=== PATIENT | female | born 1990 | race Caucasian/White ===

== ENCOUNTER 2022-11-16 08:36 | Outpatient (OUT) | payer BC, SELFPAY ==
--- NOTE | 2022-11-16 08:34 | US_ITS ---
[address] [address] Patient Name: MARY BONE MRN: [id number] date: 1990 Sex: F Assigned Patient Location: US Current Patient Location: US Accession/Order Number: [id number] Exam Date: 11/16/2022 08:35 Report Date: 11/17/2022 08:06 At the request of: DEMOND ARANDA Procedure: US OB transvaginal EXAMINATION: US OB anatomy, US OB transvaginal HISTORY: Anatomy COMPARISON: No relevant comparison available. TECHNIQUE: Transabdominal sonographic examination was performed for obstetrical and evaluation. FINDINGS: Number: One Heart Rate: 153 H.B. /min Amniotic Fluid Volume: Subjectively normal Placental Location: Anterior with lower margin 3.2 cm from os. Hypoechoic area within inferior placenta favoring a venous valle. Cervix Length: 5.2 cm, closed. ANATOMY: Normal Structures -cerebellum, choroid plexus, cisterna magna, lateral cerebral ventricles, orbits, midline falx, hard palate, four-chamber heart, RVOT, LVOT, stomach, kidneys, bladder, umbilical cord insertion into abdomen, three-vessel cord, cervical spine, thoracic spine, lumbar spine, sacral spine, right upper extremity, left upper extremity, right lower extremity, left lower extremity. SUBOPTIMALLY SEEN: None ABNORMALITIES: None BIOMETRY: BPD: 4.7 cm , 20 weeks 1 day HC: 18.2 cm, 20 weeks 4 days AC: 15.0 cm, 20 weeks 2 days FL: 3.5 cm, 20 weeks 6 days EFW:360 g; 35% FL/AC: 23.0 FL/BPD: 73.9 HC/AC: 1.2 GESTATIONAL AGE: Age by EDC: 20 weeks 5 days SON by EDC: 03/31/2023 Age by current US: 20 weeks 3 days SON by current US: 04/02/2023 IMPRESSION: 1. Single live intrauterine with growth detailed above. Electronically authenticated by: LAVINIA WEST Date: 11/17/2022 08:06
--- NOTE | 2022-11-16 08:34 | US_ITS ---
[address] [address] Patient Name: MARY BONE MRN: [id number] date: 1990 Sex: F Assigned Patient Location: US Current Patient Location: US Accession/Order Number: [id number] Exam Date: 11/16/2022 08:35 Report Date: 11/17/2022 08:06 At the request of: DEMOND ARANDA Procedure: US OB anatomy EXAMINATION: US OB anatomy, US OB transvaginal HISTORY: Anatomy COMPARISON: No relevant comparison available. TECHNIQUE: Transabdominal sonographic examination was performed for obstetrical and evaluation. FINDINGS: Number: One Heart Rate: 153 H.B. /min Amniotic Fluid Volume: Subjectively normal Placental Location: Anterior with lower margin 3.2 cm from os. Hypoechoic area within inferior placenta favoring a venous valle. Cervix Length: 5.2 cm, closed. ANATOMY: Normal Structures -cerebellum, choroid plexus, cisterna magna, lateral cerebral ventricles, orbits, midline falx, hard palate, four-chamber heart, RVOT, LVOT, stomach, kidneys, bladder, umbilical cord insertion into abdomen, three-vessel cord, cervical spine, thoracic spine, lumbar spine, sacral spine, right upper extremity, left upper extremity, right lower extremity, left lower extremity. SUBOPTIMALLY SEEN: None ABNORMALITIES: None BIOMETRY: BPD: 4.7 cm , 20 weeks 1 day HC: 18.2 cm, 20 weeks 4 days AC: 15.0 cm, 20 weeks 2 days FL: 3.5 cm, 20 weeks 6 days EFW:360 g; 35% FL/AC: 23.0 FL/BPD: 73.9 HC/AC: 1.2 GESTATIONAL AGE: Age by EDC: 20 weeks 5 days SON by EDC: 03/31/2023 Age by current US: 20 weeks 3 days SON by current US: 04/02/2023 IMPRESSION: 1. Single live intrauterine with growth detailed above. Electronically authenticated by: LAVINIA WEST Date: 11/17/2022 08:06
== END 2022-11-16 08:37 ==
PROVIDERS: PCP Obstetrics & Gynecology; Visit Provider Obstetrics & Gynecology
DX: Z34.92 Encounter for supervision of normal pregnancy, unspecified, second trimester (principal); Z3A.20 20 weeks gestation of pregnancy
CPT/HCPCS: 76805; 76817

== ENCOUNTER 2023-01-08 09:22 | Outpatient (OUT) | payer BC, SELFPAY ==
--- NOTE | 2023-01-08 09:28 | US_ITS ---
[address] [address] Patient Name: MARY BONE MRN: [id number] date: 1990 Sex: F Assigned Patient Location: Current Patient Location: Accession/Order Number: [id number] Exam Date: 01/08/2023 09:30 Report Date: 01/08/2023 15:57 At the request of: DEMOND ARANDA Procedure: US OB growth EXAMINATION: US OB growth HISTORY: GDM COMPARISON: Ultrasound OB anatomy 11/16/2022 FINDINGS: Heart Rate: 143.0 bpm Number: 1.0 Position: TRANSVERSE Amniotic Fluid Volume: 16.0 cm Maximum Vertical Pocket: 4.7 cm BIOMETRY: BPD: 6.9 cm cm; 27 weeks 5 days HC: 26.0 cmcm; 28 weeks 2 days AC: 23.4 cm cm; 27 weeks 5 days FL: 5.3 cm cm; 28 weeks 0 days EFW: 1139.7 grams; 23% FL/AC: 22.5 FL/BPD: 76.3 HC/AC: 1.1 GESTATIONAL AGE: Age by EDC: 28 weeks 2 days SON by EDC: 03/31/2023 Age by US: 20 weeks 0 days SNO by US: 04/02/2023 US/US OB growth IMPRESSION: 1. Single live intrauterine with growth detailed above. Electronically authenticated by: LAVINIA WEST Date: 01/08/2023 15:57
== END 2023-01-08 09:23 | disposition home or self-care (01) ==
LOC: US 09:22
PROVIDERS: PCP Family Medicine; Visit Provider Obstetrics & Gynecology
DX: Z86.32 Personal history of gestational diabetes (principal)
CPT/HCPCS: 76816

== ENCOUNTER 2023-01-20 11:40 | Outpatient (OUT) | payer BC, SELFPAY ==
[2023-01-20 11:58] VITALS: BP 122/68; PULSE 91; TEMP 35.4
[2023-01-20 12:06] LABS: Glucometer 121 mg/dL (74-106)
[2023-01-20 12:26] LABS: Bilirubin Urine NEGATIVE (NEGATIVE); Blood Urine NEGATIVE (NEGATIVE); Clarity Urine SL CLOUDY (CLEAR); Color Urine YELLOW (YELLOW); Glucose Urine UA NEGATIVE (NEGATIVE); Ketones Urine 15 mg/dL (NEGATIVE); Leukocyte Esterase Urine SMALL (NEGATIVE); Nitrite Urine NEGATIVE (NEGATIVE); Protein Urine 100 mg/dL (NEG/TRACE); Specific Gravity Urine 1.025 (1.005-1.025); pH Urine 6.5 (5.0-9.0)
[2023-01-20 12:30] LABS: Urine Microscopic Indicated YES
[2023-01-20 12:38] LABS: Bacteria Urine MODERATE #/HPF (NONE SEEN); Cast Seen? NONE SEEN #/LPF (NONE SEEN); Crystals Seen? None Seen #/HPF (None Seen); Mucus Urine TRACE (NONE SEEN); RBC Urine 0-2 #/HPF (0-2); Squamous Epithelial Cell Urine MODERATE #/LPF (NONE/RARE); Urine Culture Indicated YES
[2023-01-20] MEDS: 0.9 % SODIUM CHLORIDE 1,000 ML 1000 ML IV (12:51)
== END 2023-01-20 13:55 | disposition home or self-care (01) ==
LOC: FBCO 11:45 → FBC 11:45
PROVIDERS: PCP Family Medicine; Visit Provider Obstetrics & Gynecology
DX: O26.893 Other specified pregnancy related conditions, third trimester (principal); Z3A.30 30 weeks gestation of pregnancy; R42 Dizziness and giddiness; R53.1 Weakness
CPT/HCPCS: 36415; 59025; 81001; 81003; 87086

== ENCOUNTER 2023-02-14 12:55 | Outpatient (OUT) | payer BC, SELFPAY ==
--- NOTE | 2023-02-14 12:57 | US_ITS ---
[address] [address] Patient Name: MARY BONE MRN: [id number] date: 1990 Sex: F Assigned Patient Location: US Current Patient Location: US Accession/Order Number: [id number] Exam Date: 02/14/2023 13:05 Report Date: 02/14/2023 13:54 At the request of: DEMOND ARANDA Procedure: US OB growth EXAMINATION: US OB growth HISTORY: HISTORY GESTATIONAL DIABETES Z86.32 COMPARISON: No relevant comparison available. FINDINGS: Heart Rate: 115.0 bpm Amniotic Fluid Volume: 13.2 cm Number: 1.0 Position: Cephalic presentation, longitudinal lie Maximum Vertical Pocket: 3.0 cm cm 2.8 cm cm 2.6 cm cm 4.9 cm cm BIOMETRY: BPD: 7.9 cm cm; 31 weeks 5 days; 6% HC: 30.4 cmcm; 33 weeks 6 days, 20% AC: 28.8 cm cm; 32 weeks 6 days, 30% FL: 6.3 cm cm; 32 weeks 4 days; 14.9 % % EFW: 2034.9 grams, 4 lbs. 8 oz., 20% FL/AC: 21.8 FL/BPD: 79.4 HC/AC: 1.1 GESTATIONAL AGE: Age by EDC: 33 weeks 4 days SON by EDC: 03/31/2023 Age by US: 32 weeks 5 days SON by US: 04/06/2023 US/US OB growth IMPRESSION: Normal interval growth Electronically authenticated by: JUAN ANTONIO BLACKMAN Date: 02/14/2023 13:54
== END 2023-02-14 12:56 | disposition home or self-care (01) ==
LOC: US 12:55
PROVIDERS: PCP Family Medicine; Visit Provider Obstetrics & Gynecology
DX: Z34.93 Encounter for supervision of normal pregnancy, unspecified, third trimester (principal); Z86.32 Personal history of gestational diabetes
CPT/HCPCS: 76816

== ENCOUNTER 2023-02-21 06:55 | Outpatient (OUT) | payer BC, SELFPAY ==
--- NOTE | 2023-02-21 | ECG_ITS ---
[facility] Test Date: 2023-02-21 Pat Name: MARY BONE Department: Room: - Gender: Female [employer]: : 1990 Requested By: DEMOND ARANDA Order Number: [id number] Reading MD: MAURICE DIEZ Measurements Intervals [place] Rate: 81 P: 52 WY: 128 QRS: 67 QRSD: 89 T: 19 QT: 336 QTc: 391 Interpretive Statements SINUS RHYTHM No previous ECG available for comparison Electronically Signed On 02-22-2023 7:01:26 EDT by MAURICE DIEZ
--- NOTE | 2023-02-21 07:57 | CA_ITS ---
Patient: MARY BONE Exam Date: 02/21/2023 : 1990 Gender:F Ordering : DR Jae Tim . Admission #: [id number] Family : Order #: [id number] CLICK HERE TO VIEW EXAM ECHOCARDIOGRAM REPORT PROCEDURE: CA ECHO DOPPLER COMPLETE INDICATIONS: Syncope COMPARISON: None. DESCRIPTION: COMPLETE ECHOCARDIOGRAM Real-time transthoracic echocardiography with 2D, M-mode, spectral and color flow Doppler performed. QUALITY: Technical quality was good. LEFT VENTRICLE: Normal chamber size. Moderate concentric left ventricular hypertrophy. Global left ventricular systolic function is normal. LV EF: Estimated left ventricular ejection fraction is 65-70%. DIASTOLIC: Normal diastolic function. ATRIAL SEPTUM: LEFT ATRIUM: Normal chamber size. RIGHT ATRIUM: Mild dilatation. RIGHT VENTRICLE: Mild dilatation. Normal right ventricular systolic function. TRICUSPID VALVE: Normal mobility and thickness. No stenosis with mild regurgitation. No evidence of pulmonary hypertension. RVSP 26 mmHg MITRAL VALVE: Normal mobility and thickness. No evidence of mitral valve stenosis. There is no mitral annular calcification. No mitral regurgitation. AORTIC VALVE: Normal trileaflet appearance. No visible sclerosis. Normal leaflet mobility. No evidence of aortic valve stenosis. No aortic regurgitation. AORTIC ROOT: Normal diameter and appearance. PULMONIC VALVE: Normal thickness and mobility. No stenosis. Trivial regurgitation. PERICARDIUM: No evidence of pericardial effusion. IVC: Collapses with inspirations. Normal size. PLEURA: CONCLUSION: 1. Moderate concentric left ventricular hypertrophy with normal systolic function. Estimated LV ejection fraction is 65-70%. 2. Mildly dilated right ventricle with normal systolic function. 3. Mild right atrial dilatation. 4. No significant valvular dysfunction. 5. Normal right sided pressures. Adult Echocardiography Procedure Report Left Ventricle LVEDD (3.7 - 5.6 cm): 3.80 cm LVESD (2.2 - 4.0 cm): 2.17 cm LVIVS thickness (0.6 - 1.2 cm): 1.57 cm LVPW thickness (0.5 - 1.0 cm): 1.48 cm e': 0.11 m/s E - e': 5.73 LVOT Max Gradient: 3.62 mm[Hg], 4.03 mm[Hg] LVOT Area (cm2): 0.98 m/s Peak Velocity (LVOT): 0.95 m/s, 1.00 m/s Mean Velocity (LVOT): 0.64 m/s LVOT Diameter 2.10 cm Left Ventricular Ejection Fraction: 65-70 % Left Atrium LA Volume Index (2D A2C): 32.60 ml/m2 Left Atrium Systolic Dimension: 4.02 cm Mitral Valve MV E to A Ratio: 0.81, 0.95 Mitral Valve A-Wave Peak Velocity: 0.71 m/s Mitral Valve E-Wave Peak Velocity: 0.62 m/s Right Ventricle RV Internal Diastolic Dimension: 3.63 cm Aorta AO Root Diam: 2.91 cm Ascending Ao Diam: 2.73 cm Aortic Valve AoV Area (Peak Jeff): 2.09 cm2, 2.03 cm2 AoV Area (VTI): 2.60 cm2, 2.73 cm2 Peak Velocity(Antegrade Flow): 1.62 m/s Peak Gradient(Antegrade Flow): 10.44 mm[Hg] Mean Velocity(Antegrade Flow): 1.08 m/s Mean Gradient(Antegrade Flow): 5.37 mm[Hg] Velocity Time Integral: 28.92 cm Tricuspid Valve Peak Velocity (Regurgitant Flow): 2.37 m/s, 2.20 m/s, 2.16 m/s, 2.38 m/s Pulmonic Valve Mean Gradient: 2.65 mm[Hg], 2.46 mm[Hg], 2.43 mm[Hg], 2.46 mm[Hg] Mean Velocity: 0.76 m/s, 0.73 m/s, 0.72 m/s, 0.74 m/s Peak Velocity: 1.08 m/s Peak Gradient: 5.31 mm[Hg], 4.61 mm[Hg], 4.61 mm[Hg], 4.20 mm[Hg] Right Atrium Right Atrium Systolic Pressure: 49.53 ml, 49.53 ml Dictated by: Matt Lau M.D. on 02/22/2023 at 08:55 Approved by: Matt Lau M.D. on 02/22/2023 at 09:08
== END 2023-02-21 06:56 | disposition home or self-care (01) ==
LOC: CARD 06:56
PROVIDERS: PCP Family Medicine; Visit Provider Obstetrics & Gynecology
DX: O24.415 Gestational diabetes mellitus in pregnancy, controlled by oral hypoglycemic drugs (principal); O26.893 Other specified pregnancy related conditions, third trimester; R55 Syncope and collapse; Z3A.34 34 weeks gestation of pregnancy
CPT/HCPCS: 76818; 93005; 93306

== ENCOUNTER 2023-02-21 16:10 | Outpatient (OUT) | payer BC, SELFPAY ==
--- NOTE | 2023-02-21 | US_ITS ---
[address] [address] Patient Name: MARY BONE MRN: [id number] date: 1990 Sex: F Assigned Patient Location: US Current Patient Location: CARD Accession/Order Number: [id number] Exam Date: 02/21/2023 16:00 Report Date: 02/21/2023 16:38 At the request of: DEMOND ARANDA Procedure: US OB BPP w non-stress EXAMINATION: US OB BPP w non-stress HISTORY: GESTATIONAL DIABETES MELLITUS COMPARISON: No relevant comparison available. TECHNIQUE: Ultrasound biophysical profile was performed in the radiology department. FINDINGS: BREATHING MOVEMENTS: 2.0 GROSS BODY MOVEMENTS: 2.0 TONE: 2.0 QUALITATIVE AMNIOTIC FLUID VOLUME: 2.0 PRESENTATION: CEPHALIC HEART RATE: 132.4 bpm H.B./min AMNIOTIC FLUID VOLUME: 15.6 cm cm GESTATIONAL AGE: 34 weeks 4 days CONCLUSION: Total biophysical profile score: 8.0 Electronically authenticated by: JUAN ANTONIO BLACKMAN Date: 02/21/2023 16:38
[2023-02-21 16:26] VITALS: RESP 18
[2023-02-21 16:27] VITALS: BP 133/62; PULSE 85; TEMP 35.8; TEMP 36.1
[2023-02-21 16:28] VITALS: TEMP 35.9
[2023-02-21 16:29] VITALS: RESP 18
[2023-02-21 17:09] VITALS: BP 121/74; PULSE 87
== END 2023-02-21 17:12 | disposition home or self-care (01) ==
LOC: US 16:10 → FBC 16:10
PROVIDERS: PCP Family Medicine; Visit Provider Obstetrics & Gynecology
DX: O24.415 Gestational diabetes mellitus in pregnancy, controlled by oral hypoglycemic drugs (principal); Z3A.34 34 weeks gestation of pregnancy
CPT/HCPCS: 76818

== ENCOUNTER 2023-02-24 14:49 | Outpatient (OUT) | payer BC, SELFPAY ==
[2023-02-24 15:04] VITALS: BP 111/75; PULSE 106
== END 2023-02-24 16:00 | disposition home or self-care (01) ==
LOC: FBCO 14:50 → FBC 14:51
PROVIDERS: PCP Family Medicine; Visit Provider Obstetrics & Gynecology
DX: O24.415 Gestational diabetes mellitus in pregnancy, controlled by oral hypoglycemic drugs (principal); Z3A.00 Weeks of gestation of pregnancy not specified
CPT/HCPCS: 59025

== ENCOUNTER 2023-02-28 08:51 | Outpatient (OUT) | payer BC, SELFPAY ==
--- NOTE | 2023-02-28 08:53 | US_ITS ---
[address] [address] Patient Name: MARY BONE MRN: [id number] date: 1990 Sex: F Assigned Patient Location: US Current Patient Location: Accession/Order Number: [id number] Exam Date: 02/28/2023 09:00 Report Date: 02/28/2023 16:39 At the request of: DEMOND ARANDA Procedure: US OB BPP w non-stress EXAMINATION: US OB BPP w non-stress HISTORY: GESTATIONAL DIABETES MELLITUS 024.415 COMPARISON: No relevant comparison available. TECHNIQUE: Ultrasound biophysical profile was performed in the radiology department. non-reactive stress testing was performed by nursing staff in the birthing center. FINDINGS: BREATHING MOVEMENTS: 2 GROSS BODY MOVEMENTS: 2 TONE: 2 QUALITATIVE AMNIOTIC FLUID VOLUME: 2 PRESENTATION: CEPHALIC HEART RATE: 185.5 bpm H.B./min AMNIOTIC FLUID VOLUME: 14.0 cm cm GESTATIONAL AGE: 35 weeks 4 days CONCLUSION: Total biophysical profile score: 8 Electronically authenticated by: JUAN ANTONIO BLACKMAN Date: 02/28/2023 16:39
[2023-02-28 09:25] VITALS: BP 126/58; PULSE 122
[2023-02-28 09:46] VITALS: BP 101/63; PULSE 106
== END 2023-02-28 10:15 | disposition home or self-care (01) ==
LOC: US 08:51 → FBC 09:05
PROVIDERS: PCP Family Medicine; Visit Provider Obstetrics & Gynecology
DX: O24.415 Gestational diabetes mellitus in pregnancy, controlled by oral hypoglycemic drugs (principal); Z3A.35 35 weeks gestation of pregnancy
CPT/HCPCS: 76818

== ENCOUNTER 2023-03-03 10:10 | Outpatient (OUT) | payer BC, SELFPAY | END 2023-03-03 11:40 | disposition home or self-care (01) | LOC: FBCO 10:11 → FBC 10:50 | PROVIDERS: PCP Family Medicine; Visit Provider Obstetrics & Gynecology | DX: O24.415 Gestational diabetes mellitus in pregnancy, controlled by oral hypoglycemic drugs (principal); Z3A.00 Weeks of gestation of pregnancy not specified | CPT/HCPCS: 59025 ==

== ENCOUNTER 2023-03-07 14:01 | Outpatient (OUT) | payer BC, SELFPAY ==
--- NOTE | 2023-03-07 14:02 | US_ITS ---
[address] [address] Patient Name: MARY BONE MRN: [id number] date: 1990 Sex: F Assigned Patient Location: [facility] Current Patient Location: LAB Accession/Order Number: [id number] Exam Date: 03/07/2023 14:05 Report Date: 03/07/2023 15:31 At the request of: DEMOND ARANDA Procedure: US OB BPP w non-stress EXAMINATION: US OB BPP w non-stress HISTORY: GESTATIONAL DIABETES O24.415 COMPARISON: Ultrasound OB biophysical 02/28/2023 TECHNIQUE: Ultrasound biophysical profile was performed in the radiology department. BREATHING MOVEMENTS: 2.0 GROSS BODY MOVEMENTS: 2.0 TONE: 2.0 QUALITATIVE AMNIOTIC FLUID VOLUME: 2.0 PRESENTATION: CEPHALIC HEART RATE: 136.4 bpm bpm. AMNIOTIC FLUID VOLUME: 15.3 cm GESTATIONAL AGE: 36 weeks 4 days CONCLUSION: Total biophysical profile score 8.0. Electronically authenticated by: LAVINIA WEST Date: 03/07/2023 15:31
[2023-03-07 14:33] VITALS: BP 126/76; PULSE 95
== END 2023-03-07 14:55 | disposition home or self-care (01) ==
LOC: US 14:01 → FBC 14:02
PROVIDERS: PCP Family Medicine; Visit Provider Obstetrics & Gynecology
DX: O24.415 Gestational diabetes mellitus in pregnancy, controlled by oral hypoglycemic drugs (principal); Z3A.36 36 weeks gestation of pregnancy; O99.891 Other specified diseases and conditions complicating pregnancy; I47.1 Supraventricular tachycardia; R00.2 Palpitations
CPT/HCPCS: 36415; 76818; 80053; 83735; 84439; 84443; 85025; 87081

== ENCOUNTER 2023-03-07 15:05 | Outpatient (OUT) | payer BC, SELFPAY ==
[2023-03-07 15:54] LABS: Basophils Percent Auto 0.2 % (0.2-2.0); Eosinophils Absolute Auto 0.1 10^3/uL (0.0-0.7); Hematocrit 29.7 % (36.0-48.0); Hemoglobin 9.6 g/dL (12.0-16.0); Immature Granulocytes Abs Auto 0.11 10^3/uL (0.00-0.03); Immature Granulocytes Pct Auto 1.1 % (0.0-0.5); Lymphocytes Percent Auto 20.8 % (20.5-60.0); Mean Corpuscular HGB Conc 32.3 g/dL (29.9-35.2); Mean Corpuscular Hemoglobin 26.4 pg (26.7-34.0); Mean Corpuscular Volume 81.6 fL (81.0-99.0); Mean Platelet Volume 10.4 fL (9.5-13.5); Monocytes Absolute Auto 0.5 10^3/uL (0.3-0.8); Neutrophils Percent Auto 71.9 % (43.0-75.0); Platelet Count 235 10^3/uL (150-450); Red Blood Count 3.64 10^6/uL (4.20-5.40); Red Cell Distribution Width 13.1 % (11.0-15.0); White Blood Count 9.7 10^3/uL (4.0-11.0)
[2023-03-07 16:26] LABS: Free T4 0.84 ng/dL (0.76-1.46)
[2023-03-07 16:34] LABS: Alanine Aminotransferase 24 U/L (14-59); Albumin Globulin Ratio 0.6; Albumin Level 2.4 g/dL (3.4-5.0); Alkaline Phosphatase 127 U/L (46-116); Anion Gap 13.5; Aspartate Amino Transferase 20 U/L (15-37); BUN Creatinine Ratio 10.4; Bilirubin Total 0.3 mg/dL (0.2-1.0); Calcium 9.1 mg/dL (8.5-10.1); Carbon Dioxide 22.4 mmol/L (21.0-32.0); Chloride 104 mmol/L (98-107); Estimated GFR (African America >60 (>=60); Estimated GFR (Non-African Ame >60 (>=60); Globulin 4.1 g/dL; Glucose 130 mg/dL (74-106); Magnesium 1.6 mg/dL (1.8-2.4); Potassium 3.9 mmol/L (3.5-5.1); Sodium 136 mmol/L (136-145); Thyroid Stimulating Hormone 2.122 uIU/mL (0.358-3.740); Total Protein 6.5 g/dL (6.4-8.2)
== END 2023-03-07 15:06 | disposition home or self-care (01) ==
LOC: LAB 15:06
PROVIDERS: PCP Family Medicine; Visit Provider Nurse Practitioner
DX: I47.1 Supraventricular tachycardia (principal)
CPT/HCPCS: 36415; 80053; 83735; 84439; 84443; 85025

== ENCOUNTER 2023-03-07 19:50 | Outpatient (REF) | payer BC, SELFPAY | END 2023-03-07 19:51 | disposition home or self-care (01) | LOC: LAB 19:50 | PROVIDERS: PCP Family Medicine; Visit Provider Obstetrics & Gynecology | DX: Z34.93 Encounter for supervision of normal pregnancy, unspecified, third trimester (principal) | CPT/HCPCS: 36415; 80053; 83735; 84439; 84443; 85025; 87081 ==

== ENCOUNTER 2023-03-10 10:15 | Outpatient (OUT) | payer BC, SELFPAY ==
[2023-03-10 10:28] VITALS: BP 122/70; PULSE 83
== END 2023-03-10 10:50 | disposition home or self-care (01) ==
LOC: FBCO 10:21 → FBC 10:21
PROVIDERS: PCP Family Medicine; Visit Provider Obstetrics & Gynecology
DX: O24.415 Gestational diabetes mellitus in pregnancy, controlled by oral hypoglycemic drugs (principal); Z3A.00 Weeks of gestation of pregnancy not specified
CPT/HCPCS: 59025

== ENCOUNTER 2023-03-14 10:00 | Inpatient (IN) | payer BC, SELFPAY ==
[2023-03-14] VITALS (35 sets, daily range): BP systolic 91–235; BP diastolic 59–157; PULSE 60–95; RESP 16–18; TEMP 30.2–36.2
--- NOTE | 2023-03-14 | US_ITS ---
[address] [address] Patient Name: MARY BONE MRN: [id number] date: 1990 Sex: F Assigned Patient Location: [facility] Current Patient Location: [facility] Accession/Order Number: [id number] Exam Date: 03/14/2023 09:00 Report Date: 03/14/2023 18:25 At the request of: DEMOND ARANDA Procedure: US OB BPP w non-stress EXAMINATION: US OB BPP w non-stress HISTORY: GESTATIONL DIABETES MELLITUS O24.415 COMPARISON: No relevant comparison available. TECHNIQUE: Ultrasound biophysical profile was performed in the radiology department. FINDINGS: BREATHING MOVEMENTS: 2.0 GROSS BODY MOVEMENTS: 2.0 TONE: 2.0 QUALITATIVE AMNIOTIC FLUID VOLUME: 2.0 PRESENTATION: CEPHALIC HEART RATE: 136.4 bpm H.B./min AMNIOTIC FLUID VOLUME: 7.6 cm cm GESTATIONAL AGE: 37 weeks 4 days CONCLUSION: Total biophysical profile score: 8.0 Electronically authenticated by: JUAN ANTONIO BLACKMAN Date: 03/14/2023 18:25
--- NOTE | 2023-03-14 | US_ITS ---
[address] [address] Patient Name: MARY BONE MRN: [id number] date: 1990 Sex: F Assigned Patient Location: Current Patient Location: [facility] Accession/Order Number: [id number] Exam Date: 03/14/2023 09:00 Report Date: 03/14/2023 18:29 At the request of: DEMOND ARANDA Procedure: US OB growth EXAMINATION: US OB growth HISTORY: GESTATIONAL DIABETES MELLITUS O24.415 COMPARISON: No relevant comparison available. FINDINGS: Heart Rate: 136.4 bpm Amniotic Fluid Volume: 7.6 cm , 5th percentile 7.5 cm Number: 1.0 Position: Cephalic presentation, longitudinal lie Maximum Vertical Pocket: 1.4 cm cm 3.5 cm cm 1.4 cm cm 1.3 cm cm BIOMETRY: BPD: 8.5 cm cm; 34 weeks 1 days; <3% HC: 31.6 cmcm; 35 weeks 3 days <3% AC: 29.1 cm cm; 33 weeks 1 days<3% FL: 6.4 cm cm; 33 weeks 1 days; <3 % EFW: 2197.4 grams, 4 lbs. 13 oz., less than 3% FL/AC: 22.0 FL/BPD: 75.6 HC/AC: 1.1 GESTATIONAL AGE: Age by EDC: 37 weeks 4 days SON by EDC: 03/31/2023 Age by US: 34 weeks 0 days SON by US: 04/25/2023 US/US OB growth IMPRESSION: Intrauterine growth retardation Borderline oligohydramnios Electronically authenticated by: JUAN ANTONIO BLACKMAN Date: 03/14/2023 18:29
[2023-03-14] MEDS: 0.9 % SODIUM CHLORIDE 1,000 ML 125 ML IV ×2 (11:26→17:56)
[2023-03-14] MEDS: OXYTOCIN/0.9 % SODIUM CHLORIDE 10 UNITS/500 ML PLAST..BAG 6 UNIT IV (11:27)
[2023-03-14 11:39] LABS: Hematocrit 29.7 % (36.0-48.0); Hemoglobin 9.6 g/dL (12.0-16.0); Mean Corpuscular HGB Conc 32.3 g/dL (29.9-35.2); Mean Corpuscular Hemoglobin 26.2 pg (26.7-34.0); Mean Corpuscular Volume 81.1 fL (81.0-99.0); Mean Platelet Volume 10.2 fL (9.5-13.5); Platelet Count 207 10^3/uL (150-450); Red Blood Count 3.66 10^6/uL (4.20-5.40); Red Cell Distribution Width 13.5 % (11.0-15.0); White Blood Count 9.6 10^3/uL (4.0-11.0)
[2023-03-14 12:01] LABS: Amphetamine Screen Urine NEGATIVE (NEGATIVE); Barbiturates Screen Urine NEGATIVE (NEGATIVE); Benzodiazepines Screen Urine NEGATIVE (NEGATIVE); Buprenorphine Screen Urine NEGATIVE (NEGATIVE); Cannabinoid Screen Urine NEGATIVE (NEGATIVE); Cocaine Screen Urine NEGATIVE (NEGATIVE); Methadone Screen Urine NEGATIVE (NEGATIVE); Methamphetamines Screen Urine NEGATIVE (NEGATIVE); Opiate Screen Urine NEGATIVE (NEGATIVE); Oxycodone Screen Urine NEGATIVE (NEGATIVE); Phencyclidine Screen Urine NEGATIVE (NEGATIVE); Tricyclic Antidepressant Urine NEGATIVE (NEGATIVE)
[2023-03-14 16:43] LABS: Glucometer 76 mg/dL (74-106)
[2023-03-14] MEDS: OXYTOCIN/0.9 % SODIUM CHLORIDE 20 UNITS/1,000 ML PLAST..BAG 125 UNIT IV (17:56)
--- NOTE | 2023-03-14 18:03 | PM.OBPRCVD ---
Procedure Intrapartal events: None Induction method: per pitocin protocol Delivery augmentation: rupture of membranes and pitocin Delivery monitor: external FHT and external uterine Route of delivery: Laceration description: perineal - 1st degree Delivery repair: Vicryl Estimated blood loss (mL): 400 Anesthesia type: None Disposition: floor Delivery date: 03/14/23 Gender: female presentation: vertex Placental delivery description: Spontaneous cord description: 3 Vessels and True Knot Labor State Duration Total Length of Latency: 4 hours and 47 minutes
[2023-03-14] MEDS: LABETALOL HCL 200 MG TABLET PO (22:33)
[2023-03-14] MEDS: IBUPROFEN 600 MG TABLET PO (23:45)
--- NOTE | 2023-03-14 23:46 | PM.EN ---
Event Note Event Note: this provider called to room for delivery as Dr Tim was Enroute and patient was complete with urge to push. RN in attendance as well, patient breathing and panting with contractions. Patient unable to pant after 3 sets of contractions and involuntarily begins to push. Baby is , RN supports head, and I then delivered the baby and placed baby onto patients abdomen for skin to skin. Dr Tim to room and he does 3rd stage management and 1st degree repair.
[2023-03-15] VITALS (8 sets, daily range): BP systolic 109–129; BP diastolic 61–72; PULSE 65–75; RESP 14–20; TEMP 36.2–36.5
[2023-03-15 06:15] LABS: Basophils Percent Auto 0.3 % (0.2-2.0); Eosinophils Absolute Auto 0.2 10^3/uL (0.0-0.7); Eosinophils Percent Auto 1.3 % (0.9-7.0); Hematocrit 26.4 % (36.0-48.0); Hemoglobin 8.3 g/dL (12.0-16.0); Immature Granulocytes Abs Auto 0.09 10^3/uL (0.00-0.03); Immature Granulocytes Pct Auto 0.8 % (0.0-0.5); Lymphocytes Absolute Auto 2.9 10^3/uL (1.2-3.8); Lymphocytes Percent Auto 25.5 % (20.5-60.0); Mean Corpuscular HGB Conc 31.4 g/dL (29.9-35.2); Mean Corpuscular Volume 82.8 fL (81.0-99.0); Mean Platelet Volume 9.4 fL (9.5-13.5); Monocytes Absolute Auto 0.7 10^3/uL (0.3-0.8); Monocytes Percent Auto 6.4 % (1.7-12.0); Neutrophils Absolute Auto 7.5 10^3/uL (1.4-6.5); Neutrophils Percent Auto 65.7 % (43.0-75.0); Platelet Count 183 10^3/uL (150-450); Red Blood Count 3.19 10^6/uL (4.20-5.40); Red Cell Distribution Width 13.5 % (11.0-15.0); White Blood Count 11.5 10^3/uL (4.0-11.0)
--- NOTE | 2023-03-15 07:14 | W.PC.ACHO ---
Registration Status: ADM IN Primary Language: Guatemalan Preferred Language: Guatemalan report given to Andriy Pagan RN. Active Medications Generic Name Dose Route Start Last Admin Trade Name Freq PRN Reason Stop Dose Admin Acetaminophen 650 mg 03/14/23 18:09 Acetaminophen 325 Mg Tablet PO Q6H PRN Mild Pain Al Hydroxide/Mg Hydroxide 2,400 mg 03/14/23 18:09 Magnesium Hydroxide 2,400 Mg/10 Ml Oral.Susp PO Q6H PRN Dyspepsia Benzocaine/Menthol 1 applic 03/14/23 18:09 Benzocaine/Menthol 85 Gram [place] Bottle TOPICAL Q2H PRN Pain Carboprost Tromethamine 250 mcg 03/14/23 10:17 Carboprost Tromethamine 250 Mcg/Ml 1 Ml Vial IM 03/15/23 19:00 Q15M PRN Bleeding Diphtheria/Pertussis/Tetanus Vacc 0.5 ml 03/16/23 09:00 Adacel Diph,Pertuss(Acell),Tet Vac/Pf 0.5 Ml Adult Syringe IM 03/16/23 09:01 .ONCE ONE Sodium Chloride 1,000 mls @ 125 mls/hr 03/14/23 10:30 03/14/23 17:56 Sodium Chloride 0.9% 1,000 Ml IV 125 mls/hr .Q8H MARCELA Administration Ibuprofen 600 mg 03/14/23 18:09 03/14/23 23:45 Ibuprofen 600 Mg Tablet PO 600 mg Q6H PRN Administration Moderate Pain Labetalol HCl 200 mg 03/14/23 22:00 03/14/23 22:33 Labetalol Hcl 200 Mg Tablet PO 200 mg BID MARCELA Administration Measles/Mumps/Rubella Vaccine Live 0.5 ml 03/16/23 09:00 Measles,Mumps,Rubella Vacc/Pf 0.5 Ml Vial SQ 03/16/23 09:01 .ONCE ONE Methylergonovine Maleate 0.2 mg 03/14/23 10:17 Methylergonovine Maleate 0.2 Mg/Ml Ampule IM 03/15/23 19:00 ONCE PRN Uterine Contractility/Contract Methylergonovine Maleate 0.2 mg 03/14/23 10:17 Methylergonovine Maleate 0.2 Mg Tablet PO 03/15/23 19:00 Q4H PRN Uterine Contractility/Contract Misoprostol 600 mcg 03/14/23 10:17 Misoprostol 100 Mcg Tablet PO 03/15/23 19:00 ONCE PRN Uterine Bleeding Misoprostol 800 mcg 03/14/23 10:17 Misoprostol 100 Mcg Tablet SL 03/15/23 19:00 ONCE PRN Uterine Bleeding Misoprostol 1,000 mcg 03/14/23 10:17 Misoprostol 100 Mcg Tablet MS 03/15/23 19:00 ONCE PRN Uterine Bleeding Ondansetron HCl 4 mg 03/14/23 10:22 Ondansetron Pf 4 Mg/2 Ml Vial IV Q6H PRN Nausea And Vomiting Simethicone 80 mg 03/14/23 18:09 Simethicone 80 Mg Tab.Chew PO QID PRN Abdominal Distention Temazepam 15 mg 03/14/23 18:09 Temazepam 15 Mg Capsule PO QHS PRN Sleep Witch Lizzette/Glycerin 1 pad 03/14/23 18:09 Glycerin/Witch Lizzette Pads TOPICAL Q2H PRN Pain Diet Category Date Time Status Regular Consistency Diet Diet 03/14/23 Dinner Active IV Insertion/Site Date of IV Line Insertion [20g 03/14/23 left Forearm] Date of IV Line Insertion [20g 03/14/23 left Forearm] IV Insertion Time [20g left 16:20 Forearm] IV Insertion Time [20g left 11:10 Forearm] Neurology Patient orientation (short person,place,time,situation list) Respiratory Oxygen Delivery Method Room Air Oxygen Delivery Method Room Air Renal Bladder Pattern Continent Bladder Pattern Continent
[2023-03-15] MEDS: IBUPROFEN 600 MG TABLET PO ×3 (08:04→21:06)
--- NOTE | 2023-03-15 08:10 | PM.OBPN ---
OB - PN: Subj Subjective Patient comments: no complaints and pain well controlled [place] status: doing well Exam Constitutional Vital Signs, click to edit/add: Last Vital Signs Temp 97.2 F L 03/15/23 04:32 Pulse 69 03/15/23 07:53 Resp 14 03/15/23 04:23 BP 109/61 03/15/23 07:53 O2 Del Method Room Air 03/15/23 04:23 Documenting provider has reviewed patient's vital signs: yes Common normals: no apparent distress Respiratory Common normals: normal respiratory effort and clear to auscultation bilaterally Cardio Common normals: regular rate and regular rhythm GI Common normals: Normal to inspection, nondistended, normoactive bowel sounds present Extremity Common normals: no clubbing, cyanosis or edema Results Labs Labs: Short CBC 03/14/23 03/15/23 Range/Units 11:10 06:05 WBC 9.6 11.5 H (4.0-11.0) 10^3/uL Hgb 9.6 L 8.3 L (12.0-16.0) g/dL Hct 29.7 L 26.4 L (36.0-48.0) % Plt Count 207 183 (150-450) 10^3/uL OB - PN: A/P Plan - Vaginal Delivery day: 1 Plan: routine care Time Spent with Patient Time: Total time spent is greater than 50% in coordination of care (as documented) at patient's floor/unit and/or counseling patient: Total time spent with greater than 50% in coordination of care (as documented) at patient's floor/unit and/or counseling patient: less than 15 minutes
[2023-03-15] MEDS: LABETALOL HCL 200 MG TABLET PO ×2 (09:08→21:06)
--- NOTE | 2023-03-15 13:01 | PC.NURSE ---
LC into room to discuss LPI behaviors with Debyb. history of 3 previous full term deliveries. Has successfully breastfed X2 up to 15 months. Debby states big difference in feeding her vs the boys Given handouts for LPI and . Reviewed infant maturity and feeding at 37 weeks. Aware of great pretender traits for LPI. Encouraged to start pumping after feeds to complete emptying of breasts and to offer any milk obtained to baby as easy milk Infant also IUGR at , feeding and easy milk discussed at length. Debby verbalized understanding. States at home now and is bringing pump when he returns. No further questions at this time. Encouraged to call LC for latch when wakes for next feed.
--- NOTE | 2023-03-16 00:35 | W.PC.ACHO ---
Registration Status: ADM IN Primary Language: Malaysian Preferred Language: Malaysian Report hand off given to Peter Guevara at 0000. remains in nursery at this time. ThaiElva Ismael assumes care. Active Medications Generic Name Dose Route Start Last Admin Trade Name Freq PRN Reason Stop Dose Admin Acetaminophen 650 mg 03/14/23 18:09 Acetaminophen 325 Mg Tablet PO Q6H PRN Mild Pain Al Hydroxide/Mg Hydroxide 2,400 mg 03/14/23 18:09 Magnesium Hydroxide 2,400 Mg/10 Ml Oral.Susp PO Q6H PRN Dyspepsia Benzocaine/Menthol 1 applic 03/14/23 18:09 Benzocaine/Menthol 85 Gram [place] Bottle TOPICAL Q2H PRN Pain Diphtheria/Pertussis/Tetanus Vacc 0.5 ml 03/16/23 09:00 Adacel Diph,Pertuss(Acell),Tet Vac/Pf 0.5 Ml Adult Syringe IM 03/16/23 09:01 .ONCE ONE Sodium Chloride 1,000 mls @ 125 mls/hr 03/14/23 10:30 03/14/23 17:56 Sodium Chloride 0.9% 1,000 Ml IV 125 mls/hr .Q8H MARCELA Administration Ibuprofen 600 mg 03/14/23 18:09 03/15/23 21:06 Ibuprofen 600 Mg Tablet PO 600 mg Q6H PRN Administration Moderate Pain Labetalol HCl 200 mg 03/14/23 22:00 03/15/23 21:06 Labetalol Hcl 200 Mg Tablet PO 200 mg BID MARCELA Administration Measles/Mumps/Rubella Vaccine Live 0.5 ml 03/16/23 09:00 Measles,Mumps,Rubella Vacc/Pf 0.5 Ml Vial SQ 03/16/23 09:01 .ONCE ONE Ondansetron HCl 4 mg 03/14/23 10:22 Ondansetron Pf 4 Mg/2 Ml Vial IV Q6H PRN Nausea And Vomiting Simethicone 80 mg 03/14/23 18:09 Simethicone 80 Mg Tab.Chew PO QID PRN Abdominal Distention Temazepam 15 mg 03/14/23 18:09 Temazepam 15 Mg Capsule PO QHS PRN Sleep Witch Lizzette/Glycerin 1 pad 03/14/23 18:09 Glycerin/Witch Lizzette Pads TOPICAL Q2H PRN Pain Respiratory Oxygen Delivery Method Room Air Renal Bladder Pattern Continent Bladder Pattern Continent Bladder Pattern Continent
[2023-03-16 00:45] VITALS: BP 120/67; PULSE 85; RESP 16
[2023-03-16] MEDS: IBUPROFEN 600 MG TABLET PO (05:22)
--- NOTE | 2023-03-16 07:13 | W.PC.ACHO ---
Registration Status: ADM IN Primary Language: Iranian Preferred Language: Iranian Active Medications Generic Name Dose Route Start Last Admin Trade Name Freq PRN Reason Stop Dose Admin Acetaminophen 650 mg 03/14/23 18:09 Acetaminophen 325 Mg Tablet PO Q6H PRN Mild Pain Al Hydroxide/Mg Hydroxide 2,400 mg 03/14/23 18:09 Magnesium Hydroxide 2,400 Mg/10 Ml Oral.Susp PO Q6H PRN Dyspepsia Benzocaine/Menthol 1 applic 03/14/23 18:09 Benzocaine/Menthol 85 Gram [place] Bottle TOPICAL Q2H PRN Pain Diphtheria/Pertussis/Tetanus Vacc 0.5 ml 03/16/23 09:00 Adacel Diph,Pertuss(Acell),Tet Vac/Pf 0.5 Ml Adult Syringe IM 03/16/23 09:01 .ONCE ONE Sodium Chloride 1,000 mls @ 125 mls/hr 03/14/23 10:30 03/14/23 17:56 Sodium Chloride 0.9% 1,000 Ml IV 125 mls/hr .Q8H MARCELA Administration Ibuprofen 600 mg 03/14/23 18:09 03/16/23 05:22 Ibuprofen 600 Mg Tablet PO 600 mg Q6H PRN Administration Moderate Pain Labetalol HCl 200 mg 03/14/23 22:00 03/15/23 21:06 Labetalol Hcl 200 Mg Tablet PO 200 mg BID MARCELA Administration Measles/Mumps/Rubella Vaccine Live 0.5 ml 03/16/23 09:00 Measles,Mumps,Rubella Vacc/Pf 0.5 Ml Vial SQ 03/16/23 09:01 .ONCE ONE Ondansetron HCl 4 mg 03/14/23 10:22 Ondansetron Pf 4 Mg/2 Ml Vial IV Q6H PRN Nausea And Vomiting Simethicone 80 mg 03/14/23 18:09 Simethicone 80 Mg Tab.Chew PO QID PRN Abdominal Distention Temazepam 15 mg 03/14/23 18:09 Temazepam 15 Mg Capsule PO QHS PRN Sleep Witch Lizzette/Glycerin 1 pad 03/14/23 18:09 Glycerin/Witch Lizzette Pads TOPICAL Q2H PRN Pain Respiratory Oxygen Delivery Method Room Air Cardiology Heart Sounds Strong Renal Bladder Pattern Continent Bladder Pattern Continent Bladder Pattern Continent
--- NOTE | 2023-03-16 07:43 | P.OBPN_ITS ---
OB - PN: Subj Subjective Patient comments: no complaints and pain well controlled [place] status: doing well Exam Constitutional Vital Signs, click to edit/add: Last Vital Signs Temp 97.7 F 03/15/23 15:09 Pulse 85 03/16/23 00:45 Resp 16 03/16/23 00:45 BP 120/67 03/16/23 00:45 O2 Del Method Room Air 03/16/23 00:45 Documenting provider has reviewed patient's vital signs: yes Common normals: no apparent distress Respiratory Common normals: clear to auscultation bilaterally Cardio Common normals: regular rate and regular rhythm Extremity Common normals: no calf tenderness OB - PN: A/P Plan - Vaginal Delivery day: 2 Plan: routine care, discharge home and follow up 6 weeks Time Spent with Patient Time: Total time spent is greater than 50% in coordination of care (as documented) at patient's floor/unit and/or counseling patient: Total time spent with greater than 50% in coordination of care (as documented) at patient's floor/unit and/or counseling patient: less than 15 minutes
[2023-03-16] MEDS: LABETALOL HCL 200 MG TABLET PO (08:27)
[2023-03-16 08:29] VITALS: BP 109/65; PULSE 74; TEMP 36.4
[2023-03-16 08:44] VITALS: RESP 15; TEMP 36.7
== END 2023-03-16 10:15 | disposition home or self-care (01) | DRG 807 ==
LOC: US 10:10 → FBC 10:10
PROVIDERS: Admitting Provider Obstetrics & Gynecology; PCP Family Medicine; Visit Provider Obstetrics & Gynecology
DX: O24.425 Gestational diabetes mellitus in childbirth, controlled by oral hypoglycemic drugs (principal); Z37.0 Single live birth; O99.214 Obesity complicating childbirth; E66.01 Morbid (severe) obesity due to excess calories; O70.0 First degree perineal laceration during delivery; O69.2XX0 Labor and delivery complicated by other cord entanglement, with compression, not applicable or unspecified; Z3A.37 37 weeks gestation of pregnancy; Z83.49 Family history of other endocrine, nutritional and metabolic diseases
CPT/HCPCS: 36415; 59050; 59410; 76816; 76818; 80307; 85025; 85027; 86850; 86900; 86901; 96374; 96376

== ENCOUNTER 2023-03-21 08:05 | Outpatient (OUT) | payer BC, SELFPAY ==
[2023-03-21 11:29] VITALS: BP 109/76; PULSE 76; RESP 18; TEMP 37; O2SAT 96
--- NOTE | 2023-03-21 11:55 | PC.NURSE ---
Couplet doing well. Mom states nipples became very red and excoriated during engorgement and baby had latch difficulties. States are healing at this time. Evidence of nipple damage noted appears to be in healing stages. Mom using lanolin and soothies for breast care as well as deep latching. Will return 03/26/2023 for weight check with . Will try to feed infant closer together than 3-4 hours as weight did not increase since 03/19/2023.
== END 2023-03-21 11:45 | disposition home or self-care (01) ==
LOC: FBCO 08:05
PROVIDERS: PCP Family Medicine; Visit Provider Obstetrics & Gynecology
DX: Z39.2 Encounter for routine postpartum follow-up (principal)

== ENCOUNTER 2023-03-26 08:45 | Outpatient (RCR) | payer BC, SELFPAY ==
--- NOTE | 2023-03-26 11:27 | PC.NURSE ---
Debby and bring 12 day old Paula in for weight check. Infant pink, awake, alert and rooting vigorously. Wet diaper changed. To scales naked, and weight unchanged from last week at peds office and at visit. 7-8 wet diapers and 5 yellow seedy stools daily as reported by parents. Mom states baby latch is improving, is waking herself more at the 2-3 hour adamaris. Nipples remain damaged by shallow latch,but are healing. Discussed feeding plan and will follow : Feed at each breast 10 minutes only. Will then offer 2 oz pumped milk at every feeding. Will increase skin to skin time. Will pump 1-2 times daily with electric pump and use haakaa for passive collection with each feed. Pt states have 50+ oz of stored milk already so supply is not a problem. Will return 04/02/2023 for follow up visit.
== END 2023-03-26 11:15 | disposition home or self-care (01) ==
LOC: FBCO 08:45
PROVIDERS: PCP Family Medicine; Visit Provider Obstetrics & Gynecology
DX: Z39.1 Encounter for care and examination of lactating mother (principal)
CPT/HCPCS: G0463

== ENCOUNTER 2023-03-29 08:35 | Outpatient (RCR) | payer BC, SELFPAY | END 2023-04-17 | disposition home or self-care (01) | LOC: FBCO 08:35 | PROVIDERS: PCP Family Medicine; Visit Provider Obstetrics & Gynecology | DX: Z39.1 Encounter for care and examination of lactating mother (principal) ==

== ENCOUNTER 2023-04-02 08:35 | Outpatient (RCR) | payer BC, SELFPAY ==
--- NOTE | 2023-04-02 11:33 | PC.NURSE ---
Debby and Paula arrive for follow up support. Infant weight is up 1 oz in 4 days, discussed expected weight gain for and not meeting the 0.5 oz to 1.25 oz range. Mom had stopped supplementing with pumped milk after each feed as baby didn't want to latch at the breast after having bottles . Started nipple shield to bridge baby to breast and states feels she does really great with shield , but I don't really like using it so have been latching most of the time without No shield used for left breast and used 75% of the time with right breast. Baby to L side, latch and feeds with slow intermittent sucks and swallows. To right side with shield and has deep suck with audible swallow noted. Mom states I really feel her moving milk , milk in shield, on baby's face and in mouth after feed. Mom states I don't like her to use the shield all the time . Reviewed need for adequate feeding and assisting infant to be able to feed well. States will go back to supplementing after each feed until weight gain begins. 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 Mom reports boys had them also and we worked through it . States will continue to work through with Paula. Requests to return 04/09/2023 for weight check.
== END 2023-04-02 11:15 | disposition home or self-care (01) ==
LOC: FBCO 08:35
PROVIDERS: PCP Family Medicine; Visit Provider Obstetrics & Gynecology
DX: Z39.1 Encounter for care and examination of lactating mother (principal)

== ENCOUNTER 2023-05-01 09:11 | Outpatient (OUT) | payer BC, SELFPAY ==
--- NOTE | 2023-05-01 13:42 | PC.NURSE ---
Debby and Paula arrive for support. Debby states she won't latch without the shield I have tried everything Mom runs through list of efforts made to stop using the nipple shield. States she is very smart and very stubborn . Lc notes baby is pink and warm, good tone, alert and interested in surroundings. LC weighs , heavy wet diaper removed with small bright green stool noted. Discussed over supply and bright green stool. States she has them every once in a while, usually when I have been trying to nurse without the shield. Discussed longer feed so is able to obtain the hind milk. States will make sure baby stays at one breast longer and top off with second breast. to breast in cross cradle hold, mom does well with positioning and latch but only has baby take tip of nipple into mouth . Denies pain, points out that she is pulling back LC guides re latch and encourages Debby to keep infant close to breast for deeper latch, when infant moves to pull off to only nipple, Debby encouraged to apply gentle pressure between shoulder blades to keep baby snug to mom. This keeps baby on breast and suckling. Mom states now you are going to show off for LC Support and encouragement offered that mom is working well with for deeper latch and feed. Debby states I feel confident that I will keep trying this at home. Goal of 50% of feeds completed without the shield and to increase the goal every 2 days. States I can do that Leaves ambulatory with questions answered and confident in own abilities.
== END 2023-05-01 13:35 | disposition home or self-care (01) ==
LOC: FBCO 09:12
PROVIDERS: PCP Family Medicine; Visit Provider Obstetrics & Gynecology
DX: Z39.1 Encounter for care and examination of lactating mother (principal)

== ENCOUNTER 2023-05-23 12:22 | Outpatient (OUT) | payer BC, SELFPAY | END 2023-05-23 12:23 | disposition home or self-care (01) | LOC: PST 12:22 | PROVIDERS: PCP Family Medicine; Visit Provider Obstetrics & Gynecology | DX: Z01.818 Encounter for other preprocedural examination (principal); Z30.2 Encounter for sterilization ==

== ENCOUNTER 2023-06-01 07:51 | Day surgery (SDC) | payer BC, SELFPAY ==
[2023-05-23 13:05] VITALS: BP 116/74; PULSE 77; RESP 20; TEMP 36.2; O2SAT 97; BMI 44.8
[2023-06-01] VITALS (13 sets, daily range): BP systolic 119–138; BP diastolic 84–95; PULSE 57–91; RESP 3–21; TEMP 35.9–36.2; O2SAT 88–98; BMI 44.8
[2023-06-01 07:59] LABS: Basophils Percent Auto 0.4 % (0.2-2.0); Eosinophils Absolute Auto 0.2 10^3/uL (0.0-0.7); Eosinophils Percent Auto 2.8 % (0.9-7.0); Hematocrit 34.6 % (36.0-48.0); Hemoglobin 10.5 g/dL (12.0-16.0); Immature Granulocytes Abs Auto 0.04 10^3/uL (0.00-0.03); Immature Granulocytes Pct Auto 0.5 % (0.0-0.5); Lymphocytes Percent Auto 38.6 % (20.5-60.0); Mean Corpuscular HGB Conc 30.3 g/dL (29.9-35.2); Mean Corpuscular Hemoglobin 24.1 pg (26.7-34.0); Mean Corpuscular Volume 79.5 fL (81.0-99.0); Mean Platelet Volume 8.4 fL (9.5-13.5); Monocytes Absolute Auto 0.4 10^3/uL (0.3-0.8); Monocytes Percent Auto 5.2 % (1.7-12.0); Neutrophils Absolute Auto 4.1 10^3/uL (1.4-6.5); Neutrophils Percent Auto 52.5 % (43.0-75.0); Platelet Count 226 10^3/uL (150-450); Red Blood Count 4.35 10^6/uL (4.20-5.40); White Blood Count 7.7 10^3/uL (4.0-11.0)
[2023-06-01 08:27] LABS: HCG Quantitative <1 mIU/mL
[2023-06-01] MEDS: LACTATED RINGER'S SOLUTION 1,000 ML 50 ML IV ×2 (08:27→10:37)
--- NOTE | 2023-06-01 10:25 | P.ON_ITS ---
Brief Operative Note Date of procedure: 06/01/23 Pre-op diagnosis: multiparity, desires permanent sterilization Post-op diagnosis: same as pre-op Procedure: Brief Operative Note Date of procedure: Pre-op diagnosis: Post-op diagnosis: Procedure: NAME OF PROCEDURE: robotic assisted bilateral laparoscopic salpingectomy PROCEDURE: The patient was taken back to the Operating Room where she was given general anesthesia without difficulty. She was then prepped and draped in the normal sterile fashion after being placed in a dorsal lithotomy position. A wet sponge stick was placed into the patient's vagina. Attention was then turned to the patient's abdomen, where a scalpel was used to make a small infraumbilical incision. The S retractors were then used to dissect the underlying layers until the fascia could be seen. The fascia was then grasped with Junior clamps and tented up. A knife was then used to make a small incision to the fascia. The muscle was identified, at that time two sutures of #0 Vicryl on a GI needle was then used and placed through the fascia. the peritoneum was then identified and entered bluntly. The 10-4 Kimberly was then placed into the patient's abdomen. This was confirmed with direct visualization of the bowel, using the laparoscope. The patient's abdomen was then insufflated using approximately 4 liters of CO2 gas. Survey of the patient's abdomen demonstrated ovaries were normal in appearance as well as both tubes and uterus. A second and third rt and lt lateral robotic ports which were 8 mm in size, was then placed after the skin incision was made under direct visualization . the robotic arms were engaged. The patient's tube on the patient's right side was identified and tented up using a grasper, the ligasure apparatus was then used to come across the mesosalpingx from the fimbriated end to the insertion site at the uterus, the tube was then amputated and removed in its entirety. This was done on the contralateral side. The tubes were the removed from the patients abdomen. Excellent hemostasis was noted. The lateral ports were then moved under direct visualization with excellent hemostasis. All instruments were removed from the patient's abdomen. The fascia was closed using the #0 Vicryl on GI needle. The skin was closed using 4-0 Vicryl subcuticularly. All instruments were removed from the patient's vagina as well. The patient was taken out of the dorsal lithotomy position and placed in the supine position and taken to recovery in stable condition. Sponge, lap and needle counts were correct x2. Anesthesia: KARLOS Surgeon: Jae Tim Cutter Grind Tool Technician: Tamiko Silva Estimated blood loss (mL): 5 Pathology: other (tubes) Condition: stable Disposition: PACU
--- NOTE | 2023-06-01 11:01 | PC.NURSE ---
removed oxygen at this time
== END 2023-06-01 12:15 | disposition home or self-care (01) ==
PROVIDERS: PCP Family Medicine; Visit Provider Obstetrics & Gynecology
PROC: (CPT 840; principal; 2023-06-01 09:15)
DX: Z30.2 Encounter for sterilization (principal); F41.9 Anxiety disorder, unspecified; F32.A Depression, unspecified; Z86.32 Personal history of gestational diabetes; E66.01 Morbid (severe) obesity due to excess calories; Z68.41 Body mass index [BMI] 40.0-44.9, adult; K21.9 Gastro-esophageal reflux disease without esophagitis; Z86.16 Personal history of COVID-19
CPT/HCPCS: 58661; 36415; 84702; 85025; 88302; J1170; J2704

== ENCOUNTER 2024-06-21 18:05 | Emergency (ER) | payer BC, SELFPAY ==
[2024-06-21 18:15] VITALS: BP 132/88; PULSE 73; TEMP 36.8; O2SAT 99; BMI 496.0
--- NOTE | 2024-06-21 20:12 | ED_ITS ---
HPI HPI - General Adult General Chief complaint: Nausea/Vomiting/Diarrhea Stated complaint: ABDOMINAL PAIN, VOMITING BLOOD Time Seen by Provider: 06/21/24 20:08 Source: patient Mode of arrival: walk-in History of Present Illness HPI narrative: 33-year-old female presents for hematemesis. She states she was vomiting earlier today because she was coughing so hard and she vomited and there was no blood. Subsequently she vomited again from coughing and there was some blood in it. She does not have abdominal pain or dizziness. No blood in her stool or dark tarry color. Related Data Home Medications ?Medication ?Instructions ?Recorded ?Confirmed blood sugar diagnostic (True 02/21/23 02/21/23 Metrix Glucose Test Strip) blood-glucose meter (True Metrix 02/21/23 02/21/23 Air Glucose Meter) metoprolol succinate 25 mg 25 mg PO DAILY 06/21/24 06/21/24 tablet,extended release 24 hr Allergies Allergy/AdvReac Type Severity Reaction Status Date / Time naproxen AdvReac Nausea Verified 06/21/24 18:14 Opioid HPI Opioid Management Most Recent Opioid Data: Last Pain Scale 4 03/16/23 05:22 03/16/23 Ur Phencyclidine Scrn Negative (NEGATIVE) 03/14/23 11:10 02/17 01/07 Review of Systems ROS Narrative A ten point review of systems is negative except as noted above. [facility] Medical History (Updated 06/21/24 @ 21:30 by Storm Lange MD) Anemia ?D64.9 - Anemia, unspecified (ICD-10) Depression ?F32.A - Depression, unspecified (ICD-10) Anxiety ?F41.9 - Anxiety disorder, unspecified (ICD-10) COVID-19 ?U07.1 - COVID-19 (ICD-10) Migraine ?G43.909 - Migraine, unspecified, not intractable, without status migrainosus (ICD-10) GERD (gastroesophageal reflux disease) ?K21.9 - Gastro-esophageal reflux disease without esophagitis (ICD-10) Palpitations ?R00.2 - Palpitations (ICD-10) SVT (supraventricular tachycardia) ?I47.10 - Supraventricular tachycardia, unspecified (ICD-10) Pre-eclampsia, ?O14.95 - Unspecified pre-eclampsia, complicating the puerperium (ICD-10) Prediabetes ?R73.03 - Prediabetes (ICD-10) induced hypertension ?O13.9 - Gestational [-induced] hypertension without significant proteinuria, unspecified trimester (ICD-10) Gestational diabetes ?O24.419 - Gestational diabetes mellitus in , unspecified control (ICD-10) Surgical History (Updated 05/23/23 @ 12:51 by Sabina Boston NP) History of breast biopsy ?Z98.890 - Other specified postprocedural states (ICD-10) History of dilation and curettage ?Z98.890 - Other specified postprocedural states (ICD-10) History of dilation and curettage ?Z98.890 - Other specified postprocedural states (ICD-10) Family History (Updated 06/01/23 @ 08:09 by Shanna Hennessy) Mother No problems noted. 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 General: The patient appears well and in no apparent distress. Patient is resting comfortably on cart. Skin: Warm, dry, no pallor noted. There is no rash noted. Head: Normocephalic, atraumatic Eye: Normal conjunctiva, no drainage Ears, Nose, Mouth, and Throat: oral mucosa is moist. Nares patent. Cardiovascular: Regular Rate and Rhythm Respiratory: Patient is in no distress, no accessory muscle use, lungs are clear with good air movement GI: Soft and nontender Musculoskeletal: The patient has no evidence of calf tenderness, no pitting edema, symmetrical pulses noted bilaterally Neurological: A&O, normal speech Psychiatric: Cooperative Constitutional Vital Signs, click to edit/add: Last Vital Signs Temp 98.3 F 06/21/24 18:15 Pulse 73 06/21/24 18:15 Resp 20 06/21/24 18:15 BP 132/88 06/21/24 18:15 Pulse Ox 99 06/21/24 18:15 O2 Del Method Room Air 06/21/24 18:15 Course Vital Signs Vital signs: Vital Signs Temperature 98.3 F 06/21/24 18:15 Pulse Rate 73 06/21/24 18:15 Respiratory Rate 20 06/21/24 18:15 Blood Pressure 132/88 06/21/24 18:15 Pulse Oximetry 99 06/21/24 18:15 Oxygen Delivery Method Room Air 06/21/24 18:15 Temperature 98.3 F 06/21/24 18:15 Pulse Rate 73 06/21/24 18:15 Respiratory Rate 20 06/21/24 18:15 Blood Pressure 132/88 06/21/24 18:15 Pulse Oximetry 99 06/21/24 18:15 Oxygen Delivery Method Room Air 06/21/24 18:15 Medical Decision Making MDM Narrative Medical decision making narrative: Blood work including hemoglobin is negative. She was reassured and encouraged to follow-up with her PCP if symptoms recur. Treatment diagnosis and follow-up were discussed with the patient. Differential Diagnosis Differential Diagnosis: Hematemesis, upper GI bleed, vomiting swallowed blood Lab Data Lab results reviewed: Yes I reviewed the patient's lab results Labs: Lab Results 06/21/24 Range/Units 20:44 WBC 9.6 (4.0-11.0) 10^3/uL RBC 4.80 (4.20-5.40) 10^6/uL Hgb 12.6 (12.0-16.0) g/dL Hct 40.0 (36.0-48.0) % MCV 83.3 (81.0-99.0) fL MCH 26.3 L (26.7-34.0) pg MCHC 31.5 (29.9-35.2) g/dL RDW 13.5 (11.0-15.0) % Plt Count 266 (150-450) 10^3/uL MPV 8.2 L (9.5-13.5) fL Neut % (Auto) 66.9 (43.0-75.0) % Lymph % (Auto) 25.9 (20.5-60.0) % Smith % (Auto) 4.4 (1.7-12.0) % Eos % (Auto) 1.9 (0.9-7.0) % Baso % (Auto) 0.5 (0.2-2.0) % Neut # (Auto) 6.4 (1.4-6.5) 10^3/uL Lymph # (Auto) 2.5 (1.2-3.8) 10^3/uL Smith # (Auto) 0.4 (0.3-0.8) 10^3/uL Eos # (Auto) 0.2 (0.0-0.7) 10^3/uL Baso # (Auto) 0.1 (0.0-0.1) 10^3/uL Abs Immat Gran (auto) 0.04 H (0.00-0.03) 10^3/uL Imm/Tot Granulo (auto) 0.4 (0.0-0.5) % Sodium 141 (136-145) mmol/L Potassium 3.9 (3.5-5.1) mmol/L Chloride 103 (98-107) mmol/L Carbon Dioxide 28.8 (21.0-32.0) mmol/L Anion Gap 13.1 BUN 13.0 (7.0-18.0) mg/dL Creatinine 0.78 (0.55-1.02) mg/dL Est GFR ( Amer) >60 (>=60 mL/min/1.73m^2) Est GFR (Non-Af Amer) >60 (>=60 mL/min/1.73m^2) BUN/Creatinine Ratio 16.7 Glucose 95 (74-106) mg/dL Calcium 9.4 (8.5-10.1) mg/dL Urine Color Lt. yellow (YELLOW) Urine Clarity Clear (CLEAR) Urine pH 6.0 (5.0-9.0) Ur Specific [place] 1.020 (1.005-1.025) Urine Protein Negative (NEG/TRACE) mg/dL Urine Glucose (UA) Negative (NEGATIVE) mg/dL Urine Ketones Negative (NEGATIVE) mg/dL Urine Occult Blood Negative (NEGATIVE) Urine Nitrite Negative (NEGATIVE) Urine Bilirubin Negative (NEGATIVE) Urine Urobilinogen 0.2 (0.2-1.0) EU/dL Ur Leukocyte Esterase Small A (NEGATIVE) Urine RBC 0-2 (0-2) #/HPF Urine WBC 10-20 A (NONE SEEN) #/HPF Ur Squamous Epith Cells Many A (NONE/RARE) #/LPF Urine Crystals None seen (None Seen) #/HPF Urine Bacteria Large A (NONE SEEN) #/HPF Urine Casts None seen (NONE SEEN) #/LPF Urine Mucus None seen (NONE SEEN) Ur Culture Indicated? Yes Urine HCG, Qual Negative (NEGATIVE) Ref Lab Order Date 06/21/24 Ref Lab Test Name Urine culture Ref Test Addition Info [facility] Discharge Plan Discharge Chief Complaint: Nausea/Vomiting/Diarrhea Clinical Impression: Hematemesis Patient Disposition: Home, Self-Care Time of Disposition Decision: 21:29 Prescriptions / Home Meds: No Action metoprolol succinate 25 mg tablet extended release 24 hr 25 mg PO DAILY (DME) blood-glucose meter [True Metrix Air Glucose Meter] Misc MISCELLANEOUS (DME) True Metrix Glucose Test Strip Strip MISCELLANEOUS Print Language: [place] Citizen Instructions: Hematemesis (ED) Referrals: LYNDSEY SIMMS [Primary Care Provider] - 1 week
[2024-06-21 20:57] LABS: Basophils Absolute Auto 0.1 10^3/uL (0.0-0.1); Basophils Percent Auto 0.5 % (0.2-2.0); Eosinophils Absolute Auto 0.2 10^3/uL (0.0-0.7); Eosinophils Percent Auto 1.9 % (0.9-7.0); Hemoglobin 12.6 g/dL (12.0-16.0); Immature Granulocytes Abs Auto 0.04 10^3/uL (0.00-0.03); Immature Granulocytes Pct Auto 0.4 % (0.0-0.5); Lymphocytes Absolute Auto 2.5 10^3/uL (1.2-3.8); Lymphocytes Percent Auto 25.9 % (20.5-60.0); Mean Corpuscular HGB Conc 31.5 g/dL (29.9-35.2); Mean Corpuscular Hemoglobin 26.3 pg (26.7-34.0); Mean Corpuscular Volume 83.3 fL (81.0-99.0); Mean Platelet Volume 8.2 fL (9.5-13.5); Monocytes Absolute Auto 0.4 10^3/uL (0.3-0.8); Monocytes Percent Auto 4.4 % (1.7-12.0); Neutrophils Absolute Auto 6.4 10^3/uL (1.4-6.5); Neutrophils Percent Auto 66.9 % (43.0-75.0); Platelet Count 266 10^3/uL (150-450); Red Cell Distribution Width 13.5 % (11.0-15.0); White Blood Count 9.6 10^3/uL (4.0-11.0)
[2024-06-21 21:02] LABS: Bilirubin Urine NEGATIVE (NEGATIVE); Blood Urine NEGATIVE (NEGATIVE); Clarity Urine CLEAR (CLEAR); Color Urine LT. YELLOW (YELLOW); Glucose Urine UA NEGATIVE (NEGATIVE); Ketones Urine NEGATIVE (NEGATIVE); Leukocyte Esterase Urine SMALL (NEGATIVE); Nitrite Urine NEGATIVE (NEGATIVE); Protein Urine NEGATIVE (NEG/TRACE); Urobilinogen Urine 0.2 EU/dL (0.2-1.0)
[2024-06-21 21:06] LABS: HCG Qualitative Urine* NEGATIVE (NEGATIVE); Internal Control Within Normal Limits
[2024-06-21 21:15] LABS: Bacteria Urine LARGE #/HPF (NONE SEEN); Cast Seen? NONE SEEN #/LPF (NONE SEEN); Crystals Seen? None Seen #/HPF (None Seen); Mucus Urine NONE SEEN (NONE SEEN); RBC Urine 0-2 #/HPF (0-2); Squamous Epithelial Cell Urine MANY #/LPF (NONE/RARE); Urine Culture Indicated YES
[2024-06-21 21:17] LABS: BOX Test Reference Lab Firelands
[2024-06-21 21:25] LABS: Anion Gap 13.1; BUN Creatinine Ratio 16.7; Calcium 9.4 mg/dL (8.5-10.1); Carbon Dioxide 28.8 mmol/L (21.0-32.0); Chloride 103 mmol/L (98-107); Estimated GFR (African America >60 (>=60 mL/min/1.73m^2); Estimated GFR (Non-African Ame >60 (>=60 mL/min/1.73m^2); Glucose 95 mg/dL (74-106); Potassium 3.9 mmol/L (3.5-5.1); Sodium 141 mmol/L (136-145)
== END 2024-06-21 21:44 | disposition home or self-care (01) ==
PROVIDERS: Emergency Provider Emergency Medicine; PCP Family Medicine
DX: K92.0 Hematemesis (principal); R82.998 Other abnormal findings in urine
CPT/HCPCS: 36415; 80048; 81001; 84703; 85025; 87086; 99283

== ENCOUNTER 2025-01-08 15:27 | Outpatient (REF) | payer BC, SELFPAY ==
--- OUTSIDE RECORDS SUMMARY | 2024-11-17 09:11 | XMS_ITS | Continuity of Care Document ---
Author Organization [facility] Address [address] [place] [address] Phone Care Team Providers Care Gallery Intern Name Role Phone Eldon HOLLIEBelen Unavailable Unavailable Allergies, Adverse Reactions, Alerts Substance Reaction Status Criticality No Known Allergies Active No Inform ation Medications Medication Instructions Dosage Effective Dates (start - stop) Status Comments amoxicillin 875 mg-potassium clavulanate 125 mg tablet take 1 tablet by oral route every 12 hours 1.00 tablet - Active Medrol (Aguilar) 4 mg tablets in a dose pack take by oral route as directed per package instructions 0.00 - Active chlorhexidine gluconate 0.12 % mouthwash Rinse with 15 milliliter 2 times every day in the mouth (after meals), gently swish for one minute then spit out. No food or drinks, no rinsing for 30 minutes after. - Active metoprolol succinate ER 25 mg tablet,extended release 24 hr take 1 tablet by oral route every day 25 MG - Active Procedures Procedure Date Resin Composite 1s; Posterior Oral Hygiene Instruction Oral Hygiene Instruction Treatment Not Completed TB Read TB INTRADERMAL TEST Resin Composite 2s; Posterior Resin Composite 2s; Posterior Oral Hygiene Instruction Oral Hygiene Instruction Post Op Visit Dental Post Op Visit Dental Oral Hygiene Instruction Extract; Erupted Th/exposted Rt 025 Oral Hygiene Instruction Bitewings Four Films Intraoral-periapical 1st Film Oral Hygiene Instruction Limited Oral Eval Covid-19 Vaccine Administration Covid-19 Vaccine, 50 Mcg Moderna 12y Plu s IMMUNIZATION ADMIN FLU VACCINE NO PRESERV 3 & > Covid-19 Vaccine Administration TDAP VACCINE >7 IM IMMUNIZATION ADMIN Covid-19 Vaccine, 50 Mcg Moderna 12y Plu s ROUTINE VENIPUNCTURE TB INTRADERMAL TEST OFFICE/OUTPATIENT VISIT, EST CHICKEN POX VACCINE, [place] OFFICE/OUTPATIENT VISIT, EST MMR VACCINE, [place] CHICKEN POX VACCINE, [place] Advance Directives Directive Yes / No Effective Date File Name No Information Encounters Encounter Description Practice Location Reason(s) For Visit Diagnoses Date Provider Providers Copied on Encounter [facility], [address] [place] [address], [id number] , tel: [phone] Dental Clinic fill (chief complaint) No Information 5 Eldon Glovre. . tel: [phone] [facility], [address] [place] [address], [id number] , [place] tel: [phone] [facility] Dental Clinic Encounter for screening for dental disorders 5 Anoop Greenwood. [address] [place] [address], [address], [place]. tel: [phone] [facility], [address] [place] [address], [id number] , tel: [phone] [facility] Dental Clinic fill (chief complaint) Encounter for screening for dental disorders 5 Davalos DDS Yixue. [address] [place], [address], [place]. tel:+ [phone] [facility], [address], [place], [id number] , [place] tel:+ [phone] OVE No Information 5 [facility] DO Machado. [address], [place], [id number] , [place]. tel: [phone] [facility], [address], [place], [id number] , [place] tel: [phone] OVE Encounter for screening for respiratory tuberculosis 5 [facility] DO Machado. [address], [place], [id number] , [place]. tel: [phone] [facility], [address] [place] [address], [id number] , [place] tel: [phone] [facility] Dental Clinic Filling (chief complaint) Encounter for screening for dental disorders 5 [facility] DDS Yixue. [address] [place] [address], [address], [place]. tel: [phone] [facility], [address] [place] [address], [id number] , [place] tel: [phone] [facility] Dental Clinic POV (chief complaint) Encounter for screening for dental disorders 5 Davalos DDS Yixue. [address] [place], [address], [place]. tel: [phone] [facility], [address], [place], [id number] , [place] tel: [phone] [facility] Dental Clinic pov (chief complaint) Encounter for screening for dental disorders 5 Davalos DDS Yixue. [address] [place] [address], [address], [place]. tel:+ [phone] [facility], [address] [place] [address], [id number] , [place] tel:+ [phone] [facility] Dental Clinic ext (chief complaint) Encounter for screening for dental disorders 5 [facility] DDS Yixue. [address] [place], [address], [place]. tel: [phone] [facility], [address], [place], [id number] , [place] tel: [phone] [facility] Dental Clinic ER (chief complaint) Body mass index [BMI] 45.0-49.9, adultEncounter for screening for dental disorders 5 [facility] DDS Yixue. [address] [place], [address], [place]. tel: [phone] [facility], [address] [place] [address], [id number] , [place] tel: [phone] [facility] No Information 4 Bolivar Mora. [address], [place], [id number] , [place]. tel: [phone] [facility], [address] [place] [address], [id number] , [place] tel: [phone] [facility] Pre-employ ment Labs (chief complaint) Encounter for antibody response examinationEncounter for screening for respiratory TB 4 Bolivar Mora. [address], [place], [id number] , [place]. tel: [phone] OFFICE/OUTPA TIENT VISIT, [facility], [address], [place], [id number] , [place] tel: [phone] [facility] No Information 1 Visci DO Machado. [address], [place], [id number] , [place]. tel: [phone] OFFICE/OUTPA TIENT VISIT, [facility], [address], [place], [id number] , [place] tel: [phone] [facility] No Information 1 Visczhang Mora. [address], [place], [id number] , [place]. tel: [phone] Family History Family Member Type Diagnosis Age At Onset No Information Immunizations Vaccine Date Status Comments Spikevax 12y+ administered Source: New Im munization Record Fluarix/Flulaval administered Source: New Immunization Record Tdap (Boostrix) administered Source: New Immunization Record Spikevax 12y+ administered Source: New Im munization Record Influenza, split virus, quadrivalent, PF administered Source: Other Regist ry Influenza, split virus, quadrivalent, PF administered Source: Other Regist ry COVID-19, mRNA, LNP-S, PF, 3 0 mcg/0.3 mL dose administered Source: Other Regist ry COVID-19, mRNA, LNP-S, PF, 3 0 mcg/0.3 mL dose administered Source: Other Regist ry Varicella administered Source: New Imm unization Record Varicella administered Source: New Imm unization Record MMR administered Source: New Imm unization Record Hep B, adult administered Source: Other R egistry Hep B, adolescent or pediatric administer ed Source: Other Registry meningococcal MCV4P administered Source: Other Registry Hep B, adolescent or pediatric administer ed Source: Other Registry MMR administered Source: Other R egistry polio, unspecified formulation administer ed Source: Other Registry DTaP, unspecified formulation administere d Source: Other Registry MMR administered Source: Other R egistry Hib, unspecified formulation administered Source: Other Registry DTaP, unspecified formulation administere d Source: Other Registry polio, unspecified formulation administer ed Source: Other Registry DTaP, unspecified formulation administere d Source: Other Registry polio, unspecified formulation administer ed Source: Other Registry DTaP, unspecified formulation administere d Source: Other Registry Payers Payer name Insurance type Covered constitution party ID Authoraugustinea petty(s) D [facility] CI [id number] Social History Type Description Quantity Date Captured Comments Alcohol Use Details Unknown Caffeine Use Details Unknown Tobacco Use Status Current non-smoker Smoking Status Never smoker Sex Female Sexual Orientation Don't Know Gender Identity Female Chief Complaint And Reason For Visit From encounter dated 11/17/2024 13:11'. fill (chief complaint) Reason For Referral Reason For Referral No Information Plan Of Treatment Date Type Action Status Goal Unhealthy drug use screening . Due on due Goal RLP. Due on due Goal Tdap Vaccine. Due on 2033 due Goal HPV. Due on due Goal PRAPARE ASSESSMENT. Due on J due Goal Hepatitis C screening. Due o n due Goal Tdap due Goal Influenza vaccine. Due on Oc due Goal Depression screening. Due on due Goal Tdap due Goal PRAPARE ASSESSMENT. Due on M due Goal Hep A. Due on du e Goal Depression screening. Due on due Goal RLP. Due on due Goal Tdap Vaccine. Due on 2033 due Goal Unhealthy drug use screening . Due on due Goal HPV. Due on due Goal Influenza vaccine. Due on Oc due Goal Hepatitis C screening. Due o n due Goal Unhealthy drug use screening . Due on due Goal Tdap Vaccine. Due on 2033 due Goal Hep A. Due on du e Goal Hepatitis C screening. Due o n due Goal Influenza vaccine. Due on Oc due Goal Depression screening. Due on due Goal RLP. Due on due Goal Tdap due Goal PRAPARE ASSESSMENT. Due on due Goal HPV. Due on due Goal RLP. Due on due Goal Hep A. Due on du e Goal Tdap Vaccine. Due on 2033 due Goal Hepatitis C screening. Due o n due Goal Unhealthy drug use screening . Due on due Goal PRAPARE ASSESSMENT. Due on due Goal Influenza vaccine. Due on Oc due Goal HPV. Due on due Goal Depression screening. Due on due Goal Tdap due Goal Hep A. Due on du e Goal Influenza vaccine. Due on Oc due Goal Depression screening. Due on due Goal PRAPARE ASSESSMENT. Due on F due Goal Unhealthy drug use screening . Due on due Goal Tdap due Goal RLP. Due on due Goal Hepatitis C screening. Due o n due Goal Tdap Vaccine. Due on 2033 due Goal HPV. Due on due Goal Influenza vaccine. Due on Oc due Goal HPV. Due on due Goal PRAPARE ASSESSMENT. Due on due Goal Depression screening. Due on due Goal RLP. Due on due Goal Tdap Vaccine. Due on 2033 due Goal Tdap due Goal Unhealthy drug use screening . Due on due Goal Hepatitis C screening. Due o n due Goal RLP. Due on due Goal PRAPARE ASSESSMENT. Due on due Goal Hepatitis C screening. Due o n due Goal Influenza vaccine. Due on due Goal Unhealthy drug use screening . Due on due Goal Tdap due Goal HPV. Due on due Goal Tdap Vaccine. Due on 2033 due Goal Depression screening. Due on due Goal Tdap Vaccine. Due on 2033 due Goal Depression screening. Due on due Goal HPV. Due on due Goal PRAPARE ASSESSMENT. Due on due Goal Tdap due Goal Hepatitis C screening. Due o n due Goal Unhealthy drug use screening . Due on due Goal RLP. Due on due Goal Influenza vaccine. Due on Oc due Goal HPV. Due on due Goal Depression screening. Due on due Goal PRAPARE ASSESSMENT. Due on J due Goal Influenza vaccine. Due on Oc due Goal RLP. Due on due Goal Tdap due Goal Unhealthy drug use screening . Due on due Goal Tdap Vaccine. Due on 2033 due Goal Hepatitis C screening. Due o n due Goal Dietary management education , guidance, and counseling completed Goal PRAPARE ASSESSMENT. Due on O due Goal Tdap due Goal Hepatitis C screening. Due o n due Goal Depression screening. Due on due Goal Tdap Vaccine. Due on 2033 due Goal HPV. Due on due Goal RLP. Due on due Goal Unhealthy drug use screening . Due on due Goal Influenza vaccine. Due on Oc due Goal HPV. Due on due Goal Influenza vaccine. Due on Au due Goal RLP. Due on due Goal Tdap Vaccine. Due on 2033 due Goal Unhealthy drug use screening . Due on due Goal PRAPARE ASSESSMENT. Due on A due Goal Hepatitis C screening. Due o n due Goal Depression screening. Due on due Goal Tdap due History Of Present Illness Encounter Date Complaint History Of Prese nt Illness fill fill fill Filling Continue with tr eatment POV POV pov post op visit ext extract ER ER Pre-employment Labs Labs obtaine d x 1 attempt from right anticubital. Patient tolerated without complaint. --Clement Ruiz RN Functional Status Date Functional Assessmen t No Information Instructions Date Instruction Additional Infor mation Giving encouragement to exercise Related to Body mass index [BMI] 45.0-49.9, adult Dietary management e ducation, guidance, and counseling Related to Body mass index [BMI] 45.0-49.9, adult Assessments Type Assessment Date No Information Patient Care Teams Name Effective Dates (start - stop) Status Members No Information
--- OUTSIDE RECORDS SUMMARY | 2025-01-08 11:00 | XMS_ITS | Encounter Summary ---
Author Organization [facility] Address [address] [place] [address] Care Team Providers Care Airfield Services Officer Name Role Phone Sal Sauer MD Primary Care Provider [phone] Reason for Visit * Reason Comments Well Women Visit Encounter Details Date Type Department Care Team (Late Contact Info) Description 01/08/2025 11:00 AM EDT Office Visit [facility] [address] [place] [address] Jae Tim, [address] [place] [address] Well woman exam with routine gynecological exam; Borderline diabetes mellitus Social History Tobacco Use Types Packs/Day Years Used Date Smoking Tobacco: Never Alcohol Use Standard Drinks/Week Comments Never 0 (1 standard drink = 0.6 oz pur e alcohol) Caffeine: 1-2 cups/day Comments Unknown Sex and Gender Information Value Date Recorded Sex Assigned at Not on file Legal Sex Female 7:26 PM EDT Gender Identity Not on file Sexual Orientation Not on file documented as of this encounter Last Filed Vital Signs Vital Sign Reading Time Taken Comments Blood Pressure 110/68 01/08/2025 11:05 AM EDT Pulse - - Temperature - - Respiratory Rate - - Oxygen Saturation - - Inhaled Oxygen Concentration - - Weight 134 kg (295 lb 12.8 oz) 01/08/2025 11:05 AM EDT Height - - Body Mass Index 54.1 10/25/2022 12:00 PM EDT documented in this encounter Plan of Treatment Upcoming Encounters Date Type Department Care Team (Late Contact Info) Description 01/14/2026 9:00 AM EDT Procedure Visit [facility] OB [address] [place] [phone] Jae Tim, DO [address] [place] [address] Scheduled Orders Name Type Priority Associated Diagnoses Orde r Schedule Pap Smear Pathology and Cytology Routine Well woman exam with routine gynecological exam Ordered: 01/08/2025 HPV DNA probe, amplified Microbiology Routine Well woman exam with routine gynecological exam Ordered: 01/08/2025 Hemoglobin A1c Lab Routine Well woman exam with routine gynecological exam Borderline diabetes mellitus Ordered: 01/08/2025 CBC auto differential Lab Routine Well woman exam with routine gynecological exam Borderline diabetes mellitus Ordered: 01/08/2025 TSH Lab Routine Well woman exam with routine gynecological exam Borderline diabetes mellitus Ordered: 01/08/2025 Cholesterol, total Lab Routine Well woman exam with routine gynecological exam Borderline diabetes mellitus Ordered: 01/08/2025 Comprehensive metabolic panel Lab Routine Well woman exam with routine gynecological exam Borderline diabetes mellitus Ordered: 01/08/2025 documented as of this encounter Visit Diagnoses Diagnosis Well woman exam with routine gynecological exam Routine gynecological examination Borderline diabetes mellitus Other abnormal glucose documented in this encounter Care Teams Airfield Services Officer Relationship Specialty Start Date End Date Sal Sauer MD PCP - General Family Medicine 11/16/22 documented as of this encounter
--- OUTSIDE RECORDS SUMMARY | 2025-01-08 15:30 | XMS_ITS | Encounter Summary ---
Author Organization [facility] Address [address] [place] [address] Care Team Providers Care Radiation Oncology Therapist Name Role Phone Sal Sauer MD Primary Care Provider [phone] Encounter Details Date Type Department Care Team (Late st Contact Info) Description 02/22/2023 Clinisync Result Encounter [facility] External Department Unsolicited Jae Tim, [facility] [place] [address] Social History Tobacco Use Types Packs/Day Years Used Date Smoking Tobacco: Never Alcohol Use Standard Drinks/Week Comments Never 0 (1 standard drink = 0.6 oz pur e alcohol) Caffeine: 1-2 cups/day Comments Yes Sex and Gender Information Value Date Recorded Sex Assigned at Not on file Legal Sex Female 7:26 PM EDT Gender Identity Not on file Sexual Orientation Not on file documented as of this encounter Plan of Treatment Upcoming Encounters Date Type Department Care Team (Late st Contact Info) Description 01/14/2026 9:00 AM EDT Procedure Visit [facility] OB [address] [place] [phone] Jae Tim DO [address] [place] [address] documented as of this encounter Procedures Procedure Name Priority Date/Time Associated Diagnosis Comments ECHDOP 02/22/2023 9:08 AM EDT documented in this encounter Results * ECHDOP (02/22/2023 9:08 AM EDT) Anatomical Region Laterality Modality Other 02/22/2023 9:08 AM EDT Narrative 02/22/2023 9:08 AM EDT [address] [address] Cardiology Report Signed Patient: MARY RUIZ MR#: [id number] : 1990 Acct:[id number] Age/Sex: 32 / F ADM Date: 02/21/23 Loc: CARD Attending Dr: Jae Tim D.O. Ordering Physician: Jae Tim D.O. Date of Service: 02/21/23 Procedure(s): CA echo doppler complete Accession Number(s): [id number] cc: Patient: MARY RUIZ. Exam Date: 02/21/2023 : 1990 Gender:F Ordering : DR Jae Tim . Admission #: [id number] Family : Order #: [id number] CLICK HERE TO VIEW EXAM ECHOCARDIOGRAM REPORT PROCEDURE: CA ECHO DOPPLER COMPLETE INDICATIONS: Syncope COMPARISON: None. DESCRIPTION: COMPLETE ECHOCARDIOGRAM Real-time transthoracic echocardiography with 2D, M-mode, spectral and color flow Doppler performed. QUALITY: Technical quality was good. LEFT VENTRICLE: Normal chamber size. Moderate concentric left ventricular hypertrophy. Global left ventricular systolic function is normal. LV EF: Estimated left ventricular ejection fraction is 65-70%. DIASTOLIC: Normal diastolic function. ATRIAL SEPTUM: LEFT ATRIUM: Normal chamber size. RIGHT ATRIUM: Mild dilatation. RIGHT VENTRICLE: Mild dilatation. Normal right ventricular systolic function. TRICUSPID VALVE: Normal mobility and thickness. No stenosis with mild regurgitation. No evidence of pulmonary hypertension. RVSP 26 mmHg MITRAL VALVE: Normal mobility and thickness. No evidence of mitral valve stenosis. There is no mitral annular calcification. No mitral regurgitation. AORTIC VALVE: Normal trileaflet appearance. No visible sclerosis. Normal leaflet mobility. No evidence of aortic valve stenosis. No aortic regurgitation. AORTIC ROOT: Normal diameter and appearance. PULMONIC VALVE: Normal thickness and mobility. No stenosis. Trivial regurgitation. PERICARDIUM: No evidence of pericardial effusion. IVC: Collapses with inspirations. Normal size. PLEURA: CONCLUSION: 1. Moderate concentric left ventricular hypertrophy with normal systolic function. Estimated LV ejection fraction is 65-70%. 2. Mildly dilated right ventricle with normal systolic function. 3. Mild right atrial dilatation. 4. No significant valvular dysfunction. 5. Normal right sided pressures. Adult Echocardiography Procedure Report Left Ventricle LVEDD (3.7 - 5.6 cm): 3.80 cm LVESD (2.2 - 4.0 cm): 2.17 cm LVIVS thickness (0.6 - 1.2 cm): 1.57 cm LVPW thickness (0.5 - 1.0 cm): 1.48 cm e': 0.11 m/s E - e': 5.73 LVOT Max Gradient: 3.62 mm[Hg], 4.03 mm[Hg] LVOT Area (cm2): 0.98 m/s Peak Velocity (LVOT): 0.95 m/s, 1.00 m/s Mean Velocity (LVOT): 0.64 m/s LVOT Diameter 2.10 cm Left Ventricular Ejection Fraction: 65-70 % Left Atrium LA Volume Index (2D A2C): 32.60 ml/m2 Left Atrium Systolic Dimension: 4.02 cm Mitral Valve MV E to A Ratio: 0.81, 0.95 Mitral Valve A-Wave Peak Velocity: 0.71 m/s Mitral Valve E-Wave Peak Velocity: 0.62 m/s Right Ventricle RV Internal Diastolic Dimension: 3.63 cm Aorta AO Root Diam: 2.91 cm Ascending Ao Diam: 2.73 cm Aortic Valve AoV Area (Peak Jeff): 2.09 cm2, 2.03 cm2 AoV Area (VTI): 2.60 cm2, 2.73 cm2 Peak Velocity(Antegrade Flow): 1.62 m/s Peak Gradient(Antegrade Flow): 10.44 mm[Hg] Mean Velocity(Antegrade Flow): 1.08 m/s Mean Gradient(Antegrade Flow): 5.37 mm[Hg] Velocity Time Integral: 28.92 cm Tricuspid Valve Peak Velocity (Regurgitant Flow): 2.37 m/s, 2.20 m/s, 2.16 m/s, 2.38 m/s Pulmonic Valve Mean Gradient: 2.65 mm[Hg], 2.46 mm[Hg], 2.43 mm[Hg], 2.46 mm[Hg] Mean Velocity: 0.76 m/s, 0.73 m/s, 0.72 m/s, 0.74 m/s Peak Velocity: 1.08 m/s Peak Gradient: 5.31 mm[Hg], 4.61 mm[Hg], 4.61 mm[Hg], 4.20 mm[Hg] Right Atrium Right Atrium Systolic Pressure: 49.53 ml, 49.53 ml Dictated by: Matt Lau M.D. on 02/22/2023 at 08:55 Approved by: Matt Lau M.D. on 02/22/2023 at 09:08 Dictated By: MATT LAU Signed By: 02/22/23908 DD/ 7 TD/TT: Abrasive Grader: Procedure Note Radiology, Radiologist, MD - 03/08/2023 [place] [address] Cardiology Report Signed Patient: MARY RUIZ LMR#: [id number] : 1990Acct:[id number] Age/Sex: 32 / FADM Date: 02/21/23 Loc: CARD Attending Dr: Jae Tim D.O. Ordering Physician: Jae Tim D.O. Date of Service: 02/21/23 Procedure(s): CA echo doppler complete Accession Number(s): [id number] cc: Patient: MARY RUIZ Exam Date: 02/21/2023 : 1990 Gender:F Ordering : DR Jae Tim . Admission #: [id number] Family : Order #: [id number] CLICK HERE TO VIEW EXAM ECHOCARDIOGRAM REPORT PROCEDURE: CA ECHO DOPPLER COMPLETE INDICATIONS: Syncope COMPARISON: None. DESCRIPTION: COMPLETE ECHOCARDIOGRAM Real-time transthoracic echocardiography with 2D, M-mode, spectral and color flow Dopplerperformed. QUALITY: Technical quality was good. LEFT VENTRICLE: Normal chamber size. Moderate concentric leftventricular hypertrophy. Global left ventricular systolic function is normal. LV EF: Estimated left ventricular ejection fraction is 65-70%. DIASTOLIC: Normal diastolic function. ATRIAL SEPTUM: LEFT ATRIUM: Normal chamber size. RIGHT ATRIUM: Mild dilatation. RIGHT VENTRICLE: Mild dilatation. Normal right ventricular systolic function. TRICUSPID VALVE: Normal mobility and thickness. No stenosis with mild regurgitation. No evidence of pulmonary hypertension. RVSP 26 mmHg MITRAL VALVE: Normal mobility and thickness. No evidence of mitralvalve stenosis. There is no mitral annular calcification. No mitralregurgitation. AORTIC VALVE: Normal trileaflet appearance. No visible sclerosis.Normal leaflet mobility. No evidence of aortic valve stenosis. No aortic regurgitation. AORTIC ROOT: Normal diameter and appearance. PULMONIC VALVE: Normal thickness and mobility. No stenosis. Trivial regurgitation. PERICARDIUM: No evidence of pericardial effusion. IVC: Collapses with inspirations. Normal size. PLEURA: CONCLUSION: 1. Moderate concentric left ventricular hypertrophy with normal systolic function. Estimated LV ejection fraction is 65-70%. 2. Mildly dilated right ventricle with normal systolic function. 3. Mild right atrial dilatation. 4. No significant valvular dysfunction. 5. Normal right sided pressures. Adult Echocardiography Procedure Report Left Ventricle LVEDD (3.7 - 5.6 cm): 3.80 cm LVESD (2.2 - 4.0 cm): 2.17 cm LVIVS thickness (0.6 - 1.2 cm): 1.57 cm LVPW thickness (0.5 - 1.0 cm): 1.48 cm e': 0.11 m/s E - e': 5.73 LVOT Max Gradient: 3.62 mm[Hg], 4.03 mm[Hg] LVOT Area (cm2): 0.98 m/s Peak Velocity (LVOT): 0.95 m/s, 1.00 m/s Mean Velocity (LVOT): 0.64 m/s LVOT Diameter 2.10 cm Left Ventricular Ejection Fraction: 65-70 % Left Atrium LA Volume Index (2D A2C): 32.60 ml/m2 Left Atrium Systolic Dimension: 4.02 cm Mitral Valve MV E to A Ratio: 0.81, 0.95 Mitral Valve A-Wave Peak Velocity: 0.71 m/s Mitral Valve E-Wave Peak Velocity: 0.62 m/s Right Ventricle RV Internal Diastolic Dimension: 3.63 cm Aorta AO Root Diam: 2.91 cm Ascending Ao Diam: 2.73 cm Aortic Valve AoV Area (Peak Jeff): 2.09 cm2, 2.03 cm2 AoV Area (VTI): 2.60 cm2, 2.73 cm2 Peak Velocity(Antegrade Flow): 1.62 m/s Peak Gradient(Antegrade Flow): 10.44 mm[Hg] Mean Velocity(Antegrade Flow): 1.08 m/s Mean Gradient(Antegrade Flow): 5.37 mm[Hg] Velocity Time Integral: 28.92 cm Tricuspid Valve Peak Velocity (Regurgitant Flow): 2.37 m/s, 2.20 m/s, 2.16 m/s, 2.38m/s Pulmonic Valve Mean Gradient: 2.65 mm[Hg], 2.46 mm[Hg], 2.43 mm[Hg], 2.46 mm[Hg] Mean Velocity: 0.76 m/s, 0.73 m/s, 0.72 m/s, 0.74 m/s Peak Velocity: 1.08 m/s Peak Gradient: 5.31 mm[Hg], 4.61 mm[Hg], 4.61 mm[Hg], 4.20 mm[Hg] Right Atrium Right Atrium Systolic Pressure: 49.53 ml, 49.53 ml Dictated by: Matt Lau M.D. on 02/22/2023 at 08:55 Approved by: Matt Lau M.D. on 02/22/2023 at 09:08 Dictated By: MATT LAU Signed By:02/22/23908 DD/ 7 TD/TT: Abrasive Grader: us Jae Glenroy DO [facility] Final Result documented in this encounter Visit Diagnoses Not on filedocumented in this encounter Care Teams Radiation Oncology Therapist Relationship Specialty Start Date End Date Sal Sauer MD PCP - General Family Medicine 11/16/22 documented as of this encounter
--- OUTSIDE RECORDS SUMMARY | 2025-01-08 15:30 | XMS_ITS | Encounter Summary ---
Author Organization [facility] Address [address] [place] [address] Care Team Providers Care Senior Web Services Developer Name Role Phone Sal Sauer MD Primary Care Provider [phone] Encounter Details Date Type Department Care Team (Late st Contact Info) Description 02/21/2023 Clinisync Result Encounter [facility] External Department Unsolicited Demond Tim, [place] [address] Social History Tobacco Use Types Packs/Day Years [...] EDT Procedure Visit [facility] [address] [facility] [place] [address] Demond Tim [place] [address] documented as of this encounter Procedures Procedure Name Priority Date/Time Associated Diagnosis Comments OBBPPWNST 02/21/2023 4:38 PM EDT documented in this encounter Results * OBBPPWNST (02/21/2023 4:38 PM EDT) Anatomical Region Laterality Modality Other 02/21/2023 4:38 PM EDT Narrative 02/21/2023 4:38 [place] [address] Ultrasound Report Signed Patient: MARY RUIZ MR#: [id number] : 1990 Acct:[id number] Age/Sex: 32 / F ADM Date: 02/21/23 Loc: [facility] 250-[address]: Demond Tim D.O. Ordering Physician: Demond Tim D.O. Date of Service: 02/21/23 Procedure(s): US OB BPP w non-stress Accession Number(s): [id number] cc: Demond Tim D.O.; SAL SAUER [place] [id number] Patient Name: MARY RUIZ MRN: [facility]:[id number] date: 1990 Sex: F Assigned Patient Location: US Current Patient Location: CARD Accession/Order Number: [id number] Exam Date: 02/21/2023 16:00 Report Date: 02/21/2023 16:38 At the request of: DEMOND TIM Procedure: US OB BPP w non-stress EXAMINATION: US OB BPP w non-stress HISTORY: GESTATIONAL DIABETES MELLITUS COMPARISON: No relevant comparison available. TECHNIQUE: Ultrasound biophysical profile was performed in the radiology department. FINDINGS: BREATHING MOVEMENTS: 2.0 GROSS BODY MOVEMENTS: 2.0 TONE: 2.0 QUALITATIVE AMNIOTIC FLUID VOLUME: 2.0 PRESENTATION: CEPHALIC HEART RATE: 132.4 bpm H.B./min AMNIOTIC FLUID VOLUME: 15.6 cm cm GESTATIONAL AGE: 34 weeks 4 days CONCLUSION: Total biophysical profile score: 8.0 Electronically authenticated by: JUAN ANTONIO BLACKMAN Date: 02/21/2023 16:38 Dictated By: Juan Antonio Blackman M.D. Signed By: 02/21/23 1646 DD/ 1638 TD/TT: Ensemble Member: Procedure Note Radiology, Radiologist, MD - 03/09/2023 [place] [id number] Ultrasound Report Signed Patient: MARY RUIZ LMR#: [id number] : 1990Acct:[id number] Age/Sex: 32 / FADM Date: 02/21/23 Loc: [facility] 250-[address]: Demond Tim D.O. Ordering Physician: Demond Tim D.O. Date of Service: 02/21/23 Procedure(s): US OB BPP w non-stress Accession Number(s): [id number] cc: Demond Tim D.O.; SAL SAUER [place] [id number] Patient Name: MARY RUIZ MRN: [id number] date: 1990 Sex: F Assigned Patient Location: US Current Patient Location: CARD Accession/Order Number: [id number] Exam Date: 02/21/2023 16:00 Report Date: 02/21/2023 16:38 At the request of: DEMOND TIM Procedure: US OB BPP w non-stress EXAMINATION: US OB BPP w non-stress HISTORY: GESTATIONAL DIABETES MELLITUS COMPARISON: No relevant comparison available. TECHNIQUE: Ultrasound biophysical profile was performed in the radiology department. FINDINGS: BREATHING MOVEMENTS: 2.0 GROSS BODY MOVEMENTS: 2.0 TONE: 2.0 QUALITATIVE AMNIOTIC FLUID VOLUME: 2.0 PRESENTATION: CEPHALIC HEART RATE: 132.4 bpm H.B./min AMNIOTIC FLUID VOLUME: 15.6 cm cm GESTATIONAL AGE: 34 weeks 4 days CONCLUSION: Total biophysical profile score: 8.0 Electronically authenticated by: JUAN ANTONIO BLACKMAN Date: 02/21/2023 16:38 Dictated By: Juan Antonio Blackman M.D. Signed By:02/21/23 1649 DD/ 1638 TD/TT: Ensemble Member: us Demond Tim DO [facility] Final Result documented in this encounter Visit Diagnoses Not on filedocumented in this encounter Care Teams Senior Web Services Developer Relationship Specialty Start Date End Date Oberer, Sal L, MD PCP - General Family Medicine 11/16/22 documented as of this encounter
--- OUTSIDE RECORDS SUMMARY | 2025-01-08 15:30 | XMS_ITS | Clinical Summary ---
Author Organization [facility] Address [address] [place] [address] Care Team Providers Care Mental Health Social Worker Name Role Phone Sal Sauer MD Primary Care Provider [phone] Allergies Active Allergy Reactions Criticality Noted Date Comments Naproxen Rash Low 03/26/2017 Patient states more of a sensitivity Patient states more of a sensitivity Patient states more of a sensitivity Other 01/08/2023 Other Reaction(s): Unknown Medications citalopram (CeleXA) 20 MG tabletIndication s:Second trimester ([facility]) Take 0.5 tablets (10 mg) by mouth in the morning. 15 tablet 6 3 Active Additional Information Patient not taking.Reported on 01/08/2025 metFORMIN XR (Glucophage-XR) 500 MG 24 hr tabletIndication s:Gestational diabetes mellitus (GDM) in third trimester controlled on oral hypoglycemic drug ([facility]) Take one tablet by mouth two times daily. Do not crush, chew, or split. 60 tablet 11 3 Active Additional Information Patient not taking.Reported on 01/08/2025 labetalol (Normodyne) 100 MG tablet Take 100 mg by mouth in the morning and 100 mg in the evening. 3 Active metoprolol succinate XL (Toprol-XL) 25 MG 24 hr tablet Take 25 mg by mouth 3 Active citalopram (CeleXA) 20 MG tabletIndication s: anxiety ([facility]) TAKE 1 TABLET BY MOUTH EVERY DAY IN THE MORNING 90 tablet 3 5 Active Additional Information Patient not taking.Reported on 01/08/2025 Encounters Date Type Department Care Team Description 01/08/2025 11:00 AM EDT Office Visit [facility] [address] [facility] [place] [phone] Jae Tim DO Well woman exam with routine gynecological exam; Borderline diabetes mellitus 01/08/2025 Bamboo flowsheet [facility] OB [address] [place] [phone] Jae Tim DO from Last 3 Months Family History Medical History Relation Name Comments CHELSEA disease Mother Mental illness Mother Thyroid disease Mother Relation Name Status Comments Brother Alive Father Mother Alive Son 1 Alive Son 2 Alive Social History Tobacco Use Types Packs/Day Years Used Date Smoking Tobacco: Never Tobacco Cessation:Counseling Given: Not Answered Alcohol Use Standard Drinks/Week Comments Never 0 (1 standard drink = 0.6 oz pur e alcohol) Caffeine: 1-2 cups/day Comments Unknown Sex and Gender Information Value Date Recorded Sex Assigned at Not on file Legal Sex Female 7:26 PM EDT Gender Identity Not on file Sexual Orientation Not on file Last Filed Vital Signs Vital Sign Reading Time Taken Comments Blood Pressure 110/68 01/08/2025 11:05 AM EDT Pulse - - Temperature - - Respiratory Rate - - Oxygen Saturation - - Inhaled Oxygen Concentration - - Weight 134 kg (295 lb 12.8 oz) 01/08/2025 11:05 AM EDT Height 157.5 cm (5' 2 ) 10/25/2022 12:00 PM EDT Body Mass Index 54.1 10/25/2022 12:00 PM EDT Plan of Treatment Upcoming Encounters Date Type Department Care Team (Late st Contact Info) Description 01/14/2026 9:00 AM EDT Procedure Visit [facility] [address] [facility] [place] [phone] Jae Tim DO [facility] [place], [place] [phone] Health Maintenance Due Date Last Done Comments Influenza Vaccine (#1) 2025 , 04/12/2023, 03/27/2022, Additional history exists Cervical Cancer Screening 10/26/2027 HPV/Cotest 10/26/2027 Pap Smear 10/26/2027 10/25/2022 Procedures Procedure Name Priority Date/Time Associated Diagnosis Comments PAP SMEAR Routine 10/25/2022 12:00 AM EDT from Last 3 Months or Most Recently Relevant to Health Maintenance Results * Pap Smear (10/25/2022 12:00 AM EDT) Swab Cervical swab / Unknown us Historical Provider LAB CYTOLOGY ORDERABLES F inal Result [facility] from Last 3 Months or Most Recently Relevant to Health Maintenance Insurance [employer] Care Teams Mental Health Social Worker Relationship Specialty Start Date End Date Sal Sauer MD PCP - General Family Medicine 11/16/22
--- OUTSIDE RECORDS SUMMARY | 2025-01-08 15:30 | XMS_ITS | Clinical Summary ---
Author Organization [facility] Address [address] [place] [address] Care Team Providers Care Contestant Coordinator Name Role Phone Sal Sauer MD Primary Care Provider [phone] Allergies Active Allergy Reactions Criticality Noted Date Comments Naproxen Rash Low 03/26/2017 Patient states more of a sensitivity Patient states more of a sensitivity Other 01/08/2023 Other Reaction(s): Unknown Medications metoprolol succinate XL (Toprol-XL) 25 mg 24 hr tabletIndication s:SVT (supraventricula r tachycardia) Take 1 tablet (25 mg) by mouth once daily as directed. Do not crush or chew. 90 tablet 3 04/21/2024 5 Active citalopram (CeleXA) 20 mg tablet Take 20 mg by mouth in the morning. Active Active Problems Problem Noted Date Diagnosed Date Concentric left ventricular hypertrophy 06/30/19 25 Essential hypertension 06/30/2024 Class 3 severe obesity due t o excess calories without serious comorbidity with body mass index (BMI) of 50.0 to 59.9 in adult 06/30/2024 Tachycardia 03/07/2023 Assessment & Plan (03/07/2023 9:36 AM EDT): As per SVT 36 weeks gestation of 03/07/2023 Assessment & Plan (03/07/2023 9:37 AM EDT): F/U with SENIOR TREASURY ANALYST Intermittent palpitations 03/07/2023 Assessment & Plan (03/07/2023 9:37 AM EDT): Will start labetolol for heart rate, and hopefully symptoms will improve after of her daughter SVT (supraventricular tachycardia) 03/07/2023 Assessment & Plan (03/07/2023 9:38 AM EDT): Intermittent SVT noted per pt with heart rates up to 160 bpm, will start labetolol 200 mg po bid in light that she is 36 weeks . Holter monitor for 48 hours to assess for any concerning arrhythmias Will send pt for labs to be drawn- CBC, CMP, TSH and MAG Comments Yes Encounters Date Type Department Care Team Description 12/01/2024 9:00 AM EDT Office Visit [facility] [place] [address] [place] [address] Matt Lau MD Primary hypertension (Primary Dx); LVH (left ventricular hypertrophy); Class 3 severe obesity due to excess calories without serious comorbidity with body mass index (BMI) of 50.0 to 59.9 in adult from Last 3 Months Family History Medical History Relation Name Comments No Known Problems Father No Known Problems Mother Relation Name Status Comments Father Mother Social History Tobacco Use Types Packs/Day Years Used Date Smoking Tobacco: Never Smokeless Tobacco: Never Tobacco Cessation:Counseling Given: Not Answered Alcohol Use Standard Drinks/Week Comments Not Currently 0 (1 standard drink = 0.6 oz pur e alcohol) [place] Safety & Environment Answer Date Rec orded Fear of Current or Ex-Partner Not on file Emotionally Abused Not on file 08/10/2023 Physically Abused Not on file 08/10/2023 Sexually Abused Not on file 08/10/2023 Physically or Sexually Abused Not on file Comments Yes Sex and Gender Information Value Date Recorded Sex Assigned at Not on file Legal Sex Female 2:05 PM EDT Gender Identity Not on file Sexual Orientation Not on file Last Filed Vital Signs Vital Sign Reading Time Taken Comments Blood Pressure 126/86 12/01/2024 8:49 AM EDT Pulse 71 12/01/2024 8:49 AM EDT Temperature - - Respiratory Rate - - Oxygen Saturation 98% 12/01/2024 8:49 AM EDT Inhaled Oxygen Concentration - - Weight 134 kg (295 lb) 12/01/2024 8:49 AM EDT Height 160 cm (5' 3 ) 12/01/2024 8:49 AM EDT Body Mass Index 52.26 12/01/2024 8:49 AM EDT Plan of Treatment Health Maintenance Due Date Last Done Comments IPV Vaccines (4 of 4 - 4-dose series) 07/27/1993 01/24/1993, 1989, 1989 Depression Screening 2001 HPV/Cotest 2019 COVID-19 Vaccine ( season) 2024 04/14/2024, 01/24/2024, 03/08/2021, Additional history exists Influenza Vaccine (#1) 2025 , 04/12/2023, 03/27/2022, Additional history exists Cervical Cancer Screening 10/25/2025 Pap Smear 10/25/2025 10/25/2022 Adult Tetanus 01/23/2034 01/24/2024 Zoster Vaccines (1 of 2) 2039 12/15/2010, 06/2010 HIB Vaccines Completed 03/03/1991 Meningococcal Vaccine Completed 08/12/2007 Hepatitis B Vaccines Completed 09/26/2010, 09/11/2007, 08/12/2007 Varicella Vaccines Completed 12/15/2010, 11/16/2010 HPV Vaccines Aged Out No longer eligi ble based on patient's age to complete this topic Meningococcal B Vaccine Aged Out No l onger eligible based on patient's age to complete this topic Pneumococcal Vaccine: Pediatrics (0 to 5 Years) and At-Risk Patients (6 to 64 Years) Aged Out No longer eligible based on patient's age to complete this topic Rotavirus Vaccines Aged Out No longer eligible based on patient's age to complete this topic [facility] Care Teams Contestant Coordinator Relationship Specialty Start Date End Date Sal Sauer MD PCP - General 03/16/23
--- OUTSIDE RECORDS SUMMARY | 2025-01-08 15:30 | XMS_ITS | Encounter Summary ---
Author Organization [facility] Address [address] [place] [address] Care Team Providers Care Auto Locator Name Role Phone Sal Sauer MD Primary Care Provider [phone] Encounter Details Date Type Department Care Team (Late Contact Info) Description 02/28/2023 Clinisync Result Encounter [facility] External Department Unsolicited Demond Tim, [facility] [place] [address] Social History Tobacco Use Types Packs/Day Years [...] EDT Procedure Visit [facility] [address] [facility] [place] [address] Demond Tim [facility] [place] [address] documented as of this encounter Procedures Procedure Name Priority Date/Time Associated Diagnosis Comments US OB BPP W NON-STRESS 02/28/2023 4:39 PM EDT documented in this encounter Results * US OB BPP W NON-STRESS (02/28/2023 4:39 PM EDT) Anatomical Region Laterality Modality Other 02/28/2023 4:39 PM EDT Narrative 02/28/2023 4:39 [place] [address] Ultrasound Report Signed Patient: MARY RUIZ MR#: [id number] : 1990 Acct:[id number] Age/Sex: 32 / F ADM Date: 02/28/23 Loc: US Attending Dr: Demond Tim D.O. Ordering Physician: Demond Tim D.O. Date of Service: 02/28/23 Procedure(s): US OB BPP w non-stress Accession Number(s): [id number] cc: Demond Tim D.O.; SAL SA[address] [address] Patient Name: MARY RUIZ MRN: [id number] date: 1990 Sex: F Assigned Patient Location: US Current Patient Location: Accession/Order Number: [id number] Exam Date: 02/28/2023 09:00 Report Date: 02/28/2023 16:39 At the request of: DEMOND TIM Procedure: US OB BPP w non-stress EXAMINATION: US OB BPP w non-stress HISTORY: GESTATIONAL DIABETES MELLITUS 024.415 COMPARISON: No relevant comparison available. TECHNIQUE: Ultrasound biophysical profile was performed in the radiology department. non-reactive stress testing was performed by nursing staff in the birthing center. FINDINGS: BREATHING MOVEMENTS: 2 GROSS BODY MOVEMENTS: 2 TONE: 2 QUALITATIVE AMNIOTIC FLUID VOLUME: 2 PRESENTATION: CEPHALIC HEART RATE: 185.5 bpm H.B./min AMNIOTIC FLUID VOLUME: 14.0 cm cm GESTATIONAL AGE: 35 weeks 4 days CONCLUSION: Total biophysical profile score: 8 Electronically authenticated by: JUAN ANTONIO BLACKMAN Date: 02/28/2023 16:39 Dictated By: Juan Antonio Blackman M.D. Signed By: 02/28/23 1641 DD/ 38 TD/TT: Fundraiser: Procedure Note Radiology, Radiologist, - 03/09/2023 [place] [id number] Ultrasound Report Signed Patient: MARY RUIZ LMR#: [id number] : 1990Acct:[id number] Age/Sex: 32 / FADM Date: 02/28/23 Loc: US Attending Dr: Demond Tim D.O. Ordering Physician: Demond Tim D.O. Date of Service: 02/28/23 Procedure(s): US OB BPP w non-stress Accession Number(s): [id number] cc: Demond Tim D.O.; SAL SAUER [place] [id number] Patient Name: MARY RUIZ MRN: [facility]:[id number] date: 1990 Sex: F Assigned Patient Location: US Current Patient Location: Accession/Order Number: [id number] Exam Date: 02/28/2023 09:00 Report Date: 02/28/2023 16:39 At the request of: DEMOND TIM Procedure: US OB BPP w non-stress EXAMINATION: US OB BPP w non-stress HISTORY: GESTATIONAL DIABETES MELLITUS 024.415 COMPARISON: No relevant comparison available. TECHNIQUE: Ultrasound biophysical profile was performed in the radiology department. non-reactive stress testing was performed by nursingstaff in the birthing center. FINDINGS: BREATHING MOVEMENTS: 2 GROSS BODY MOVEMENTS: 2 TONE: 2 QUALITATIVE AMNIOTIC FLUID VOLUME: 2 PRESENTATION: CEPHALIC HEART RATE: 185.5 bpm H.B./min AMNIOTIC FLUID VOLUME: 14.0 cm cm GESTATIONAL AGE: 35 weeks 4 days CONCLUSION: Total biophysical profile score: 8 Electronically authenticated by: JUAN ANTONIO BLACKMAN Date: 02/28/2023 16:39 Dictated By: Juan Antonio Blackman M.D. Signed By:02/28/231640 DD/ 38 TD/TT: Fundraiser: us Demond Tim DO [facility] Final Result documented in this encounter Visit Diagnoses Not on filedocumented in this encounter Care Teams Auto Locator Relationship Specialty Start Date End Date Sal Sauer MD PCP - General Family Medicine 11/16/22 documented as of this encounter
--- OUTSIDE RECORDS SUMMARY | 2025-01-08 15:30 | XMS_ITS | Encounter Summary ---
Author Organization [facility] Address [address] [place] [address] Care Team Providers Care Solutions Developer Name Role Phone Sal Sauer MD Primary Care Provider [phone] Encounter Details Date Type Department Care Team (Late st Contact Info) Description 03/14/2023 Clinisync Result Encounter [facility] External Department Unsolicited Demond Tim, [place] [address] Social History Tobacco Use Types Packs/Day Years [...] 01/14/2026 9:00 AM EDT Procedure Visit [facility] [address] [facility] [place] [address] Demond Tim DO [address] [place] [address] documented as of this encounter Procedures Procedure Name Priority Date/Time Associated Diagnosis Comments OB GROWTH 03/14/2023 6:29 PM EDT documented in this encounter Results * OB GROWTH (03/14/2023 6:29 PM EDT) Anatomical Region Laterality Modality Other 03/14/2023 6:29 PM EDT Narrative 03/14/2023 6:29 [place] [address] Ultrasound Report Signed Patient: MARY RUIZ MR#: [id number] : 1990 Acct:[id number] Age/Sex: 32 / F ADM Date: 03/14/23 Loc: [facility] 255-[address]: Demond Tim D.O. Ordering Physician: Demond Tim D.O. Date of Service: 03/14/23 Procedure(s): US OB growth Accession Number(s): [id number] cc: Demond Tim D.O.; SAL SAUER [place] [address] Patient Name: MARY RUIZ MRN: [id number] date: 1990 Sex: F Assigned Patient Location: Current Patient Location: [facility] Accession/Order Number: [id number] Exam Date: 03/14/2023 09:00 Report Date: 03/14/2023 18:29 At the request of: DEMOND TIM Procedure: US OB growth EXAMINATION: US OB growth HISTORY: GESTATIONAL DIABETES MELLITUS O24.415 COMPARISON: No relevant comparison available. FINDINGS: Heart Rate: 136.4 bpm Amniotic Fluid Volume: 7.6 cm , 5th percentile 7.5 cm Number: 1.0 Position: Cephalic presentation, longitudinal lie Maximum Vertical Pocket: 1.4 cm cm 3.5 cm cm 1.4 cm cm 1.3 cm cm BIOMETRY: BPD: 8.5 cm cm; 34 weeks 1 days; <3% HC: 31.6 cmcm; 35 weeks 3 days <3% AC: 29.1 cm cm; 33 weeks 1 days<3% FL: 6.4 cm cm; 33 weeks 1 days; <3 % EFW: 2197.4 grams, 4 lbs. 13 oz., less than 3% FL/AC: 22.0 FL/BPD: 75.6 HC/AC: 1.1 GESTATIONAL AGE: Age by EDC: 37 weeks 4 days SON by EDC: 03/31/2023 Age by US: 34 weeks 0 days SON by US: 04/25/2023 US/US OB growth IMPRESSION: Intrauterine growth retardation Borderline oligohydramnios Electronically authenticated by: JUAN ANTONIO BLACKMAN Date: 03/14/2023 18:29 Dictated By: Juan Antonio Blackman M.D. Signed By: 03/14/231831 DD/ 28 TD/TT: Stucco Plasterer: Procedure Note Radiology, Radiologist, MD - 03/14/2023 [place] [address] Ultrasound Report Signed Patient: MARY RUIZ LMR#: [id number] : 1990Acct:[id number] Age/Sex: 32 / FADM Date: 03/14/23 Loc: [facility] 255-[address]: Demond Tim D.O. Ordering Physician: Demond Tim D.O. Date of Service: 03/14/23 Procedure(s): US OB growth Accession Number(s): [id number] cc: Demond Tim D.O.; SAL SAUER [place] [address] Patient Name: MARY RUIZ MRN: [facility]:[id number] date: 1990 Sex: F Assigned Patient Location: Current Patient Location: [facility] Accession/Order Number: [id number] Exam Date: 03/14/2023 09:00 Report Date: 03/14/2023 18:29 At the request of: DEMOND TIM Procedure: US OB growth EXAMINATION: US OB growth HISTORY: GESTATIONAL DIABETES MELLITUS O24.415 COMPARISON: No relevant comparison available. FINDINGS: Heart Rate: 136.4 bpm Amniotic Fluid Volume: 7.6 cm , 5th percentile 7.5 cm Number: 1.0 Position: Cephalic presentation, longitudinal lie Maximum Vertical Pocket: 1.4 cm cm 3.5 cm cm 1.4 cm cm 1.3 cm cm BIOMETRY: BPD: 8.5 cm cm; 34 weeks 1 days; <3% HC: 31.6 cmcm; 35 weeks 3 days <3% AC: 29.1 cm cm; 33 weeks 1 days<3% FL: 6.4 cm cm; 33 weeks 1 days; <3 % EFW: 2197.4 grams, 4 lbs. 13 oz., less than 3% FL/AC: 22.0 FL/BPD: 75.6 HC/AC: 1.1 GESTATIONAL AGE: Age by EDC: 37 weeks 4 days SON by EDC: 03/31/2023 Age by US: 34 weeks 0 days SON by US: 04/25/2023 US/US OB growth IMPRESSION: Intrauterine growth retardation Borderline oligohydramnios Electronically authenticated by: JUAN ANTONIO BLACKMAN Date: 03/14/2023 18:29 Dictated By: Juan Antonio Blackman M.D. Signed By:03/14/231831 DD/ 28 TD/TT: Stucco Plasterer: us Demond [place] DO [facility] Final Result documented in this encounter Visit Diagnoses Not on filedocumented in this encounter Care Teams Solutions Developer Relationship Specialty Start Date End Date Sal Sauer MD PCP - General Family Medicine 11/16/22 documented as of this encounter
--- OUTSIDE RECORDS SUMMARY | 2025-01-08 15:30 | XMS_ITS | Clinical Summary ---
Author Organization [employer] [facility] Address [facility] [place] [id number] [address] [place] [address] Care Team Providers Care Paver Layer Name Role Phone Unavailable Primary Care Provider Unavailabl e Allergies Active Allergy Reactions Criticality Noted Date Comments Naproxen Rash Low 03/26/2017 Patient states more of a sensitivity Medications metFORMIN (GLUCOPHAGE) 500 mg tablet Take 1 tablet by mouth 2 (two) times a day with meals. Active Active Problems No known active problems Family History Medical History Relation Name Comments Asthma Mother COPD Mother Depression Mother Hypertension Mother pulmonary Mental illness Mother Thyroid disease Mother Relation Name Status Comments Mother Alive Social History Tobacco Use Types Packs/Day Years Used Date Smoking Tobacco: Never Smokeless Tobacco: Never Alcohol Use Standard Drinks/Week Comments Yes 0 (1 standard drink = 0.6 oz pur e alcohol) PHQ-2 Answer Date Recorded PHQ-2 Score 0 06/28/2018 Childcare Answer Date Recorded Childcare Unknown 11/27/2018 Employment Answer Date Recorded Employment Unknown 11/27/2018 Purpose - Life Answer Date Recorded Purpose and direction in life Unknown Comments No Sex and Gender Information Value Date Recorded Sex Assigned at Not on file Legal Sex Female 11:43 AM EDT Gender Identity Not on file Sexual Orientation Not on file Last Filed Vital Signs Vital Sign Reading Time Taken Comments Blood Pressure 116/70 10/11/2017 9:09 AM EDT Pulse 72 10/11/2017 9:09 AM EDT Temperature - - Respiratory Rate 16 10/11/2017 9:09 AM EDT Oxygen Saturation 98% 10/11/2017 9:09 AM EDT Inhaled Oxygen Concentration - - Weight 126.1 kg (278 lb) 10/11/2017 9:09 AM EDT Height 161.3 cm (5' 3.5 ) 10/11/2017 9:09 AM EDT Body Mass Index 48.47 10/11/2017 9:09 AM EDT Plan of Treatment Health Maintenance Due Date Last Done Comments Depression Screening 2001 Tobacco Screening 2001 Adult BMI Screening 2007 DTaP,Tdap and Td Vaccines (1 - Tdap) 2008 Pap Smear 2010 Influenza Vaccine 02/16/2025 Medical Devices Not on file Insurance [employer] Member Subscriber Plan / Payer (Ef fective 2016-Present) Name:Debby Ruiz Relation to Subscriber:Self Name:Debby Ruiz Payer ID:Not on file Type:Not on file Address: [facility] [address] [place] [id number]
--- OUTSIDE RECORDS SUMMARY | 2025-01-08 15:30 | XMS_ITS | Encounter Summary ---
Author Organization [facility] Address [address] [facility] [place] [address] Care Team Providers Care Outcomes Specialist Name Role Phone Sal Sauer MD Primary Care Provider [phone] Encounter Details Date Type Department Care Team ([facility] Contact Info) Description 02/09/2023 Abstract [facility] [place] [address] [place] [address] Jae Tim [facility] [place] [address] Social History Tobacco Use Types Packs/Day Years [...] Upcoming Encounters Date Type Department Care Team ([facility] Contact Info) Description 01/14/2026 9:00 AM EDT Procedure Visit [facility] [address] [facility] [place] [phone] Jae Tim [facility] [place], [place] [id number] documented as of this encounter Visit Diagnoses Not on filedocumented in this encounter Care Teams Outcomes Specialist Relationship Specialty Start Date End Date Sal Sauer MD PCP - General Family Medicine 11/16/22 documented as of this encounter
--- OUTSIDE RECORDS SUMMARY | 2025-01-08 15:30 | XMS_ITS | Encounter Summary ---
Author Organization [facility] Address [address] [facility] [place] [address] Care Team Providers Care Glassine Machine Tender Name Role Phone Sal Sauer MD Primary Care Provider [phone] Encounter Details Date Type Department Care Team ([facility] Contact Info) Description 02/15/2023 Abstract [facility] [address] [facility] [place] [phone] Anne Marie Flores LPN [address] [facility] [place] RAMOS [facility] Social History Tobacco Use Types Packs/Day Years [...] 01/14/2026 9:00 AM EDT Procedure Visit [facility] [address] [facility] [place] [address] Jae Tim DO [address] [place] [address] Dr Cinthia [place]LAKE [place], [place] [phone] documented as of this encounter Visit Diagnoses Not on filedocumented in this encounter Care Teams Glassine Machine Tender Relationship Specialty Start Date End Date Sal Sauer MD PCP - General Family Medicine 11/16/22 documented as of this encounter
--- OUTSIDE RECORDS SUMMARY | 2025-01-08 15:30 | XMS_ITS | Encounter Summary ---
Author Organization [facility] Address [address] [facility] [place] [address] Care Team Providers Care National Coverage Specialist Name Role Phone Sal Sauer MD Primary Care Provider [phone] Encounter Details Date Type Department Care Team ([facility] Contact Info) Description 12/21/2022 Abstract [facility] [place] [address] [place] [phone] Jae Tim DO [facility] [place], [place] [address] Social History Tobacco Use Types Packs/Day Years [...] 01/14/2026 9:00 AM EDT Procedure Visit [facility] [address] [place] [address] Jae Tim DO [facility] [place], [place] [phone] documented as of this encounter Visit Diagnoses Not on filedocumented in this encounter Care Teams National Coverage Specialist Relationship Specialty Start Date End Date Sal Sauer MD PCP - General Family Medicine 11/16/22 documented as of this encounter
--- OUTSIDE RECORDS SUMMARY | 2025-01-08 15:30 | XMS_ITS | Encounter Summary ---
Author Organization [facility] Address [address] [place] [address] Care Team Providers Care Records Management Specialist Name Role Phone Sal Sauer MD Primary Care Provider [phone] Encounter Details Date Type Department Care Team ([facility] Contact Info) Description 06/08/2023 Abstract [facility] [address] [facility] [place] [phone] Anne Marie Flores LPN [address] [facility] [place] RAMOS [facility] Social History Tobacco Use Types Packs/Day Years Used Date Smoking Tobacco: Never Alcohol Use Standard Drinks/Week Comments Never 0 (1 standard drink = 0.6 oz pur e alcohol) Caffeine: 1-2 cups/day Comments No Sex and Gender Information Value Date Recorded Sex Assigned at Not on file Legal Sex Female 7:26 PM EDT Gender Identity Not on file Sexual Orientation Not on file documented as of this encounter Plan of Treatment Upcoming Encounters Date Type Department Care Team (Late Contact Info) Description 01/14/2026 9:00 AM EDT Procedure Visit [facility] [address] [facility] [place] [address] Jae Tim DO [address] [place] [address] Dr [place]inthia Ramos[place], [place] [phone] documented as of this encounter Visit Diagnoses Not on filedocumented in this encounter Care Teams Records Management Specialist Relationship Specialty Start Date End Date Sal Sauer MD PCP - General Family Medicine 11/16/22 documented as of this encounter
--- OUTSIDE RECORDS SUMMARY | 2025-01-08 15:30 | XMS_ITS | Encounter Summary ---
Author Organization [facility] Address [address] [place] [address] Care Team Providers Care Ballast Inspector Name Role Phone Sal Sauer MD Primary Care Provider [phone] Encounter Details Date Type Department Care Team (Late st Contact Info) Description 02/21/2023 Clinisync Result Encounter [facility] External Department Unsolicited Demond Tim, [facility] [place] [address] Social History Tobacco Use Types Packs/Day Years [...] 01/14/2026 9:00 AM EDT Procedure Visit [facility] [address] [place] [id number] Demond iTm DO [address] [place] [address] documented as of this encounter Procedures Procedure Name Priority Date/Time Associated Diagnosis Comments EKG 02/21/2023 7:19 AM EDT documented in this encounter Results * EKG (02/21/2023 7:19 AM EDT) Anatomical Region Laterality Modality Other 02/21/2023 7:19 AM EDT Narrative 02/21/2023 7:19 AM EDT [place] [id number] Electrocardiograph Report Signed Patient: MARY RUIZ MR#: [id number] : 1990 Acct:[id number] Age/Sex: 32 / F ADM Date: 02/21/23 Loc: CARD Attending Dr: Demond Tim D.O. Ordering Physician: Demond Tim D.O. Date of Service: 02/21/23 Procedure(s): ECG 12 lead Accession Number(s): [id number] cc: [facility] Test Date: 2023-02-21 Pat Name: MARY RUIZ Department: Room: - Gender: Female Glove Brusher: : 1990 Requested By: DEMOND TIM Order Number: [id number] Reading MD: DARIN DIEZ Measurements Intervals [place] Rate: 81 P: 52 WI: 128 QRS: 67 QRSD: 89 T: 19 QT: 336 QTc: 391 Interpretive Statements SINUS RHYTHM No previous ECG available for comparison Electronically Signed On 02-22-2023 7:01:26 EDT by DARIN DIEZ Dictated By: Darin Dize D.O. Signed By: 02/22/23 0702/22/23 07 DD/ 8 TD/TT: Automotive Glass Mechanic: Procedure Note Radiology, Radiologist, MD - 03/08/[address] [address] Electrocardiograph Report Signed Patient: MARY RUIZ LMR#: [id number] : 1990Acct:[id number] Age/Sex: 32 / FADM Date: 02/21/23 Loc: CARD Attending Dr: Demond Tim D.O. Ordering Physician: Demond Tim D.O. Date of Service: 02/21/23 Procedure(s): ECG 12 lead Accession Number(s): [id number] cc: [facility] Test Date: 2023-02-21 Pat Name: MARY RUIZ Department: Room: - Gender: Female Glove Brusher: : 1990 Requested By: DEMOND TIM Order Number: [id number] Reading MD: DARIN DIEZ Measurements Intervals [place] Rate: 81 P: 52 WI: 128 QRS: 67 QRSD: 89 T: 19 QT: 336 QTc: 391 Interpretive Statements SINUS RHYTHM No previous ECG available for comparison Electronically Signed On 02-22-2023 7:01:26 EDT by DARIN DIEZ Dictated By: Darin Diez D.O. Signed By:02/22/2370002/22/23700 DD/ 8 TD/TT: Automotive Glass Mechanic: us Demond Tim DO [facility] Final Result documented in this encounter Visit Diagnoses Not on filedocumented in this encounter Care Teams Ballast Inspector Relationship Specialty Start Date End Date Sal Sauer MD PCP - General Family Medicine 11/16/22 documented as of this encounter
--- OUTSIDE RECORDS SUMMARY | 2025-01-08 15:30 | XMS_ITS | Encounter Summary ---
Author Organization [facility] Address [address] [place] [address] Care Team Providers Care Regional Controller Name Role Phone Sal Sauer MD Primary Care Provider [phone] Encounter Details Date Type Department Care Team (Late Contact Info) Description 01/08/2025 Bamboo flowsheet [facility] [address] [place] [phone] Jae Tim DO [address] [place], [place] [address] Social History Tobacco Use Types Packs/Day Years [...] 01/14/2026 9:00 AM EDT Procedure Visit [facility] [address] [phone] Jae Tim DO [address] [place], [place] [id number] documented as of this encounter Visit Diagnoses Not on filedocumented in this encounter Care Teams Regional Controller Relationship Specialty Start Date End Date Sal Sauer MD PCP - General Family Medicine 11/16/22 documented as of this encounter
[2025-01-12 12:11] LABS: Age Gdln ACOG Testing Note (.); IGP, Aptima HPV, rfx 16/18,45 Note (.)
== END 2025-01-08 15:28 | disposition home or self-care (01) ==
LOC: LAB 15:27
PROVIDERS: PCP Family Medicine; Visit Provider Obstetrics & Gynecology
DX: Z01.419 Encounter for gynecological examination (general) (routine) without abnormal findings (principal)
CPT/HCPCS: 87624; 88175

== ENCOUNTER 2025-01-10 07:31 | Outpatient (OUT) | payer BC, SELFPAY ==
--- OUTSIDE RECORDS SUMMARY | 2025-01-10 07:36 | XMS_ITS | CCD ---
Author Organization [facility] CliniSynh Care Team Providers Care Hood Fitter Name Role Phone Chiara Alexander Unavailable Sal Simms Unavailable REQUEST, DR NONE LISTED Primary Care Unavaila ble GLENROY ., DR LAGOS Admitting Unavailable GLENROY ., DR LAGOS Attending Unavailable GLENROY ., DR LAGOS Consulting Unavailable GLENROY ., DR LAGOS Admitting Unavailable GLENROY ., DR LAGOS Attending Unavailable GLENROY ., DR LAGOS Consulting Unavailable OBERER, DR SOLORIO Primary Care Unavailable OBERER, DR SOLORIO Primary Care Unavailable GLENROY ., DR LAGOS Consulting Unavailable GLENROY ., DR LAGOS Admitting Unavailable GLENROY ., DR LAGOS Attending Unavailable GLENROY ., DR LAGOS Admitting Unavailable GLENROY ., DR LAGOS Attending Unavailable GLENROY ., DR LAGOS Consulting Unavailable OBERER, DR SOLORIO Primary Care Unavailable ZIEBER, DR LAVINIA Rehman Consulting Unavailable GLENROY ., DR LAGOS Admitting Unavailable GLENROY ., DR LAGOS Attending Unavailable GLENROY ., DR LAGOS Consulting Unavailable REQUEST, NONE LISTED Primary Care Unavaila ble GLENROY ., DR LAGOS Admitting Unavailable REQUEST, DR MONTERO LISTED Primary Care Unavaila ble GLENROY ., DR LAGOS Attending Unavailable GLENROY ., DR LAGOS Consulting Unavailable ZIEBER, DR LAVINIA Rehman Consulting Unavailable SAL SIMMS Primary Care Physician Rigo Lange Admitting Unavailable Rigo Lange Attending Unavailable Sal Simms Primary Care Unavailable Dana REYES Attending Unavailable Dana REYES Attending Unavailable EDITH DAVIS Attending Unavailable RICARDO GOODSON Attending Unavailable Sebastiánerer Sal ALFORD Primary Care Provider [phone] DEMOND TIM Attending Unavailable Allergies Allergy Classification Reported Allergen(s) Allergy Type Date of Onset Reaction(s) Facility (3 sources) Azithromycin Drug Allergy rash [facility] Other (1 source) Azithromycin Drug Allergy 4 [facility] Repository (2 sources) Unable to obtain; Translations: [Unable to obtain] Propensity to adverse reactions (disorder) [facility] Repository (2 sources) No Known Medication Allergies; Translations: [No Known Medication Allergies] Propensity to adverse reactions (disorder) [facility] Repository (2 sources) Naproxen; Translations: [NAPROXEN] Drug Allergy 7 Rash [facility] Repository (2 sources) OTHER; Translations: [OTHER] Propensity to adverse reactions (disorder) 3 [facility] Repository Medications Current Medications Medication Drug Class(es) Dates Sig (Normalized) Sig (Original) amoxicillin 500 mg oral capsule (1 source) Penicillin-class Antibacterial Start: 11-24-2024 take 1 capsule by mouth every twelve hours Amoxicillin 500 mg capsule Active 500 MG PO Every 12 hours 06 04November 24, 2024 12:00am citalopram 20 mg oral tablet (5 sources) Serotonin Reuptake Inhibitor Start: 10-26-2023 take 1 tablet by mouth once daily in the morning citalopram (CeleXA) 20 MG tablet Indications: anxiety (HHS-HCC) TAKE 1 TABLET BY MOUTH EVERY DAY IN THE MORNING 90 tablet 3 07/02/2024 Active Start: 11-16-2022 take 0.5 tablet by m outh once in the morning citalopram (CeleXA) 20 MG tablet Indications: Second trimester (HHS-HCC) Take 0.5 tablets (10 mg) by mouth in the morning. 15 tablet 6 11/16/2022 Active labetalol hydrochloride 100 mg oral tablet (1 source) beta-Adrenergic Mari Start: 04-03-2023 take 1 tablet by mouth in the morning labetalol (Normodyne) 100 MG tablet Take 100 mg by mouth in the morning and 100 mg in the evening. 04/03/2023 Active 24 hr metFORMIN hydrochloride 500 mg extended release oral tablet (1 source) Biguanide Start: 02-14-2023 take 1 tablet by mouth twice daily metFORMIN XR (Glucophage-XR) 500 MG 24 hr tablet Indications: Gestational diabetes mellitus (GDM) in third trimester controlled on oral hypoglycemic drug (HHS-HCC) Take one tablet by mouth two times daily. Do not crush, chew, or split. 60 tablet 11 02/14/2023 Active 24 hr metoprolol succinate 25 mg extended release oral tablet (4 sources) beta-Adrenergic Mari Start: 10-26-2023 Metoprolol Succinate Active MG PO October 26, 2023 12:00am Start: 06-15-2023 take 1 tablet by allison th every twenty-four hours Metoprolol Succinate 25 mg tablet extended release 24 hr Active MG PO October 26, 2023 12:00am Completed/Discontinued Medications Medication Drug Class(es) Dates Sig (Normalized) Sig (Original) [id number] 200 actuat albuterol 0.09 mg/actuat metered dose inhaler (3 sources) beta2-Adrenergic Agonist Start: 06-08-2020 Start: 06-08-2020 take 2 puff(s) by in halation every four hours as needed for cough Albuterol Sulfate HFA 108 (90 Base) MCG/ACT 2 puffs as needed Inhalation every 4 hrs p.r.n. wheeze or cough for 30 days May, Not-Taking Problems Active Problems Problem Classification Problem Date Documented Date Episodic/Chronic Anxiety disorders (3 sources) Anxiety; Translations: [Other specified anxiety disorders] Chronic Coagulation and hemorrhagic disorders (3 sources) Blood coagulation disorder; Translations: [Coagulation defect, unspecified] Chronic Diabetes mellitus without complication (4 sources) Other abnormal glucose; Translations: [OTHER ABNORMAL GLUCOSE] Onset: 10-23-2022 Episodic Disorders of lipid metabolism (3 sources) Mixed hyperlipidemia; Translations: [Mixed hyperlipidemia] Chronic Essential hypertension (5 sources) Essential hypertension; Translations: [Essential (primary) hypertension] Onset: 06-30-2024 Chronic Immunizations and screening for infectious disease (1 source) Encounter for screening for human papillomavirus (HPV); Translations: [ENC SCREENING HUMAN PAPILLOMAVIRUS] Onset: 10-28-2022 Episodic Menstrual disorders (4 sources) Irregular menstruation, unspecified; Translations: [IRREGULAR MENSTRUATION UNSPECIFIED] Onset: 08-25-2022 Chronic Mood disorders (3 sources) Endogenous depression; 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 EHR Cmte Other and ill-defined heart disease (2 sources) Cardiomegaly; Translations: [Cardiomegaly] Onset: 06-30-2024 Chronic Other nutritional; endocrine; and metabolic disorders (3 sources) Morbid obesity; Translations: [Morbid (severe) obesity due to excess calories] Chronic Other nutritional; endocrine; and metabolic disorders (2 sources) Body mass index (BMI) 50.0-59.9, adult; Translations: [Body mass index (BMI) 50.0-59.9, adult] Onset: 06-30-2024 Chronic Other nutritional; endocrine; and metabolic disorders (2 sources) Morbid (severe) obesity due to excess calories; Translations: [Morbid (severe) obesity due to excess calories] Onset: 06-30-2024 Chronic Other and delivery including normal (5 sources) Encounter for supervision of other normal , first trimester; Translations: [Encounter for supervision of normal , unspecified, first trimester] Onset: 08-29-2022 Episodic Other screening for suspected conditions (not mental disorders or infectious disease) (13 sources) Encounter for screening for malignant neoplasm of cervix; Translations: [Encounter for screening for diabetes mellitus] Onset: 09-08-2022 Episodic Other upper respiratory infections (3 sources) Viral upper respiratory tract infection; Translations: [Acute upper respiratory infection, unspecified] 10-26-2023 Episodic Residual codes; unclassified (1 source) 9 weeks gestation of ; Translations: [9 WEEKS GESTATION OF ] Onset: 08-29-2022 Episodic Unclassified (4 sources) Onset: 04-22-2012 Resolved: 12-18-2018 01-08-2023 Unclassified (1 source) Obesity, class 3; Translations: [Obesity, class 3] Onset: 06-30-2024 Past or Other Problems Problem Classification Problem Date Documented Da te Episodic/Chronic Cardiac dysrhythmias (4 sources) Palpitations; Translations: [Tachycardia, unspecified] Onset: 03-07-2023 Episodic Diabetes or abnormal glucose tolerance complicating ; childbirth; or the puerperium (3 sources) History of gestational diabetes mellitus; Translations: [Personal history of gestational diabetes] Episodic Unclassified (1 source) Obesity, class 3; Translations: [Obesity, class 3] Onset: 06-30-2024 Results Test Name Value Interpretation Reference Range Facility Office Visiton 12-01-2024 Follow-up visit [id number] Debby Bone 1990 F Date Provider Department Center 12/01/2024 RICARDO ZAMORA [facility] Family History Problem Relation Age of Onset No Known Problems Mother No Known Problems Father Family Status - Relation Status Age at Mother Father Level of Service:56881 [place] OFFICE/OUTPATIENT ESTABLISHED MOD MDM 30 MIN Normal [facility] No Panel InformationOrdered By: Pauly Rivera on 11-24-2024 Quick Strep (POC) [facility] Quantiferon-TB Plus (Client Incubated)on 11-01-2024 Gamma interferon background IA Qn (Bld) 0.07 International_Unit/mL Invalid Interpretation Code [facility] Comment on above: Performed By: #### 1 [id number] #### [facility] [address] [place] [address] M. tuberculosis stim IFN-g by CD4+ CD8+ T-cells corrected for background Qn (Bld) 0.06 International_Unit/mL Invalid Interpretation Code [facility] Comment on above: Performed By: #### 1 [id number] #### [facility] [address] [place] [address] M. tuberculosis stim IFN-g by CD4+ T-cells corrected for background Qn (Bld) 0.04 International_Unit/mL Invalid Interpretation Code [facility] Comment on above: Performed By: #### 1 [id number] #### [facility] [address] [place] [address] M. tuberculosis stim IFN-g Ql (Bld) [Interp] Negative Invalid Interpretation Code Negative [facility] Comment on above: Result Comment: No r esponse to M tuberculosis antigens detected. Infection with M tuberculosis is unlikely, but high risk individuals should be considered for additional testing (ATS/IDSA/CDC Clinical Practice Guidelines, 2017). The reference range is an Antigen minus Nil result of <0.35 IU/mL. The specimen received for QuantiFERON testing was incubated by the ordering institution. Specific procedures outlined in our Directory of Services and in the package insert for the QuantiFERON Gold (In Tube) test must be followed to enable for proper stimulation of cells for the production of interferon gamma. Chemiluminescence immunoassay methodology Performed at: [address] [id number] PhD Barrie Vazquez Performed By: #### 1 [id number] #### [facility] [address] [place] [address] Mitogen stimulated gamma interferon corrected for background Qn (Bld) >10.00 Invalid Interpretation Code [facility] Comment on above: Performed By: #### 1 [id number] #### [facility] [address] [place] [address] Service comment (Unsp spec) [Interp] Comment Invalid Interpretation Code [facility] Comment on above: Result Comment: Vincent tiFERON-TB Gold Plus is a qualitative indirect test for M tuberculosis infection (including disease) and is intended for use in conjunction with risk assessment, radiography, and other medical and diagnostic evaluations. The QuantiFERON-TB Gold Plus result is determined by subtracting the Nil value from either TB antigen (Ag) value. The Mitogen tube serves as a control for the test. Performed By: #### 1 [id number] #### [facility] [address] [place] [address] Hep Bs Abon 10-31-2024 HBV surface Ab Ql (S) Reactive Invalid Interpretation Code [facility] Comment on above: Result Comment: Non Reactive: Not immune to HBV infection. Equivocal: Unable to determine if anti-HBs is present at levels consistent with immunity. Reactive: Anti-HBs concentration detected at greater than 10 mIU/mL. Individual is considered to be immune to infection with HBV. Performed at: [address] [id number] PhD Barrie Vazquez Performed By: #### 2 [id number] #### [facility] [address] [place] [address] Measles/Mumps/Rubella Immuni tyon 10-31-2024 MeV IgG IA Qn (S) {index_val} Low Immune >16.4 [facility] Comment on above: Result Comment: Nega tive <13.5 Equivocal 13.5 - 16.4 Positive >16.4 Presence of antibodies to Rubeola is presumptive evidence of immunity except when acute infection is suspected. Performed By: #### 3 [id number] #### [facility] [address] [place] [address] MuV IgG IA Qn (S) 67.1 A unit/mL Invalid Interpretation Code Immune >10.9 [facility] Comment on above: Result Comment: Nega tive <9.0 Equivocal 9.0 - 10.9 Positive >10.9 A positive result generally indicates past exposure to Mumps virus or previous vaccination. Performed at: [facility] [employer] [id number] PhD Barrie Vazquez Performed By: #### 3 [id number] #### [facility] [address] [place] [address] Rubella virus IgG Qn (S) 1.41 [IU]/mL Invalid Interpretation Code Immune >0.99 [facility] Comment on above: Result Comment: Non- immune <0.90 Equivocal 0.90 - 0.99 Immune >0.99 Performed By: #### 3 [id number] #### [facility] [address] [place] [address] Varic IgGon 10-31-2024 VZV IgG IA Ql (S) Non-Reactive Invalid Interpretation Code Non Reactive [facility] Comment on above: Result Comment: Pl ease note reference interval change A Reactive result is considered evidence of immunity to VZV. Reactive indicates that VZV IgG was detected consistent with previous infection and/or vaccination. A Non Reactive result indicates that VZV IgG was not detected suggesting that immunity has not been acquired. Performed at: [facility] [address] [id number] PhD Barrie Vazquez Performed By: #### 1 [id number] #### [facility] [address] [place] [address] Office Visiton 06-30-2024 Follow-up visit [id number] Debby Bone Devora 1990 F Date Provider Department Center 06/30/2024 [id number] DAVIS CARD [facility] Family History Problem Relation Age of Onset No Known Problems Mother No Known Problems Father Family Status - Relation Status Age at Mother Father Level of Service:17477 NC OFFICE/OUTPATIENT ESTABLISHED MOD MDM 30 MIN Reason for Visit and Comments: Palpitations [268304] - She was on labetalol while , and then was switched to Toprol post . Feels palpitations when she skips a dose by mistake. Says her BP at home is usually around 110 systolic. She questions if she really needs beta mari or not. SVT [Other] - Had labs last week. Denies chest pain, SOB, and lightheadedness. Normal [facility] Basophils Auto (Bld) [#/Vol] on 06-21-2024 Basophils (Bld) [#/Vol] Automated basophil count 0.0-0.1 [facility] Basophils/100 WBC Auto (Bld) on 06-21-2024 Basophils/100 WBC (Bld) Automated basophil % 0.2-2.0 [facility] Eosinophils/100 WBC Auto (Bl d)on 06-21-2024 Eosinophils/100 WBC (Bld) Automated eosinophil % 0.9-7.0 [facility] Erythrocyte distribution wid th Auto (RBC) [Ratio]on 06-21-2024 Erythrocyte distribution width (RBC) [Ratio] Erythrocyte distribution width [Ratio] by Automated count 11.0-15.0 [facility] Estimated glomerular filtrat ion rate (GFR) non- Americanon 06-21-2024 GFR/1.73 sq M.predicted among non-blacks MDRD (S/P/Bld) [Vol rate/Area] Estimated glomerular filtration rate (GFR) non- >=60 mL/min/1.73m 2 [facility] HCG ( test) Brisa d Ql (U)on 06-21-2024 HCG ( test) Ql (U) Urine human chorionic gonadotropin (hCG) detection by immunoassay NEGATIVE [facility] Hematocrit Auto (Bld) [Volum e fraction]on 06-21-2024 Hematocrit (Bld) [Volume fraction] Hematocrit [Volume Fraction] of Blood by Automated count 36.0-48.0 [facility] Hemoglobin [Mass/volume] in Bloodon 06-21-2024 Hemoglobin (Bld) [Mass/Vol] Hemoglobin [Mass/volume] in Blood 12.0-16.0 [facility] - Chemistry and C hemistry - challengeon 06-21-2024 Bilirubin Ql (U) Negative NEGATIVE [facility] Calcium [Mass/Vol] 9.4 mg/dL 8.5-10.1 [facility] Chloride [Moles/Vol] 103 mmol/L 98-107 [facility] CO2 [Moles/Vol] 28.8 mmol/L 21.0-32.0 [facility] Creatinine [Mass/Vol] 0.78 mg/dL 0.55-1.02 [facility] GFR/1.73 sq M.predicted MDRD (S/P/Bld) [Vol rate/Area] mL/min/{1.73_m2} >=60 mL/min/1.73m 2 [facility] Glucose (U) [Mass/Vol] Negative NEGATIVE [facility] Glucose [Mass/Vol] 95 mg/dL 74-106 [facility] Ketones Ql (U) Negative NEGATIVE [facility] pH (U) 6.0 [pH] 5.0-9.0 [facility] Potassium [Moles/Vol] 3.9 mmol/L 3.5-5.1 [facility] Sodium [Moles/Vol] 141 mmol/L 136-145 [facility] Specific gravity (U) [Rel density] 1.020 1.005-1.025 [facility] Urea nitrogen [Mass/Vol] 13.0 mg/dL 7.0-18.0 [facility] Urea nitrogen/Creatinine [Mass ratio] 16.7 mg/mg [facility] Urobilinogen Qn (U) 0.2 {Jerzy'U}/dL 0.2-1.0 [facility] - Hematology and Cell countson 06-21-2024 Immature granulocytes/100 WBC (Bld) 0.4 % 0.0-0.5 [facility] - Specimen inform ationon 06-21-2024 Appearance (U) CLEAR CLEAR [facility] Color (U) LT. YELLOW YELLOW [facility] - Urinalysison Leukocyte esterase Test strip Ql (U) SMALL Abnormal NEGATIVE [facility] Nitrite Ql (U) Negative NEGATIVE [facility] Protein Ql (U) Negative NEG/TRACE [facility] Leukocytes [#/volume] correc ester for nucleated erythrocytes in Blood by Automated counon 06-21-2024 WBC corrected for nucl RBC Auto (Bld) [#/Vol] Leukocytes [#/volume] corrected for nucleated erythrocytes in Blood by Automated coun 4.0-11.0 [facility] Lymphocytes Auto (Bld) [#/Vo l]on 06-21-2024 Lymphocytes (Bld) [#/Vol] Lymphocytes [#/volume] in Blood by Automated count 1.2-3.8 [facility] Lymphocytes/100 WBC Auto (Bl d)on 06-21-2024 Lymphocytes/100 WBC (Bld) Lymphocytes/100 leukocytes in Blood by Automated count 20.5-60.0 [facility] MCH Auto (RBC) [Entitic mass ]on 06-21-2024 MCH (RBC) [Entitic mass] MCH [Entitic mass] by Automated count Low 26.7-34.0 [facility] MCHC Auto (RBC) [Mass/Vol]on 06-21-2024 MCHC (RBC) [Mass/Vol] MCHC [Mass/volume] by Automated count 29.9-35.2 [facility] MCV Auto (RBC) [Entitic vol] on 06-21-2024 MCV (RBC) [Entitic vol] MCV [Entitic volume] by Automated count 81.0-99.0 [facility] Monocytes Auto (Bld) [#/Vol] on 06-21-2024 Monocytes (Bld) [#/Vol] Automated blood monocyte count 0.3-0.8 [facility] Monocytes/100 WBC Auto (Bld) on 06-21-2024 Monocytes/100 WBC (Bld) Automated monocyte % 1.7-12.0 [facility] Neutrophils Auto (Bld) [#/Vo l]on 06-21-2024 Neutrophils (Bld) [#/Vol] Neutrophils [#/volume] in Blood by Automated count 1.4-6.5 [facility] Neutrophils/100 WBC Auto (Bl d)on 06-21-2024 Neutrophils/100 WBC (Bld) Automated neutrophil % 43.0-75.0 [facility] No Panel Informationon 06-21 Eosinophils # (Auto) 0.2 10 3/uL 0.0-0.7 [facility] Immature Granulocyte # (Auto) 0.04 10 3/uL High 0.00-0.03 [facility] Urine Occult Blood Negative NEGATIVE [facility] Platelet mean volume Auto (B ld) [Entitic vol]on 06-21-2024 Platelet mean volume (Bld) [Entitic vol] Platelet mean volume [Entitic volume] in Blood by Automated count Low 9.5-13.5 [facility] Platelets Auto (Bld) [#/Vol] on 06-21-2024 Platelets (Bld) [#/Vol] Platelets [#/volume] in Blood by Automated count 150-450 [facility] RBC Auto (Bld) [#/Vol]on RBC (Bld) [#/Vol] Erythrocytes [#/volume] in Blood by Automated count 4.20-5.40 [facility] Serum or plasma anion gap de terminationon 06-21-2024 Anion gap [Moles/Vol] Serum or plasma an ion gap determination [facility] Urine Cultureon 06-21-2024 Bacteria identified Cx Nom (U) 75,000 colonies/ml mixed bacterial skin contaminants 2 Days PERFORMED BY: [facility] [address] [place] [address] PATHOLOGIST BUTADIENE CONVERTER UTILITY OPERATOR ANGELES ROONEY M.D. Normal [facility] Comment on above: Performed By: #### C UU #### [facility] [address] 36on 04-11-2024 36 Patient must have an appointment for ANY refills - thanks Normal [facility] No Panel InformationOrdered By: Pauly Rivera on 10-26-2023 Quick Strep (POC) [facility] GTT 3 HR PREGon 10-23-2022 Glucose [Mass/Vol] 97 mg/dL Normal 74-106 [facility] Comment on above: Performed By: #### G TT3P #### [facility] [address] [address] [address] Oralia Ordonez Glucose [Mass/Vol] 182 mg/dL Normal [facility] Comment on above: Performed By: #### G TT3P #### [facility] [address] [place] [address] Dr. Oralia Ordonez Glucose [Mass/Vol] 142 mg/dL Normal [facility] Comment on above: Performed By: #### G TT3P #### [facility] [address] [address] [address] Oralia Ordonez Glucose [Mass/Vol] 126 mg/dL Normal [facility] Comment on above: Performed By: #### G TT3P #### [facility] [address] [address] [address] Oralia Ordonez GLUCOSE - 1HRon 10-16-2022 Glucose [Mass/Vol] 154 mg/dL Critically high 74-106 [facility] Comment on above: Performed By: #### G LU1HR #### [facility] [address] [place] [address] Dr. Oralia Ordonez US PREG CERVICAL LENGTHon US PREG CERVICAL LENGTH EXAMINATION: US PREG CERVICAL LENGTH HISTORY: screening COMPARISON: Ultrasound transvaginal 08/25/2022 TECHNIQUE: Transabdominal and transvaginal sonographic examination for cervical length. FINDINGS: CERVIX LENGTH: 3.7 cm, closed. HEART RATE: 171 bpm Age by EDC: 10 weeks 6 days SON by EDC: 03/31/2023 IMPRESSION: 1. Single live intrauterine . 2. Cervix is better seen on today's study and is closed, 3.7 cm in length. Electronically authenticated by: LAVINIA WEST Date: 2022-09-08 09:07 Normal [facility] HEP B SURFACE ANTIGEN SCREEN on 09-05-2022 HBsAg Screen Negative Normal Negative [facility] Comment on above: Performed By: #### H BSANS #### [facility] [address] [place] [address] Dr. Oralia Ordonez HEPATITIS C VIRUS AB W/ REFL EX QUANTon 09-05-2022 HCV AB Non-Reactive Normal Non Reactive [facility] Comment on above: Performed By: #### H CVPCRR #### [facility] [address] [place] [address] Dr. Oralia Ordonez Interpretation: Comment Normal [facility] Comment on above: Result Comment: Not infected with HCV unless early or acute infection is suspected (which may be delayed in an immunocompromised individual), or other evidence exists to indicate HCV infection. Performed By: #### H CVPCRR #### [facility] [address] [place] [address] Dr. Oralia Ordonez HIV 1 AND 2 WITH REFLEXon HIV Screen 4th Generation wRfx Non-Reactive Normal Non Reactive [facility] Comment on above: Result Comment: HIV Negative HIV-1/HIV-2 antibodies and HIV-1 p24 antigen were NOT detected. There is no laboratory evidence of HIV infection. Performed By: #### H IV12 #### [facility] [address] [place] [address] Dr. Oralia Ordonez RPR QUANTon 09-05-2022 Rapid Plasma Reagin, Quant Non-Reactive Normal NonRea<1:1 [facility] Comment on above: Result Comment: Plea se Note: This test does not meet current guidelines for screening and diagnosis of syphilis. This test is intended for following treatment response in patients being treated for syphilis infection. To screen for syphilis infection, a reflex cascade that includes both RPR and a treponema-specific assay should be utilized, such as Treponema pallidum (Syphilis) Screening [place] (144709) or Rapid Plasma Reagin (RPR) Test With Reflex to Quantitative RPR and Confirmatory Treponema pallidum Antibodies (366545). Performed By: #### R PRQ #### [facility] [address] [place] [address] Dr. Oralia Ordonez RUBELLA AB IGGon 09-05-2022 Rubella Antibodies, IgG 1.33 index Normal Immune >0.99 [facility] Comment on above: Result Comment: Non- immune <0.90 Equivocal 0.90 - 0.99 Immune >0.99 Performed By: #### R UBIGG #### [facility] [address] [place] [address] Dr. Oralia Ordonez BOX TEST SENT OUTon 09-05-19 23 SENT TO REF LAB 09/04/2022 Normal [facility] Comment on above: Performed By: #### B OX #### [facility] [address] [place] [address] Dr. Oralia Ordonez CBC AUTO DIFFon 09-04-2022 BASO # 0.0 103/ul Normal 0.0-0.1 [facility] Comment on above: Performed By: #### T SH #### [facility] [address] [place] [address] Dr. Oralia Ordonez Basophils/100 WBC (Bld) 0.3 % Normal 0.2-2.0 [facility] Comment on above: Performed By: #### T SH #### [facility] [address] [place] [address] Dr. Oralia Ordonez EO # 0.1 103/ul Normal 0.0-0.7 [facility] Comment on above: Performed By: #### T SH #### [facility] [address] [place] [address] Dr. Oralia Ordonez Eosinophils/100 WBC (Bld) 1.1 % Normal 0.9-7.0 [facility] Comment on above: Performed By: #### T SH #### [facility] [address] [place] [address] Dr. Oralia Ordonez Erythrocyte distribution width (RBC) [Ratio] 13.6 % Normal 11.0-15.0 [facility] Comment on above: Performed By: #### T SH #### [facility] [address] [place] [address] Dr. Oralia Ordonez Hematocrit (Bld) [Volume fraction] 38.5 % Normal 36.0-48.0 [facility] Comment on above: Performed By: #### T SH #### [facility] [address] [place] [address] Dr. Oralia Ordonez Hemoglobin (Bld) [Mass/Vol] 12.7 g/dL Normal 12.0-16.0 [facility] Comment on above: Performed By: #### T SH #### [facility] [address] [place] [address] Dr. Oralia Ordonez IG # 0.03 10e3/ul Normal 0.00-0.03 [facility] Comment on above: Performed By: #### T SH #### [facility] [address] [place] [address] Dr. Oralia Ordonez IG % 0.3 % Normal 0.0-0.5 [facility] Comment on above: Performed By: #### T SH #### [facility] [address] [place] [address] Dr. Oralia Ordonez LYMPH # 2.3 103/ul Normal 1.2-3.8 [facility] Comment on above: Performed By: #### T SH #### [facility] [address] [place] [address] Dr. Oralia Ordonez Lymphocytes/100 WBC (Bld) 21.3 % Normal 20.5-60.0 [facility] Comment on above: Performed By: #### T SH #### [facility] [address] [place] [address] Dr. Oralia Ordonez MANUAL DIFF REQ NO Normal [facility] Comment on above: Performed By: #### T SH #### [facility] [address] [place] [address] Dr. Oralia Ordonez MCH (RBC) [Entitic mass] 26.6 pg Critically low 26.7-34.0 [facility] Comment on above: Performed By: #### T SH #### [facility] [address] [place] [address] Dr. Oralia Ordonez MCHC (RBC) [Mass/Vol] 33.0 g/dL Normal 29.9-35.2 [facility] Comment on above: Performed By: #### T SH #### [facility] [address] [address] [address] Oralia Ordonez MCV (RBC) [Entitic vol] 80.7 fL Critically low 81.0-99.0 [facility] Comment on above: Performed By: #### T SH #### [facility] [address] [place] [address] Dr. Oralia Ordonez MONO # 0.4 103/ul Normal 0.3-0.8 [facility] Comment on above: Performed By: #### T SH #### [facility] [address] [place] [address] Dr. Oralia Ordonez Monocytes/100 WBC (Bld) 3.7 % Normal 1.7-12.0 [facility] Comment on above: Performed By: #### T SH #### [facility] [address] [place] [address] Dr. Oralia Ordonez NEUT # 7.8 103/ul Critically high 1.4-6.5 [facility] Comment on above: Performed By: #### T SH #### [facility] [address] [place] [address] Dr. Oralia Ordonez Neutrophils/100 WBC (Bld) 73.3 % Normal 43.0-75.0 [facility] Comment on above: Performed By: #### T SH #### [facility] [address] [place] [address] Dr. Oralia Ordonez Platelet mean volume (Bld) [Entitic vol] 8.9 fL Critically low 9.5-13.5 [facility] Comment on above: Performed By: #### T SH #### [facility] [address] [place] [address] Dr. Oralia Ordonez PLT 286 103/ul Normal 150-450 [facility] Comment on above: Performed By: #### T SH #### [facility] [address] [place] [address] Dr. Oralia Ordonez RBC 4.77 106/ul Normal 4.20-5.40 [facility] Comment on above: Performed By: #### T SH #### [facility] [address] [place] [address] Dr. Oralia Ordonez WBC 10.7 103/ul Normal 4.0-11.0 [facility] Comment on above: Performed By: #### T SH #### [facility] [address] [place] [address] Dr. Oralia Ordonez CULTURE URINEon 09-04-2022 CULTURE URINE Culture Observations : LIGHT GROWTH OF MIXED GENITAL JESIKA. NO POTENTIAL PATHOGENS SEEN. Normal [facility] Comment on above: Performed By: #### T SH #### [facility] [address] [place] [address] Dr. Oralia Ordonez GLYCOHEMOGLOBIN A1Con 2022 ADA RECOMMENDATION SEE BELOW Normal [facility] Comment on above: Result Comment: ADA RECOMMENDED LIMIT 4.0 - 6.0 ADA THERAPEUTIC TARGET < 7.0 ACTION SUGGESTED > 7.0 Performed By: #### A 1C #### [facility] [address] [place] [address] Dr. Oralia Ordonez Glucose [Mass/Vol] 108 mg/dL Normal [facility] Comment on above: Performed By: #### A 1C #### [facility] [address] [place] [address] Dr. Oralia Ordonez HbA1c (Bld) [Mass fraction] 5.4 % Normal 4.5-6.2 [facility] Comment on above: Performed By: #### A 1C #### [facility] [address] [place] [address] Dr. Oralia Ordonez TSHon 09-04-2022 TSH 1.161 uIU/mL Normal 0.358-3.740 [facility] Comment on above: Performed By: #### T SH #### [facility] [address] [place] [address] Dr. Oralia Ordonez TYPE AND SCREENon 09-04-2022 TYPE AND SCREEN Negative Normal [facility] Comment on above: Performed By: #### T SH #### [facility] [address] [place] [address] Dr. Oralia Ordonez US PREG TVon 08-25-2022 US PREG TV EXAMINATION: US PREG TV HISTORY: Irregular periods COMPARISON: No relevant comparison available. FINDINGS: GESTATIONAL SAC: Present and normal appearing. YOLK SAC: Present and normal appearing. POLE: Present and normal appearing. CARDIAC: Present. UTERUS: Normal size and appearance. OVARIES: Right: Normal. Left: Normal. CERVIX: 2.8 cm in length and closed. CUL-DE-SAC: Normal. OTHER: None. AGE BY LMP: 9 weeks 6 days SON BY LMP: 03/24/2023 AGE BY US CRL: 8 weeks 6 days SON BY US CRL: 03/31/2023 IMPRESSION: 1. Single live intrauterine . 2. Closed cervix 2.8 cm in length. Electronically authenticated by: LAVINIA WEST Date: 2022-08-25 16:23 Normal [facility] Vital Signs Date Time Vital Sign Value Performing Clinician Facility 11-24-2024 11:49-0400 Body height 160.02 cm [facility] 11-24-2024 11:49-0400 Body mass index (BMI) [Ratio] 52 kg/m2 [facility] 11-24-2024 11:49-0400 Body temperature 101.4 [degF] [facility] 11-24-2024 11:49-0400 Body weight 133.35 kg [facility] 11-24-2024 11:49-0400 Diastolic blood pressure 77 mm[Hg] [facility] 11-24-2024 11:49-0400 Heart rate 103 /min [facility] 11-24-2024 11:49-0400 Respiratory rate 18 /min [facility] 11-24-2024 11:49-0400 SaO2% (BldA) [Mass fraction] 98 % [facility] 11-24-2024 11:49-0400 Systolic blood pressure 125 mm[Hg] [facility] 10-26-2023 09:34-0400 Body height 160.02 cm [facility] 10-26-2023 09:34-0400 Body mass index (BMI) [Ratio] 47.9 kg/m2 [facility] 10-26-2023 09:34-0400 Body temperature 97.1 [degF] [facility] 10-26-2023 09:34-0400 Body weight 122.92 kg [facility] 10-26-2023 09:34-0400 Diastolic blood pressure 70 mm[Hg] [facility] 10-26-2023 09:34-0400 Heart rate 63 /min [facility] 10-26-2023 09:34-0400 Respiratory rate 18 /min [facility] 10-26-2023 09:34-0400 SaO2% (BldA) [Mass fraction] 97 % [facility] 10-26-2023 09:34-0400 Systolic blood pressure 111 mm[Hg] [facility] Encounters Encounter Date Encounter Type Care Provider Facility Start: 01-08-2025 End: 01-08-2025 Bamboo flowsheet Demond Glenroy DO Work Phone: [facility] Start: 01-08-2025 End: 01-08-2025 Bamboo flowsheet Demond Glenroy DO Work Phone: [facility] Start: 01-08-2025 End: 01-08-2025 ambulatory DEMOND GLENROY Not Available Start: 12-01-2024 End: 12-01-2024 ambulatory [facility] Start: 11-24-2024 End: 11-24-2024 ambulatory [facility] Work Phone: Start: 11-24-2024 End: 11-24-2024 Patient encounter procedure [facility] Work Phone: Start: 10-30-2024 End: 10-30-2024 ambulatory Dana REYES Facility:[facility] Start: 10-30-2024 End: 10-30-2024 ambulatory Dana REYES [facility] Start: 06-30-2024 ambulatory [facility] Start: 06-21-2024 End: 06-21-2024 ambulatory Rigo Lange Facility:[facility] Start: 06-21-2024 Non-patient / Non-visit [facility] [employer] Work Phone: Start: 10-26-2023 End: 10-26-2023 ambulatory [facility] Work Phone: Start: 10-26-2023 End: 10-26-2023 Patient encounter procedure [facility] Work Phone: Start: 01-09-2023 End: 02-16-2023 Pre-admission assessment Demond TIM [facility] Start: 10-25-2022 End: 10-25-[address] SAL SIMMS Facility:[facility] Start: 10-23-2022 End: 10-24-[address] DEMOND TIM . Facility:[facility] Start: 10-16-2022 End: 10-17-2022 ambulatory NONE LISTED REQUEST Facility:[facility] Start: 09-08-2022 End: 09-09-[address] DEMOND TIM . Facility:[facility] Start: 09-04-2022 End: 09-05-[address] DEMOND TIM . Facility:[facility] Start: 08-25-2022 End: 08-26-[address] DEMOND TIM . Facility: Start: 05-05-2021 End: 05-05-2021 ambulatory Chiara Alexander Other [facility] [employer] Other Start: 05-05-2021 Telephone encounter Chiara Alexander [facility] Start: 04-07-2021 Telephone encounter Chiara Alexander [facility] Procedures Date Procedure Procedure Detail Performing Clinician Start: 11-24-2024 Quick Strep (POC) Start: 10-26-2023 Quick Strep (POC) Start: 10-25-2022 Microscopic observat ion [Identifier] in Cervix by Cyto stain Demond Tim DO Work Phone: Plan of Treatment Date Care Activity Detail Author Start: 10-26-2027 Screening for malign ant neoplasm of cervix [facility] Start: 02-16-2025 Influenza vaccination Influenz a Vaccine (#1) [facility] Start: 01-08-2025 End: 01-08-2025 Patient encounter procedure 01/08/2025 11:00 AM EDT Office Visit [facility] [address] [place] [id number] Glenroy, Demond, DO [address] [place] [address] Arrived [facility] Comment on above: Arrived Start: 06-21-2024 Urine culture [facility] Immunizations Immunization Date Immunization Notes Care Provider Fa cility 04-14-2024 influenza virus vaccine, unspecified formulation Demond Glenroy DO Work Phone: [facility] 03-27-2022 influenza virus vaccine, unspecified formulation Demond GLENROY [facility] Comment on above: Reason for Medicatio n: Prophylaxis 03-08-2021 COVID-19 Vaccine Pfi zer - Documentation Purposes Only Chiara Fitt Other [facility] 03-08-2021 influenza, injectabl e, quadrivalent, preservative free Chiara Fitt Other [facility] 02-15-2021 COVID-19 Vaccine Pfi zer - Documentation Purposes Only Chiara Fitt Other [facility] 02-17-2020 influenza, injectabl e, quadrivalent, contains preservative Chiara Fitt Other [employer] Other 02-17-2020 influenza, injectabl e, quadrivalent, preservative free [facility] 04-14-2019 influenza, seasonal, injectable Chiara Fitt Other [facility] 06-19-2018 influenza, seasonal, injectable Chiara Fitt Other [facility] Payers Date Payer Category Payer Unknown 2024 Self-pay [id number] 2021 [employer] Blue [employer] BCBS [id number] 1989 Unknown [id number] 593 1989 Unknown [id number]. 593 1989 Unknown [id number] [id number]. 593 1989 Unknown [id number]. 593 1989 Unknown [id number]. 593 1989 Unknown [id number] [id number]. 593 1989 Unknown [id number] [id number]. 727 1989 Unknown [id number] [id number]. 727 1989 Unknown [id number] [id number]. 1259 1959 Unknown [id number] Unknown [id number] Unknown [id number]. 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 Compensation [facility] Ind [id number] Social History Date Type Detail Facility Unknown if ever smoked [employer] Other Start: 04-20-2023 Sex Assigned At F [facility] Tobacco smoking status No Smokin g Status Entered [facility] Start: 12-21-2022 End: 10-26-2023 Tobacco smoking status NHIS Never smoked tobacco (finding) [facility] Start: 1990 Sex Assigned At Female F [facility] Start: 06-23-2024 End: 11-24-2024 Sex Female (finding) [facility] Start: 06-28-2023 Alcoholic beverage intake Lifetime non-drinker (finding) [facility] Start: 04-20-2023 History of Social function [facility] Start: 12-21-2022 Alcohol Comment Caffeine: 1-2 cups/day [facility] Start: 1990 Sex assigned at Not on file [facility] Progress note 12-01-2024 Note Date & Type Note Facility 12-01-2024 Note [facility] Jennifer Bone is a 34 y.o. year old female patient being seen for 3 month follow up. Patient states she is feeling good. Patient states she miss an occasional dose of her bp meds. Patient Active Problem List Diagnosis Tachycardia 36 weeks gestation of Intermittent palpitations SVT (supraventricular tachycardia) Concentric left ventricular hypertrophy Essential hypertension Class 3 severe obesity due to excess calories without serious comorbidity with body mass index (BMI) of 50.0 to 59.9 in adult Family History Problem Relation Name Age of Onset No Known Problems Mother No Known Problems Father Social History Tobacco Use Smoking status: Never Smokeless tobacco: Never Substance Use Topics Alcohol use: Not Currently Drug use: Never [place] Debby is seen in follow-up. This is the first time I am meeting her. She is to see other providers in our group. She is a 34-year-old woman who was previously evaluated during one of her pregnancies because of elevated heart rates and blood pressure as well as palpitations. She mentions that there was a suggestion of possible SVT at on point in time. On one of her pregnancies she developed preeclampsia and elevated blood pressure and heart rate and she was maintained on labetalol and Procardia which we are later weaned off and stopped. Later she was started on metoprolol succinate for 25 mg once daily which she is taking almost regularly at this time. She mentions that she does not like to take medications if she does not have to. Currently she reports that her prior symptoms of palpitations have resolved. She has no chest pain and no shortness of breath. She reports that she is not known to have obstructive sleep apnea as her does not tell her that she snores or stops breathing at night but she has never been tested for it. She reports that her weight have fluctuated over the years. Current BMI is more than 52. 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 Review of Systems Constitutional: Negative. Objective Visit Vitals BP 126/86 (BP Location: Right arm, Patient Position: Sitting) Pulse 71 Ht 1.6 m (5' 3 ) Wt 134 kg (295 lb) SpO2 98% BMI 52.26 kg/m??? OB Status Smoking Status Never BSA 2.44 m??? Physical Exam Constitutional: Appearance: She is well-developed. She is obese. She is not ill-appearing. HENT: Head: Normocephalic and atraumatic. Nose: Nose normal. Eyes: General: No scleral icterus. Pupils: Pupils are equal, round, and reactive to light. Neck: Thyroid: No thyromegaly. Vascular: No JVD. Cardiovascular: Rate and Rhythm: Normal rate and regular rhythm. Pulses: Radial pulses are 2+ on the right side and 2+ on the left side. Heart sounds: Normal heart sounds. No murmur heard. No friction rub. No gallop. Pulmonary: Effort: Pulmonary effort is normal. No respiratory distress. Breath sounds: Normal breath sounds. No wheezing or rales. Chest: Chest wall: No tenderness. Abdominal: General: Bowel sounds are normal. There is no distension. Palpations: Abdomen is soft. Tenderness: There is no abdominal tenderness. Musculoskeletal: General: No swelling. Cervical back: Neck supple. Skin: General: Skin is warm and dry. Neurological: General: No focal deficit present. Mental Status: She is alert and oriented to person, place, and time. Psychiatric: Mood and Affect: Mood normal. Behavior: Behavior is cooperative. Judgment: Judgment normal. Allergies Allergies Allergen Reactions Other Other Reaction(s): Unknown Naproxen Rash Patient states more of a sensitivity Patient states more of a sensitivity Medications Current Outpatient Medications: citalopram (CeleXA) 20 mg tablet, Take 20 mg by mouth in the morning., Disp: , Rfl: metoprolol succinate XL (Toprol-XL) 25 mg 24 hr tablet, Take 1 tablet (25 mg) by mouth once daily as directed. Do not crush or chew., Disp: 90 tablet, Rfl: 3 Recent Labs 06/21/2024 Hemoglobin 12.6, hematocrit 40, platelets 266, sodium 141, potassium 3.9, BUN 13, creatinine 0.78, eGFR >60, glucose 95, calcium 9.4 03/07/2023 TSH 2.122, free T40.84 Blood testing 06/21/2024: Hemoglobin 12.6, platelets 266, potassium 3.9, BUN 13, creatinine 0.78, EGFR more than 60. Imaging and other tests ECG 02/21/2023: Sinus rhythm, normal ECG Echocardiogram 02/22/2023: CONCLUSION: 1. Moderate concentric left ventricular hypertrophy with normal systolic function. Estimated LV ejection fraction is 65-70%. 2. Mildly dilated right ventricle with normal systolic function. 3. Mild right atrial dilatation. 4. No significant valvular dysfunction. 5. Normal right sided pressures. Event monitor 03/07/2023 - 03/10/2023: Sinus rhythm with sinus tachycardia and sinus bradycardia, no significant arrhythmias. (more content not included)... [facility] Progress note 06-30-2024 Note Date & Type Note Facility 06-30-2024 Note [facility] Subjective Debby Bone is a 33 y.o. year old female patient being seen for Palpitations Patient Active Problem List Diagnosis Tachycardia 36 weeks gestation of Intermittent palpitations SVT (supraventricular tachycardia) (CMS/HCC) HPI Patient with history of palpitations. Also she had preeclampsia during her third required blood pressure medications for 1 year after the then she had hypotension requiring stopping medications. The last which was the fourth she did not have hypertension but she had palpitations and she was on small dose of labetalol which was switched to Toprol XL after delivery. Event monitor did not show any significant arrhythmias or ectopies but it showed sinus tachycardia The patient is here today for follow-up visit. She does not think that she needs to be on Toprol-XL anymore. When I mentioned that her blood pressure is on the high side today she states that she thinks because she has been having significant tooth ache for few days and she did not take any pain medications today. I reviewed her blood pressure from previous visits and they were on the low side. 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 She is physically very active and she denies any chest pain or shortness of breath at rest or with exertion. She denies orthopnea or paroxysmal nocturnal dyspnea or dizziness or palpitations or legs edema or legs comfort on exertion. She denies being sleepy or tired during the daytime. She reports that she snores only when she is sick. She denies stopping breathing during the daytime. She never been a smoker. She denies alcohol or illicit drugs ROS All systems were reviewed and they were negative except for the positive findings noted above in the history Past Medical History: Diagnosis Date Lightheadedness Palpitations SVT (supraventricular tachycardia) Past Surgical History: Procedure Laterality Date DILATION AND CURETTAGE OF UTERUS Family History Problem Relation Name Age of Onset No Known Problems Mother No Known Problems Father Social History Tobacco Use Smoking status: Never Smokeless tobacco: Never Substance Use Topics Alcohol use: Not Currently Drug use: Never Allergies Allergies Allergen Reactions Other Other Reaction(s): Unknown Naproxen Rash Patient states more of a sensitivity Patient states more of a sensitivity Medications Current Outpatient Medications: metoprolol succinate XL (Toprol-XL) 25 mg 24 hr tablet, Take 1 tablet (25 mg) by mouth once daily as directed. Do not crush or chew., Disp: 90 tablet, Rfl: 3 Objective Visit Vitals BP (!) 146/95 (BP Location: Right wrist, Patient Position: Sitting) Pulse 75 Ht 1.6 m (5' 3 ) Wt 135 kg (298 lb) SpO2 98% BMI 52.79 kg/m??? OB Status Smoking Status Never BSA 2.45 m??? Physical exam: GENERAL: alert and oriented x3, well developed, in no acute distress. HEAD: atraumatic, normocephalic. EYES: FERNY, EOMI. NECK: trachea midline, no JVD present, no carotid bruits present. CARDIAC: S1, S2 present. RRR. No murmur, rubs, or gallops. RESPIRATORY: CTAB, no increased effort of breathing, no rales, rhonchi, or wheezing. ABDOMEN: soft, nontender, nondistended. EXTREMITIES: no lower extremity edema. No rash/skin discoloration present. NEURO: strength/sensation equal and symmetric in bilateral upper and lower extremities. PSYCH: appropriate mood, affect, and judgement. Recent Labs 06/21/2024 White blood count 9.6, hemoglobin 12.6, hematocrit 40, platelets 266 next line sodium 141, potassium 3.9, BUN 13, creatinine 0.78, GFR above 60, glucose 95, calcium 9.4 03/07/2023 TSH 2.122, free T40.84 Imaging and other tests EK02/21/2023 showed sinus rhythm, normal EKG Echo: 02/21/2023 Stress test: Cardiac cath: Event Monitor: 03/07/2023 - 03/10/2023 Cardiac MRI: CX ray: Assessment/Plan Intermittent palpitations during her last . Heart rate documented to be as high as 160 bpm however monitor did not show significant arrhythmias, only sinus tachycardia was noted, patient reports that she was already on Toprol-XL when the event monitor was applied She is on Toprol-XL but she wants to stop it Moderate left ventricle hypertrophy noted on echo probably due to hypertension Hypertension. Patient reports that she had preeclampsia in her third and at that time she had to be on blood pressure medications for about 1 year after delivery but then she had hypotension and medication was stopped. She did not have eclampsia or preeclampsia with her fourth most recent . She was on labetalol because of fast heart rate. Her blood pressure is elevated today but she thinks because she has been having tooth ache for few days and she did not receive any pain medication today Morbid obesity, BMI 52.8 (more content not included)... [facility] History general Narrative - Reported 09-05-2018 Note Date & Type Note Facility 09-05-2018 History general N arrative - Reported Type Medical History Stress fracture left foot-Dr Bain a Medical History Depression Medical History Post pre-eclampsia Medical History HTN Medical History Gestational Diabetes Surgical History Bx right breast 09/05/18 Surgical History D&C and hysteroscopy 11/23/17 Surgical History D&C, hysteroscopy-[facility]- Neg bx's -Dr Tim 08/03/20 Hospitalization History child 12/2018 [facility] Other Evaluation + Plan note Note Date & Type Note Facility Evaluation + Plan note No data available for this section [facility] Evaluation note Note Date & Type Note Facility Evaluation note No Information [employer] Other Evaluation note Note Date & Type Note Facility Evaluation note No assessment information availa ble [facility] Work Phone: Evaluation note Note Date & Type Note Facility Evaluation note Diagnosis Onset Date Resolution Sore throat noneactive November 24 11:48am [facility] Work Phone: History general Narrative - Reported Note Date & Type Note Facility History general Narrative - Reported [facility] Other Hospital Discharge instructions Note Date & Type Note Facility Hospital Discharge instructions No data available for this section [facility] Progress note Note Date & Type Note Facility Progress note No data available for this section [facility] Summary Purpose Family History No Family History Records Found Relationship Condition Age at Onset Recorded Date/T eduar father Unknown Not Specified Heart disease Unknown Family history of mental disorder Unknown Relationship Condition Age at Onset Recorded Date/T eduar father Unknown mother Heart disease Unknown Family history of mental disorder Unknown Advance Directives No Advanced Directives Records Found Advance Directive Response Recorded Date/ Time Advance Directives No March 26, 2017 6:01pm Advance Directive Response Recorded Date/ Time Advance Directives No March 26, 2017 5:01pm Chief Complaint and Reason for Visit Chief Complaint SORE THROAT//BOTH EA RS ACHE Chief Complaint Admit Date Sore throat, congestion November 24, 2024 1 1:48am Reason for Visit Admit Date Sore throat November 24, 2024 11:48 am Additional Source Comments REASON FOR VISIT (unrecogniz ed section and content) Patient to start [facility] program FCC Pt does not wish our services 05/05/21 INFORMATION SOURCE (unrecogn ized section and content) DATE CREATED AUTHOR 11/01/2022 [facility] DATE CREATED AUTHOR AUTHOR'S ORGANIZ ATION 06/29/2024 [facility] DATE CREATED AUTHOR AUTHOR'S ORGANIZ ATION 10/31/2024 [facility] DATE CREATED AUTHOR AUTHOR'S ORGANIZ ATION 11/01/[address] [facility] DATE CREATED AUTHOR AUTHOR'S ORGANIZ ATION 11/04/2024 [facility] DATE CREATED AUTHOR AUTHOR'S ORGANIZ ATION 12/02/2024 [facility] DATE CREATED AUTHOR AUTHOR'S ORGANIZ ATION 01/09/2025 [facility] EPIC Patient Care team informatio n (unrecognized section and content) Team Status: Active Member Role Status Dates Sal Simms DO Primary Care Provider Active Team Status: Inactive Member Role Status Dates Sal Simms DO Primary Care Provider Active St art: November 24, 2024 End: November 24, 2024 Pauly Rivera APRN Attending Provider Active Start: November 24, 2024 End: November 24, 2024 Team Status: Active Member Role Status Dates Sal Simms DO Primary Care Provider Active St art: June 21, 2024 Rigo Lange , Attending Provider Active S tart: June 21, 2024 Team Status: Inactive Member Role Status Dates Sal Simms DO Primary Care Provider Active St art: October 26, 2023 End: October 26, 2023 Pauly Rivera APRN Attending Provider Active Start: October 26, 2023 End: October 26, 2023 [employer] Relationship Specialty Start Date End Date Sal Simms MD PCP - General Family Medicine 11/16/22 Goals (unrecognized section and content) Goals may be documented in a n alternate section FOR RECORDS PERTAINING TO PATIENTS WHO ARE OR HAVE BEEN ENROLLED IN A CHEMICAL DEPENDENCY/SUBSTANCEABUSE PROGRAM, SOME INFORMATION MAY BE OMITTED. This clinical summary was aggregated from multiple sources. Caution should be exercised in using it in the provision of clinical care. This summary normalizes information from multiple sources, and as a consequence, information in this document may materially change the coding, format and clinical context of patient data. In addition, data may be omitted in some cases. CLINICAL DECISIONS SHOULD BE BASED ON THE PRIMARY CLINICAL RECORDS. [facility] [employer] [facility]. provides no warranty or guarantee of the accuracy or completeness of information in this document.
[2025-01-10 08:00] LABS: Hematocrit 34.4 % (36.0-48.0); Hemoglobin 10.9 g/dL (12.0-16.0); Immature Granulocytes Abs Auto 0.02 10^3/uL (0.00-0.03); Immature Granulocytes Pct Auto 0.2 % (0.0-0.5); Lymphocytes Absolute Auto 2.7 10^3/uL (1.2-3.8); Mean Corpuscular HGB Conc 31.7 g/dL (29.9-35.2); Mean Corpuscular Hemoglobin 26.0 pg (26.7-34.0); Mean Corpuscular Volume 81.9 fL (81.0-99.0); Platelet Count 237 10^3/uL (150-450); Red Blood Count 4.20 10^6/uL (4.20-5.40); White Blood Count 8.2 10^3/uL (4.0-11.0)
[2025-01-10 08:41] LABS: Alanine Aminotransferase 14 U/L (14-59); Albumin Globulin Ratio 0.9; Albumin Level 3.5 g/dL (3.4-5.0); Alkaline Phosphatase 100 U/L (46-116); Anion Gap 14.1; Aspartate Amino Transferase 13 U/L (15-37); Blood Urea Nitrogen 22.0 mg/dL (7.0-18.0); Calcium 9.1 mg/dL (8.5-10.1); Carbon Dioxide 24.0 mmol/L (21.0-32.0); Chloride 105 mmol/L (98-107); Cholesterol 157 mg/dL (<=200); Estimated GFR (African America >60 (>=60 mL/min/1.73m^2); Estimated GFR (Non-African Ame >60 (>=60 mL/min/1.73m^2); Globulin 4.0 g/dL; Glucose 92 mg/dL (74-106); Potassium 4.1 mmol/L (3.5-5.1); Sodium 139 mmol/L (136-145); Thyroid Stimulating Hormone 3.252 uIU/mL (0.358-3.740); Total Protein 7.5 g/dL (6.4-8.2)
== END 2025-01-10 07:32 | disposition home or self-care (01) ==
PROVIDERS: PCP Family Medicine; Visit Provider Obstetrics & Gynecology
DX: Z01.419 Encounter for gynecological examination (general) (routine) without abnormal findings (principal); R73.03 Prediabetes
CPT/HCPCS: 36415; 80053; 82465; 83036; 84443; 85025

== ENCOUNTER 2025-01-13 15:39 | Outpatient (OUT) | payer BC, SELFPAY ==
--- NOTE | 2025-01-13 15:59 | CA_ITS ---
Patient Name: MARY BONE MR#: [id number] : 1990 Exam Date: 01/13/2025 Ordering Doctor: DR RICARDO GOODSON M.D. ECHOCARDIOGRAM REPORT PROCEDURE: CA ECHO DOPPLER COMPLETE INDICATIONS: Primary hypertension, LVH COMPARISON: None. DESCRIPTION: COMPLETE ECHOCARDIOGRAM Real-time transthoracic echocardiography with 2D, M-mode, spectral and color flow Doppler performed. QUALITY: Technical quality was good. LEFT VENTRICLE: Normal chamber size. Borderline left ventricular hypertrophy. Global left ventricular systolic function is normal. LV EF: Estimated left ventricular ejection fraction is 60-65 %. DIASTOLIC: Normal diastolic function. ATRIAL SEPTUM: LEFT ATRIUM: Normal chamber size. RIGHT ATRIUM: Mild dilatation. RIGHT VENTRICLE: Normal chamber size. Normal right ventricular systolic function. TRICUSPID VALVE: Normal mobility and thickness. No stenosis with trivial regurgitation. No evidence of pulmonary hypertension. RVSP 32 mmHg MITRAL VALVE: Normal mobility and thickness. No evidence of mitral valve stenosis. There is no mitral annular calcification. Trivial mitral regurgitation. AORTIC VALVE: Normal trileaflet appearance. No visible sclerosis. Normal leaflet mobility. No evidence of aortic valve stenosis. No aortic regurgitation. AORTIC ROOT: Normal diameter and appearance, measuring 3.1 cm. The ascending aorta is normal in size measuring 2.9 cm. PULMONIC VALVE: Normal thickness and mobility. No stenosis. Trivial regurgitation. PERICARDIUM: No evidence of pericardial effusion. IVC: Collapses with inspiration. Normal size. PLEURA: CONCLUSION: 1. Borderline left ventricular hypertrophy with normal systolic function. Estimated LVEF is 60 to 65%. 2. Normal right ventricular size and systolic function. 3. No significant valvular dysfunction. 4. Normal diastolic function. 5. Normal right-sided pressures. Adult Echocardiography Procedure Report Left Ventricle LVEDD (3.7 - 5.6 cm): 5.18 cm LVESD (2.2 - 4.0 cm): 3.24 cm LVIVS thickness (0.6 - 1.2 cm): 1.01 cm LVPW thickness (0.5 - 1.0 cm): 0.92 cm e': 0.12 m/s E - e': 7.30 LVOT Max Gradient: 5.91 mm[Hg] LVOT Area (cm2): 1.22 m/s Peak Velocity (LVOT): 1.22 m/s Mean Velocity (LVOT): 0.83 m/s LVOT Diameter 1.96 cm Left Ventricular Ejection Fraction: 60-65 % Left Atrium LA Volume Index (2D A2C): 29.25 ml/m2 Left Atrium Systolic Dimension: 4.15 cm Mitral Valve MV E to A Ratio: 1.36, 1.38 Mitral Valve A-Wave Peak Velocity: 0.64 m/s Mitral Valve E-Wave Peak Velocity: 0.88 m/s Right Ventricle RV Internal Diastolic Dimension: 4.21 cm Aorta AO Root Diam: 3.14 cm Ascending Ao Diam: 2.87 cm Aortic Valve AoV Area (Peak Jeff): 2.25 cm2, 2.25 cm2 AoV Area (VTI): 2.22 cm2, 2.22 cm2 Peak Velocity(Antegrade Flow): 1.63 m/s Peak Gradient(Antegrade Flow): 10.59 mm[Hg] Mean Velocity(Antegrade Flow): 1.13 m/s Mean Gradient(Antegrade Flow): 5.82 mm[Hg] Velocity Time Integral: 36.60 cm Tricuspid Valve Peak Velocity (Regurgitant Flow): 2.10 m/s, 2.30 m/s, 2.70 m/s Pulmonic Valve Mean Gradient: 2.32 mm[Hg], 2.42 mm[Hg] Mean Velocity: 0.72 m/s, 0.74 m/s Peak Velocity: 0.99 m/s Peak Gradient: 3.96 mm[Hg], 3.96 mm[Hg] Right Atrium Right Atrium Systolic Pressure: 84.26 ml, 84.26 ml Dictated by: Ricardo Goodson M.D. on 01/13/2025 at 19:37 Approved by: Ricardo Goodson M.D. on 01/13/2025 at 19:41
--- OUTSIDE RECORDS SUMMARY | 2025-01-13 18:12 | XMS_ITS | CCD ---
Author Organization [facility] CliniSypr Care Team Providers Care Assembler Body Name Role Phone Chiara Alexander Unavailable Sal [...] Consulting Unavailable SAL SIMMS Primary Care Physician [phone] Rigo Lange Admitting Unavailable Rigo Lange Attending Unavailable Sal Simms Primary Care Unavailable Dana REYES Attending Unavailable Dana REYES Attending Unavailable EDITH DAVIS Attending Unavailable RICARDO GOODSON Attending Unavailable Sebastiánerer Sal ALFORD Primary Care Provider [phone] DEMOND TIM Attending Unavailable Allergies Allergy Classification Reported Allergen(s) Allergy Type Date of Onset Reaction(s) Facility (3 sources) Azithromycin Drug Allergy rash [place] Other (1 source) Azithromycin Drug Allergy 4 [facility] Repository (2 sources) Unable to obtain; Translations: [Unable to obtain] Propensity to adverse reactions (disorder) [facility] Repository (2 sources) No Known Medication Allergies; Translations: [No Known Medication Allergies] Propensity to adverse reactions (disorder) [facility] Repository (6 sources) Naproxen; Translations: [NAPROXEN] Drug Allergy 7 Rash [facility] Repository (6 sources) OTHER; Translations: [OTHER] Propensity to adverse [...] 2024 12:00am citalopram 20 mg oral tablet (12 sources) Serotonin Reuptake Inhibitor Start: 10-26-2023 take [...] Active labetalol hydrochloride 100 mg oral tablet (4 sources) beta-Adrenergic Mari Start: 04-03-2023 take 1 tablet by mouth in the morning labetalol (Normodyne) 100 MG tablet Take 100 mg by mouth in the morning and 100 mg in the evening. 04/03/2023 Active 24 hr metFORMIN hydrochloride 500 mg extended release oral tablet (5 sources) Biguanide Start: 02-14-2023 take 1 tablet by mouth twice daily metFORMIN XR (Glucophage-XR) 500 MG 24 hr tablet Indications: Gestational diabetes mellitus (GDM) in third trimester controlled on oral hypoglycemic drug (HHS-HCC) Take one tablet by mouth two times daily. Do not crush, chew, or split. 60 tablet 11 02/14/2023 Active 24 hr metoprolol succinate 25 mg extended release oral tablet (7 sources) beta-Adrenergic Mari Start: 10-26-2023 Metoprolol Succinate Active MG PO October 26, 2023 12:00am Start: 06-15-2023 take 1 tablet by allison th every twenty-four hours metoprolol succinate XL (Toprol-XL) 25 MG 24 hr tablet Take 25 mg by mouth 06/15/2023 Active Completed/Discontinued Medications Medication Drug Class(es) Dates Sig (Normalized) Sig (Original) [id number] 200 actuat albuterol 0.09 mg/actuat metered dose [...] defect, unspecified] Chronic Diabetes mellitus without complication (6 sources) Other abnormal glucose; Translations: [Prediabetes] Onset: 10-23-2022 Episodic Disorders of lipid metabolism [...] Test Name Value Interpretation Reference Range Facility IGP,APTIMA HPV,AGE GDLNon AGE GDLN ACOG TESTING Note . [facility] Comment on above: TESTS RESULT FLAG UN ITS REF RANGE LAB Clinician Provided Cytology Information Source.............Cervix;Endocervix No. of containers..01 ThinPrep Vial Age Algo ACOG Eloina... 30-65 FLAG LEGEND: L-Low Normal,H-High Normal,LL-Alert Low,HH-Alert High <-Panic Low,>-Panic High,A-Abnormal,AA-Critical Abnormal Performed at: 01 =G [facility] [address] Kecia Riojas MD, HPV APTIMA Negative Negative [facility] Comment on above: This nucleic acid am plification test detects fourteen high- risk HPV types (16,18,31,33,35,39,45,51,52,56,58,59,66,68) without differentiation. Performed at: =G - [facility] [id number] Accreditation Specialist: Kecia Riojas MD, Phone: [phone] Performed at: - [facility] [address] [place], [place] [id number] Accreditation Specialist: Kecia Riojas MD, Phone: [phone] IGP, APTIMA HPV, RFX 16/18,45 Note . [facility] Comment on above: TESTS RESULT FLAG UN ITS REF RANGE LAB DIAGNOSIS: 02 NEGATIVE FOR INTRAEPITHELIAL LESION OR MALIGNANCY. 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 Specimen adequacy: 02 Satisfactory for evaluation. Endocervical and/or squamous metaplastic cells (endocervical component) are present. Performed by: Abi Pena, Floor Mechanic QC reviewed by: Abi Álvarez, Floor Mechanic . 02 Note: Note 02 The Pap smear is a screening test designed to aid in the detection of premalignant and malignant conditions of the uterine cervix. It is not a diagnostic procedure and should not be used as the sole means of detecting cervical cancer. Both false-positive and false-negative reports do occur. Test Methodology: Note 02 This liquid based ThinPrep(R) pap test was screened with the use of an image guided system. HPV Genotype Reflex Note 02 Criteria not met, HPV Genotype not performed. FLAG LEGEND: L-Low Normal,H-High Normal,LL-Alert Low,HH-Alert High <-Panic Low,>-Panic High,A-Abnormal,AA-Critical Abnormal Performed at: 02 WB [facility] [address] [address] Kecia Riojas MD, BRUSH-SPATULA CERVIX ENDOCERVIX [facility] CBC WITH AUTO DIFFon BASOPHILS ABSOLUTE AUTO 0 [facility] Basophils/100 WBC (Bld) 0.5 % 0.2 - 2.0 % [facility] Eosinophils/100 WBC (Bld) 2.6 % 0.9 - 7.0 % [facility] Erythrocyte distribution width (RBC) [Ratio] 14.1 % 11.0 - 15.0 % [facility] Hematocrit (Bld) [Volume fraction] 34.4 % Low 36.0 - 48.0 % [facility] Hemoglobin (Bld) [Mass/Vol] 10.9 g/dL Low 12.0 - 16.0 g/dL [facility] IMMATURE GRANULOCYTES ABS AUTO 0.02 [facility] Immature granulocytes/100 WBC (Bld) 0.2 % 0.0 - 0.5 % [facility] Interpretation and review of laboratory results Abnormal [facility] LYMPHOCYTES ABSOLUTE AUTO 2.7 [facility] Lymphocytes/100 WBC (Bld) 32.9 % 20.5 - 60.0 % [facility] MCH (RBC) [Entitic mass] 26 pg Low 26.7 - 34.0 pg [facility] MCHC (RBC) [Mass/Vol] 31.7 g/dL 29.9 - 35.2 g/dL [facility] MCV (RBC) [Entitic vol] 81.9 fL 81.0 - 99.0 fL [facility] MONOCYTES ABSOLUTE AUTO 0.4 [facility] Monocytes/100 WBC (Bld) 5.3 % 1.7 - 12.0 % [facility] NEUTROPHILS ABSOLUTE AUTO 4.8 [facility] Neutrophils/100 WBC (Bld) 58.5 % 43.0 - 75.0 % [facility] Platelet mean volume (Bld) [Entitic vol] 9 fL Low 9.5 - 13.5 fL [facility] TBH EO # 0.2 [facility] TBH PLT 237 [facility] TB RBC 4.2 [facility] WBC 8.[address] [facility] Healthcare Office Visiton 12-01-2024 Follow-up visit [id number] Debby Bone 1990 F Date Provider Department Center 12/01/2024 SERA RICARDO CARD [facility] Family History Problem Relation Age of Onset No Known Problems Mother No Known Problems Father Family Status - Relation Status Age at Mother Father Level of Service:770[address] [place] OFFICE/OUTPATIENT ESTABLISHED MOD MDM 30 MIN Normal [facility] No Panel InformationOrdered By: Pauly Rivera on 11-24-2024 Quick Strep (POC) [facility] Quantiferon-TB Plus (Client Incubated)on 11-01-2024 Gamma interferon background IA Qn (Bld) 0.07 International_Unit/mL Invalid Interpretation Code [facility] Comment on above: Performed By: #### 1 [id number] #### [facility] [address] [place] [address] M. tuberculosis stim IFN-g by CD4+ CD8+ T-cells corrected for background Qn (Bld) 0.06 International_Unit/mL Invalid Interpretation Code [facility] Comment on above: Performed By: #### 1 [id number] #### [facility] [address] [place] [address] M. tuberculosis stim IFN-g by CD4+ T-cells corrected for background Qn (Bld) 0.04 International_Unit/mL Invalid Interpretation Code [facility] Comment on above: Performed By: #### 1 [id number] #### [facility] [address] [place] [address] M. tuberculosis stim IFN-g Ql (Bld) [Interp] Negative Invalid Interpretation Code Negative [facility] Comment on above: Result Comment: No [...] interferon gamma. Chemiluminescence immunoassay methodology Performed at: [address] [id number] PhD Barrie Vazquez Performed By: #### 1 [id number] #### [facility] [address] [place] [address] Mitogen stimulated gamma interferon corrected for background Qn (Bld) >10.00 Invalid Interpretation Code [facility] Comment on above: Performed By: #### 1 [id number] #### [facility] [address] [place] [address] Service comment (Unsp spec) [Interp] Comment Invalid Interpretation Code [facility] Comment on above: Result Comment: Vincent [...] for the test. Performed By: #### 1 [id number] #### [facility] [address] [place] [address] Hep Bs Abon 10-31-2024 HBV surface Ab Ql (S) Reactive Invalid Interpretation Code [facility] Comment on above: Result Comment: Non Reactive: Not immune to HBV infection. Equivocal: Unable to determine if anti-HBs is present at levels consistent with immunity. Reactive: Anti-HBs concentration detected at greater than 10 mIU/mL. Individual is considered to be immune to infection with HBV. Performed at: [facility] [address] [place], [place] [id number] PhD Barrie Vazquez Performed By: #### 2 [id number] #### [facility] [address] [place] [address] Measles/Mumps/Rubella Immuni tyon 10-31-2024 MeV IgG IA Qn (S) {index_val} Low Immune >16.4 [facility] Comment on above: Result Comment: Nega tive <13.5 Equivocal 13.5 - 16.4 Positive >16.4 Presence of antibodies to Rubeola is presumptive evidence of immunity except when acute infection is suspected. Performed By: #### 3 [id number] #### [facility] [address] [place] [address] MuV IgG IA Qn (S) 67.1 A unit/mL Invalid Interpretation Code Immune >10.9 [facility] Comment on above: Result Comment: Nega tive <9.0 Equivocal 9.0 - 10.9 Positive >10.9 A positive result generally indicates past exposure to Mumps virus or previous vaccination. Performed at: [facility] [address] [place], [place] [id number] PhD Barrie Vazquez Performed By: #### 3 [id number] #### [facility] [address] [place] [address] Rubella virus IgG Qn (S) 1.41 [IU]/mL Invalid Interpretation Code Immune >0.99 [facility] Comment on above: Result Comment: Non- immune <0.90 Equivocal 0.90 - 0.99 Immune >0.99 Performed By: #### 3 [id number] #### [facility] [address] [place] [address] Varic IgGon 10-31-2024 VZV IgG IA Ql (S) Non-Reactive Invalid Interpretation Code Non Reactive [facility] Comment on above: Result Comment: Pl ease note reference interval change A Reactive result is considered evidence of immunity to VZV. Reactive indicates that VZV IgG was detected consistent with previous infection and/or vaccination. A Non Reactive result indicates that VZV IgG was not detected suggesting that immunity has not been acquired. Performed at: [facility] [address] [place], [place] [id number] PhD Barrie Vazquez Performed By: #### 1 [id number] #### [facility] [address] [place] [address] Office Visiton 06-30-2024 Follow-up visit [id number] Debby Bone 1990 F Date Provider Department Center 06/30/2024 EDITH CARNEY CARD [facility] Family History Problem Relation Age of Onset No Known Problems Mother No Known Problems Father Family Status - Relation Status Age at Mother Father Level of Service:16601 [place] OFFICE/OUTPATIENT ESTABLISHED MOD MDM 30 MIN Reason for Visit and Comments: Palpitations [551312] - She was on labetalol while , [...] Basophils (Bld) [#/Vol] Automated basophil count 0.0-0.1 [facility] Basophils/100 WBC Auto (Bld) on 06-21-2024 Basophils/100 WBC (Bld) Automated basophil % 0.2-2.0 [facility] Eosinophils/100 WBC Auto (Bl d)on 06-21-2024 Eosinophils/100 WBC (Bld) Automated eosinophil % 0.9-7.0 [facility] Erythrocyte distribution wid th Auto (RBC) [Ratio]on 06-21-2024 Erythrocyte distribution width (RBC) [Ratio] Erythrocyte distribution width [Ratio] by Automated count 11.0-15.0 [facility] Estimated glomerular filtrat ion rate (GFR) non- Americanon 06-21-2024 GFR/1.73 sq M.predicted among non-blacks MDRD (S/P/Bld) [Vol rate/Area] Estimated glomerular filtration rate (GFR) non- >=60 mL/min/1.73m 2 [facility] HCG ( test) IA.rapi d Ql (U)on 06-21-2024 HCG ( test) Ql (U) Urine human chorionic gonadotropin (hCG) detection by immunoassay NEGATIVE [facility] Hematocrit Auto (Bld) [Volum e fraction]on 06-21-2024 Hematocrit (Bld) [Volume fraction] Hematocrit [Volume Fraction] of Blood by Automated count 36.0-48.0 [facility] Hemoglobin [Mass/volume] in Bloodon 06-21-2024 Hemoglobin (Bld) [Mass/Vol] Hemoglobin [Mass/volume] in Blood 12.0-16.0 [facility] Laboratory - Chemistry and C hemistry - challengeon 06-21-2024 Bilirubin Ql (U) Negative NEGATIVE [facility] Calcium [Mass/Vol] 9.4 mg/dL 8.5-10.1 [facility] Chloride [Moles/Vol] 103 mmol/L 98-107 [facility] CO2 [Moles/Vol] 28.8 mmol/L 21.0-32.0 [facility] Creatinine [Mass/Vol] 0.78 mg/dL 0.55-1.02 [facility] GFR/1.73 sq M.predicted MDRD (S/P/Bld) [Vol rate/Area] mL/min/{1.73_m2} >=60 mL/min/1.73m 2 [facility] Glucose (U) [Mass/Vol] Negative NEGATIVE [facility] Glucose [Mass/Vol] 95 mg/dL 74-106 [facility] Ketones Ql (U) Negative NEGATIVE [facility] pH (U) 6.0 [pH] 5.0-9.0 [facility] Potassium [Moles/Vol] 3.9 mmol/L 3.5-5.1 [facility] Sodium [Moles/Vol] 141 mmol/L 136-145 [facility] Specific gravity (U) [Rel density] 1.020 1.005-1.025 [facility] Urea nitrogen [Mass/Vol] 13.0 mg/dL 7.0-18.0 [facility] Urea nitrogen/Creatinine [Mass ratio] 16.7 mg/mg [facility] Urobilinogen Qn (U) 0.2 {Jerzy'U}/dL 0.2-1.0 [facility] Laboratory - Hematology and Cell countson 06-21-2024 Immature granulocytes/100 WBC (Bld) 0.4 % 0.0-0.5 [facility] Laboratory - Specimen inform ationon 06-21-2024 Appearance (U) CLEAR CLEAR [facility] Color (U) LT. YELLOW YELLOW [facility] Laboratory - Urinalysison Leukocyte esterase Test strip Ql (U) SMALL Abnormal NEGATIVE [facility] Nitrite Ql (U) Negative NEGATIVE [facility] Protein Ql (U) Negative NEG/TRACE [facility] Leukocytes [#/volume] correc ester for nucleated erythrocytes in Blood by Automated counon 06-21-2024 WBC corrected for nucl RBC Auto (Bld) [#/Vol] Leukocytes [#/volume] corrected for nucleated erythrocytes in Blood by Automated coun 4.0-11.0 [facility] Lymphocytes Auto (Bld) [#/Vo l]on 06-21-2024 Lymphocytes (Bld) [#/Vol] Lymphocytes [#/volume] in Blood by Automated count 1.2-3.8 [facility] Lymphocytes/100 WBC Auto (Bl d)on 06-21-2024 Lymphocytes/100 WBC (Bld) Lymphocytes/100 leukocytes in Blood by Automated count 20.5-60.0 [facility] MCH Auto (RBC) [Entitic mass ]on 06-21-2024 MCH (RBC) [Entitic mass] MCH [Entitic mass] by Automated count Low 26.7-34.0 [facility] MCHC Auto (RBC) [Mass/Vol]on 06-21-2024 MCHC (RBC) [Mass/Vol] MCHC [Mass/volume] by Automated count 29.9-35.2 [facility] MCV Auto (RBC) [Entitic vol] on 06-21-2024 MCV (RBC) [Entitic vol] MCV [Entitic volume] by Automated count 81.0-99.0 [facility] Monocytes Auto (Bld) [#/Vol] on 06-21-2024 Monocytes (Bld) [#/Vol] Automated blood monocyte count 0.3-0.8 [facility] Monocytes/100 WBC Auto (Bld) on 06-21-2024 Monocytes/100 WBC (Bld) Automated monocyte % 1.7-12.0 [facility] Neutrophils Auto (Bld) [#/Vo l]on 06-21-2024 Neutrophils (Bld) [#/Vol] Neutrophils [#/volume] in Blood by Automated count 1.4-6.5 [facility] Neutrophils/100 WBC Auto (Bl d)on 06-21-2024 Neutrophils/100 WBC (Bld) Automated neutrophil % 43.0-75.0 [facility] No Panel Informationon 06-21 Eosinophils # (Auto) 0.2 10 3/uL 0.0-0.7 [facility] Immature Granulocyte # (Auto) 0.04 10 3/uL High 0.00-0.03 [facility] Urine Occult Blood Negative NEGATIVE [facility] Platelet mean volume Auto (B ld) [Entitic vol]on 06-21-2024 Platelet mean volume (Bld) [Entitic vol] Platelet mean volume [Entitic volume] in Blood by Automated count Low 9.5-13.5 [facility] Platelets Auto (Bld) [#/Vol] on 06-21-2024 Platelets (Bld) [#/Vol] Platelets [#/volume] in Blood by Automated count 150-450 [facility] RBC Auto (Bld) [#/Vol]on RBC (Bld) [#/Vol] Erythrocytes [#/volume] in Blood by Automated count 4.20-5.40 [facility] Serum or plasma anion gap de terminationon 06-21-2024 Anion gap [Moles/Vol] Serum or plasma an ion gap determination [facility] Urine Cultureon 06-21-2024 Bacteria identified Cx Nom (U) 75,000 colonies/ml mixed bacterial skin contaminants 2 Days PERFORMED BY: [facility] [address] [place] [address] PATHOLOGIST PRINCIPAL HARDWARE ARCHITECT ANGELES ROONEY M.D. Normal [facility] Comment on above: Performed By: #### C UU #### [facility] [address] 36on 04-11-2024 36 Patient must have an appointment for ANY refills - thanks Normal [facility] No Panel InformationOrdered By: Pauly Rivera on 10-26-2023 Quick Strep (POC) [facility] GTT 3 HR PREGon 10-23-2022 Glucose [Mass/Vol] 97 mg/dL Normal 74-106 [facility] Comment on above: Performed By: #### G TT3P #### [facility] [address] [address] [address] Oralia Ordonez Glucose [Mass/Vol] 182 mg/dL Normal [facility] Comment on above: Performed By: #### G TT3P #### [facility] [address] [address] [address] Oralia Ordonez Glucose [Mass/Vol] 142 mg/dL Normal [facility] Comment on above: Performed By: #### G TT3P #### [facility] [address] [address] [address] Oralia Ordonez Glucose [Mass/Vol] 126 mg/dL Normal [facility] Comment on above: Performed By: #### G TT3P #### [facility] [address] [address] [address] Oralia Ordonez GLUCOSE - 1HRon 10-16-2022 Glucose [Mass/Vol] 154 mg/dL Critically high 74-106 [facility] Comment on above: Performed By: #### G LU1HR #### [facility] [address] [address] [address] Oralia Ordonez US PREG CERVICAL LENGTHon [...] LAVINIA WEST Date: 2022-09-08 09:07 Normal [facility] HEP B SURFACE ANTIGEN SCREEN on 09-05-2022 HBsAg Screen Negative Normal Negative [facility] Comment on above: Performed By: #### H BSANS #### [facility] [address] [place] [address] Dr. Oralia Ordonez HEPATITIS C VIRUS AB W/ REFL EX QUANTon 09-05-2022 HCV AB Non-Reactive Normal Non Reactive [facility] Comment on above: Performed By: #### H CVPCRR #### [facility] [address] [place] [address] Dr. Oralia Ordonez Interpretation: Comment Normal [facility] Comment on above: Result Comment: Not infected with HCV unless early or acute infection is suspected (which may be delayed in an immunocompromised individual), or other evidence exists to indicate HCV infection. Performed By: #### H CVPCRR #### [facility] [address] [place] [address] Dr. Oralia Ordonez HIV 1 AND 2 WITH REFLEXon HIV Screen 4th Generation wRfx Non-Reactive Normal Non Reactive [facility] Comment on above: Result Comment: HIV Negative HIV-1/HIV-2 antibodies and HIV-1 p24 antigen were NOT detected. There is no laboratory evidence of HIV infection. Performed By: #### H IV12 #### [facility] [address] [place] [address] Dr. Oralia Ordonez RPR QUANTon 09-05-2022 Rapid Plasma Reagin, Quant Non-Reactive Normal NonRea<1:1 [facility] Comment on above: Result Comment: Rose delgado Note: This test does not meet current guidelines for screening and diagnosis of syphilis. This test is intended for following treatment response in patients being treated for syphilis infection. To screen for syphilis infection, a reflex cascade that includes both RPR and a treponema-specific assay should be utilized, such as Treponema pallidum (Syphilis) Screening [place] (043782) or Rapid Plasma Reagin (RPR) Test With Reflex to Quantitative RPR and Confirmatory Treponema pallidum Antibodies (672652). Performed By: #### R PRQ #### [facility] [address] [place] [address] Dr. Oralia Ordonez RUBELLA AB IGGon 09-05-2022 Rubella Antibodies, IgG 1.33 index Normal Immune >0.99 [facility] Comment on above: Result Comment: Non- immune <0.90 Equivocal 0.90 - 0.99 Immune >0.99 Performed By: #### R UBIGG #### [facility] [address] [place] [address] Dr. Oralia Ordonez BOX TEST SENT OUTon 09-05-19 SENT TO REF LAB 09/04/2022 Normal [facility] Comment on above: Performed By: #### B OX #### [facility] [address] [place] [address] Dr. Oralia Ordonez CBC AUTO DIFFon 09-04-2022 BASO # 0.0 103/ul Normal 0.0-0.1 [facility] Comment on above: Performed By: #### T SH #### [facility] [address] [place] [address] Dr. Oralia Ordonez Basophils/100 WBC (Bld) 0.3 % Normal 0.2-2.0 [facility] Comment on above: Performed By: #### T SH #### [facility] [address] [place] [address] Dr. Oralia Ordonez EO # 0.1 103/ul Normal 0.0-0.7 [facility] Comment on above: Performed By: #### T SH #### [facility] [address] [place] [address] Dr. Oralia Ordonez Eosinophils/100 WBC (Bld) 1.1 % Normal 0.9-7.0 [facility] Comment on above: Performed By: #### T SH #### [facility] [address] [place] [address] Dr. Oralia Ordonez Erythrocyte distribution width (RBC) [Ratio] 13.6 % Normal 11.0-15.0 [facility] Comment on above: Performed By: #### T SH #### [facility] [address] [place] [address] Dr. Oralia Ordonez Hematocrit (Bld) [Volume fraction] 38.5 % Normal 36.0-48.0 [facility] Comment on above: Performed By: #### T SH #### [facility] [address] [place] [address] Dr. Oralia Ordonez Hemoglobin (Bld) [Mass/Vol] 12.7 g/dL Normal 12.0-16.0 [facility] Comment on above: Performed By: #### T SH #### [facility] [address] [place] [address] Dr. Oralia Ordonez IG # 0.03 10e3/ul Normal 0.00-0.03 [facility] Comment on above: Performed By: #### T SH #### [facility] [facility] [address] [place] [address] Dr. Oralia Ordonez IG % 0.3 % Normal 0.0-0.5 [facility] Comment on above: Performed By: #### T SH #### [facility] [address] [place] [address] Dr. Oralia Ordonez LYMPH # 2.3 103/ul Normal 1.2-3.8 [facility] Comment on above: Performed By: #### T SH #### [facility] [address] [place] [address] Dr. Oralia Ordonez Lymphocytes/100 WBC (Bld) 21.3 % Normal 20.5-60.0 [facility] Comment on above: Performed By: #### T SH #### [facility] [address] [place] [address] Dr. Oralia Ordonez MANUAL DIFF REQ NO Normal [facility] Comment on above: Performed By: #### T SH #### [facility] [address] [place] [address] Dr. Oralia Ordonez MCH (RBC) [Entitic mass] 26.6 pg Critically low 26.7-34.0 [facility] Comment on above: Performed By: #### T SH #### [facility] [address] [place] [address] Dr. Oralia Ordonez MCHC (RBC) [Mass/Vol] 33.0 g/dL Normal 29.9-35.2 [facility] Comment on above: Performed By: #### T SH #### [facility] [address] [place] [address] Dr. Oralia Ordonez MCV (RBC) [Entitic vol] 80.7 fL Critically low 81.0-99.0 [facility] Comment on above: Performed By: #### T SH #### [facility] [address] [place] [address] Dr. Oralia Ordonez MONO # 0.4 103/ul Normal 0.3-0.8 [facility] Comment on above: Performed By: #### T SH #### [facility] [address] [place] [address] Dr. Oralia Ordonez Monocytes/100 WBC (Bld) 3.7 % Normal 1.7-12.0 [facility] Comment on above: Performed By: #### T SH #### [facility] [address] [place] [address] Dr. Oralia Ordonez NEUT # 7.8 103/ul Critically high 1.4-6.5 [facility] Comment on above: Performed By: #### T SH #### [facility] [address] [place] [address] Dr. Oralia Ordonez Neutrophils/100 WBC (Bld) 73.3 % Normal 43.0-75.0 [facility] Comment on above: Performed By: #### T SH #### [facility] [address] [place] [address] Dr. Oralia Ordonez Platelet mean volume (Bld) [Entitic vol] 8.9 fL Critically low 9.5-13.5 [facility] Comment on above: Performed By: #### T SH #### [facility] [address] [place] [address] Dr. Oralia Ordonez PLT 286 103/ul Normal 150-450 [facility] Comment on above: Performed By: #### T SH #### [facility] [address] [place] [address] Dr. Oralia Ordonez RBC 4.77 106/ul Normal 4.20-5.40 [facility] Comment on above: Performed By: #### T SH #### [facility] [address] [place] [address] Dr. Oralia Ordonez WBC 10.7 103/ul Normal 4.0-11.0 [facility] Comment on above: Performed By: #### T SH #### [facility] [address] [place] [address] Dr. Oralia Ordonez CULTURE URINEon 09-04-2022 CULTURE URINE Culture Observations : LIGHT GROWTH OF MIXED GENITAL JESIKA. NO POTENTIAL PATHOGENS SEEN. Normal [facility] Comment on above: Performed By: #### T SH #### [facility] [address] [address] [address] Oralia Ordonez GLYCOHEMOGLOBIN A1Con 2022 ADA RECOMMENDATION SEE BELOW Normal [facility] Comment on above: Result Comment: ADA RECOMMENDED LIMIT 4.0 - 6.0 ADA THERAPEUTIC TARGET < 7.0 ACTION SUGGESTED > 7.0 Performed By: #### A 1C #### [facility] [address] [place] [address] Dr. Oralia Ordonez Glucose [Mass/Vol] 108 mg/dL Normal [facility] Comment on above: Performed By: #### A 1C #### [facility] [address] [place] [address] Dr. Oralia Ordonez HbA1c (Bld) [Mass fraction] 5.4 % Normal 4.5-6.2 [facility] Comment on above: Performed By: #### A 1C #### [facility] [address] [place] [address] Dr. Oralia Ordonez TSHon 09-04-2022 TSH 1.161 uIU/mL Normal 0.358-3.740 [facility] Comment on above: Performed By: #### T SH #### [facility] [address] [place] [address] Dr. Oralia Ordonez TYPE AND SCREENon 09-04-2022 TYPE AND SCREEN Negative Normal [facility] Comment on above: Performed By: #### T SH #### [facility] [address] [place] [address] Dr. Oralia Ordonez US PREG TVon 08-25-2022 [...] by: LAVINIA WEST Date: 2022-08-25 16:23 Normal [facility] Vital Signs Date Time Vital Sign Value Performing Clinician Facility 01-08-2025 11:05-0400 Body mass index (BMI) [Ratio] 54.1 kg/m2 [employer] Work Phone: [facility] 01-08-2025 11:05-0400 Body weight 134.17 kg [employer] Work Phone: [facility] 01-08-2025 11:05-0400 Diastolic blood pressure 68 mm[Hg] [employer] Work Phone: [facility] 01-08-2025 11:05-0400 Systolic blood pressure 110 mm[Hg] [employer] Work Phone: [facility] 11-24-2024 11:49-0400 Body height 160.02 cm [facility] 11-24-2024 11:49-0400 Body mass index (BMI) [Ratio] 52 kg/m2 [facility] 11-24-2024 11:49-0400 Body temperature 101.4 [degF] [facility] 11-24-2024 11:49-0400 Body weight 133.35 kg [facility] 11-24-2024 11:49-0400 Diastolic blood pressure 77 mm[Hg] [facility] 11-24-2024 11:49-0400 Heart rate 103 /min [facility] 11-24-2024 11:49-0400 Respiratory rate 18 /min [facility] 11-24-2024 11:49-0400 SaO2% (BldA) [Mass fraction] 98 % [facility] 11-24-2024 11:49-0400 Systolic blood pressure 125 mm[Hg] [facility] 10-26-2023 09:34-0400 Body height 160.02 cm [facility] 10-26-2023 09:34-0400 Body mass index (BMI) [Ratio] 47.9 kg/m2 [facility] 10-26-2023 09:34-0400 Body temperature 97.1 [degF] [facility] 10-26-2023 09:34-0400 Body weight 122.92 kg [facility] 10-26-2023 09:34-0400 Diastolic blood pressure 70 mm[Hg] [facility] 10-26-2023 09:34-0400 Heart rate 63 /min [facility] 10-26-2023 09:34-0400 Respiratory rate 18 /min [facility] 10-26-2023 09:34-0400 SaO2% (BldA) [Mass fraction] 97 % [facility] 10-26-2023 09:34-0400 Systolic blood pressure 111 mm[Hg] [facility] Encounters Encounter Date Encounter Type Care Provider Facility Start: 01-10-2025 End: 01-10-2025 Clinisync Result Encounter Demond Glenroy DO Work Phone: [facility] Unsolicited Start: 01-10-2025 End: 01-10-2025 Clinisync Result Encounter Demond Glenroy DO Work Phone: [facility] Unsolicited Start: 01-08-2025 End: 01-08-2025 Bamboo flowsheet Demond Glenroy DO Work Phone: [facility] Start: 01-08-2025 End: 01-12-2025 Bamboo flowsheet Demond Glenroy DO Work Phone: [facility] Start: 01-08-2025 End: 01-12-2025 Clinisync Result Encounter Demond Glenroy DO Work Phone: [facility] Unsolicited Start: 01-08-2025 End: 01-08-2025 Patient encounter procedure Demond Glenroy DO Work Phone: [facility] Work Phone: Start: 01-08-2025 End: 01-08-2025 Periodic preventive med est patient 18-39 yrs Demond Tim DO Work Phone: [facility] Comment on above: Well woman exam with routine gynecological exam; Borderline diabetes mellitus Start: 01-08-2025 End: 01-08-2025 ambulatory DEMOND TIM Not Available Start: 12-01-2024 End: 12-01-2024 ambulatory [facility] Start: 11-24-2024 End: 11-24-2024 ambulatory [facility] Work Phone: Start: 11-24-2024 End: 11-24-2024 Patient encounter procedure Pending Sale To [facility] Work Phone: Start: 10-30-2024 End: 10-30-2024 ambulatory Dana REYES Facility:[facility] Start: 10-30-2024 End: 10-30-2024 ambulatory Dana Anoop AMY Facility[facility] Start: 06-30-2024 ambulatory [facility] Start: 06-21-2024 End: 06-21-2024 ambulatory Rigo Lange Facility:[facility] Start: 06-21-2024 Non-patient / Non-visit Pending [facility] To [facility] Work Phone: Start: 10-26-2023 End: 10-26-2023 ambulatory [facility] Work Phone: Start: 10-26-2023 End: 10-26-2023 Patient encounter procedure Pending Sale To [facility] Work Phone: Start: 01-09-2023 End: 02-16-2023 Pre-admission assessment Demond Ori TRISTANO [facility] Start: 10-25-2022 End: 10-25-[address] SAL [...] 05-05-2021 End: 05-05-2021 ambulatory Chiara Alexander Other [facility] Other Start: 05-05-2021 Telephone encounter Chiara Alexander [facility] Start: 04-07-2021 Telephone encounter Chiara Alexander [facility] Procedures Date Procedure Procedure Detail Performing Clinician Start: 01-10-2025 ALL CBC WITH AUTO DIFF Demond Tim DO Work Phone: Start: 01-08-2025 IGP,APTIMA HPV,AGE GDLN Demond Tim DO Work Phone: Start: 11-24-2024 Quick Strep (POC) Start: 10-26-2023 Quick Strep (POC) Start: 10-25-2022 Microscopic observat ion [Identifier] in Cervix by Cyto stain Demond Tim DO Work Phone: Plan of Treatment Date Care Activity Detail Author Start: 10-26-2027 Screening for malign ant neoplasm of cervix [facility] Start: 01-14-2026 End: 01-14-2026 Patient encounter procedure 01/14/2026 9:00 AM EDT Procedure Visit [facility] [address] [place] [address] Demond Tim DO [address] [place] [address] [facility] Start: 02-16-2025 Influenza vaccination Influenza Vacc ine (#1) [facility] Start: 01-08-2025 End: 01-08-2025 Patient encounter procedure 01/08/2025 11:00 AM EDT Office Visit [facility] [address] [place] [id number] Demond Tim, DO [address] [place] [address] Arrived [facility] Comment on above: Arrived Start: 06-21-2024 Urine culture [facility] CBC W Auto Different ial panel - Blood CBC auto differential Lab Routine Well woman exam with routine gynecological exam Borderline diabetes mellitus Ordered: 01/08/2025 [facility] Comment on above: Ordered: 01/08/2025 Cholesterol [Mass/volume] in Serum or Plasma Cholesterol, total Lab Routine Well woman exam with routine gynecological exam Borderline diabetes mellitus Ordered: 01/08/2025 [facility] Comment on above: Ordered: 01/08/2025 Comprehensive metabo lic 2000 panel - Serum or Plasma Comprehensive metabolic panel Lab Routine Well woman exam with routine gynecological exam Borderline diabetes mellitus Ordered: 01/08/2025 [facility] Comment on above: Ordered: 01/08/2025 Cytology Cervical or vaginal smear or scraping study Pap Smear Pathology and Cytology Routine Well woman exam with routine gynecological exam Ordered: 01/08/2025 [facility] Work Phone: Comment on above: Ordered: 01/08/2025 Hemoglobin A1c/Hemoglobin.total in Blood Hemoglobin A1c Lab Routine Well woman exam with routine gynecological exam Borderline diabetes mellitus Ordered: 01/08/2025 [facility] Comment on above: Ordered: 01/08/2025 Human papilloma viru s DNA [Presence] in Unspecified specimen by Probe with amplification HPV DNA probe, amplified Microbiology Routine Well woman exam with routine gynecological exam Ordered: 01/08/2025 [facility] Comment on above: Ordered: 01/08/2025 Thyrotropin [Units/volume] in Serum or Plasma TSH Lab Routine Well woman exam with routine gynecological exam Borderline diabetes mellitus Ordered: 01/08/2025 [facility] Comment on above: Ordered: 01/08/2025 Immunizations Immunization Date Immunization Notes Care Provider Fa cility 04-14-2024 influenza virus vaccine, unspecified formulation Demond Tim DO Work Phone: [facility] 03-27-2022 influenza virus vaccine, unspecified formulation Demond TIM [facility] Comment on above: Reason for Medicatio n: Prophylaxis 03-08-2021 COVID-19 Vaccine Pfi zer - Documentation Purposes Only Chiara Fitt Other [facility] 03-08-2021 influenza, injectabl e, quadrivalent, preservative free Chiara Fitt Other [facility] 02-15-2021 COVID-19 Vaccine Pfi zer - Documentation Purposes Only Chiara Fitt Other [facility] 02-17-2020 influenza, injectabl e, quadrivalent, contains preservative Chiara Fitt Other [facility] 02-17-2020 influenza, injectabl e, quadrivalent, preservative free [facility] 04-14-2019 influenza, seasonal, injectable Chiara Fitt Other [facility] 06-19-2018 influenza, seasonal, injectable Hciara Fitt Other [facility] Payers Date Payer Category Payer Unknown 2024 Self-pay [id number] 2021 [facility] er [id number] 1989 Unknown [id number]. 593 1989 Unknown [id number] [id number]. 593 1989 Unknown [id number] [id number]. 593 1989 Unknown [id number]. 593 1989 Unknown [id number] [id number]. 593 1989 Unknown [id number] [id number]. 593 1989 Unknown [id number] [id number]. 727 1989 Unknown [id number] [id number]. 727 1989 Unknown [id number] [id number]. 1259 1959 Unknown [id number] Unknown [id number] Unknown [id number]. 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 Compensation [facility] Med C t Ind [id number] Social History Date Type Detail Facility Unknown if ever smoked [facility] Other Start: 04-20-2023 End: 01-08-2025 Sex Assigned At [employer] [facility] Tobacco smoking status No Smokin g Status Entered [facility] Start: 12-21-2022 End: 10-26-2023 Tobacco smoking status NHIS Never smoked tobacco (finding) [facility] Start: 1990 Sex Assigned At Female [facility] Start: 06-23-2024 End: 11-24-2024 Sex Female (finding) [facility] Start: 06-28-2023 End: 01-08-2025 Alcoholic beverage intake Lifetime non-drinker (finding) [facility] Start: 04-20-2023 End: 01-08-2025 History of [address] function [facility] Start: 12-21-2022 Alcohol Comment Caffeine: 1-2 cups/day [facility] Start: 1990 Sex assigned at Not on file N [facility] Clinical Notes 09-05-2018 to 01-08-2025 Kathy Banda LPN - 01/08/2025 11:00 AM EDT Note Date & Type Note Facility 01-08-2025 History of Present illness Narrative Reason for Appointment: Patient ID: Debby Bone is a 34 y.o. female who presents for Well Women Visit Patient presents today for Annual Exam. and Consult appointment. MEDICATIONS Current Outpatient Medications Medication Instructions citalopram (CELEXA) 10 mg, Oral, Daily citalopram (CELEXA) 20 mg, Oral, Every morning labetalol (NORMODYNE) 100 mg, 2 times daily metFORMIN XR (Glucophage-XR) 500 MG 24 hr tablet Take one tablet by mouth two times daily. Do not crush, chew, or split. metoprolol succinate XL (TOPROL-XL) 25 mg, Oral ALLERGIES Allergies Allergen Reactions Other Other Reaction(s): Unknown Naproxen Rash Patient states more of a sensitivity Patient states more of a sensitivity Patient states more of a sensitivity PROBLEMS Active Ambulatory Problems Diagnosis Date Noted No Active Ambulatory Problems Resolved Ambulatory Problems Diagnosis Date Noted No Resolved Ambulatory Problems Past Medical History: Diagnosis Date Abnormal uterine bleeding (AUB) Anxiety Breast cancer screening by mammogram Breast lump on right side at 1 o'clock position Breast lump on right side at 8 o'clock position Depression Depression screening Gestational diabetes, diet controlled ([facility]) H/O dilation and curettage Headache Morbid obesity with BMI of 50.0-59.9, adult ([facility]) Post depression Postop check Pre-eclampsia in period ([facility]) Pre-op exam Well woman exam HISTORY PAST MEDICAL HISTORY SOCIAL HISTORY Past Medical History: Diagnosis Date Abnormal uterine bleeding (AUB) Anxiety Breast cancer screening by mammogram Breast lump on right side at 1 o'clock position Breast lump on right side at 8 o'clock position Depression Depression screening Gestational diabetes, diet controlled ([facility]) H/O dilation and curettage Headache Morbid obesity with BMI of 50.0-59.9, adult ([facility]) Post depression Postop check Pre-eclampsia in period ([facility]) Pre-op exam Well woman exam Social History Tobacco Use Smoking status: Never Smokeless tobacco: Not on file Substance Use Topics Alcohol use: Never Comment: Caffeine: 1-2 cups/day Drug use: Not on file FAMILY HISTORY Family History Problem Relation Name Age of Onset Thyroid disease Mother CHELSEA disease Mother Mental illness Mother SURGICAL HISTORY Past Surgical History: Procedure Laterality Date DILATION AND CURETTAGE multiple SALPINGECTOMY Bilateral 06/01/2023 robotic assisted lap REVIEW OF SYSTEMS Review of Systems: Review of Systems Constitutional: Negative. HENT: Negative. Eyes: Negative. Respiratory: Negative. Cardiovascular: Negative. Gastrointestinal: Negative. Genitourinary: Negative. Musculoskeletal: Negative. Skin: Negative. Neurological: Negative. All other systems reviewed and are negative. Hematological: Negative. Endocrine: Negative. Allergic/Immunologic: Negative. OBJECTIVE Objective: Physical Exam Constitutional: Appearance: Normal appearance. She is well-developed. Genitourinary: Vulva normal. Breasts: Breasts are soft. Right: Normal. Left: Normal. Cardiovascular: Rate and Rhythm: Normal rate and regular rhythm. Pulmonary: Effort: Pulmonary effort is normal. Breath sounds: Normal breath sounds. Abdominal: General: Bowel sounds are normal. There is no distension. Palpations: Abdomen is soft. Tenderness: There is no abdominal tenderness. There is no guarding or rebound. Musculoskeletal: General: No swelling. Normal range of motion. Right lower leg: No edema. Left lower leg: No edema. Neurological: Mental Status: She is alert and oriented to person, place, and time. Skin: General: Skin is warm and dry. Psychiatric: Mood and Affect: Mood normal. Behavior: Behavior normal. Vitals and nursing note reviewed. Exam conducted with a horticulturalist present. Vitals: Estimated body mass index is 54.1 kg/m as calculated from the following: Height as of 10/25/22: 5' 2 . Weight as of this encounter: 295 lb 12.8 oz. BP: 110/68 No LMP recorded (within months). ASSESSMENT & PLAN ICD-10-CM 1. Well woman exam with routine gynecological exam Z01.419 Pap Smear HPV DNA probe, amplified Hemoglobin A1c CBC auto differential TSH Cholesterol, total Comprehensive metabolic panel 2. Borderline diabetes mellitus R73.03 Hemoglobin A1c CBC auto differential TSH Cholesterol, total Comprehensive metabolic panel Annual Exam: Patient presents today for an annual exam. Patient states she is doing well and has no complaints. Pap was obtained without difficulty. Patient desires to have wellness labs order and discussed borderline DM. Orders Placed This Encounter Procedures HPV DNA probe, amplified Hemoglobin A1c CBC auto differential TSH Cholesterol, total Comprehensive metabolic panel Follow Up: Patient is to return in one year for annual unless needed otherwise. Documented by Kathy Banda LPN on behalf of: Demond Tim DO documented in this encounter [facility] 12-01-2024 Note [place] [facility] Subjective Debby Bone is a 34 y.o. year old [...] use: Not Currently Drug use: Never [place] KelleyDebby is seen in follow-up. This is the [...] not included)... [facility] 06-30-2024 Note [place] [facility] Subjective Debby Bone is a [...] not included)... [facility] 09-05-2018 History general N arrative - Reported Type Medical History Stress fracture left foot-Dr Taya hess Medical History Depression Medical History Post pre-eclampsia Medical History HTN Medical History Gestational Diabetes Surgical History Bx right breast 09/05/18 Surgical History D&C and hysteroscopy 11/23/17 Surgical History D&C, hysteroscopy-[facility] [place]- Neg bx's -Dr Tim 08/03/20 Hospitalization History child 12/2018 [facility] Other Evaluation + Plan note No data available for this section [facility] Evaluation noteNo assessment information available [facility] Work Phone: Evaluation note* Diagnosis Onset Date Resolution Status Admit Date Sore throat noneactive November 24 11:48am [facility] Work Phone: Evaluation note* Diagnosis Well woman exam with routine gynecological exam Routine gynecological examination Borderline diabetes mellitus Other abnormal glucose documented in this [facility] - [facility] Discharge instructions No data available for this section [facility] No data available for this section [facility] Summary Purpose Family History Relationship Condition Age at Onset Recorded Date/T eduar father Unknown Not Specified Heart disease Unknown Family history of mental disorder Unknown Relationship Condition Age at Onset Recorded Date/T eduar father Unknown mother Heart disease Unknown Family history of mental disorder Unknown Advance Directives Advance Directive Response Recorded Date/ Time Advance [...] FOR VISIT (unrecogniz ed section and content) Reason Comments Well Women Visit INFORMATION SOURCE (unrecogn ized section and content) DATE CREATED AUTHOR 11/01/2022 [facility] DATE CREATED AUTHOR AUTHOR'S ORGANIZ ATION 06/29/2024 [facility] DATE CREATED AUTHOR AUTHOR'S ORGANIZ ATION 10/31/2024 [facility] [employer] DATE CREATED AUTHOR AUTHOR'S ORGANIZ ATION 11/01/2024 [facility] DATE CREATED AUTHOR AUTHOR'S ORGANIZ ATION 11/04/2024 [facility] DATE CREATED AUTHOR AUTHOR'S ORGANIZ ATION 12/02/2024 [facility] DATE CREATED AUTHOR AUTHOR'S ORGANIZ ATION 01/09/2025 [facility] EPIC Patient Care team informatio [...] Team Status: Active Member Role Status Dates aSl Simms DO Primary Care Provider Active St art: June 21, 2024 Rigo Lange DO Attending Provider Active S tart: June 21, 2024 Team Status: Inactive Member Role Status Dates Sal Simms DO Primary Care Provider Active St art: October 26, 2023 End: October 26, 2023 Pauly Rivera APRN Attending Provider Active Start: October 26, 2023 End: October 26, 2023 Assembler Body Relationship Specialty Start Date End Date Sal Simms MD PCP - General Family Medicine 11/16/22 Assembler Body Relationship Specialty Start Date End Date Sal Simms MD PCP - General Family Medicine 11/16/22 Assembler Body Relationship Specialty Start Date End Date Sal [...] BE BASED ON THE PRIMARY CLINICAL RECORDS. [facility]. provides no warranty or guarantee of the accuracy or completeness of information in this document.
== END 2025-01-13 15:40 | disposition home or self-care (01) ==
LOC: CARD 15:39
PROVIDERS: PCP Family Medicine; Visit Provider Internal Medicine Interventional Cardiology
DX: I11.0 Hypertensive heart disease with heart failure (principal)
CPT/HCPCS: 93306; 93356

== ENCOUNTER 2025-03-20 16:06 | Outpatient (OUT) | payer BC, SELFPAY ==
--- OUTSIDE RECORDS SUMMARY | 2024-11-17 09:11 | XMS_ITS | Continuity of Care Document ---
Author Organization [facility] Address [address] [place] [address] Phone Care Team Providers Care Sliver Machine Operator Name Role Phone Eldon HOLLIEBelen Unavailable Unavailable [...] TEST OFFICE/OUTPATIENT VISIT, EST CHICKEN POX VACCINE, [place] OFFICE/OUTPATIENT VISIT, EST MMR VACCINE, [place] CHICKEN POX VACCINE, [place] Advance Directives Directive Yes / No Effective Date File Name No Information Encounters Encounter Description Practice Location Reason(s) For Visit Diagnoses Date Provider Providers Copied on Encounter [facility], [address] [place] [address], [id number] , tel: [phone] Dental Clinic fill (chief complaint) No Information 5 Eldon Glover. . tel: [phone] [facility], [address] [place] [address], [id number] , [place] tel: [phone] [facility] Dental Clinic Encounter for screening for dental disorders 5 Anoop Greenwood. [address] [place] [address], [address], [place]. tel: [phone] [facility], [address] [place] [address], [id number] , tel: [phone] [facility] Dental Clinic fill (chief complaint) Encounter for screening for dental disorders 5 Davalos DDS Yixue. [address] [place], [address], [place]. tel:+ [phone] [facility], [address] [place], [place], [id number] , [place] tel:+ [phone] OVE No Information 5 [facility] DO Machado. [address] [place], [place], [id number] , [place]. tel: [phone] [facility], [address] [place], [place], [id number] , [place] tel: [phone] OVE Encounter for screening for respiratory tuberculosis 5 [facility] DO Machado. [address] [place], [place], [id number] , [place]. tel: [phone] [facility], [address] [place] [address], [id number] , [place] tel: [phone] [facility] Dental Clinic Filling (chief complaint) Encounter for screening for dental disorders 5 [facility] DDS Yixue. [address] [place] [address], [address], [place]. tel: [phone] [facility], [address] [place] [address], [id number] , [place] tel: [phone] [facility] Dental Clinic POV (chief complaint) Encounter for screening for dental disorders 5 Davalos DDS Yixue. [address] [place], [address], [place]. tel: [phone] [facility], [address] [place], [place], [id number] , [place] tel: [phone] [facility] Dental Clinic pov (chief complaint) Encounter for screening for dental disorders 5 Davalos DDS Yixue. [address] [place] [address], [address], [place]. tel:+ [phone] [facility], [address] [place] [address], [id number] , [place] tel:+ [phone] [facility] Dental Clinic ext (chief complaint) Encounter for screening for dental disorders 5 [facility] DDS Yixue. [address] [place], [address], [place]. tel: [phone] [facility], [address] [place], [place], [id number] , [place] tel: [phone] [facility] Dental Clinic ER (chief complaint) Body mass index [BMI] 45.0-49.9, adultEncounter for screening for dental disorders 5 [facility] DDS Yixue. [address] [place], [address], [place]. tel: [phone] [facility], [address] [place] [address], [id number] , [place] tel: [phone] [facility] No Information 4 Bolivar Mora. [address] [place], [place], [id number] , [place]. tel: [phone] [facility], [address] [place] [address], [id number] , [place] tel: [phone] [facility] Pre-employ ment Labs (chief complaint) Encounter for antibody response examinationEncounter for screening for respiratory TB 4 Bolivar Mora. [address] [place], [place], [id number] , [place]. tel: [phone] OFFICE/OUTPA TIENT VISIT, [facility], [address] [place], [place], [id number] , [place] tel: [phone] [facility] No Information 1 Visci DO Machado. [address] [place], [place], [id number] , [place]. tel: [phone] OFFICE/OUTPA TIENT VISIT, [facility], [address] [place], [place], [id number] , [place] tel: [phone] [facility] No Information 1 Visczhang Mora. [address] [place], [place], [id number] , [place]. tel: [phone] Family History Family Member Type Diagnosis Age At Onset No Information Immunizations Vaccine Date Status Comments Spikevax 12y+ administered Source: New Im munization Record Fluarix/Flulaval administered Source: New Immunization Record Spikevax 12y+ administered Source: New Im munization Record Tdap (Boostrix) administered Source: New Immunization Record Influenza, split virus, quadrivalent, PF administered [...] Registry Payers Payer name Insurance type Covered green party ID Authoraugustinea petty(s) D [facility] CI [id number] Social History Type Description Quantity Date Captured [...] C screening. Due o n due Goal PRAPARE ASSESSMENT. Due on M due Goal HPV. Due on due Goal Unhealthy drug use screening . Due on due Goal Tdap Vaccine. Due on 2033 due Goal Hep A. Due on du e Goal Hepatitis C screening. Due o n due Goal Tdap due Goal Influenza vaccine. Due on Oc due Goal Depression screening. Due on due Goal RLP. Due on due Goal RLP. Due on due Goal Hep A. Due on du e Goal Tdap Vaccine. Due on 2033 due Goal Hepatitis C screening. Due o n due Goal Unhealthy drug use screening . Due on due Goal PRAPARE ASSESSMENT. Due on M due Goal Influenza vaccine. Due on Oc due Goal HPV. Due on due Goal Depression screening. Due on due Goal Tdap due Goal Hep A. Due on du e Goal PRAPARE ASSESSMENT. Due on F due Goal Influenza vaccine. Due on Oc due Goal Depression screening. Due on due Goal Unhealthy drug use screening . Due on due Goal Tdap due Goal RLP. Due on due Goal Hepatitis C screening. Due o n due Goal Tdap Vaccine. Due on 2033 due Goal HPV. Due on due Goal Hepatitis C screening. Due o n due Goal Unhealthy drug use screening . Due on due Goal Tdap due Goal Tdap Vaccine. Due on 2033 due Goal RLP. Due on due Goal Depression screening. Due on due Goal PRAPARE ASSESSMENT. Due on due Goal HPV. Due on due Goal Influenza vaccine. Due on due Goal PRAPARE ASSESSMENT. Due [...] due Goal RLP. Due on due Goal HPV. Due on due Goal Depression screening. Due on due Goal Tdap Vaccine. Due on 2033 due Goal Influenza vaccine. Due on Oc due Goal RLP. Due on due Goal Tdap due Goal Unhealthy drug use screening . Due on due Goal Depression screening. Due on due Goal PRAPARE ASSESSMENT. Due on J due Goal Influenza vaccine. Due on Oc due Goal HPV. Due on due Goal Tdap Vaccine. Due on 2033 due Goal Hepatitis C screening. Due o n due Goal Dietary management education , guidance, and counseling completed Goal Influenza vaccine. Due on Oc due Goal Unhealthy drug use screening . Due on due Goal RLP. Due on due Goal HPV. Due on due Goal Tdap Vaccine. Due on 2033 due Goal Depression screening. Due on due Goal Hepatitis C screening. Due o n due Goal Tdap due Goal PRAPARE ASSESSMENT. Due on O due Goal HPV. Due on due Goal [...] Information Instructions Date Instruction Additional Infor mation Dietary management e ducation, guidance, and counseling Related to Body mass index [BMI] 45.0-49.9, adult Giving encouragement to exercise Related to Body mass index [BMI] 45.0-49.9, adult Assessments Type Assessment Date No Information Patient Care Teams Name Effective Dates (start - stop) Status Members No Information
--- OUTSIDE RECORDS SUMMARY | 2024-11-17 09:11 | XMS_ITS | Continuity of Care Document ---
Author Organization [facility] Address [address] [place] [address] Phone Care Team Providers Care Security Control Assessor Name Role Phone Eldon HOLLIEBelen Unavailable Unavailable [...] TEST OFFICE/OUTPATIENT VISIT, EST CHICKEN POX VACCINE, [place] OFFICE/OUTPATIENT VISIT, EST MMR VACCINE, [place] CHICKEN POX VACCINE, [place] Advance Directives Directive Yes / No Effective Date File Name No Information Encounters Encounter Description Practice Location Reason(s) For Visit Diagnoses Date Provider Providers Copied on Encounter [facility], [address] [place] [address], [id number] , tel: [phone] Dental Clinic fill (chief complaint) No Information 5 Eldon Glover. . tel: [phone] [facility], [address] [place] [address], [id number] , [place] tel: [phone] [facility] Dental Clinic Encounter for screening for dental disorders 5 Anoop Greenwood. [address] [place] [address], [address], [place]. tel: [phone] [facility], [address] [place] [address], [id number] , tel: [phone] [facility] Dental Clinic fill (chief complaint) Encounter for screening for dental disorders 5 Davalos DDS Yixue. [address] [place], [address], [place]. tel:+ [phone] [facility], [address], [place], [id number] , [place] tel:+ [phone] OVE No Information 5 [facility] DO Machado. [address], [place], [id number] , [place]. tel: [phone] [facility], [address], [place], [id number] , [place] tel: [phone] OVE Encounter for screening for respiratory tuberculosis 5 [facility] DO Machado. [address], [place], [id number] , [place]. tel: [phone] [facility], [address] [place] [address], [id number] , [place] tel: [phone] [facility] Dental Clinic Filling (chief complaint) Encounter for screening for dental disorders 5 [facility] DDS Yixue. [address] [place] [address], [address], [place]. tel: [phone] [facility], [address] [place] [address], [id number] , [place] tel: [phone] [facility] Dental Clinic POV (chief complaint) Encounter for screening for dental disorders 5 Davalos DDS Yixue. [address] [place], [address], [place]. tel: [phone] [facility], [address], [place], [id number] , [place] tel: [phone] [facility] Dental Clinic pov (chief complaint) Encounter for screening for dental disorders 5 Davalos DDS Yixue. [address] [place] [address], [address], [place]. tel:+ [phone] [facility], [address] [place] [address], [id number] , [place] tel:+ [phone] [facility] Dental Clinic ext (chief complaint) Encounter for screening for dental disorders 5 [facility] DDS Yixue. [address] [place], [address], [place]. tel: [phone] [facility], [address], [place], [id number] , [place] tel: [phone] [facility] Dental Clinic ER (chief complaint) Body mass index [BMI] 45.0-49.9, adultEncounter for screening for dental disorders 5 [facility] DDS Yixue. [address] [place], [address], [place]. tel: [phone] [facility], [address] [place] [address], [id number] , [place] tel: [phone] [facility] No Information 4 Bolivar Mora. [address], [place], [id number] , [place]. tel: [phone] [facility], [address] [place] [address], [id number] , [place] tel: [phone] [facility] Pre-employ ment Labs (chief complaint) Encounter for antibody response examinationEncounter for screening for respiratory TB 4 Bolivar Mora. [address], [place], [id number] , [place]. tel: [phone] OFFICE/OUTPA TIENT VISIT, [facility], [address], [place], [id number] , [place] tel: [phone] [facility] No Information 1 Visci DO Machado. [address], [place], [id number] , [place]. tel: [phone] OFFICE/OUTPA TIENT VISIT, [facility], [address], [place], [id number] , [place] tel: [phone] [facility] No Information 1 Visczhang Mora. [address], [place], [id number] , [place]. tel: [phone] Family History Family Member Type Diagnosis Age [...] Registry Payers Payer name Insurance type Covered democrat ID Authoraugustinea petty(s) D [facility] CI [id number] Social History Type Description Quantity Date Captured [...]
--- OUTSIDE RECORDS SUMMARY | 2025-03-20 08:02 | XMS_ITS | Encounter Summary ---
Author Organization [facility] Address [address] [place] [address] Care Team Providers Care Assistant Center Director Name Role Phone Sal Sauer MD Primary Care Provider [phone] Encounter Details Date Type Department Care Team (Late st Contact Info) Description 02/21/2023 Clinisync Result Encounter NOMS External Department Unsolicited Demond Tim, DO [address] [place] [address] Social History Tobacco Use Types Packs/Day Years [...] 01/14/2026 9:00 AM EDT Procedure Visit [facility] [address] [place] [address] Demond Tim DO [address] [place] [address] documented as of this encounter Procedures Procedure Name Priority Date/Time Associated Diagnosis Comments OBBPPWNST 02/21/2023 4:38 PM EDT documented in this encounter Results * OBBPPWNST (02/21/2023 4:38 PM EDT) Anatomical Region Laterality Modality Other 02/21/2023 4:38 PM EDT Narrative 02/21/2023 4:38 PM EDT [place] [id number] Ultrasound Report Signed Patient: MARY RUIZ MR#: [id number] : 1990 Acct:[id number] Age/Sex: 32 / F ADM Date: 02/21/23 Loc: [facility] 250-[address]: Demond Tim D.O. Ordering Physician: Demond Tim D.O. Date of Service: 02/21/23 Procedure(s): US OB BPP w non-stress Accession Number(s): [id number] cc: Demond Tim D.O.; SAL SAUER [place] [id number] Patient Name: MARY RUIZ MRN: [id number] date: 1990 Sex: F Assigned Patient Location: US Current Patient Location: CARD Accession/Order Number: [id number] Exam Date: 02/21/2023 16:00 Report Date: 02/21/2023 [...] Juan Antonio Blackman M.D. Signed By: 02/21/23 1641 DD/ 1638 TD/TT: Mysql Database Administrator: Procedure Note Radiology, Radiologist, MD Davis 03/09/2023 [place] [address] Ultrasound Report Signed Patient: MARY RUIZ LMR#: [id number] : 1990Acct:[id number] Age/Sex: 32 / FADM Date: 02/21/23 Loc: [facility] 250-[address]: Demond Tim D.O. Ordering Physician: Demond Tim D.O. Date of Service: 02/21/23 Procedure(s): US OB BPP w non-stress Accession Number(s): [id number] cc: Demond Tim D.O.; SAL SAUER [place] [address] Patient Name: MARY RUIZ MRN: [id number] date: 1990 Sex: F Assigned Patient Location: US Current Patient Location: CARD Accession/Order Number: [id number] Exam Date: 02/21/2023 16:00 Report Date: 02/21/2023 [...] By: Juan Antonio Blackman M.D. Signed By:02/21/23 164 DD/ 1638 TD/TT: Mysql Database Administrator: us Demond Tim DO [facility] Final Result documented in this encounter Visit Diagnoses Not on filedocumented in this encounter Care Teams Assistant Center Director Relationship Specialty Start Date End Date Sal Sauer MD PCP - General Family Medicine 11/16/22 documented as of this encounter
--- OUTSIDE RECORDS SUMMARY | 2025-03-20 08:02 | XMS_ITS | Clinical Summary ---
Author Organization [facility] Healthcare Address [address] [place] [place] [address] Care Team Providers Care Event Coordinator Name Role Phone Sal Sauer MD Primary Care Provider [phone] Allergies Active Allergy Reactions Criticality Noted Date Comments Naproxen Rash Low 03/26/2017 Patient states more of a sensitivity Patient states more of a sensitivity Patient states more of a sensitivity Other 01/08/2023 Other Reaction(s): Unknown Medications citalopram (CeleXA) 20 MG tabletIndication s:Second trimester ([facility]) Take 0.5 tablets (10 mg) by mouth in the morning. 15 tablet 6 3 Active Additional Information Patient not taking.Reported on 01/08/2025 metFORMIN XR (Glucophage-XR) 500 MG 24 hr tabletIndication s:Gestational diabetes mellitus (GDM) in third trimester controlled on oral hypoglycemic drug ([facility]) Take one tablet by mouth two times [...] citalopram (CeleXA) 20 MG tabletIndication s: anxiety ([facility]) TAKE 1 TABLET BY MOUTH EVERY DAY IN THE MORNING 90 tablet 3 5 Active Additional Information Patient not taking.Reported on 01/08/2025 Encounters Date Type Department Care Team Description 01/14/2025 [place] [address] Brandy Hannah MA 01/10/2025 Clinisync Result Encounter NOMS External Department Unsolicited Jae Tim DO 01/08/2025 11:00 AM EDT [place] [address] Jae Tim DO Well woman exam with routine gynecological exam; Borderline diabetes mellitus 01/08/2025 Clinisync Result Encounter [facility]OMS External Department Unsolicited Jae Tim, 01/08/2025 [place]amboo [place] [address] Jae Tim DO from Last 3 Months [...] 9:00 AM EDT Procedure Visit [facility] [place] [address] [place] [phone] Jae Tim, DO [address] [place] [address] Health Maintenance Due Date Last Done Comments Influenza Vaccine (#1) 2025 , 04/12/2023, 03/27/2022, Additional history exists Cervical Cancer Screening 10/26/2027 HPV/Cotest 10/26/2027 Pap Smear 01/09/2028 01/08/2025, 10/25/2022 Procedures Procedure Name Priority Date/Time Associated Diagnosis Comments ALL THYROID STIM HORMONE Routine 01/10/2025 7:51 AM EDT ALL CHOLESTEROL Routine 01/10/2025 7:51 AM EDT [facility] CMP (CMP) (FOR REMOTE [facility] USE) Routine 01/10/2025 7:51 AM EDT MLR HEMOGLOBIN A1C Routine 01/10/2025 7: 51 AM EDT ALL CBC WITH AUTO DIFF Routine 01/10/2025 7:51 AM EDT IGP,APTIMA HPV,AGE GDLN Routine 01/08/2025 11:00 AM EDT PAP SMEAR Routine 01/08/2025 12:00 AM EDT from Last 3 Months Results * MLR HEMOGLOBIN A1C (01/10/2025 7:51 AM EDT) GLYCOHEMOGLOBIN A1C 5.4 4.5 - 6.2 % [facility] Comment: ADA RECOMMENDED LIMIT 4.0 - 6.0 ADA THERAPEUTIC TARGET < 7.0 ACTION SUGGESTED > 7.0 ESTIMATED AVERAGE GLUCOSE 108 mg/dL [facility] 01/10/2025 7:51 AM EDT 01/10/2025 7:54 AM EDT Narrative [facility] - 01/10/2025 8:17 AM EDT us Jae Glenroy DO [facility] Final Result [facility] * (ABNORMAL) [facility] CMP (CMP) (FOR [facility]OTE [facility] USE) (01/10/2025 7:51 AM EDT) SODIUM 139 136 - 145 mmol/L [facility] POTASSIUM 4.1 3.5 - 5.1 mmol/L [facility] CHLORIDE 105 98 - 107 mmol/L [facility] CARBON DIOXIDE 24.0 21.0 - 32.0 mmol/L [facility] ANION GAP 14.1 [facility] GLUCOSE 92 74 - 106 mg/dL [facility] BLOOD UREA NITROGEN 22.0(H) 7.0 - 18.0 mg/dL [facility] CREATININE 0.67 0.55 - 1.02 mg/dL [facility] TBH EGFR-AF LIBERIAN >60 >=60 mL/min/1. 73m 2 TBH TBH EGFR-NON AF LIBERIAN >60 >=60 mL/min/1. 73m 2 [facility] BUN CREATININE RATIO 32.8 [facility] CALCIUM 9.1 8.5 - 10.1 mg/dL [facility] BILIRUBIN TOTAL 0.2 0.2 - 1.0 mg/dL [facility] ASPARTATE AMINO TRANSFERASE 13(L) 15 - 37 U/L [facility] ALANINE AMINOTRANSFERASE 14 14 - 59 U/L [facility] ALKALINE PHOSPHATASE 100 46 - 116 U/L [facility] TOTAL PROTEIN 7.5 6.4 - 8.2 g/dL [facility] ALBUMIN LEVEL 3.5 3.4 - 5.0 g/dL [facility] GLOBULIN 4.0 g/dL [facility] ALBUMIN GLOBULIN RATIO 0.9 [facility] 01/10/2025 7:51 AM EDT 01/10/2025 7:54 AM EDT Narrative CLINISYNC - 01/10/2025 8:42 AM EDT Jae Glenroy DO CLINISYNC Final Result [facility] TB * ALL THYROID STIM HORMONE (01/10/2025 7:51 AM EDT) THYROID STIMULATING HORMONE 3.252 0.358 - 3.740 uIU/mL [facility] 01/10/2025 7:51 AM EDT 01/10/2025 7:54 AM EDT Narrative CLINISYNC - 01/10/2025 8:42 AM EDT us Jae Glenroy DO [facility] Final Result [facility] * ALL CHOLESTEROL (01/10/2025 7:51 AM EDT) CHOLESTEROL 157 <=200 mg/dL [facility] 01/10/2025 7:51 AM EDT 01/10/2025 7:54 AM EDT Narrative CLINISYNC - 01/10/2025 8:42 AM EDT us Jae Glenroy DO CLINIS[facility]NC Final Result Performing Organization Address City/[facility]/ZIP Co de Phone Number [facility] * (ABNORMAL) ALL CBC WITH AUTO DIFF (01/10/2025 7:51 AM EDT) Pathologist [facility] TB WBC 8.2 4.0 - 11.0 10 3/uL [facility] TB RBC 4.20 4.20 - 5.40 10 6/uL TBH TBH HGB 10.9(L) 12.0 - 16.0 g/dL TB TB HCT 34.4(L) 36.0 - 48.0 % [facility] TB MCV 81.9 81.0 - 99.0 fL TBH TBH MCH 26.0(L) 26.7 - 34.0 pg TBH TBH MCHC 31.7 29.9 - 35.2 g/dL TB TBH RDW 14.1 11.0 - 15.0 % TBH TBH PLT 237 150 - 450 10 3/uL TBH TBH MPV 9.0(L) 9.5 - 13.5 fL [facility]H NEUTROPHILS PERCENT AUTO 58.5 43.0 - 75.0 % [facility] LYMPHOCYTES PERCENT AUTO 32.9 20.5 - 60.0 % [facility] MONOCYTES PERCENT AUTO 5.3 1.7 - 12.0 % TBH TBH EO % 2.6 0.9 - 7.0 % [facility] BASOPHILS PERCENT AUTO 0.5 0.2 - 2.0 % [facility] IMMATURE GRANULOCYTES PCT AUTO 0.2 0.0 - 0.5 % [facility] NEUTROPHILS ABSOLUTE AUTO 4.8 1.4 - 6.5 10 3/uL TB[facility] LYMPHOCYTES ABSOLUTE AUTO 2.7 1.2 - 3.8 10 3/uL TB[facility] MONOCYTES ABSOLUTE AUTO 0.4 0.3 - 0.8 10 3/uL TBH TBH EO # 0.2 0.0 - 0.7 10 3/uL TBH BASOPHILS ABSOLUTE AUTO 0.0 0.0 - 0.1 10 3/uL [facility] IMMATURE GRANULOCYTES ABS AUTO 0.02 0.00 - 0.03 10 3/uL [facility] 01/10/2025 7:51 AM EDT 01/10/2025 7:54 AM EDT Narrative CLINISYNC - 01/10/2025 8:02 AM EDT Jae Tim DO CLINISYNC Final Result [facility]NC [facility] * IGP,APTIMA HPV,AGE GDLN (01/08/2025 11:00 AM EDT) Pathologist [facility] AGE GDLN ACOG TESTING Note . [facility] Comment: TESTS RESULT FLAG UNITS REF RANGE LAB Clinician Provided Cytology Information Source.............Cervix;Endocervix No. of containers..01 ThinPrep Vial Age Marlin WOMACK Eloina... 30-65 FLAG LEGEND: L-Low Normal,H-High Normal,LL-Alert Low,HH-Alert High <-Panic Low,>-Panic High,A-Abnormal,AA-Critical Abnormal Performed at: 01 =[facility] [place] [address] Kecia Riojas MD, IGP, APTIMA HPV, RFX 16/18,45 Note . [facility] Comment: TESTS RESULT FLAG UNITS REF RANGE LAB DIAGNOSIS: 02 NEGATIVE FOR INTRAEPITHELIAL LESION OR MALIGNANCY. THIS SPECIMEN WAS RESCREENED PART OF OUR BLADDER TIER PROGRAM. Specimen adequacy: 02 Satisfactory for evaluation. Endocervical and/or squamous metaplastic cells (endocervical component) are present. Performed by: 02 Bella Pena, Attractions Associate QC reviewed by: 02 Johanny Álvarez, Attractions Associate . 02 Note: Note 02 The Pap [...] <-Panic Low,>-Panic High,A-Abnormal,AA-Critical Abnormal Performed at: [address] [address] Kecia Riojas MD, HPV APTIMA Negative Negative [facility] Comment: This nucleic acid amplification test detects fourteen high- risk HPV types (16,18,31,33,35,39,45,51,52,56,58,59,66,68) without differentiation. Performed at: =[address] [id number] Clinical Recruiter: Kecia Riojas MD, Phone: [phone] Performed at: [address] [id number] Clinical Recruiter: Kecia Riojas MD, Phone: [phone] 01/08/2025 11:0 0 AM EDT 01/08/2025 3:56 PM EDT Narrative CLINISYNC - 01/12/2025 12:11 PM EDT BRUSH-SPATULA CERVIX ENDOCERVIX Jae Glenroy DO LAB BLOOD ORDERABLES Final Resul t [facility] * Pap Smear (01/08/2025 12:00 AM EDT) Swab Cervical swab / Unknown Jae Glenroy DO LAB CYTOLOGY ORDERABLES Final Re sult EXTERNAL LAB from Last 3 Months Insurance [facility] Care Teams Event Coordinator Relationship Specialty Start Date End Date Sal Sauer MD PCP - General Family Medicine 11/16/22
--- OUTSIDE RECORDS SUMMARY | 2025-03-20 08:02 | XMS_ITS | Encounter Summary ---
Author Organization [facility] Address [address] [place] [address] Care Team Providers Care Pharmaceutical Development Technician Name Role Phone Sal Sauer MD Primary Care Provider [phone] Encounter Details Date Type Department Care Team (Late Contact Info) Description 02/15/2023 [facility] [place] [facility] [address] [place] [phone] Anne Marie Flores LPN [address] [place] [address] Social History Tobacco Use Types Packs/Day Years [...] Description 01/14/2026 9:00 AM EDT Procedure Visit [facility] [address] [place] [address] Jae Tim DO [address] [place] [id number] documented as of this encounter Visit Diagnoses Not on filedocumented in this encounter Care Teams Pharmaceutical Development Technician Relationship Specialty Start Date End Date Sal Sauer MD PCP - General Family Medicine 11/16/22 documented as of this encounter
--- OUTSIDE RECORDS SUMMARY | 2025-03-20 08:02 | XMS_ITS | Encounter Summary ---
Author Organization [facility] Address [address] [facility] [place] [address] Care Team Providers Care Wire Spring Relay Adjuster Name Role Phone Sal Sauer MD Primary Care Provider [phone] Encounter Details Date Type Department Care Team (Late Contact Info) Description 12/21/2022 Abstract [place] [facility] [address] [place] [phone] Jae Tim DO [facility] [place], [place] [address] Social History Tobacco Use Types Packs/Day Years [...] Description 01/14/2026 9:00 AM EDT Procedure Visit [facility] [place] [phone] Jae Tim DO [facility] [place], [place] [phone] documented as of this encounter Visit Diagnoses Not on filedocumented in this encounter Care Teams Wire Spring Relay Adjuster Relationship Specialty Start Date End Date Sal Sauer MD PCP - General Family Medicine 11/16/22 documented as of this encounter
--- OUTSIDE RECORDS SUMMARY | 2025-03-20 08:02 | XMS_ITS | Encounter Summary ---
Author Organization [facility] Address [address] [place] [address] Care Team Providers Care Canvas Products Sales Representative Name Role Phone Sal Sauer MD Primary Care Provider Encounter Details Date Type Department Care Team (Late st Contact Info) Description 02/21/2023 Clinisync Result Encounter NOMS External Department Unsolicited Demond Tim, DO [address] [place] [address] Social History Tobacco Use Types Packs/Day Years [...] 01/14/2026 9:00 AM EDT Procedure Visit [facility] [address] [place] [address] Demond Tim DO [address] [place] [address] documented as of this encounter Procedures Procedure Name Priority Date/Time Associated Diagnosis Comments EKG 02/21/2023 7:19 AM EDT documented in this encounter Results * EKG (02/21/2023 7:19 AM EDT) Anatomical Region Laterality Modality Other 02/21/2023 7:19 AM EDT Narrative 02/21/2023 7:19 AM EDT [place] [id number] Electrocardiograph Report Signed Patient: MARY RUIZ MR#: [id number] : 1990 Acct:[id number] Age/Sex: 32 / F ADM Date: 02/21/23 Loc: CARD Attending Dr: Demond Tim D.O. Ordering Physician: Demond Tim D.O. 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 Signed By: 02/22/23 0702/22/23700 DD/ 8 TD/TT: Plisse Machine Operator: Procedure Note Radiology, Radiologist, MD - 03/08/[address] [address] Electrocardiograph Report Signed Patient: MARY RUIZ LMR#: [id number] : 1990Acct:[id number] Age/Sex: 32 / FADM Date: 02/21/23 Loc: CARD Attending Dr: Demond Tim D.O. Ordering Physician: Demond Tim D.O. 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 Signed By:02/22/2370002/22/23700 DD/ 8 TD/TT: Plisse Machine Operator: us Demond Tim DO [facility] Final Result documented in this encounter Visit Diagnoses Not on filedocumented in this encounter Care Teams Canvas Products Sales Representative Relationship Specialty Start Date End Date Sal Sauer MD PCP - General Family Medicine 11/16/22 documented as of this encounter
--- OUTSIDE RECORDS SUMMARY | 2025-03-20 08:02 | XMS_ITS | Encounter Summary ---
Author Organization [facility] Address [address] [place] [address] Care Team Providers Care Photostatic Copy Maker Name Role Phone Sal Sauer MD Primary Care Provider [phone] Encounter Details Date Type Department Care Team (Late st Contact Info) Description 03/14/2023 Clinisync Result Encounter NOMS External Department Unsolicited Demond Tim, DO [address] [place] [address] Social History Tobacco Use Types Packs/Day Years [...] EDT Procedure Visit [facility] OBG[facility] [address] [place] [phone] Demond Tim DO [address] [place] [address] documented as of this encounter Procedures Procedure Name Priority Date/Time Associated Diagnosis Comments US OB GROWTH 03/14/2023 6:29 PM EDT documented in this encounter Results * US OB GROWTH (03/14/2023 6:29 PM EDT) Anatomical Region Laterality Modality Other 03/14/2023 6:29 PM EDT Narrative 03/14/2023 6:29 [place] [address] Ultrasound Report Signed Patient: MARY RUIZ MR#: [id number] : 1990 Acct:[id number] Age/Sex: 32 / F ADM Date: 03/14/23 Loc: [facility] 255-[address]: Demond Tim D.O. Ordering Physician: Demond Tim D.O. Date of Service: 03/14/23 Procedure(s): US OB growth Accession Number(s): [id number] cc: Demond Tim D.O.; SAL SAUER [place] [address] Patient Name: MARY RUIZ MRN: [id number]:[id number] date: 1990 Sex: F Assigned Patient Location: Current Patient Location: [facility] Accession/Order Number: [id number] Exam Date: 03/14/2023 09:00 Report Date: 03/14/2023 [...] M.D. Signed By: 03/14/231831 DD/ 28 TD/TT: Flight Attendant Ramp: Procedure Note Radiology, Radiologist, MD - 03/14/2023 [place] [address] Ultrasound Report Signed Patient: MARY RUIZ LMR#: [id number] : 1990Acct:[id number] Age/Sex: 32 / FADM Date: 03/14/23 Loc: [facility] 255-[address]: Demond Tim D.O. Ordering Physician: Demond Tim D.O. Date of Service: 03/14/23 Procedure(s): US OB growth Accession Number(s): [id number] cc: Demond Tim D.O.; SAL SAUER [place] [address] Patient Name: MARY RUIZ MRN: [facility]:[id number] date: 1990 Sex: F Assigned Patient Location: Current Patient Location: [facility] Accession/Order Number: [id number] Exam Date: 03/14/2023 09:00 Report Date: 03/14/2023 [...] Blackman M.D. Signed By:03/14/231831 DD/ 28 TD/TT: Flight Attendant Ramp: us Demond Glenroy DO [facility] Final Result documented in this encounter Visit Diagnoses Not on filedocumented in this encounter Care Teams Photostatic Copy Maker Relationship Specialty Start Date End Date Sal Sauer MD PCP - General Family Medicine 11/16/22 documented as of this encounter
--- OUTSIDE RECORDS SUMMARY | 2025-03-20 08:02 | XMS_ITS | Clinical Summary ---
Author Organization [facility] Address [address] [place] [address] Care Team Providers Care Fine Unhairer Name Role Phone Sal Sauer MD Primary Care Provider [phone] Allergies Active Allergy Reactions Criticality Noted Date [...] Plan (03/07/2023 9:37 AM EDT): F/U with STRINGING MACHINE OPERATOR Intermittent palpitations 03/07/2023 Assessment & Plan (03/07/2023 [...] Encounters Date Type Department Care Team Description 01/20/2025 Telephone [facility] [address] [place] [address] Skylar Ramsey MA from Last 3 Months Family History Medical [...] 2001 HPV/Cotest 2019 COVID-19 Vaccine ( season) 2025 04/14/2024, 01/24/2024, 03/08/2021, Additional history exists Influenza Vaccine (#1) 2025 , 04/12/2023, 03/27/2022, Additional history exists Cervical Cancer Screening 01/09/2028 Pap Smear 01/09/2028 01/08/2025, 10/25/2022 Adult Tetanus 01/23/2034 01/24/2024 Zoster Vaccines (1 of 2) 2039 12/15/2010, 06/06/2010 HIB Vaccines Completed 03/03/1991 Meningococcal Vaccine Completed [...] patient's age to complete this topic Insurance [facility] Member Subscriber Plan / Payer (Ef fective 2021-Present) Name:Debby Ruiz Relation to Subscriber:Spouse Name:PATRICK RUIZ Date of :1989 (Home) Address: [address] [place] [address] [address] [place] [address] Payer ID:[id number] (NAIC) Type:Not on file Address: [address] [place] [id number] Care Teams Fine Unhairer Relationship Specialty Start Date End Date Sal Sauer MD PCP - General 03/16/23
--- OUTSIDE RECORDS SUMMARY | 2025-03-20 08:02 | XMS_ITS | Encounter Summary ---
Author Organization [facility] Address [address] [place] [place] [address] Care Team Providers Care Coater Operator Insulation Board Name Role Phone Sal Sauer MD Primary Care Provider [phone] Encounter Details Date Type Department Care Team (Late Contact Info) Description 02/28/2023 Clinisync Result Encounter NOMS External Department Unsolicited Demond Tim, DO [address] [place] [address] Social History Tobacco Use Types Packs/Day Years [...] Visit [facility] OBGYN [address] [place] [phone] Demond Tim, [address] [place] [address] documented as of this encounter Procedures Procedure Name Priority Date/Time Associated Diagnosis Comments US OB BPP W NON-STRESS 02/28/2023 4:39 PM EDT documented in this encounter Results * US OB BPP W NON-STRESS (02/28/2023 4:39 PM EDT) Anatomical Region Laterality Modality Other 02/28/2023 4:39 PM EDT Narrative 02/28/2023 4:39 [place] [address] Ultrasound Report Signed Patient: MARY RUIZ MR#: [id number] : 1990 Acct:[id number] Age/Sex: 32 / F ADM Date: 02/28/23 Loc: US Attending Dr: Demond Tim D.O. Ordering Physician: Demond Tim D.O. Date of Service: 02/28/23 Procedure(s): US OB BPP w non-stress Accession Number(s): [id number] cc: Demond Tim D.O.; SAL SAUER [place] [address] Patient Name: MARY RUIZ MRN: [id number]:[id number] date: 1990 Sex: F Assigned Patient Location: US Current Patient Location: Accession/Order Number: [id number] Exam Date: 02/28/2023 09:00 Report Date: 02/28/2023 [...] By: Juan Antonio Blackman M.D. Signed By: 02/28/231640 DD/ 38 TD/TT: Family Manager: Procedure Note Radiology, Radiologist, - 03/09/2023 [place] [address] Ultrasound Report Signed Patient: MARY RUIZ LMR#: [id number] : 1990Acct:[id number] Age/Sex: 32 / FADM Date: 02/28/23 Loc: US Attending Dr: Demond Tim D.O. Ordering Physician: Demond Tim D.O. Date of Service: 02/28/23 Procedure(s): US OB BPP w non-stress Accession Number(s): [id number] cc: Demond Tim D.O.; SAL SAUER [place] [address] Patient Name: MARY RUIZ MRN: [facility]:[id number] date: 1990 Sex: F Assigned Patient Location: US Current Patient Location: Accession/Order Number: [id number] Exam Date: 02/28/2023 09:00 Report Date: 02/28/2023 [...] Blackman M.D. Signed By:02/28/231640 DD/ 38 TD/TT: Family Manager: us Demond Tim DO [facility] Final Result documented in this encounter Visit Diagnoses Not on filedocumented in this encounter Care Teams Coater Operator Insulation Board Relationship Specialty Start Date End Date Sal Sauer MD PCP - General Family Medicine 11/16/22 documented as of this encounter
--- OUTSIDE RECORDS SUMMARY | 2025-03-20 08:02 | XMS_ITS | Clinical Summary ---
Author Organization [employer] Address [id number] [address] [place] [address] Care Team Providers Care Quality Manager Name Role Phone Unavailable Primary Care Provider [...] ID:Not on file Type:Not on file Address: [facility] [address] [place] [id number]
--- OUTSIDE RECORDS SUMMARY | 2025-03-20 08:02 | XMS_ITS | Encounter Summary ---
Author Organization [facility] Address [address] [place] [address] Care Team Providers Care Rx Specialist Name Role Phone Sal Sauer MD Primary Care Provider [phone] Encounter Details Date Type Department Care Team (Late st Contact Info) Description 02/22/2023 Clinisync Result Encounter [facility] External Department Unsolicited Jae Tim, DO [address] [place] [address] Social History Tobacco Use Types Packs/Day Years [...] EDT Procedure Visit [facility] [address] [facility] [place] [id number] Jae Tim DO [address] [place] [address] documented as of this encounter Procedures Procedure Name Priority Date/Time Associated Diagnosis Comments ECHDOTico 02/22/2023 9:08 AM EDT documented in this encounter Results * ECHDOP (02/22/2023 9:08 AM EDT) Anatomical Region Laterality Modality Other 02/22/2023 9:08 AM EDT Narrative 02/22/2023 9:08 AM EDT [address] [address] Cardiology Report Signed Patient: MARY RUIZ MR#: [id number] : 1990 Acct:[id number] Age/Sex: 32 / F ADM Date: 02/21/23 Loc: CARD Attending Dr: Jae Tim D.O. Ordering Physician: Jae Tim D.O. Date of Service: 02/21/23 Procedure(s): CA echo doppler complete Accession Number(s): [id number] cc: Patient: MARY RUIZ. Exam Date: 02/21/2023 : 1990 Gender:F Ordering : DR Jae Tim . Admission #: [id number] Family : Order #: [id number] CLICK HERE TO VIEW EXAM ECHOCARDIOGRAM REPORT [...] LAU Signed By: 02/22/23908 DD/ 7 TD/TT: Rn X Ray: Procedure Note Radiology, Radiologist, MD - 03/08/2023 [place] [address] Cardiology Report Signed Patient: MARY RUIZ LMR#: [id number] : 1990Acct:[id number] Age/Sex: 32 / FADM Date: 02/21/23 Loc: CARD Attending Dr: Jae Tim D.O. Ordering Physician: Jae Tim D.O. Date of Service: 02/21/23 Procedure(s): CA echo doppler complete Accession Number(s): [id number] cc: Patient: MRAY RUIZ Exam Date: 02/21/2023 : 1990 Gender:F Ordering : DR Jae Tim . Admission #: [id number] Family : Order #: [id number] CLICK HERE TO VIEW EXAM ECHOCARDIOGRAM REPORT [...] MATT LAU Signed By:02/22/23908 DD/ 7 TD/TT: Rn X Ray: [facility] Campuso DO [facility] Final Result documented in this encounter Visit Diagnoses Not on filedocumented in this encounter Care Teams Rx Specialist Relationship Specialty Start Date End Date Sal Sauer MD PCP - General Family Medicine 11/16/22 documented as of this encounter
--- OUTSIDE RECORDS SUMMARY | 2025-03-20 08:02 | XMS_ITS | Encounter Summary ---
Author Organization [facility] Address [address] [facility] [place] [address] Care Team Providers Care Ditch Tender Name Role Phone Sal Sauer MD Primary Care Provider [phone] Encounter Details Date Type Department Care Team (Late Contact Info) Description 02/09/2023 [facility] [address] [place] [phone] Jae Tim DO [address] [place], [place] [address] Social History Tobacco Use Types Packs/Day Years [...] AM EDT Procedure Visit [facility] [address] [place] [address] Jae Tim DO [address] [place], [place] [id number] documented as of this encounter Visit Diagnoses Not on filedocumented in this encounter Care Teams Ditch Tender Relationship Specialty Start Date End Date Sal Sauer MD PCP - General Family Medicine 11/16/22 documented as of this encounter
--- OUTSIDE RECORDS SUMMARY | 2025-03-20 08:02 | XMS_ITS | Encounter Summary ---
Author Organization [facility] Address [address] [facility] [place] [address] Care Team Providers Care Forging Engineer Name Role Phone Sal Sauer MD Primary Care Provider [phone] Encounter Details Date Type Department Care Team (Late Contact Info) Description 06/08/2023 [facility] [address] [place] [phone] Anne Marie Flores LPN [address] [place] [address] Social History Tobacco Use Types Packs/Day Years [...] AM EDT Procedure Visit [facility] [address] [place] [address] Jae Tim DO [address] [facility] [address] [place] [place] [id number] documented as of this encounter Visit Diagnoses Not on filedocumented in this encounter Care Teams Forging Engineer Relationship Specialty Start Date End Date Sal Sauer MD PCP - General Family Medicine 11/16/22 documented as of this encounter
--- OUTSIDE RECORDS SUMMARY | 2025-03-20 08:04 | XMS_ITS | CCD ---
Author Organization [facility] Providers Care Oil Filters Inspector Name Role Phone Chiara Alexander Unavailable Sal [...] GLENROY ., DR LAGOS Consulting Unavailable REQUEST, DR MONTERO LISTED Primary Care Unavaila ble GLENROY ., DR LAGOS Admitting Unavailable REQUEST, DR MONTERO LISTED Primary Care Unavaila ble GLENROY ., DR LAGOS Attending Unavailable GLENROY ., DR LAGOS Consulting Unavailable ZIEBER, DR LAVINIA Rehman Consulting Unavailable SAL SIMMS Primary Care Physician [phone] Rigo Lange Admitting Unavailable Rigo Lange Attending Unavailable ObSal aquino Primary Care Unavailable Dana REYES Attending Unavailable Dana REYES Attending Unavailable Oberer Sal ALFORD Primary Care Provider [phone] DEMOND TIM Attending Unavailable EDITH DAVIS Attending Unavailable RICARDO GOODSON Attending Unavailable Sal Simms DO Primary Care Provider Pauly Rivera APRN Attending Provider Demond Tim DO Attending Provider Sal Simms DO Attending Provider [phone] Allergies Allergy Classification Reported Allergen(s) Allergy Type Date of Onset Reaction(s) Facility (4 sources) Azithromycin Drug Allergy 5 [facility] (1 source) Azithromycin Drug Allergy [address] [place] [address] Repository (2 sources) Unable to obtain; Translations: [Unable to obtain] Propensity to adverse reactions (disorder) [facility] Repository (2 sources) No Known Medication Allergies; Translations: [No Known Medication Allergies] Propensity to adverse reactions (disorder) [facility] Repository (6 sources) Naproxen; Translations: [NAPROXEN] Drug Allergy 7 [facility] Work Phone: (6 sources) Other; Translations: [OTHER] Propensity to adverse reactions 3 [facility] (1 source) Citalopram Analogues Propensity to adverse reactions 5 [facility] Medications Current Medications Medication Drug Class(es) Dates Sig (Normalized) Sig (Original) labetalol hydrochloride 100 mg oral tablet (4 [...] third trimester controlled on oral hypoglycemic drug ([facility]) Take one tablet by mouth two times daily. Do not crush, chew, or split. 60 tablet 11 02/14/2023 Active 24 hr metoprolol succinate 25 mg extended release oral tablet (8 sources) beta-Adrenergic Mari Start: 10-26-2023 Metoprolol Succinate Active MG PO October 26, 2023 12:00am Start: 06-15-2023 take 1 tablet by allison th every twenty-four hours Metoprolol Succinate 25 mg tablet extended release 24 hr Active MG PO October 26, 2023 12:00am Complies with drug therapy Completed/Discontinued Medications Medication Drug Class(es) Dates Sig (Normalized) Sig (Original) [id number] 200 actuat albuterol 0.09 mg/actuat metered dose inhaler (3 sources) beta2-Adrenergic Agonist Start: 06-08-2020 Start: 06-08-2020 take 2 puff(s) by in halation every four hours as needed for cough Albuterol Sulfate HFA 108 (90 Base) MCG/ACT 2 puffs as needed Inhalation every 4 hrs p.r.n. wheeze or cough for 30 days May, Not-Taking amoxicillin 500 mg oral capsule (2 sources) Penicillin-class Antibacterial Start: 11-24-2024 End: 02-20-2025 take 1 capsule by mouth every twelve hours Amoxicillin 500 mg capsule Discontinued 500 MG PO Every 12 hours 06 04November 24, 2024 12:00am February 20, 2025 10:32am citalopram 20 mg oral tablet (13 sources) Serotonin Reuptake Inhibitor Start: 10-26-2023 End: 02-20-2025 take 1 tablet by mouth once daily Citalopram 20 mg tablet Discontinued 20 MG PO Daily October 26, 2023 12:00am February 20, 2025 10:32am Start: 11-16-2022 take 0.5 tablet by m outh once in the morning citalopram (CeleXA) 20 MG tablet Indications: Second trimester ([facility]) Take 0.5 tablets (10 mg) by mouth in the morning. 15 tablet 6 11/16/2022 Active Problems Active Problems Problem Classification Problem Date [...] without psychotic features] Chronic Nonmalignant breast conditions (4 sources) Breast lump; Translations: [Unspecified lump in [...] Onset: 09-08-2022 Episodic Other upper respiratory infections (6 sources) Viral upper respiratory tract infection; Translations: [...] Test Name Value Interpretation Reference Range Facility 36on 01-20-2025 36 MD Skylar Tovar MA Please tell her the echo was ok, follow up in 1 year LV for patient to advise her of Dr. Goodson's findings. Normal [facility] IGP,APTIMA HPV,AGE GDLNon AGE GDLN ACOG TESTING Note . [facility] Comment on above: TESTS RESULT FLAG UN ITS REF RANGE LAB Clinician Provided Cytology Information Source.............Cervix;Endocervix No. of containers..01 ThinPrep Vial Age Algo ACOG Eloina... 30- 01 FLAG LEGEND: L-Low Normal,H-High Normal,LL-Alert Low,HH-Alert High <-Panic Low,>-Panic High,A-Abnormal,AA-Critical Abnormal Performed at: 01 =[address] [address] Kecia Riojas MD, HPV APTIMA Negative Negative [facility] Comment on above: This nucleic acid am plification test detects fourteen high- risk HPV types (16,18,31,33,35,39,45,51,52,56,58,59,66,68) without differentiation. Performed at: =[address] [id number] Feed Grinder: Kecia Riojas MD, Phone: [phone] Performed at: [address] [id number] Feed Grinder: Kecia Riojas MD, Phone: [phone] IGP, APTIMA HPV, RFX 16/18,45 Note . [facility] Comment on above: TESTS RESULT FLAG UN ITS REF RANGE LAB DIAGNOSIS: 02 NEGATIVE FOR INTRAEPITHELIAL LESION OR MALIGNANCY. THIS SPECIMEN WAS RESCREENED PART OF OUR UNDERWEAR FINISHER PROGRAM. Specimen adequacy: 02 Satisfactory for evaluation. Endocervical and/or squamous metaplastic cells (endocervical component) are present. Performed by: 02 Bella Pena Supervisor Communications And Signals QC reviewed by: 02 Johanny Álvarez, Supervisor Communications And Signals . 02 Note: Note 02 The Pap [...] Low,>-Panic High,A-Abnormal,AA-Critical Abnormal Performed at: [address] [address] Kecia Riojas MD, BRUSH-SPATULA CERVIX ENDOCERVIX [facility] ALL CBC WITH AUTO DIFFon BASOPHILS ABSOLUTE AUTO 0 [facility] Basophils/100 WBC (Bld) 0.5 % 0.2 - 2.0 % [facility] Eosinophils/100 WBC (Bld) 2.6 % 0.9 - 7.0 % [facility] Erythrocyte distribution width (RBC) [Ratio] 14.1 % 11.0 - 15.0 % [facility] Hematocrit (Bld) [Volume fraction] 34.4 % Low 36.0 - 48.0 % [facility] Hemoglobin (Bld) [Mass/Vol] 10.9 g/dL Low 12.0 - 16.0 g/dL [facility] IMMATURE GRANULOCYTES ABS AUTO 0.02 [facility] Immature granulocytes/100 WBC (Bld) 0.2 % 0.0 - 0.5 % [facility] Interpretation and review of laboratory results Abnormal [facility] LYMPHOCYTES ABSOLUTE AUTO 2.7 [facility] Lymphocytes/100 WBC (Bld) 32.9 % 20.5 - 60.0 % [facility] MCH (RBC) [Entitic mass] 26 pg Low 26.7 - 34.0 pg [facility] MCHC (RBC) [Mass/Vol] 31.7 g/dL 29.9 - 35.2 g/dL [facility] MCV (RBC) [Entitic vol] 81.9 fL 81.0 - 99.0 fL [facility] MONOCYTES ABSOLUTE AUTO 0.4 N [facility] Monocytes/100 WBC (Bld) 5.3 % 1.7 - 12.0 % [facility] NEUTROPHILS ABSOLUTE AUTO 4.8 [facility] Neutrophils/100 WBC (Bld) 58.5 % 43.0 - 75.0 % [facility] Platelet mean volume (Bld) [Entitic vol] 9 fL Low 9.5 - 13.5 fL [facility] TBH EO # 0.2 [facility] PLT 237 [facility] RBC 4.2 [facility] WBC 8.2 [facility] Basophils Auto (Bld) [#/Vol] Ordered By: Demond Tim on 01-10-2025 Basophils (Bld) [#/Vol] 0.0 10 3/uL 0.0-0.1 [facility] Basophils/100 WBC Auto (Bld) Ordered By: Demond Tim on 01-10-2025 Basophils/100 WBC (Bld) 0.5 % 0.2-2.0 [facility] Eosinophils/100 WBC Auto (Bl d)Ordered By: Demond Tim on 01-10-2025 Eosinophils/100 WBC (Bld) 2.6 % 0.9-7.0 [facility] Erythrocyte distribution wid th Auto (RBC) [Ratio]Ordered By: Demond Tim on 01-10-2025 Erythrocyte distribution width (RBC) [Ratio] 14.1 % 11.0-15.0 [facility] Globulin Calc (S) [Mass/Vol] Ordered By: Demond Tim on 01-10-2025 Globulin (S) [Mass/Vol] 4.0 g/dL [facility] Glomerular filtration rate ( GFR) estimation in non- AmericanOrdered By: Demond Tim on 01-10-2025 GFR/1.73 sq M.predicted among non-blacks MDRD (S/P/Bld) [Vol rate/Area] mL/min/{1.73_m2} >=60 mL/min/1.73m 2 [facility] Glucose mean value [Mass/vol ume] in Blood Estimated from glycated hemoglobinOrdered By: Demond Tim on 01-10-2025 Average glucose Estimated from glycated hemoglobin (Bld) [Mass/Vol] 108 mg/dL [facility] Hematocrit Auto (Bld) [Volum e fraction]Ordered By: Demond Tim on 01-10-2025 Hematocrit (Bld) [Volume fraction] 34.4 % Low 36.0-48.0 [facility] Hemoglobin A1c percentageOrd ered By: Demond Tim on 01-10-2025 HbA1c (Bld) [Mass fraction] 5.4 % 4.5-6.2 [facility] Comment on above: ADA RECOMMENDED LIMI T 4.0 - 6.0ADA THERAPEUTIC TARGET < 7.0ACTION SUGGESTED> 7.0 Hemoglobin [Mass/volume] in BloodOrdered By: Demond Tim on 01-10-2025 Hemoglobin (Bld) [Mass/Vol] 10.9 g/dL Low 12.0-16.0 [facility] - Chemistry and C hemistry - challengeOrdered By: Demond Tim on 01-10-2025 Albumin [Mass/Vol] 3.5 g/dL 3.4-5.0 [facility] ALP [Catalytic activity/Vol] 100 U/L 46-116 [facility] ALT [Catalytic activity/Vol] 14 U/L 14-59 [facility] AST [Catalytic activity/Vol] 13 U/L Low 15-37 [facility] Bilirubin [Mass/Vol] 0.2 mg/dL 0.2-1.0 [facility] Calcium [Mass/Vol] 9.1 mg/dL 8.5-10.1 [facility] Chloride [Moles/Vol] 105 mmol/L 98-107 [facility] Cholesterol [Mass/Vol] 157 mg/dL <=200 [facility] CO2 [Moles/Vol] 24.0 mmol/L 21.0-32.0 [facility] Creatinine [Mass/Vol] 0.67 mg/dL 0.55-1.02 [facility] GFR/1.73 sq M.predicted MDRD (S/P/Bld) [Vol rate/Area] mL/min/{1.73_m2} >=60 mL/min/1.73m 2 [facility] Glucose [Mass/Vol] 92 mg/dL 74-106 [facility] Potassium [Moles/Vol] 4.1 mmol/L 3.5-5.1 [facility] Protein [Mass/Vol] 7.5 g/dL 6.4-8.2 [facility] Sodium [Moles/Vol] 139 mmol/L 136-145 [facility] TSH Qn 3.252 m[IU]/L 0.358-3.740 [facility] Urea nitrogen [Mass/Vol] 22.0 mg/dL High 7.0-18.0 [facility] Urea nitrogen/Creatinine [Mass ratio] 32.8 mg/mg [facility] Laboratory - Hematology and Cell countsOrdered By: Demond Tim on 01-10-2025 Immature granulocytes/100 WBC (Bld) 0.2 % 0.0-0.5 [facility] Leukocytes [#/volume] correc ester for nucleated erythrocytes in Blood by Automated counOrdered By: Demond Tim on 01-10-2025 WBC corrected for nucl RBC Auto (Bld) [#/Vol] 8.2 10 3/uL 4.0-11.0 [facility] Lymphocytes Auto (Bld) [#/Vo l]Ordered By: Demond Tim on 01-10-2025 Lymphocytes (Bld) [#/Vol] 2.7 10 3/uL 1.2-3.8 [facility] Lymphocytes/100 WBC Auto (Bl d)Ordered By: Demond Tim on 01-10-2025 Lymphocytes/100 WBC (Bld) 32.9 % 20.5-60.0 [facility] MCH Auto (RBC) [Entitic mass ]Ordered By: Demond Tim on 01-10-2025 MCH (RBC) [Entitic mass] 26.0 pg Low 26.7-34.0 [facility] MCHC Auto (RBC) [Mass/Vol]Or dered By: Demond Tim on 01-10-2025 MCHC (RBC) [Mass/Vol] 31.7 g/dL 29.9-35.2 [facility] MCV Auto (RBC) [Entitic vol] Ordered By: Demond Tim on 01-10-2025 MCV (RBC) [Entitic vol] 81.9 fL 81.0-99.0 [facility] Monocytes Auto (Bld) [#/Vol] Ordered By: Demond Tim on 01-10-2025 Monocytes (Bld) [#/Vol] 0.4 10 3/uL 0.3-0.8 [facility] Monocytes/100 WBC Auto (Bld) Ordered By: Demond Tim on 01-10-2025 Monocytes/100 WBC (Bld) 5.3 % 1.7-12.0 [facility] Neutrophils Auto (Bld) [#/Vo l]Ordered By: Demond Tim on 01-10-2025 Neutrophils (Bld) [#/Vol] 4.8 10 3/uL 1.4-6.5 [facility] Neutrophils/100 WBC Auto (Bl d)Ordered By: Demond Tim on 01-10-2025 Neutrophils/100 WBC (Bld) 58.5 % 43.0-75.0 [facility] No Panel InformationOrdered By: Demond Tim on 01-10-2025 Eosinophils # (Auto) 0.2 10 3/uL 0.0-0.7 [facility] Immature Granulocyte # (Auto) 0.02 10 3/uL 0.00-0.03 [facility] Platelet mean volume Auto (B ld) [Entitic vol]Ordered By: Demond Tim on 01-10-2025 Platelet mean volume (Bld) [Entitic vol] 9.0 fL Low 9.5-13.5 [facility] Platelets Auto (Bld) [#/Vol] Ordered By: Demond Tim on 01-10-2025 Platelets (Bld) [#/Vol] 237 10 3/uL 150-450 [facility] RBC Auto (Bld) [#/Vol]Ordere d By: Demond Tim on 01-10-2025 RBC (Bld) [#/Vol] 4.20 10 6/uL 4.20-5.[address] [facility] Serum or plasma albumin/glob ulin mass ratioOrdered By: Demond Tim on 01-10-2025 Albumin/Globulin [Mass ratio] 0.9 {ratio} [facility] Serum or plasma anion gap de terminationOrdered By: Demond Tim on 01-10-2025 Anion gap [Moles/Vol] 14.1 mmol/L [facility] Human papilloma virus 16+18+ 31+33+35+39+45+51+52+56+58+59+66+68 DNA [Presence] in CerOrdered By: Demond Tim on 01-08-2025 HPV 16+18+31+33+35+39+45+51 +52+56+58+59+66+68 DNA Probe+sig amp Ql (Cvx) Negative Negative [facility] Comment on above: This nucleic acid am plification test detects fourteen high-risk HPV types (16,18,31,33,35,39,45,51,52,56,58,59,66,68)without differentiation.Performed at: = - [facility] [address] [id number] Director: Kecia Riojas MD, Phone: [phone] at: - [facility] [id number] Director: Kecia Riojas MD, Phone: [phone] No Panel InformationOrdered By: Demond Tim on 01-08-2025 HPV High Risk Other Comment Note . [facility] Comment on above: TESTS RESULT FLAG UN ITS REF RANGE LAB -DIAGNOSIS: 02 NEGATIVE FOR INTRAEPITHELIAL LESION OR MALIGNANCY. THIS SPECIMEN WAS RESCREENED PART OF OUR UNDERWEAR FINISHER PROGRAM.Specimen adequacy: 02 Satisfactory for evaluation. Endocervical and/or squamous metaplastic cells (endocervical component) are present.Performed by: 02 Bella Pena CytologistQC reviewed by: 02 Johanny Álvarez, Supervisor Communications And Signals. 02Note: Note 02 The Pap smear is a screening test designed to aid in the detection of premalignant and malignant conditions of the uterine cervix. It is not a diagnostic procedure and should not be used as the sole means of detecting cervical cancer. Both false-positive and false-negative reports do occur.Test Methodology: Note 02 This liquid based ThinPrep(R) pap test was screened with the use of an image guided system.HPV Genotype Reflex Note 02 Criteria not met, HPV Genotype not performed. -------- FLAG LEGEND: L-Low Normal,H-High Normal,LL-Alert Low,HH-Alert High <-Panic Low,>-Panic High,A-Abnormal,AA-Critical Abnormal ------Performed at:02 [facility] [address] [place] [address] Kecia Riojas MD, Reference Lab Test Patient Age Note . [facility] Comment on above: TESTS RESULT FLAG UN ITS REF RANGE LAB - Clinician Provided Cytology Information Source.............Cervix;Endocervix No. of containers..01 ThinPrep FedeAge Marlin WOMACK Eloina... FLAG LEGEND: L-Low Normal,H-High Normal,LL-Alert Low,HH-Alert High <-Panic Low,>-Panic High,A-Abnormal,AA-Critical Abnormal ------Performed at:01 =[facility] [address] [place] [address] Kecia Riojas MD, Office Visiton 12-01-2024 Follow-up visit [id number] Warren Bonesswayne Lozoya 1990 F Date Provider Department Center 12/01/2024 RICARDO ZAMORA Family History Problem Relation Age of Onset No Known Problems Mother No Known Problems Father Family Status - Relation Status Age at Mother Father Level of Service:12411 NC OFFICE/OUTPATIENT ESTABLISHED MOD MDM 30 MIN Normal [facility] No Panel InformationOrdered By: Pauly Rivera on 11-24-2024 Quick Strep (POC) [facility] Quantiferon-TB Plus (Client Incubated)on 11-01-2024 Gamma interferon background IA Qn (Bld) 0.07 International_Unit/m L Invalid Interpretation Code [facility] Comment on above: Performed By: #### 1 [id number] #### [facility] [address] [place] [address] M. tuberculosis stim IFN-g by CD4+ CD8+ T-cells corrected for background Qn (Bld) 0.06 International_Unit/m L Invalid Interpretation Code [facility] Comment on above: Performed By: #### 1 [id number] #### [facility] [address] [place] [address] M. tuberculosis stim IFN-g by CD4+ T-cells corrected for background Qn (Bld) 0.04 International_Unit/m L Invalid Interpretation Code [facility] Comment on above: Performed By: #### 1 [id number] #### [facility] [address] [place] [address] M. tuberculosis stim IFN-g Ql (Bld) [Interp] Negative Invalid Interpretation Code Negative [facility] Comment on above: Result Comment: No r [...] interferon gamma. Chemiluminescence immunoassay methodology Performed at: [facility] [address] [id number] PhD Barrie Vazquez Performed By: #### 1 [id number] #### [facility] [address] [place] [address] Mitogen stimulated gamma interferon corrected for background Qn (Bld) >10.00 Invalid Interpretation Code [facility] Comment on above: Performed By: #### 1 [id number] #### [facility] [address] [place] [address] Service comment (Unsp spec) [Interp] Comment Invalid Interpretation Code [facility] Comment on above: Result Comment: Vincent tiFERON-TB [...] for the test. Performed By: #### 1 [id number] #### [facility] [address] [place] [address] Hep Bs Abon 10-31-2024 HBV surface Ab Ql (S) Reactive Invalid Interpretation Code [facility] Comment on above: Result Comment: Non Reactive: Not immune to HBV infection. Equivocal: Unable to determine if anti-HBs is present at levels consistent with immunity. Reactive: Anti-HBs concentration detected at greater than 10 mIU/mL. Individual is considered to be immune to infection with HBV. Performed at: [facility] [address] [place], [place] [id number] PhD Barrie Vazquez Performed By: #### 2 [id number] #### [facility] [address] [place] [address] Measles/Mumps/Rubella Immuni tyon 10-31-2024 MeV IgG IA Qn (S) {index_val} Low Immune >16.4 [facility] Comment on above: Result Comment: Nega tive <13.5 Equivocal 13.5 - 16.4 Positive >16.4 Presence of antibodies to Rubeola is presumptive evidence of immunity except when acute infection is suspected. Performed By: #### 3 [id number] #### [facility] [address] [place] [address] MuV IgG IA Qn (S) 67.1 A unit/mL Invalid Interpretation Code Immune >10.9 [facility] Comment on above: Result Comment: Nega tive <9.0 Equivocal 9.0 - 10.9 Positive >10.9 A positive result generally indicates past exposure to Mumps virus or previous vaccination. Performed at: [facility] [address] [place], [place] [id number] PhD Barrie Vazquez Performed By: #### 3 [id number] #### [facility] [address] [place] [address] Rubella virus IgG Qn (S) 1.41 [IU]/mL Invalid Interpretation Code Immune >0.99 [facility] Comment on above: Result Comment: Non- immune <0.90 Equivocal 0.90 - 0.99 Immune >0.99 Performed By: #### 3 [id number] #### [facility] [address] [place] [address] Varic IgGon 10-31-2024 VZV IgG IA Ql (S) Non-Reactive Invalid Interpretation Code Non Reactive [facility] Comment on above: Result Comment: Pl ease note reference interval change A Reactive result is considered evidence of immunity to VZV. Reactive indicates that VZV IgG was detected consistent with previous infection and/or vaccination. A Non Reactive result indicates that VZV IgG was not detected suggesting that immunity has not been acquired. Performed at: [facility] [address] [id number] PhD Barrie Vazquez Performed By: #### 1 [id number] #### [facility] [address] [place] [address] Office Visiton 06-30-2024 Follow-up visit [id number] SaraDebby L 1990 F Date Provider Department Center 06/30/2024 [id number] DAVIS CARD [facility] Family History Problem Relation Age of Onset No Known Problems Mother No Known Problems Father Family Status - Relation Status Age at Mother Father Level of Service:97173 NC OFFICE/OUTPATIENT ESTABLISHED MOD MDM 30 MIN Reason for Visit and Comments: Palpitations [326530] - She was on labetalol while , and then was switched to Toprol post . Feels palpitations when she skips a dose by mistake. Says her BP at home is usually around 110 systolic. She questions if she really needs beta mari or not. SVT [Other] - Had labs last week. Denies chest pain, SOB, and lightheadedness. Normal [facility] Basophils Auto (Bld) [#/Vol] on 06-21-2024 Basophils (Bld) [#/Vol] Automated basoph il count 0.0-0.1 [facility] Basophils/100 WBC Auto (Bld) on 06-21-2024 Basophils/100 WBC (Bld) Automated basophil % 0. 2-2.0 [facility] Eosinophils/100 WBC Auto (Bl d)on 06-21-2024 Eosinophils/100 WBC (Bld) Automated eosinophil % 0.9-7.0 [facility] Erythrocyte distribution wid th Auto (RBC) [Ratio]on 06-21-2024 Erythrocyte distribution width (RBC) [Ratio] Erythrocyte distribution width [Ratio] by Automated count 11.0-15.0 [facility] Estimated glomerular filtrat ion rate (GFR) non- Americanon 06-21-2024 GFR/1.73 sq M.predicted among non-blacks MDRD (S/P/Bld) [Vol rate/Area] Estimated glomerular filtration rate (GFR) non- >=60 mL/min/1.73m 2 [facility] HCG ( test) Brisa d Ql (U)on 06-21-2024 HCG ( test) Ql (U) Urine human chorionic gonadotropin (hCG) detection by immunoassay NEGATIVE [facility] Hematocrit Auto (Bld) [Volum e fraction]on 06-21-2024 Hematocrit (Bld) [Volume fraction] Hematocrit [Volume Fraction] of Blood by Automated count 36.0-48.0 [facility] Hemoglobin [Mass/volume] in Bloodon 06-21-2024 Hemoglobin (Bld) [Mass/Vol] Hemoglobin [Mass/volume] in Blood 12.0-16.0 [facility] - Chemistry and C hemistry - challengeon 06-21-2024 Bilirubin Ql (U) Negative NEGATIVE [facility] Calcium [Mass/Vol] 9.4 mg/dL 8.5-10.1 [facility] Chloride [Moles/Vol] 103 mmol/L 98-107 [facility] CO2 [Moles/Vol] 28.8 mmol/L 21.0-32.0 [facility] Creatinine [Mass/Vol] 0.78 mg/dL 0.55-1.02 [facility] GFR/1.73 sq M.predicted MDRD (S/P/Bld) [Vol rate/Area] mL/min/{1.73_m2} >=60 mL/min/1.73m 2 [facility] Glucose (U) [Mass/Vol] Negative NEGATIVE [facility] Glucose [Mass/Vol] 95 mg/dL 74-106 [facility] Ketones Ql (U) Negative NEGATIVE [facility] pH (U) 6.0 [pH] 5.0-9.0 [facility] Potassium [Moles/Vol] 3.9 mmol/L 3.5-5.1 [facility] Sodium [Moles/Vol] 141 mmol/L 136-145 [facility] Specific gravity (U) [Rel density] 1.020 1.005-1.025 [facility] Urea nitrogen [Mass/Vol] 13.0 mg/dL 7.0-18.0 [facility] Urea nitrogen/Creatinine [Mass ratio] 16.7 mg/mg [facility] Urobilinogen Qn (U) 0.2 {Jerzy'U}/dL 0.2-1.0 [facility] - Hematology and Cell countson 06-21-2024 Immature granulocytes/100 WBC (Bld) 0.4 % 0.0-0.5 [facility] - Specimen inform ationon 06-21-2024 Appearance (U) CLEAR CLEAR [facility] Color (U) LT. YELLOW YELLOW [facility] - Urinalysison Leukocyte esterase Test strip Ql (U) SMALL Abnormal NEGATIVE [facility] Nitrite Ql (U) Negative NEGATIVE [facility] Protein Ql (U) Negative NEG/TRACE [facility] Leukocytes [#/volume] correc ester for nucleated erythrocytes in Blood by Automated counon 06-21-2024 WBC corrected for nucl RBC Auto (Bld) [#/Vol] Leukocytes [#/volume] corrected for nucleated erythrocytes in Blood by Automated coun 4.0-11.0 [facility] Lymphocytes Auto (Bld) [#/Vo l]on 06-21-2024 Lymphocytes (Bld) [#/Vol] Lymphocytes [#/volume] in Blood by Automated count 1.2-3.8 [facility] Lymphocytes/100 WBC Auto (Bl d)on 06-21-2024 Lymphocytes/100 WBC (Bld) Lymphocytes/100 leukocytes in Blood by Automated count 20.5-60.0 [facility] MCH Auto (RBC) [Entitic mass ]on 06-21-2024 MCH (RBC) [Entitic mass] MCH [Entitic mass] by Automated count Low 26.7-34.0 [facility] MCHC Auto (RBC) [Mass/Vol]on 06-21-2024 MCHC (RBC) [Mass/Vol] MCHC [Mass/volume] by Automated count 29.9-35.2 [facility] MCV Auto (RBC) [Entitic vol] on 06-21-2024 MCV (RBC) [Entitic vol] MCV [Entitic vol ume] by Automated count 81.0-99.0 [facility] Monocytes Auto (Bld) [#/Vol] on 06-21-2024 Monocytes (Bld) [#/Vol] Automated blood monocyte count 0.3-0.8 [facility] Monocytes/100 WBC Auto (Bld) on 06-21-2024 Monocytes/100 WBC (Bld) Automated monocyte % 1. 7-12.0 [facility] Neutrophils Auto (Bld) [#/Vo l]on 06-21-2024 Neutrophils (Bld) [#/Vol] Neutrophils [#/volume] in Blood by Automated count 1.4-6.5 [facility] Neutrophils/100 WBC Auto (Bl d)on 06-21-2024 Neutrophils/100 WBC (Bld) Automated neutrophil % 43.0-75.0 [facility] No Panel Informationon 06-21 Eosinophils # (Auto) 0.2 10 3/uL 0.0-0.7 [facility] Immature Granulocyte # (Auto) 0.04 10 3/uL High 0.00-0.03 [facility] Urine Occult Blood Negative NEGATIVE [facility] Platelet mean volume Auto (B ld) [Entitic vol]on 06-21-2024 Platelet mean volume (Bld) [Entitic vol] Platelet mean volume [Entitic volume] in Blood by Automated count Low 9.5-13.5 [facility] Platelets Auto (Bld) [#/Vol] on 06-21-2024 Platelets (Bld) [#/Vol] Platelets [#/vol ume] in Blood by Automated count 150-450 [facility] RBC Auto (Bld) [#/Vol]on RBC (Bld) [#/Vol] Erythrocytes [#/volume] in Blood by Automated count 4.20-5.40 [facility] Serum or plasma anion gap de terminationon 06-21-2024 Anion gap [Moles/Vol] Serum or plasma anion gap determination [facility] Urine Cultureon 06-21-2024 Bacteria identified Cx Nom (U) 75,000 colonies/ml mixed bacterial skin contaminants 2 Days PERFORMED BY: [facility] [address] [id number] PATHOLOGIST STRAIGHT LINE EDGER ANGELES ROONEY M.D. Normal The [facility] Comment on above: Performed By: #### C UU #### [place] [id number] [facility] 36on 04-11-2024 36 Patient must have an appointment for ANY refills - thanks Normal [facility] No Panel InformationOrdered By: Pauly Rivera on 10-26-2023 Quick Strep (POC) [facility] GTT 3 HR PREGon 10-23-2022 Glucose [Mass/Vol] 97 mg/dL Normal 74-106 [facility] Comment on above: Performed By: #### G TT3P #### [facility] [address] [address] [address] Oralia Ordonez Glucose [Mass/Vol] 182 mg/dL Normal [facility] Comment on above: Performed By: #### G TT3P #### [facility] [address] [address] [address] Oralia Ordonez Glucose [Mass/Vol] 142 mg/dL Normal [facility] Comment on above: Performed By: #### G TT3P #### [facility] [address] [address] [address] Oralia Ordonez Glucose [Mass/Vol] 126 mg/dL Normal [facility] Comment on above: Performed By: #### G TT3P #### [facility] [address] [address] [address] Oralia Ordonez GLUCOSE - 1HRon 10-16-2022 Glucose [Mass/Vol] 154 mg/dL Critically high 74-106 [facility] Comment on above: Performed By: #### G LU1HR #### [facility] [address] [address] [address] Oralia Ordonez US PREG CERVICAL LENGTHon [...] LAVINIA WEST Date: 2022-09-08 09:07 Normal [facility] HEP B SURFACE ANTIGEN SCREEN on 09-05-2022 HBsAg Screen Negative Normal Negative [facility] Comment on above: Performed By: #### H BSANS #### [facility] [address] [address] [address] Oralia Ordonez HEPATITIS C VIRUS AB W/ REFL EX QUANTon 09-05-2022 HCV AB Non-Reactive Normal Non Reactive [facility] Comment on above: Performed By: #### H CVPCRR #### [facility] [address] [place] [address] Dr. Oralia Ordonez Interpretation: Comment Normal The [facility] Comment on above: Result Comment: Not infected with HCV unless early or acute infection is suspected (which may be delayed in an immunocompromised individual), or other evidence exists to indicate HCV infection. Performed By: #### H CVPCRR #### [facility] [address] [address] [address] Oralia Ordonez HIV 1 AND 2 WITH REFLEXon HIV Screen 4th Generation wRfx Non-Reactive Normal Non Reactive [facility] Comment on above: Result Comment: HIV Negative HIV-1/HIV-2 antibodies and HIV-1 p24 antigen were NOT detected. There is no laboratory evidence of HIV infection. Performed By: #### H IV12 #### [facility] [address] [place] [address] Dr. Oralia Ordonez RPR QUANTon 09-05-2022 Rapid Plasma Reagin, Quant Non-Reactive Normal NonRea<1:1 [facility] Comment on above: Result Comment: Plea se Note: This test does not meet current guidelines for screening and diagnosis of syphilis. This test is intended for following treatment response in patients being treated for syphilis infection. To screen for syphilis infection, a reflex cascade that includes both RPR and a treponema-specific assay should be utilized, such as Treponema pallidum (Syphilis) Screening [place] (907313) or Rapid Plasma Reagin (RPR) Test With Reflex to Quantitative RPR and Confirmatory Treponema pallidum Antibodies (661847). Performed By: #### R PRQ #### [facility] [address] [place] [address] Dr. Oralia Ordonez RUBELLA AB IGGon 09-05-2022 Rubella Antibodies, IgG 1.33 index Normal Immune >0.99 [facility] Comment on above: Result Comment: Non- immune <0.90 Equivocal 0.90 - 0.99 Immune >0.99 Performed By: #### R UBIGG #### [facility] [address] [place] [address] Dr. Oralia Ordonez BOX TEST SENT OUTon 09-05-19 SENT TO REF LAB 09/04/2022 Normal [facility] Comment on above: Performed By: #### B OX #### [facility] [address] [place] [address] Dr. Oralia Ordonez CBC AUTO DIFFon 09-04-2022 BASO # 0.0 103/ul Normal 0.0-0.1 [facility] Comment on above: Performed By: #### T SH #### [facility] [address] [place] [address] Dr. Oralia Ordonez Basophils/100 WBC (Bld) 0.3 % Normal 0.2-2.0 [facility] Comment on above: Performed By: #### T SH #### [facility] [address] [place] [address] Dr. Oralia Ordonez EO # 0.1 103/ul Normal 0.0-0.7 [facility] Comment on above: Performed By: #### T SH #### [facility] [address] [place] [address] Dr. Oralia Ordonez Eosinophils/100 WBC (Bld) 1.1 % Normal 0.9-7.0 [facility] Comment on above: Performed By: #### T SH #### [facility] [address] [place] [address] Dr. Oralia Ordonez Erythrocyte distribution width (RBC) [Ratio] 13.6 % Normal 11.0-15.0 [facility] Comment on above: Performed By: #### T SH #### [facility] [address] [place] [address] Dr. Oralia Ordonez Hematocrit (Bld) [Volume fraction] 38.5 % Normal 36.0-48.0 [facility] Comment on above: Performed By: #### T SH #### [facility] [address] [place] [address] Dr. Oralia Ordonez Hemoglobin (Bld) [Mass/Vol] 12.7 g/dL Normal 12.0-16.0 [facility] Comment on above: Performed By: #### T SH #### [facility] [address] [place] [address] Dr. Oralia Ordonez IG # 0.03 10e3/ul Normal 0.00-0.03 [facility] Comment on above: Performed By: #### T SH #### [facility] [address] [place] [address] Dr. Oralia Ordonez IG % 0.3 % Normal 0.0-0.5 [facility] Comment on above: Performed By: #### T SH #### [facility] [address] [place] [address] Dr. Oralia Ordonez LYMPH # 2.3 103/ul Normal 1.2-3.8 [facility] Comment on above: Performed By: #### T SH #### [facility] [address] [place] [address] Dr. Oralia Ordonez Lymphocytes/100 WBC (Bld) 21.3 % Normal 20.5-60.0 [facility] Comment on above: Performed By: #### T SH #### [facility] [address] [place] [address] Dr. Oralia Ordonez MANUAL DIFF REQ NO Normal The [facility] Comment on above: Performed By: #### T SH #### [facility] [address] [place] [address] Dr. Oralia Ordonez MCH (RBC) [Entitic mass] 26.6 pg Critically low 26.7-34.0 [facility] Comment on above: Performed By: #### T SH #### [facility] [address] [place] [address] Dr. Oralia Ordonez MCHC (RBC) [Mass/Vol] 33.0 g/dL Normal 29.9-35.2 [facility] Comment on above: Performed By: #### T SH #### [facility] [address] [place] [address] Dr. Oralia Ordonez MCV (RBC) [Entitic vol] 80.7 fL Critically low 81.0-99. 0 [facility] Comment on above: Performed By: #### T SH #### [facility] [address] [place] [address] Dr. Oralia Ordonez MONO # 0.4 103/ul Normal 0.3-0.8 [facility] Comment on above: Performed By: #### T SH #### [facility] [address] [place] [address] Dr. Oralia Ordonez Monocytes/100 WBC (Bld) 3.7 % Normal 1.7-12.0 [facility] Comment on above: Performed By: #### T SH #### [facility] [address] [place] [address] Dr. Oralia Ordonez NEUT # 7.8 103/ul Critically high 1.4-6.5 [facility] Comment on above: Performed By: #### T SH #### [facility] [address] [place] [address] Dr. Oralia Ordonez Neutrophils/100 WBC (Bld) 73.3 % Normal 43.0-75.0 [facility] Comment on above: Performed By: #### T SH #### [facility] [address] [place] [address] Dr. Oralia Ordonez Platelet mean volume (Bld) [Entitic vol] 8.9 fL Critically low 9.5-13.5 [facility] Comment on above: Performed By: #### T SH #### [facility] [address] [place] [address] Dr. Oralia Ordonez PLT 286 103/ul Normal 150-450 [facility] Comment on above: Performed By: #### T SH #### [facility] [address] [place] [address] Dr. Oralia Ordonez RBC 4.77 106/ul Normal 4.20-5.40 [facility] Comment on above: Performed By: #### T SH #### [facility] [address] [place] [address] Dr. Oralia Ordonez WBC 10.7 103/ul Normal 4.0-11.0 [facility] Comment on above: Performed By: #### T SH #### [facility] [address] [place] [address] Dr. Oralia Ordonez CULTURE URINEon 09-04-2022 CULTURE URINE Culture Observations: LIGHT GROWTH OF MIXED GENITAL JESIKA. NO POTENTIAL PATHOGENS SEEN. Normal [facility] Comment on above: Performed By: #### T SH #### [facility] [address] [place] [address] Dr. Oralia Ordonez GLYCOHEMOGLOBIN A1Con 2022 ADA RECOMMENDATION SEE BELOW Normal [facility] Comment on above: Result Comment: ADA RECOMMENDED LIMIT 4.0 - 6.0 ADA THERAPEUTIC TARGET < 7.0 ACTION SUGGESTED > 7.0 Performed By: #### A 1C #### [facility] [address] [place] [address] Dr. Oralia Ordonez Glucose [Mass/Vol] 108 mg/dL Normal [facility] Comment on above: Performed By: #### A 1C #### [facility] [address] [place] [address] Dr. Oralia Ordonez HbA1c (Bld) [Mass fraction] 5.4 % Normal 4.5-6.2 [facility] Comment on above: Performed By: #### A 1C #### [facility] [address] [place] [address] Dr. Oralia Ordonez TSHon 09-04-2022 TSH 1.161 uIU/mL Normal 0.358-3.740 [facility] Comment on above: Performed By: #### T SH #### [facility] [address] [address] [address] Oralia Ordonez TYPE AND SCREENon 09-04-2022 TYPE AND SCREEN Negative Normal [facility] Comment on above: Performed By: #### T #### [facility] [address] [address] [address] Oralia Ordonez US PREG TVon 08-25-2022 [...] by: LAVINIA WEST Date: 2022-08-25 16:23 Normal [facility] Vital Signs Date Time Vital Sign Value Performing Clinician Facility 02-20-2025 10:53-0400 Body height 160.02 cm Sal Oberer DO Work Phone: [facility] 02-20-2025 10:53-0400 Body mass index (BMI) [Ratio] 51 kg/m2 Sal Oberer DO Work Phone: [facility] 02-20-2025 10:53-0400 Body temperature 98.4 [degF] Sal Oberer DO Work Phone: [facility] 02-20-2025 10:53-0400 Body weight 130.74 kg Sal Oberer DO Work Phone: [facility] 02-20-2025 10:53-0400 Diastolic blood pressure 75 mm[Hg] Sal Oberer DO Work Phone: [facility] 02-20-2025 10:53-0400 Heart rate 78 /min Sal Oberer DO Work Phone: [facility] 02-20-2025 10:53-0400 Respiratory rate 16 /min Sal Oberer DO Work Phone: [facility] 02-20-2025 10:53-0400 SaO2% (BldA) [Mass fraction] 99 % Sal Oberer DO Work Phone: [facility] 02-20-2025 10:53-0400 Systolic blood pressure 100 mm[Hg] Sal Oberer DO Work Phone: [facility] 01-08-2025 11:05-0400 Body mass index (BMI) [Ratio] 54.1 kg/m2 Demond Glenroy DO Work Phone: [facility] 01-08-2025 11:05-0400 Body weight 134.17 kg Demond Glenroy DO Work Phone: [facility] 01-08-2025 11:05-0400 Diastolic blood pressure 68 mm[Hg] Demond Glenroy DO Work Phone: [facility] 01-08-2025 11:05-0400 Systolic blood pressure 110 mm[Hg] Demond Glenroy DO Work Phone: [facility] 11-24-2024 11:49-0400 Body height 160.02 cm [facility] 11-24-2024 11:49-0400 Body mass index (BMI) [Ratio] 52 kg/m2 [facility] 11-24-2024 11:49-0400 Body temperature 101.4 [degF] [facility] 11-24-2024 11:49-0400 Body weight 133.35 kg [facility] 11-24-2024 11:49-0400 Diastolic blood pressure 77 mm[Hg] [facility] 11-24-2024 11:49-0400 Heart rate 103 /min [facility] 11-24-2024 11:49-0400 Respiratory rate 18 /min [facility] 11-24-2024 11:49-0400 SaO2% (BldA) [Mass fraction] 98 % [facility] 11-24-2024 11:49-0400 Systolic blood pressure 125 mm[Hg] [facility] 10-26-2023 09:34-0400 Body height 160.02 cm [facility] 10-26-2023 09:34-0400 Body mass index (BMI) [Ratio] 47.9 kg/m2 [facility] 10-26-2023 09:34-0400 Body temperature 97.1 [degF] [facility] 10-26-2023 09:34-0400 Body weight 122.92 kg [facility] 10-26-2023 09:34-0400 Diastolic blood pressure 70 mm[Hg] [facility] 10-26-2023 09:34-0400 Heart rate 63 /min [facility] 10-26-2023 09:34-0400 Respiratory rate 18 /min [facility] 10-26-2023 09:34-0400 SaO2% (BldA) [Mass fraction] 97 % [facility] 10-26-2023 09:34-0400 Systolic blood pressure 111 mm[Hg] [facility] Encounters Encounter Date Encounter Type Care Provider Facility Start: 02-20-2025 End: 02-20-2025 ambulatory Sal Simms DO Work Phone: [facility] Work Phone: Start: 02-20-2025 End: 02-20-2025 Patient encounter procedure Sal Simms DO -[facility] [place] Work Phone: Start: 01-10-2025 End: 01-10-2025 Clinisync Result Encounter Demond Glenroy DO Work Phone: [facility] Unsolicited Start: 01-10-2025 End: 01-10-2025 Clinisync Result Encounter Demond Glenroy DO Work Phone: [facility] Unsolicited Start: 01-10-2025 [facility] Start: 01-08-2025 End: 01-08-2025 Bamboo flowsheet Demond Glenroy DO Work Phone: [facility] Start: 01-08-2025 End: 01-12-2025 Bamboo flowsheet Demond Glenroy DO Work Phone: [facility] Start: 01-08-2025 End: 01-12-2025 Clinisync Result Encounter Demond Glenroy DO Work Phone: [facility] Unsolicited Start: 01-08-2025 Non-patient / [facility]visit [facility] Work Phone: Start: 01-08-2025 End: 01-08-2025 Patient encounter procedure Demond Glenroy DO Work Phone: [facility] Work Phone: Start: 01-08-2025 End: 01-08-2025 Periodic preventive med est patient 18-39 yrs Demond Glenroy DO Work Phone: [facility]ORRES Comment on above: Well woman exam with routine gynecological exam; Borderline diabetes mellitus Start: 01-08-2025 End: 01-08-2025 ambulatory DEMOND TRISTANO Not Available Start: 12-01-2024 End: 12-01-2024 ambulatory [facility] Start: 11-24-2024 End: 11-24-2024 ambulatory [facility] Work Phone: Start: 11-24-2024 End: 11-24-2024 Patient encounter procedure [facility] Work Phone: Start: 10-30-2024 End: 10-30-2024 ambulatory Dana Anoop REYES Facility:[facility] Start: 10-30-2024 End: 10-30-[address] [facility] Facility:[facility] Start: 06-30-2024 ambulatory [facility] Start: 06-21-2024 End: 06-21-2024 ambulatory Rigo Clementsadelaida Facility:[facility] Start: 06-21-2024 Non-patient / Non-visit [facility] Work Phone: Start: 10-26-2023 End: 10-26-2023 ambulatory [facility] Work Phone: Start: 10-26-2023 End: 10-26-2023 Patient encounter procedure [facility] Work Phone: Start: 01-09-2023 End: 02-16-2023 Pre-admission assessment Demond TIM [facility] Start: 10-25-2022 End: 10-25-[address] SAL SIMMS Facility: Start: 10-23-2022 End: 10-24-[address] DEMOND TIM . Facility: Start: 10-16-2022 End: 10-17-2022 ambulatory NONE LISTED REQUEST Facility: Start: 09-08-2022 End: 09-09-[address] DEMOND TIM . Facility: Start: 09-04-2022 End: 09-05-[address] DEMOND TIM . Facility: Start: 08-25-2022 End: 08-26-[address] DEMOND TIM . Facility: Start: 05-05-2021 End: 05-05-2021 ambulatory Chiara Alexander Other [facility] [employer] Other Start: 05-05-2021 Telephone encounter Chiara Solano [facility] Start: 04-07-2021 Telephone encounter Chiara Solano [facility] Procedures Date Procedure Procedure Detail Performing Clinician [...] Screening for malign ant neoplasm of cervix [facility] Start: 01-14-2026 End: 01-14-2026 Patient encounter procedure 01/14/2026 9:00 AM EDT Procedure Visit [facility] [address] [place] [address] Demond Tim, DO [address] [place], [place] [address] [facility] Start: 02-16-2025 Influenza vaccination Influenza Vacc ine (#1) [facility] Start: 01-08-2025 End: 01-08-2025 Patient encounter procedure 01/08/2025 11:00 AM EDT Office Visit [facility] [address] [place] [address] Demond Tim, DO [address] [place] [address] Arrived [facility] Comment on above: Arrived Start: 06-21-2024 Urine culture [facility] CBC W Auto Different ial panel - Blood CBC auto differential Lab Routine Well woman exam with routine gynecological exam Borderline diabetes mellitus Ordered: 01/08/2025 [facility] Comment on above: Ordered: 01/08/2025 Cholesterol [Mass/volume] in Serum or Plasma Cholesterol, total Lab Routine Well woman exam with routine gynecological exam Borderline diabetes mellitus Ordered: 01/08/2025 [facility] Comment on above: Ordered: 01/08/2025 Comprehensive metabo lic 2000 panel - Serum or Plasma Comprehensive metabolic panel Lab Routine Well woman exam with routine gynecological exam Borderline diabetes mellitus Ordered: 01/08/2025 [facility] Comment on above: Ordered: 01/08/2025 Cytology Cervical or vaginal smear or scraping study Pap Smear Pathology and Cytology Routine Well woman exam with routine gynecological exam Ordered: 01/08/2025 [facility] Work Phone: Comment on above: Ordered: 01/08/2025 Hemoglobin A1c/Hemoglobin.total in Blood Hemoglobin A1c Lab Routine Well woman exam with routine gynecological exam Borderline diabetes mellitus Ordered: 01/08/2025 [facility] Comment on above: Ordered: 01/08/2025 Human papilloma viru s DNA [Presence] in Unspecified specimen by Probe with amplification HPV DNA probe, amplified Microbiology Routine Well woman exam with routine gynecological exam Ordered: 01/08/2025 [facility] Comment on above: Ordered: 01/08/2025 Thyrotropin [Units/volume] in Serum or Plasma TSH Lab Routine Well woman exam with routine gynecological exam Borderline diabetes mellitus Ordered: 01/08/2025 [facility] Comment on above: Ordered: 01/08/2025 Immunizations Immunization Date Immunization Notes Care Provider [facility] 02-20-2025 influenza, seasonal, injectable, preservative free Sal Oberer DO Work Phone: [facility] 04-14-2024 influenza virus vaccine, unspecified formulation Demond Glenroy DO Work Phone: [facility] 03-27-2022 influenza virus vaccine, unspecified formulation Demond GLENROY [facility] Comment on above: Reason for Medicatio n: Prophylaxis 03-08-2021 COVID-19 Vaccine Pfi zer - Documentation Purposes Only Chiara Fitt Other [facility] 03-08-2021 influenza, injectabl e, quadrivalent, preservative free Chiara Fitt Other [facility] 02-15-2021 COVID-19 Vaccine Pfi zer - Documentation Purposes Only Chiara Fitt Other [facility] 02-17-2020 influenza, injectabl e, quadrivalent, contains preservative Chiara Fitt Other [employer] Other 02-17-2020 influenza, injectabl e, quadrivalent, preservative free [facility] 04-14-2019 influenza, seasonal, injectable Chiara Fitt Other [facility] 06-19-2018 influenza, seasonal, injectable Chiara Fitt Other [facility] Payers Date Payer Category Payer Unknown 2024 Self-pay [id number] 2021 [facility] [id number] 1989 Unknown [id number] [id number]. 593 1989 Unknown [id number] 2.16.840.1.076563.3.579.2. 593 1989 Unknown [id number] 2.16.840.1.132260.3.579.2. 593 1989 Unknown [id number] 2.16.840.1.563713.3.579.2. 593 1989 Unknown [id number] 2.16.840.1.719012.3.579.2. 593 1989 Unknown [id number] 2.16.840.1.925610.3.579.2. 593 1989 Unknown [id number] 2.16.840.1.766204.3.579.2. 727 1989 Unknown [id number] 2.16.840.1.115159.3.579.2. 727 1989 Unknown [id number] 2.16.840.1.241453.3.579.2. 1259 1959 Unknown [id number] Unknown [id number] [id number] Unknown [id number] 2.16.840.1.243063.3.579.2. 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 [employer] [facility] [facility] Ind [id number] Social History Date Type Detail Facility Unknown if ever smoked [employer] Other Start: 04-20-2023 End: 01-08-2025 Sex Assigned At [facility] Tobacco smoking status No Smoking Status Entered [facility] Start: 12-21-2022 End: 10-26-2023 Tobacco smoking status NHIS Never smoked tobacco (finding) [facility] Start: 1990 Sex Assigned At Female [facility] Start: 06-23-2024 End: 11-24-2024 Sex Female (finding) [facility] Start: 06-28-2023 End: 01-08-2025 Alcoholic beverage intake Lifetime non-drinker (finding) [facility] Start: 04-20-2023 End: 01-08-2025 History of Social function [facility] Start: 12-21-2022 Alcohol Comment Caffeine: 1-2 cups/day [facility] Start: 1990 Sex assigned at Not on file [facility] NEGATED: Highlighted row N [facility] Clinical Notes 09-05-2018 to 01-08-2025 Kathy Banda [...] Depression Depression screening Gestational diabetes, diet controlled ([facility]) H/O dilation and curettage Headache Morbid obesity with BMI of 50.0-59.9, adult ([facility]) Post depression Postop check Pre-eclampsia in period ([facility]) Pre-op exam Well woman exam HISTORY PAST MEDICAL HISTORY SOCIAL HISTORY Past Medical History: Diagnosis Date Abnormal uterine bleeding (AUB) Anxiety Breast cancer screening by mammogram Breast lump on right side at 1 o'clock position Breast lump on right side at 8 o'clock position Depression Depression screening Gestational diabetes, diet controlled ([facility]) H/O dilation and curettage Headache Morbid obesity with BMI of 50.0-59.9, adult ([facility]) Post depression Postop check Pre-eclampsia in period ([facility]) Pre-op exam Well woman exam Social History [...] nursing note reviewed. Exam conducted with a intermediate teacher present. Vitals: Estimated body mass index is [...] Demond Tim DO documented in this encounter [facility] 12-01-2024 Note [place] Cardiology - [facility] Subjective Debby Bone is a 34 [...] no significant arrhythmias. (more content not included)... [facility] 11-24-2024 Evaluation note Diagnosis Onset Date Resolution Strep pharyngitis acute November 11:48am [facility] Work Phone: [phone]) 759-954801-13-2025 NoteUT Cardiology - [facility] Subjective Debby Bone is a 33 y.o. year old female patient being seen for Palpitations Patient Active Problem List Diagnosis Tachycardia 36 weeks gestation of Intermittent palpitations SVT (supraventricular tachycardia) ([facility]) HPI Patient with history of palpitations. Also [...] Morbid obesity, BMI 52.8 (more content not included)...[facility]03-21-2019 History general Narrative - Reported* Type Description Date Medical History Stress fracture left foot-Dr Taya hess Medical History Depression Medical History Post pre-eclampsia Medical History HTN Medical History Gestational Diabetes Surgical History Bx right breast 09/05/18 Surgical History D&C and hysteroscopy 11/23/17 Surgical History D&C, hysteroscopy-Jean- Neg bx's -Dr Tim 08/03/20 Hospitalization History child 12/2018 [facility] [employer] Other Evaluation + Plan note No data available for this section [facility] noteNo InformationNortHel[facility] [employer] Other Evaluation noteNo assessment information available [facility] Work Phone: Evaluation note* Diagnosis Onset Date Resolution Status Admit Date Sore throat noneactive November 24 11:48am [facility] Work Phone: Evaluation note* Diagnosis Well woman exam with routine gynecological exam Routine gynecological examination Borderline diabetes mellitus Other abnormal glucose documented [facility] - [facility] [employer] [facility] Discharge instructions No data available for this section [facility] No data available for this section [facility] CenterReason for referral (narrative)No reason for referral information availableSam[facility] Work Phone: Summary Purpose Family History Relationship Condition Age [...] Sore throat November 24, 2024 11:48 am Chief Complaint Admit Date Sore throat, congestion November 24, 2024 1 1:48am re establish February 20, 2025 10:19am Reason for Visit Admit Date Strep pharyngitis November 24, 2024 11:48 am Additional Source Comments REASON FOR VISIT (unrecogniz ed section and content) Reason Comments [facility] Visit INFORMATION SOURCE (unrecogn ized section and content) DATE CREATED AUTHOR [facility]/01/2022 [facility] DATE CREATED AUTHOR AUTHOR'S ORGANIZ ATION 06/29/2024 [facility] DATE CREATED AUTHOR AUTHOR'S ORGANIZ ATION 10/31/[address] [facility] DATE CREATED AUTHOR AUTHOR'S ORGANIZ ATION 11/01/[address] [facility] DATE CREATED AUTHOR AUTHOR'S ORGANIZ ATION 11/04/[address] 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 Relationship Specialty Start Date End Date Sal Simms MD PCP - [facility] 11/16/22 Team Status: Active Member Role Status Dates Sal Simms DO Primary Care Provider Active St art: January 08, 2025 Demond Tim DO Attending Provider Active Start : January 08, 2025 Team Status: Active Member Role Status Dates Sal Simms DO Primary Care Provider Active St art: January 10, 2025 Demond Tim DO Attending Provider Active Start : January 10, 2025 Team Status: Inactive Member Role Status Dates Sal Simms DO Primary Care Provider Active St art: February 20, 2025 End: February 20, 2025 Sal Simms DO Attending Provider Active Start : February 20, 2025 End: February 20, 2025 Goals (unrecognized section and content) Goals may [...] BE BASED ON THE PRIMARY CLINICAL RECORDS. [facility] provides no warranty or guarantee of the accuracy or completeness of information in this document.
--- OUTSIDE RECORDS SUMMARY | 2025-03-20 16:07 | XMS_ITS | Encounter Summary ---
Author Organization [facility] Address [address] [place] [address] Care Team Providers Care Farm Assistant Name Role Phone Sal Sauer MD Primary Care Provider Encounter Details Date Type Department Care Team (Late Contact Info) Description 12/21/2022 Abstract [facility] [address] [place] [phone] Jae Tim DO [facility] [address], [place] [address] Social History Tobacco Use Types Packs/Day Years [...] 9:00 AM EDT Procedure Visit [facility] [place] [phone] Jae Tim DO [facility] [place], [place] [id number] documented as of this encounter Visit Diagnoses Not on filedocumented in this encounter Care Teams Farm Assistant Relationship Specialty Start Date End Date Sal Sauer MD PCP - General Family Medicine 11/16/22 documented as of this encounter
--- OUTSIDE RECORDS SUMMARY | 2025-03-20 16:07 | XMS_ITS | Encounter Summary ---
Author Organization [facility] Address [address] [facility] [facility] [address] Care Team Providers Care Comb Winder Name Role Phone Sal Sauer MD Primary Care Provider [phone] Encounter Details Date Type Department Care Team (Late Contact Info) Description 01/14/2025 Orders Only [facility] [address] [phone] Brandy Hannah MA Social History Tobacco Use Types Packs/Day Years [...] AM EDT Procedure Visit [facility] [address] [place] [phone] Jae Tim DO [address] [place], [place] [phone] documented as of this encounter Procedures Procedure Name Priority Date/Time Associated Diagnosis Comments PAP SMEAR Routine 01/08/2025 12:00 AM EDT documented in this encounter Results * Pap Smear (01/08/2025 12:00 AM EDT) Swab Cervical swab / Unknown us Jae Glenroy DO LAB CYTOLOGY ORDERABLES Final Re sult EXTERNAL LAB documented in this encounter Visit Diagnoses Not on filedocumented in this encounter Care Teams Comb Winder Relationship Specialty Start Date End Date Sal Sauer MD PCP - General Family Medicine 11/16/22 documented as of this encounter
--- OUTSIDE RECORDS SUMMARY | 2025-03-20 16:08 | XMS_ITS | Encounter Summary ---
Author Organization [facility] Address [address] [facility] [address] [facility] [place] [address] Care Team Providers Care Design Engineering Intern Name Role Phone Sal Sauer MD Primary Care Provider [phone] Encounter Details Date Type Department Care Team (Late Contact Info) Description 02/09/2023 Abstract [facility] [facility] [address] [place] [phone] Jae Tim DO [address] [place], [place] [address] Social History Tobacco Use Types Packs/Day Years [...] Procedure Visit [facility] [address] [place] [address] Jae Tim DO [address] [place], [place] [phone] documented as of this encounter Visit Diagnoses Not on filedocumented in this encounter Care Teams Design Engineering Intern Relationship Specialty Start Date End Date Sal Sauer MD PCP - General Family Medicine 11/16/22 documented as of this encounter
--- OUTSIDE RECORDS SUMMARY | 2025-03-20 16:08 | XMS_ITS | Encounter Summary ---
Author Organization [facility] Address [address] [place] [address] Care Team Providers Care Chronic Condition Nurse Name Role Phone Sal Sauer MD Primary Care Provider [phone] Encounter Details Date Type Department Care Team (Late st Contact Info) Description 02/21/2023 Clinisync Result Encounter [facility] External Department Unsolicited Demond Tim, DO [address] [place] [address] Social History Tobacco Use Types Packs/Day Years [...] EDT Procedure Visit [facility] [address] [facility] [facility] [place] [place] [phone] Demond Tim DO [address] [place] [address] documented as of this encounter Procedures Procedure Name Priority Date/Time Associated Diagnosis Comments EKG 02/21/2023 7:19 AM EDT documented in this encounter Results * EKG (02/21/2023 7:19 AM EDT) Anatomical Region Laterality Modality Other 02/21/2023 7:19 AM EDT Narrative 02/21/2023 7:19 AM EDT [place] [id number] Electrocardiograph Report Signed Patient: MARY RUIZ MR#: [id number] : 1990 Acct:[id number] Age/Sex: 32 / F ADM Date: 02/21/23 Loc: CARD Attending Dr: Demond Tim D.O. Ordering Physician: Demond Tim D.O. 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 Signed By: 02/22/23 0702/22/23700 DD/ 8 TD/TT: Paving Crew Foreman: Procedure Note Radiology, Radiologist, MD - 03/08/[address] [address] Electrocardiograph Report Signed Patient: MARY RUIZ LMR#: [id number] : 1990Acct:[id number] Age/Sex: 32 / FADM Date: 02/21/23 Loc: CARD Attending Dr: Demond iTm D.O. Ordering Physician: Demond Tim D.O. 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 Signed By:02/22/2370002/22/23700 DD/ 8 TD/TT: Paving Crew Foreman: us Demond Tim DO [facility] Final Result documented in this encounter Visit Diagnoses Not on filedocumented in this encounter Care Teams Chronic Condition Nurse Relationship Specialty Start Date End Date Sal Sauer MD PCP - General Family Medicine 11/16/22 documented as of this encounter
--- OUTSIDE RECORDS SUMMARY | 2025-03-20 16:08 | XMS_ITS | Clinical Summary ---
Author Organization [facility] Address [address] [place] [address] Care Team Providers Care Hotel Front Desk Agent Name Role Phone Sal Sauer MD Primary Care Provider [phone] Allergies Active Allergy Reactions Criticality Noted Date [...] Plan (03/07/2023 9:37 AM EDT): F/U with DIE KEEPER Intermittent palpitations 03/07/2023 Assessment & Plan (03/07/2023 [...] Type Department Care Team Description 01/20/2025 Telephone [facility] [address] [place] [address] Skylar Ramsey MA from Last [...] patient's age to complete this topic Insurance [facility] Member Subscriber Plan / Payer (Ef fective 2021-Present) Name:Debby Ruiz Relation to Subscriber:Spouse Name:PATRICK RUIZ Date of :1989 (Home) Address: [address] [place] [address] [address] [place] [address] Payer ID:[id number] (NAIC) Type:Not on file Address: [address] [place] [id number] Care Teams Hotel Front Desk Agent Relationship Specialty Start Date End Date Sal Sauer MD PCP - General 03/16/23
--- OUTSIDE RECORDS SUMMARY | 2025-03-20 16:08 | XMS_ITS | Clinical Summary ---
Author Organization [employer] Address [id number] [address] [place] [address] Care Team Providers Care Asset Protection Assistant Name Role Phone Unavailable Primary Care Provider [...] ID:Not on file Type:Not on file Address: [facility] [address] [place] [id number]
--- OUTSIDE RECORDS SUMMARY | 2025-03-20 16:08 | XMS_ITS | Encounter Summary ---
Author Organization [facility] Address [address] [facility] [place] [address] Care Team Providers Care Acetone Recovery Worker Name Role Phone Sal Sauer MD Primary Care Provider [phone] Encounter Details Date Type Department Care Team (Late Contact Info) Description 06/08/2023 Abstract [facility] [address] [place] [phone] Anne Marie Flores LPN [address] [place] [address] Social History Tobacco Use Types Packs/Day Years [...] AM EDT Procedure Visit [facility] [address] [place] [address] Jae Tim DO [address] [place] [id number] documented as of this encounter Visit Diagnoses Not on filedocumented in this encounter Care Teams Acetone Recovery Worker Relationship Specialty Start Date End Date Sal Sauer MD PCP - General Family Medicine 11/16/22 documented as of this encounter
--- OUTSIDE RECORDS SUMMARY | 2025-03-20 16:08 | XMS_ITS | Clinical Summary ---
Author Organization [facility] Healthcare Address [address] [place] [address] Care Team Providers Care Oil Field Technician Name Role Phone Sal Sauer MD Primary Care Provider [phone] Allergies Active Allergy Reactions Criticality Noted Date Comments Naproxen Rash Low 03/26/2017 Patient states more of a sensitivity Patient states more of a sensitivity Patient states more of a sensitivity Other 01/08/2023 Other Reaction(s): Unknown Medications citalopram (CeleXA) 20 MG tabletIndication s:Second trimester ([facility]) Take 0.5 tablets (10 mg) by mouth in the morning. 15 tablet 6 3 Active Additional Information Patient not taking.Reported on 01/08/2025 metFORMIN XR (Glucophage-XR) 500 MG 24 hr tabletIndication s:Gestational diabetes mellitus (GDM) in third trimester controlled on oral hypoglycemic drug ([facility]) Take one tablet by mouth two times [...] citalopram (CeleXA) 20 MG tabletIndication s: anxiety ([facility]) TAKE 1 TABLET BY MOUTH EVERY DAY IN THE MORNING 90 tablet 3 5 Active Additional Information Patient not taking.Reported on 01/08/2025 Encounters Date Type Department Care Team Description 01/14/2025 [place] [address] Brandy Hannah MA 01/10/2025 Clinisync Result Encounter [facility] External Department Unsolicited Jae Tim DO 01/08/2025 11:00 AM EDT [place] [address] Jae Tim DO Well woman exam with routine gynecological exam; Borderline diabetes mellitus 01/08/2025 Clinisync Result Encounter [facility] External Department Unsolicited Jae Tim, 01/08/2025 Bamboo [place] [address] Jae Tim DO from Last 3 [...] Visit [facility] [phone] Jae Tim, DO [address] [place] [address] Health Maintenance Due Date Last Done Comments Influenza Vaccine (#1) 2025 , 04/12/2023, 03/27/2022, Additional history exists Cervical Cancer Screening 10/26/2027 HPV/Cotest 10/26/2027 Pap Smear 01/09/2028 01/08/2025, 10/25/2022 Procedures Procedure Name Priority Date/Time Associated Diagnosis Comments ALL THYROID STIM HORMONE Routine 01/10/2025 7:51 AM EDT ALL CHOLESTEROL Routine 01/10/2025 7:51 AM EDT [facility] CMP (CMP) (FOR REMOTE [facility] USE) Routine 01/10/2025 7:51 AM EDT MLR HEMOGLOBIN A1C Routine 01/10/2025 7: 51 AM EDT ALL CBC WITH AUTO DIFF Routine 01/10/2025 7:51 AM EDT IGP,APTIMA HPV,AGE GDLN Routine 01/08/2025 11:00 AM EDT PAP SMEAR Routine 01/08/2025 12:00 AM EDT from Last 3 Months Results * MLR HEMOGLOBIN A1C (01/10/2025 7:51 AM EDT) GLYCOHEMOGLOBIN A1C 5.4 4.5 - 6.2 % [facility] Comment: ADA RECOMMENDED LIMIT 4.0 - 6.0 ADA THERAPEUTIC TARGET < 7.0 ACTION SUGGESTED > 7.0 ESTIMATED AVERAGE GLUCOSE 108 mg/dL [facility] 01/10/2025 7:51 AM EDT 01/10/2025 7:54 AM EDT Narrative [facility] - 01/10/2025 8:17 AM EDT us Jae Glenroy DO [facility] Final Result [facility] * (ABNORMAL) [facility] CMP (CMP) (FOR REMOTE [facility] USE) (01/10/2025 7:51 AM EDT) SODIUM 139 136 - 145 mmol/L [facility] POTASSIUM 4.1 3.5 - 5.1 mmol/L [facility] CHLORIDE 105 98 - 107 mmol/L [facility] CARBON DIOXIDE 24.0 21.0 - 32.0 mmol/L [facility] ANION GAP 14.1 [facility] GLUCOSE 92 74 - 106 mg/dL [facility] BLOOD UREA NITROGEN 22.0(H) 7.0 - 18.0 mg/dL [facility] CREATININE 0.67 0.55 - 1.02 mg/dL [facility] EGFR-AF NAURUAN >60 >=60 mL/min/1. 73m 2 [facility]H EGFR-NON AF NAURUAN >60 >=60 mL/min/1. 73m 2 [facility] BUN [...] EDT Jae Glenroy DO [facility] Final Result [facility] * ALL THYROID STIM HORMONE (01/10/2025 7:51 AM EDT) THYROID STIMULATING HORMONE 3.252 0.358 - 3.740 uIU/mL [facility] 01/10/2025 7:51 AM EDT 01/10/2025 7:54 AM EDT Narrative [facility] - 01/10/2025 8:42 AM EDT us Jae Glenroy DO [facility] Final Result [facility] * ALL CHOLESTEROL (01/10/2025 7:51 AM EDT) CHOLESTEROL 157 <=200 mg/dL [facility] 01/10/2025 7:51 AM EDT 01/10/2025 7:54 AM EDT Narrative [facility] - 01/10/2025 8:42 AM EDT us Jae Glenroy DO [facility] Final Result Performing Organization Address City/[facility]/ZIP Co de Phone Number [facility] * (ABNORMAL) ALL CBC WITH AUTO DIFF (01/10/2025 7:51 AM EDT) Pathologist [facility] TB WBC 8.2 4.0 - 11.0 10 [...] HPV,AGE GDLN (01/08/2025 11:00 AM EDT) Pathologist [facility] AGE GDLN ACOG TESTING Note . [facility] Comment: TESTS RESULT FLAG UNITS REF RANGE LAB Clinician Provided Cytology Information Source.............Cervix;Endocervix No. of containers..01 ThinPrep Vial Age Marlin WOMACK Eloina... 30-65 FLAG LEGEND: L-Low Normal,H-High Normal,LL-Alert Low,HH-Alert High <-Panic Low,>-Panic High,A-Abnormal,AA-Critical Abnormal Performed at: 01 =[facility] [place] [address] Kecia Riojas MD, IGP, APTIMA HPV, RFX 16/18,45 Note . [facility] Comment: TESTS RESULT FLAG UNITS REF RANGE LAB DIAGNOSIS: 02 NEGATIVE FOR INTRAEPITHELIAL LESION OR MALIGNANCY. THIS SPECIMEN WAS RESCREENED PART OF OUR REGULATORY COMPLIANCE COORDINATOR PROGRAM. Specimen adequacy: 02 Satisfactory for evaluation. Endocervical and/or squamous metaplastic cells (endocervical component) are present. Performed by: 02 Bella Pena, Hand Shaper QC reviewed by: 02 Johanny Álvarez, Hand Shaper . 02 Note: Note 02 The Pap [...] <-Panic Low,>-Panic High,A-Abnormal,AA-Critical Abnormal Performed at: [address] [address] Kecia Riojas MD, HPV APTIMA Negative Negative [facility] Comment: This nucleic acid amplification test detects fourteen high- risk HPV types (16,18,31,33,35,39,45,51,52,56,58,59,66,68) without differentiation. Performed at: =[address] [id number] Lease Examiner: Kecia Riojas MD, Phone: [phone] Performed at: [address] [id number] Lease Examiner: Kecia Riojas MD, Phone: [phone] 01/08/2025 11:0 0 AM EDT 01/08/2025 3:56 PM EDT Narrative [facility] - 01/12/2025 12:11 PM EDT BRUSH-SPATULA CERVIX ENDOCERVIX Jae Glenroy DO LAB BLOOD ORDERABLES Final Resul t [facility] * Pap Smear (01/08/2025 12:00 AM EDT) Swab Cervical swab / Unknown Jae Glenroy DO LAB CYTOLOGY ORDERABLES Final Re sult EXTERNAL LAB from Last 3 Months Insurance [facility] Care Teams Oil Field Technician Relationship Specialty Start Date End Date Sal Sauer MD PCP - General Family Medicine 11/16/22
--- OUTSIDE RECORDS SUMMARY | 2025-03-20 16:08 | XMS_ITS | Encounter Summary ---
Author Organization [facility] Address [address] [place] [address] Care Team Providers Care Imaging Technologist Name Role Phone Sal Sauer MD Primary Care Provider [phone] Encounter Details Date Type Department Care Team (Late Contact Info) Description 02/28/2023 Clinisync Result Encounter [facility] External Department Unsolicited Demond Tim, DO [address] [place] [address] Social History Tobacco Use Types Packs/Day Years [...] Visit [facility] [address] [place] [phone] Demond Tim, [address] [place] [address] documented as of this encounter Procedures Procedure Name Priority Date/Time Associated Diagnosis Comments US OB BPP W NON-STRESS 02/28/2023 4:39 PM EDT documented in this encounter Results * US OB BPP W NON-STRESS (02/28/2023 4:39 PM EDT) Anatomical Region Laterality Modality Other 02/28/2023 4:39 PM EDT Narrative 02/28/2023 4:39 [place] [address] Ultrasound Report Signed Patient: MARY RUIZ MR#: [id number] : 1990 Acct:[id number] Age/Sex: 32 / F ADM Date: 02/28/23 Loc: US Attending Dr: Demond Tim D.O. Ordering Physician: Demond Tim D.O. Date of Service: 02/28/23 Procedure(s): US OB BPP w non-stress Accession Number(s): [id number] cc: Demond Tim D.O.; SAL SAUER [place] [address] Patient Name: MARY RUIZ MRN: [id number] date: 1990 Sex: F Assigned Patient Location: US Current Patient Location: Accession/Order Number: [id number] Exam Date: 02/28/2023 09:00 Report Date: 02/28/2023 [...] M.D. Signed By: 02/28/231640 DD/ 38 TD/TT: Telephone Quotation Clerk: Procedure Note Radiology, Radiologist, - 03/09/2023 [place] [address] Ultrasound Report Signed Patient: MARY RUIZ LMR#: [id number] : 1990Acct:[id number] Age/Sex: 32 / FADM Date: 02/28/23 Loc: US Attending Dr: Demond Tim D.O. Ordering Physician: Demond Tim D.O. Date of Service: 02/28/23 Procedure(s): US OB BPP w non-stress Accession Number(s): [id number] cc: Demond Tim D.O.; SAL SAUER [place] [address] Patient Name: MARY RUIZ MRN: [facility]:[id number] date: 1990 Sex: F Assigned Patient Location: US Current Patient Location: Accession/Order Number: [id number] Exam Date: 02/28/2023 09:00 Report Date: 02/28/2023 [...] Blackman M.D. Signed By:02/28/231640 DD/ 38 TD/TT: Telephone Quotation Clerk: us Demond Tim DO [facility] Final Result documented in this encounter Visit Diagnoses Not on filedocumented in this encounter Care Teams Imaging Technologist Relationship Specialty Start Date End Date Sal Sauer MD PCP - General Family Medicine 11/16/22 documented as of this encounter
--- OUTSIDE RECORDS SUMMARY | 2025-03-20 16:08 | XMS_ITS | Encounter Summary ---
Author Organization [facility] Address [address] [facility] [place] [address] Care Team Providers Care Community Development Officer Name Role Phone Sal Sauer MD Primary Care Provider [phone] Encounter Details Date Type Department Care Team (Late Contact Info) Description 02/15/2023 Abstract [facility] [address] [facility] [place] [phone] Anne Marie Flores LPN [address] [place] [address] Social History Tobacco Use Types Packs/Day Years [...] AM EDT Procedure Visit [facility] [address] [facility] [place] [address] Jae Tim DO [address] [facility] [address] [place] [phone] documented as of this encounter Visit Diagnoses Not on filedocumented in this encounter Care Teams Community Development Officer Relationship Specialty Start Date End Date Sal Sauer MD PCP - General Family Medicine 11/16/22 documented as of this encounter
--- OUTSIDE RECORDS SUMMARY | 2025-03-20 16:08 | XMS_ITS | Encounter Summary ---
Author Organization [facility] Address [address] [place] [address] Care Team Providers Care Prints And Drawings Curator Name Role Phone Sal Sauer MD Primary Care Provider Encounter Details Date Type Department Care Team (Late st Contact Info) Description 02/22/2023 Clinisync Result Encounter [facility] External Department Unsolicited Jae Tim, DO [address] [place] [address] Social History Tobacco Use Types Packs/Day Years [...] EDT Procedure Visit [facility] [address] [facility] [place] [phone] Jae Tim DO [address] [place] [address] documented as of this encounter Procedures Procedure Name Priority Date/Time Associated Diagnosis Comments ECHDOTico 02/22/2023 9:08 AM EDT documented in this encounter Results * ECHDOP (02/22/2023 9:08 AM EDT) Anatomical Region Laterality Modality Other 02/22/2023 9:08 AM EDT Narrative 02/22/2023 9:08 AM EDT [address] [address] Cardiology Report Signed Patient: MARY RUIZ MR#: [id number] : 1990 Acct:[id number] Age/Sex: 32 / F ADM Date: 02/21/23 Loc: CARD Attending Dr: Jae Tim D.O. Ordering Physician: Jae Tim D.O. Date of Service: 02/21/23 Procedure(s): CA echo doppler complete Accession Number(s): [id number] cc: Patient: MARY RUIZ. Exam Date: 02/21/2023 : 1990 Gender:F Ordering : DR Jae Tim . Admission #: [id number] Family : Order #: [id number] CLICK HERE TO VIEW EXAM ECHOCARDIOGRAM REPORT [...] LAU Signed By: 02/22/23908 DD/ 7 TD/TT: Diet Counselor: Procedure Note Radiology, Radiologist, MD - 03/08/2023 [place] [address] Cardiology Report Signed Patient: MARY RUIZ LMR#: [id number] : 1990Acct:[id number] Age/Sex: 32 / FADM Date: 02/21/23 Loc: CARD Attending Dr: Jae Tim D.O. Ordering Physician: Jae Tim D.O. Date of Service: 02/21/23 Procedure(s): CA echo doppler complete Accession Number(s): [id number] cc: Patient: MARY RUIZ Exam Date: 02/21/2023 : 1990 Gender:F Ordering : DR Jae Tim . Admission #: [id number] Family : Order #: [id number] CLICK HERE TO VIEW EXAM ECHOCARDIOGRAM REPORT [...] MATT LAU Signed By:02/22/23908 DD/ 7 TD/TT: Diet Counselor: [facility] Final Result documented in this encounter Visit Diagnoses Not on filedocumented in this encounter Care Teams Prints And Drawings Curator Relationship Specialty Start Date End Date Sal Sauer MD PCP - General Family Medicine 11/16/22 documented as of this encounter
--- OUTSIDE RECORDS SUMMARY | 2025-03-20 16:08 | XMS_ITS | Encounter Summary ---
Author Organization [facility] Address [address] [place] [address] Care Team Providers Care Unit Coordinator Name Role Phone Sal Sauer MD Primary Care Provider [phone] Encounter Details Date Type Department Care Team (Late st Contact Info) Description 02/21/2023 Clinisync Result Encounter [facility] External Department Unsolicited Demond Tim, DO [address] [place] [address] Social History Tobacco Use Types Packs/Day Years [...] EDT Procedure Visit [facility] [address] [facility] [place] [phone] Demond Tim DO [address] [place] [address] documented as of this encounter Procedures Procedure Name Priority Date/Time Associated Diagnosis Comments OBBPPWNST 02/21/2023 4:38 PM EDT documented in this encounter Results * OBBPPWNST (02/21/2023 4:38 PM EDT) Anatomical Region Laterality Modality Other 02/21/2023 4:38 PM EDT Narrative 02/21/2023 4:38 PM EDT [place] [id number] Ultrasound Report Signed Patient: MARY RUIZ MR#: [id number] : 1990 Acct:[id number] Age/Sex: 32 / F ADM Date: 02/21/23 Loc: [facility] 250-[address]: Demond Tim D.O. Ordering Physician: Demond Tim D.O. Date of Service: 02/21/23 Procedure(s): US OB BPP w non-stress Accession Number(s): [id number] cc: Demond Tim D.O.; SAL SAUER [place] [phone] Patient Name: MARY RUIZ MRN: [id number] date: 1990 Sex: F Assigned Patient Location: US Current Patient Location: CARD Accession/Order Number: [id number] Exam Date: 02/21/2023 16:00 Report Date: 02/21/2023 [...] Signed By: 02/21/23 1641 DD/ 1638 TD/TT: Boiler/Chiller Technician: Procedure Note Radiology, Radiologist, MD Davis 03/09/2023 [place] [address] Ultrasound Report Signed Patient: MARY RUIZ LMR#: [id number] : 1990Acct:[id number] Age/Sex: 32 / FADM Date: 02/21/23 Loc: [facility] 250-[address]: Demond Tim D.O. Ordering Physician: Demond Tim D.O. Date of Service: 02/21/23 Procedure(s): US OB BPP w non-stress Accession Number(s): [id number] cc: Demond Tim D.O.; SAL SAUER [place] [address] Patient Name: MARY RUIZ MRN: [id number] date: 1990 Sex: F Assigned Patient Location: US Current Patient Location: CARD Accession/Order Number: [id number] Exam Date: 02/21/2023 16:00 Report Date: 02/21/2023 [...] M.D. Signed By:02/21/23 1649 DD/ 1638 TD/TT: Boiler/Chiller Technician: us Demond Tim DO [facility] Final Result documented in this encounter Visit Diagnoses Not on filedocumented in this encounter Care Teams Unit Coordinator Relationship Specialty Start Date End Date Sal Sauer MD PCP - General Family Medicine 11/16/22 documented as of this encounter
--- OUTSIDE RECORDS SUMMARY | 2025-03-20 16:08 | XMS_ITS | Encounter Summary ---
Author Organization [facility] Address [address] [place] [address] Care Team Providers Care Cable Armorer Name Role Phone Sal Sauer MD Primary Care Provider Encounter Details Date Type Department Care Team (Late st Contact Info) Description 03/14/2023 Clinisync Result Encounter [facility] External Department Unsolicited Demond Tim, DO [address] [place] [address] Social History Tobacco Use Types Packs/Day Years [...] Visit [facility] [address] [place] [phone] Demond Tim DO [address] [place] [address] documented as of this encounter Procedures Procedure Name Priority Date/Time Associated Diagnosis Comments US OB GROWTH 03/14/2023 6:29 PM EDT documented in this encounter Results * US OB GROWTH (03/14/2023 6:29 PM EDT) Anatomical Region Laterality Modality Other 03/14/2023 6:29 PM EDT Narrative 03/14/2023 6:29 [place] [address] Ultrasound Report Signed Patient: MARY RUIZ MR#: [id number] : 1990 Acct:[id number] Age/Sex: 32 / F ADM Date: 03/14/23 Loc: [facility] 255-[address]: Demond Tim D.O. Ordering Physician: Demond Tim D.O. Date of Service: 03/14/23 Procedure(s): US OB growth Accession Number(s): [id number] cc: Demond Tim D.O.; SAL SAUER [place] [address] Patient Name: MARY RUIZ MRN: [id number] date: 1990 Sex: F Assigned Patient Location: Current Patient Location: [facility] Accession/Order Number: [id number] Exam Date: 03/14/2023 09:00 Report Date: 03/14/2023 [...] M.D. Signed By: 03/14/231831 DD/ 28 TD/TT: Ground School Instructor: Procedure Note Radiology, Radiologist, MD - 03/14/2023 [place] [address] Ultrasound Report Signed Patient: MARY RUIZ LMR#: [id number] : 1990Acct:[id number] Age/Sex: 32 / FADM Date: 03/14/23 Loc: [facility] 255-[address]: Demond Tim D.O. Ordering Physician: Demond Tim D.O. Date of Service: 03/14/23 Procedure(s): US OB growth Accession Number(s): [id number] cc: Demond Tim D.O.; SAL SAUER [place] [address] Patient Name: MARY RUIZ MRN: [facility]:[id number] date: 1990 Sex: F Assigned Patient Location: Current Patient Location: [facility] Accession/Order Number: [id number] Exam Date: 03/14/2023 09:00 Report Date: 03/14/2023 [...] Blackman M.D. Signed By:03/14/231831 DD/ 28 TD/TT: Ground School Instructor: us Demond [place] DO [facility] Final Result documented in this encounter Visit Diagnoses Not on filedocumented in this encounter Care Teams Cable Armorer Relationship Specialty Start Date End Date Sal Sauer MD PCP - General Family Medicine 11/16/22 documented as of this encounter
--- OUTSIDE RECORDS SUMMARY | 2025-03-20 16:12 | XMS_ITS | CCD ---
Author Organization [facility] Providers Care Stem Cleaning Machine Feeder Name Role Phone Chiara Alexander Unavailable Sal [...] Unavailable Oberer Sal ALFORD Primary Care Provider DEMOND TIM Attending Unavailable EDITH DAVIS Attending Unavailable RICARDO GOODSON Attending Unavailable Sal Simms DO Primary Care Provider Pauly Rivera APRN Attending Provider Demond Tim DO Attending Provider Sal Simms DO Attending Provider [phone] Allergies Allergy Classification Reported Allergen(s) Allergy Type Date of Onset Reaction(s) Facility (4 sources) Azithromycin Drug Allergy 5 [facility] (1 source) Azithromycin Drug Allergy [address] [place] [address] Repository (2 sources) Unable to obtain; Translations: [Unable to obtain] Propensity to adverse reactions (disorder) [facility] Repository (2 sources) No Known Medication Allergies; Translations: [No Known Medication Allergies] Propensity to adverse reactions (disorder) [facility] Repository (6 sources) Naproxen; Translations: [NAPROXEN] Drug Allergy 7 [facility] Work Phone: (6 sources) Other; Translations: [OTHER] Propensity to adverse reactions 3 [facility] (1 source) Citalopram Analogues Propensity to adverse reactions 5 [facility] Medications Current Medications Medication Drug Class(es) Dates [...] third trimester controlled on oral hypoglycemic drug ([facility]) Take one tablet by mouth two [...] Drug Class(es) Dates Sig (Normalized) Sig (Original) [id number] 200 actuat albuterol 0.09 mg/actuat metered dose [...] (CeleXA) 20 MG tablet Indications: Second trimester ([facility]) Take 0.5 tablets (10 mg) by mouth [...] advise her of Dr. Goodson's findings. Normal [facility] IGP,APTIMA HPV,AGE GDLNon AGE GDLN ACOG TESTING Note . [facility] Comment on above: TESTS RESULT FLAG UN ITS REF RANGE LAB Clinician Provided Cytology Information Source.............Cervix;Endocervix No. of containers..01 ThinPrep Vial Age Algo ACOG Eloina... 30- 01 FLAG LEGEND: L-Low Normal,H-High Normal,LL-Alert Low,HH-Alert High <-Panic Low,>-Panic High,A-Abnormal,AA-Critical Abnormal Performed at: 01 =[address] [address] Kecia Riojas MD, HPV APTIMA Negative Negative [facility] Comment on above: This nucleic acid am plification test detects fourteen high- risk HPV types (16,18,31,33,35,39,45,51,52,56,58,59,66,68) without differentiation. Performed at: =[address] [id number] Hand Model: Kecia Riojas MD, Phone: [phone] Performed at: [address] [id number] Hand Model: Kecia Riojas MD, Phone: [phone] IGP, APTIMA HPV, RFX 16/18,45 Note . [facility] Comment on above: TESTS RESULT FLAG UN ITS REF RANGE LAB DIAGNOSIS: 02 NEGATIVE FOR INTRAEPITHELIAL LESION OR MALIGNANCY. THIS SPECIMEN WAS RESCREENED PART OF OUR NET FINISHER PROGRAM. Specimen adequacy: 02 Satisfactory for evaluation. Endocervical and/or squamous metaplastic cells (endocervical component) are present. Performed by: 02 Bella Pena Cheerleading Coach QC reviewed by: 02 Johanny Álvarez, Cheerleading Coach . 02 Note: Note 02 The Pap [...] Low,>-Panic High,A-Abnormal,AA-Critical Abnormal Performed at: [address] [address] Kecia Riojas MD, BRUSH-SPATULA CERVIX ENDOCERVIX [facility] ALL CBC WITH AUTO DIFFon BASOPHILS ABSOLUTE AUTO [address] [facility] Basophils/100 WBC (Bld) 0.5 % 0.2 - 2.0 % [facility] Eosinophils/100 WBC (Bld) 2.6 % 0.9 - 7.0 % [facility] Erythrocyte distribution width (RBC) [Ratio] 14.1 % 11.0 - 15.0 % [facility] Hematocrit (Bld) [Volume fraction] 34.4 % Low 36.0 - 48.0 % [facility] Hemoglobin (Bld) [Mass/Vol] 10.9 g/dL Low 12.0 - 16.0 g/dL [facility] IMMATURE GRANULOCYTES ABS AUTO 0.02 [facility] Immature granulocytes/100 WBC (Bld) 0.2 % 0.0 - 0.5 % [facility] Interpretation and review of laboratory results Abnormal [facility] LYMPHOCYTES ABSOLUTE AUTO 2.7 [facility] Lymphocytes/100 WBC (Bld) 32.9 % 20.5 - 60.0 % [facility] MCH (RBC) [Entitic mass] 26 pg Low 26.7 - 34.0 pg [facility] MCHC (RBC) [Mass/Vol] 31.7 g/dL 29.9 - 35.2 g/dL [facility] MCV (RBC) [Entitic vol] 81.9 fL 81.0 - 99.0 fL [facility] MONOCYTES ABSOLUTE AUTO 0.4 [facility] Monocytes/100 WBC (Bld) 5.3 % 1.7 - 12.0 % [facility] Healthcare NEUTROPHILS ABSOLUTE AUTO 4.8 [facility] Neutrophils/100 WBC (Bld) 58.5 % 43.0 - 75.0 % [facility] Platelet mean volume (Bld) [Entitic vol] 9 fL Low 9.5 - 13.5 fL [facility] TBH EO # 0.2 [facility] PLT 237 [facility] RBC 4.2 [facility] WBC 8.2 [facility] Basophils Auto (Bld) [#/Vol] Ordered By: Demond Tim on 01-10-2025 Basophils (Bld) [#/Vol] 0.0 10 3/uL 0.0-0.1 [facility] Basophils/100 WBC Auto (Bld) Ordered By: Demond Tim on 01-10-2025 Basophils/100 WBC (Bld) 0.5 % 0.2-2.0 F [facility] Eosinophils/100 WBC Auto (Bl d)Ordered By: Demond Tim on 01-10-2025 Eosinophils/100 WBC (Bld) 2.6 % 0.9-7.0 [facility] Erythrocyte distribution wid th Auto (RBC) [Ratio]Ordered By: Demond Tim on 01-10-2025 Erythrocyte distribution width (RBC) [Ratio] 14.1 % 11.0-15.0 [facility] Globulin Calc (S) [Mass/Vol] Ordered By: Demond Tim on 01-10-2025 Globulin (S) [Mass/Vol] 4.0 g/dL F [facility] Glomerular filtration rate ( GFR) estimation in non- AmericanOrdered By: Demond Tim on 01-10-2025 GFR/1.73 sq M.predicted among non-blacks MDRD (S/P/Bld) [Vol rate/Area] mL/min/{1.73_m2} >=60 mL/min/1.73m 2 [facility] Glucose mean value [Mass/vol ume] in Blood Estimated from glycated hemoglobinOrdered By: Demond Tim on 01-10-2025 Average glucose Estimated from glycated hemoglobin (Bld) [Mass/Vol] 108 mg/dL [facility] Hematocrit Auto (Bld) [Volum e fraction]Ordered By: Demond Tim on 01-10-2025 Hematocrit (Bld) [Volume fraction] 34.4 % Low 36.0-48.0 [facility] Hemoglobin A1c percentageOrd ered By: Demond Tim on 01-10-2025 HbA1c (Bld) [Mass fraction] 5.4 % 4.5-6.2 [facility] Comment on above: ADA RECOMMENDED LIMI T 4.0 - 6.0ADA THERAPEUTIC TARGET < 7.0ACTION SUGGESTED> 7.0 Hemoglobin [Mass/volume] in BloodOrdered By: Demond Tim on 01-10-2025 Hemoglobin (Bld) [Mass/Vol] 10.9 g/dL Low 12.0-16.0 [facility] Laboratory - Chemistry and C hemistry - challengeOrdered By: Demond Tim on 01-10-2025 Albumin [Mass/Vol] 3.5 g/dL 3.4-5.0 [facility] ALP [Catalytic activity/Vol] 100 U/L 46-116 [facility] ALT [Catalytic activity/Vol] 14 U/L 14-59 [facility] AST [Catalytic activity/Vol] 13 U/L Low 15-37 [facility] Bilirubin [Mass/Vol] 0.2 mg/dL 0.2-1.0 [facility] Calcium [Mass/Vol] 9.1 mg/dL 8.5-10.1 [facility] Chloride [Moles/Vol] 105 mmol/L 98-107 [facility] Cholesterol [Mass/Vol] 157 mg/dL <=200 [facility] CO2 [Moles/Vol] 24.0 mmol/L 21.0-32.0 [facility] Creatinine [Mass/Vol] 0.67 mg/dL 0.55-1.02 [facility] GFR/1.73 sq M.predicted MDRD (S/P/Bld) [Vol rate/Area] mL/min/{1.73_m2} >=60 mL/min/1.73m 2 [facility] Glucose [Mass/Vol] 92 mg/dL 74-106 [facility] Potassium [Moles/Vol] 4.1 mmol/L 3.5-5.1 [facility] Protein [Mass/Vol] 7.5 g/dL 6.4-8.2 [facility] Sodium [Moles/Vol] 139 mmol/L 136-145 [facility] TSH Qn 3.252 m[IU]/L 0.358-3.740 [facility] Urea nitrogen [Mass/Vol] 22.0 mg/dL High 7.0-18.0 [facility] Urea nitrogen/Creatinine [Mass ratio] 32.8 mg/mg [facility] Laboratory - Hematology and Cell countsOrdered By: Demond Tim on 01-10-2025 Immature granulocytes/100 WBC (Bld) 0.2 % 0.0-0.5 [facility] Leukocytes [#/volume] correc ester for nucleated erythrocytes in Blood by Automated counOrdered By: Demond Tim on 01-10-2025 WBC corrected for nucl RBC Auto (Bld) [#/Vol] 8.2 10 3/uL 4.0-11.0 [facility] Lymphocytes Auto (Bld) [#/Vo l]Ordered By: Demond Tim on 01-10-2025 Lymphocytes (Bld) [#/Vol] 2.7 10 3/uL 1.2-3.8 [facility] Lymphocytes/100 WBC Auto (Bl d)Ordered By: Demond Tim on 01-10-2025 Lymphocytes/100 WBC (Bld) 32.9 % 20.5-60.0 [facility] MCH Auto (RBC) [Entitic mass ]Ordered By: Demond Tim on 01-10-2025 MCH (RBC) [Entitic mass] 26.0 pg Low 26.7-34.0 [facility] MCHC Auto (RBC) [Mass/Vol]Or dered By: Demond Tim on 01-10-2025 MCHC (RBC) [Mass/Vol] 31.7 g/dL 29.9-35.2 [facility] MCV Auto (RBC) [Entitic vol] Ordered By: Demond Tim on 01-10-2025 MCV (RBC) [Entitic vol] 81.9 fL 81.0-99.0 F [facility] Monocytes Auto (Bld) [#/Vol] Ordered By: Demond Tim on 01-10-2025 Monocytes (Bld) [#/Vol] 0.4 10 3/uL 0.3-0.8 [facility] Monocytes/100 WBC Auto (Bld) Ordered By: Demond Tim on 01-10-2025 Monocytes/100 WBC (Bld) 5.3 % 1.7-12.0 [facility] Neutrophils Auto (Bld) [#/Vo l]Ordered By: Demond Tim on 01-10-2025 Neutrophils (Bld) [#/Vol] 4.8 10 3/uL 1.4-6.5 [facility] Neutrophils/100 WBC Auto (Bl d)Ordered By: Demond Tim on 01-10-2025 Neutrophils/100 WBC (Bld) 58.5 % 43.0-75.0 [facility] No Panel InformationOrdered By: Demond Tim on 01-10-2025 Eosinophils # (Auto) 0.2 10 3/uL 0.0-0.7 [facility] Immature Granulocyte # (Auto) 0.02 10 3/uL 0.00-0.03 [facility] Platelet mean volume Auto (B ld) [Entitic vol]Ordered By: Demond Tim on 01-10-2025 Platelet mean volume (Bld) [Entitic vol] 9.0 fL Low 9.5-13.5 [facility] Platelets Auto (Bld) [#/Vol] Ordered By: Demond Tim on 01-10-2025 Platelets (Bld) [#/Vol] 237 10 3/uL 150-450 [facility] RBC Auto (Bld) [#/Vol]Ordere d By: Demond Tim on 01-10-2025 RBC (Bld) [#/Vol] 4.20 10 6/uL 4.20-5.40 [facility] Serum or plasma albumin/glob ulin mass ratioOrdered By: Demond Tim on 01-10-2025 Albumin/Globulin [Mass ratio] 0.9 {ratio} [facility] Serum or plasma anion gap de terminationOrdered By: Demond Tim on 01-10-2025 Anion gap [Moles/Vol] 14.1 mmol/L [facility] Human papilloma virus 16+18+ 31+33+35+39+45+51+52+56+58+59+66+68 DNA [Presence] in CerOrdered By: eDmond Tim on 01-08-2025 HPV 16+18+31+33+35+39+45+51 +52+56+58+59+66+68 DNA Probe+sig amp Ql (Cvx) Negative Negative [facility] Comment on above: This nucleic acid am plification test detects fourteen high-risk HPV types (16,18,31,33,35,39,45,51,52,56,58,59,66,68)without differentiation.Performed at: = - [facility] [address] [id number] Director: Kecia Riojas MD, Phone: [phone] at: - [facility] [id number] Director: Kecia Riojas MD, Phone: [phone] No Panel InformationOrdered By: Demond Tim on 01-08-2025 HPV High Risk Other Comment Note . [facility] Comment on above: TESTS RESULT FLAG UN ITS REF RANGE LAB -DIAGNOSIS: 02 NEGATIVE FOR INTRAEPITHELIAL LESION OR MALIGNANCY. THIS SPECIMEN WAS RESCREENED PART OF OUR NET FINISHER PROGRAM.Specimen adequacy: 02 Satisfactory for evaluation. Endocervical and/or squamous metaplastic cells (endocervical component) are present.Performed by: 02 Bella Pena CytologistQC reviewed by: 02 Johanny Álvarez, Cheerleading Coach. 02Note: Note 02 The Pap smear is [...] Low,>-Panic High,A-Abnormal,AA-Critical Abnormal ------Performed at:02 WB [facility] [address] [place] [address] Kecia Riojas MD, Reference Lab Test Patient Age Note . [facility] Comment on above: TESTS RESULT FLAG UN ITS REF RANGE LAB - Clinician Provided Cytology Information Source.............Cervix;Endocervix No. of containers..01 ThinPrep FedeAge Marlin WOMACK Eloina... FLAG LEGEND: L-Low Normal,H-High Normal,LL-Alert Low,HH-Alert High <-Panic Low,>-Panic High,A-Abnormal,AA-Critical Abnormal ------Performed at:01 =[facility] [address] [place] [address] Kecia Riojas MD, Office Visiton 12-01-2024 Follow-up visit [id number] Warren Bonesswayne Lozoya 1990 F Date Provider Department Center 12/01/2024 RICARDO ZAMORA Family History Problem Relation Age of Onset No Known Problems Mother No Known Problems Father Family Status - Relation Status Age at Mother Father Level of Service:59995 [place] OFFICE/OUTPATIENT ESTABLISHED MOD MDM 30 MIN Normal [facility] No Panel InformationOrdered By: Pauly Rivera on 11-24-2024 Quick Strep (POC) [facility] Quantiferon-TB Plus (Client Incubated)on 11-01-2024 Gamma interferon background IA Qn (Bld) 0.07 International_Unit/m L Invalid Interpretation Code [facility] Comment on above: Performed By: #### 1 [id number] #### [facility] [address] [place] [address] M. tuberculosis stim IFN-g by CD4+ CD8+ T-cells corrected for background Qn (Bld) 0.06 International_Unit/m L Invalid Interpretation Code [facility] Comment on above: Performed By: #### 1 [id number] #### [facility] [address] [place] [address] M. tuberculosis stim IFN-g by CD4+ T-cells corrected for background Qn (Bld) 0.04 International_Unit/m L Invalid Interpretation Code [facility] Comment on above: Performed By: #### 1 [id number] #### [facility] [address] [place] [address] M. tuberculosis stim IFN-g Ql (Bld) [Interp] Negative Invalid Interpretation Code Negative [facility] Comment on above: Result Comment: No r [...] interferon gamma. Chemiluminescence immunoassay methodology Performed at: [facility] [address] [id number] PhD Barrie Vazquez Performed By: #### 1 [id number] #### [facility] [address] [place] [address] Mitogen stimulated gamma interferon corrected for background Qn (Bld) >10.00 Invalid Interpretation Code [facility] Comment on above: Performed By: #### 1 [id number] #### [facility] [address] [place] [address] Service comment (Unsp spec) [Interp] Comment Invalid Interpretation Code [facility] Comment on above: Result Comment: Vincent tiFERON-TB [...] for the test. Performed By: #### 1 [id number] #### [facility] [address] [place] [address] Hep Bs Abon 10-31-2024 HBV surface Ab Ql (S) Reactive Invalid Interpretation Code [facility] Comment on above: Result Comment: Non Reactive: Not immune to HBV infection. Equivocal: Unable to determine if anti-HBs is present at levels consistent with immunity. Reactive: Anti-HBs concentration detected at greater than 10 mIU/mL. Individual is considered to be immune to infection with HBV. Performed at: [facility] [address], [place] [id number] PhD Barrie Vazquez Performed By: #### 2 [id number] #### [facility] [address] [place] [address] Measles/Mumps/Rubella Immuni tyon 10-31-2024 MeV IgG IA Qn (S) {index_val} Low Immune >16.4 [facility] Comment on above: Result Comment: Nega tive <13.5 Equivocal 13.5 - 16.4 Positive >16.4 Presence of antibodies to Rubeola is presumptive evidence of immunity except when acute infection is suspected. Performed By: #### 3 [id number] #### [facility] [address] [place] [address] MuV IgG IA Qn (S) 67.1 A unit/mL Invalid Interpretation Code Immune >10.9 [facility] Comment on above: Result Comment: Nega tive <9.0 Equivocal 9.0 - 10.9 Positive >10.9 A positive result generally indicates past exposure to Mumps virus or previous vaccination. Performed at: [facility] [address], [place] [id number] PhD Barrie Vazquez Performed By: #### 3 [id number] #### [facility] [address] [place] [address] Rubella virus IgG Qn (S) 1.41 [IU]/mL Invalid Interpretation Code Immune >0.99 [facility] Comment on above: Result Comment: Non- immune <0.90 Equivocal 0.90 - 0.99 Immune >0.99 Performed By: #### 3 [id number] #### [facility] [address] [place] [address] Varic IgGon 10-31-2024 VZV IgG IA Ql (S) Non-Reactive Invalid Interpretation Code Non Reactive [facility] Comment on above: Result Comment: Pl ease note reference interval change A Reactive result is considered evidence of immunity to VZV. Reactive indicates that VZV IgG was detected consistent with previous infection and/or vaccination. A Non Reactive result indicates that VZV IgG was not detected suggesting that immunity has not been acquired. Performed at: [facility] [address] [id number] PhD Barrie Vazquez Performed By: #### 1 [id number] #### [facility] [address] [place] [address] Office Visiton 06-30-2024 Follow-up visit [id number] SaraDebby L 1990 F Date Provider Department Center 06/30/2024 [id number] DAVIS CARD [facility] Family History Problem Relation Age of Onset No Known Problems Mother No Known Problems Father Family Status - Relation Status Age at Mother Father Level of Service:12063 [place] OFFICE/OUTPATIENT ESTABLISHED MOD MDM 30 MIN Reason for Visit and Comments: Palpitations [018028] - She was on labetalol while , and then was switched to Toprol post . Feels palpitations when she skips a dose by mistake. Says her BP at home is usually around 110 systolic. She questions if she really needs beta mari or not. SVT [Other] - Had labs last week. Denies chest pain, SOB, and lightheadedness. Normal [facility] Basophils Auto (Bld) [#/Vol] on 06-21-2024 Basophils (Bld) [#/Vol] Automated basoph il count 0.0-0.1 [facility] Basophils/100 WBC Auto (Bld) on 06-21-2024 Basophils/100 WBC (Bld) Automated basophil % 0. 2-2.0 [facility] Eosinophils/100 WBC Auto (Bl d)on 06-21-2024 Eosinophils/100 WBC (Bld) Automated eosinophil % 0.9-7.0 [facility] Erythrocyte distribution wid th Auto (RBC) [Ratio]on 06-21-2024 Erythrocyte distribution width (RBC) [Ratio] Erythrocyte distribution width [Ratio] by Automated count 11.0-15.0 [facility] Estimated glomerular filtrat ion rate (GFR) non- Americanon 06-21-2024 GFR/1.73 sq M.predicted among non-blacks MDRD (S/P/Bld) [Vol rate/Area] Estimated glomerular filtration rate (GFR) non- >=60 mL/min/1.73m 2 [facility] HCG ( test) Brisa d Ql (U)on 06-21-2024 HCG ( test) Ql (U) Urine human chorionic gonadotropin (hCG) detection by immunoassay NEGATIVE [facility] Hematocrit Auto (Bld) [Volum e fraction]on 06-21-2024 Hematocrit (Bld) [Volume fraction] Hematocrit [Volume Fraction] of Blood by Automated count 36.0-48.0 [facility] Hemoglobin [Mass/volume] in Bloodon 06-21-2024 Hemoglobin (Bld) [Mass/Vol] Hemoglobin [Mass/volume] in Blood 12.0-16.0 [facility] Laboratory - Chemistry and C hemistry - challengeon 06-21-2024 Bilirubin Ql (U) Negative NEGATIVE [facility] Calcium [Mass/Vol] 9.4 mg/dL 8.5-10.1 [facility] Chloride [Moles/Vol] 103 mmol/L 98-107 [facility] CO2 [Moles/Vol] 28.8 mmol/L 21.0-32.0 [facility] Creatinine [Mass/Vol] 0.78 mg/dL 0.55-1.02 [facility] GFR/1.73 sq M.predicted MDRD (S/P/Bld) [Vol rate/Area] mL/min/{1.73_m2} >=60 mL/min/1.73m 2 [facility] Glucose (U) [Mass/Vol] Negative NEGATIVE [facility] Glucose [Mass/Vol] 95 mg/dL 74-106 [facility] Ketones Ql (U) Negative NEGATIVE [facility] pH (U) 6.0 [pH] 5.0-9.0 [facility] Potassium [Moles/Vol] 3.9 mmol/L 3.5-5.1 [facility] Sodium [Moles/Vol] 141 mmol/L 136-145 [facility] Specific gravity (U) [Rel density] 1.020 1.005-1.025 [facility] Urea nitrogen [Mass/Vol] 13.0 mg/dL 7.0-18.0 [facility] Urea nitrogen/Creatinine [Mass ratio] 16.7 mg/mg [facility] Urobilinogen Qn (U) 0.2 {Jerzy'U}/dL 0.2-1.0 [facility] Laboratory - Hematology and Cell countson 06-21-2024 Immature granulocytes/100 WBC (Bld) 0.4 % 0.0-0.5 [facility] Laboratory - Specimen inform ationon 06-21-2024 Appearance (U) CLEAR CLEAR [facility] Color (U) LT. YELLOW YELLOW [facility] Laboratory - Urinalysison Leukocyte esterase Test strip Ql (U) SMALL Abnormal NEGATIVE [facility] Nitrite Ql (U) Negative NEGATIVE [facility] Protein Ql (U) Negative NEG/TRACE [facility] Leukocytes [#/volume] correc ester for nucleated erythrocytes in Blood by Automated counon 06-21-2024 WBC corrected for nucl RBC Auto (Bld) [#/Vol] Leukocytes [#/volume] corrected for nucleated erythrocytes in Blood by Automated coun 4.0-11.0 [facility] Lymphocytes Auto (Bld) [#/Vo l]on 06-21-2024 Lymphocytes (Bld) [#/Vol] Lymphocytes [#/volume] in Blood by Automated count 1.2-3.8 [facility] Lymphocytes/100 WBC Auto (Bl d)on 06-21-2024 Lymphocytes/100 WBC (Bld) Lymphocytes/100 leukocytes in Blood by Automated count 20.5-60.0 [facility] MCH Auto (RBC) [Entitic mass ]on 06-21-2024 MCH (RBC) [Entitic mass] MCH [Entitic mass] by Automated count Low 26.7-34.0 [facility] MCHC Auto (RBC) [Mass/Vol]on 06-21-2024 MCHC (RBC) [Mass/Vol] MCHC [Mass/volume] by Automated count 29.9-35.2 [facility] MCV Auto (RBC) [Entitic vol] on 06-21-2024 MCV (RBC) [Entitic vol] MCV [Entitic vol ume] by Automated count 81.0-99.0 [facility] Monocytes Auto (Bld) [#/Vol] on 06-21-2024 Monocytes (Bld) [#/Vol] Automated blood monocyte count 0.3-0.8 [facility] Monocytes/100 WBC Auto (Bld) on 06-21-2024 Monocytes/100 WBC (Bld) Automated monocyte % 1. 7-12.0 [facility] Neutrophils Auto (Bld) [#/Vo l]on 06-21-2024 Neutrophils (Bld) [#/Vol] Neutrophils [#/volume] in Blood by Automated count 1.4-6.5 [facility] Neutrophils/100 WBC Auto (Bl d)on 06-21-2024 Neutrophils/100 WBC (Bld) Automated neutrophil % 43.0-75.0 [facility] No Panel Informationon 06-21 Eosinophils # (Auto) 0.2 10 3/uL 0.0-0.7 [facility] Immature Granulocyte # (Auto) 0.04 10 3/uL High 0.00-0.03 [facility] Urine Occult Blood Negative NEGATIVE [facility] Platelet mean volume Auto (B ld) [Entitic vol]on 06-21-2024 Platelet mean volume (Bld) [Entitic vol] Platelet mean volume [Entitic volume] in Blood by Automated count Low 9.5-13.5 [facility] Platelets Auto (Bld) [#/Vol] on 06-21-2024 Platelets (Bld) [#/Vol] Platelets [#/vol ume] in Blood by Automated count 150-450 [facility] RBC Auto (Bld) [#/Vol]on RBC (Bld) [#/Vol] Erythrocytes [#/volume] in Blood by Automated count 4.20-5.40 [facility] Serum or plasma anion gap de terminationon 06-21-2024 Anion gap [Moles/Vol] Serum or plasma anion gap determination [facility] Urine Cultureon 06-21-2024 Bacteria identified Cx Nom (U) 75,000 colonies/ml mixed bacterial skin contaminants 2 Days PERFORMED BY: [facility] [address] [id number] PATHOLOGIST COMPENSATION COORDINATOR ANGELES ROONEY M.D. Normal The Counts Include [address] [facility] Comment on above: Performed By: #### C UU #### [place] [id number] [facility] 36on 04-11-2024 36 Patient must have an appointment for ANY refills - thanks Normal [facility] No Panel InformationOrdered By: Pauly Rivera on 10-26-2023 Quick Strep (POC) [facility] GTT 3 HR PREGon 10-23-2022 Glucose [Mass/Vol] 97 mg/dL Normal 74-106 [place] Comment on above: Performed By: #### G TT3P #### [facility] [address] [address] [address] Oralia Ordonez Glucose [Mass/Vol] 182 mg/dL Normal [place] Comment on above: Performed By: #### G TT3P #### [facility] [address] [address] [address] Oralia Ordonez Glucose [Mass/Vol] 142 mg/dL Normal [place] Comment on above: Performed By: #### G TT3P #### [facility] [address] [address] [address] Oralia Ordonez Glucose [Mass/Vol] 126 mg/dL Normal [place] Comment on above: Performed By: #### G TT3P #### [facility] [address] [address] [address] Oralia Ordonez GLUCOSE - 1HRon 10-16-2022 Glucose [Mass/Vol] 154 mg/dL Critically high 74-106 [facility] Comment on above: Performed By: #### G LU1HR #### [facility] [address] [address] [address] Oralia Ordonez US PREG CERVICAL LENGTHon [...] on 09-05-2022 HBsAg Screen Negative Normal Negative [facility] Comment on above: Performed By: #### H BSANS #### [facility] [address] [address] [address] Oralia Ordonez HEPATITIS C VIRUS AB W/ REFL EX QUANTon 09-05-2022 HCV AB Non-Reactive Normal Non Reactive [facility] Comment on above: Performed By: #### H CVPCRR #### [facility] [address] [place] [address] Dr. Oralia Ordonez Interpretation: Comment Normal [facility] Comment on above: Result Comment: Not infected with HCV unless early or acute infection is suspected (which may be delayed in an immunocompromised individual), or other evidence exists to indicate HCV infection. Performed By: #### H CVPCRR #### [facility] [address] [address] [address] Oralia Ordonez HIV 1 AND 2 WITH REFLEXon HIV Screen 4th Generation wRfx Non-Reactive Normal Non Reactive [facility] Comment on above: Result Comment: HIV Negative HIV-1/HIV-2 antibodies and HIV-1 p24 antigen were NOT detected. There is no laboratory evidence of HIV infection. Performed By: #### H IV12 #### [facility] [address] [place] [address] Dr. Oralia Ordonez RPR QUANTon 09-05-2022 Rapid Plasma Reagin, Quant Non-Reactive Normal NonRea<1:1 [facility] Comment on above: Result Comment: Plea se Note: This test does not meet current guidelines for screening and diagnosis of syphilis. This test is intended for following treatment response in patients being treated for syphilis infection. To screen for syphilis infection, a reflex cascade that includes both RPR and a treponema-specific assay should be utilized, such as Treponema pallidum (Syphilis) Screening [place] (871988) or Rapid Plasma Reagin (RPR) Test With Reflex to Quantitative RPR and Confirmatory Treponema pallidum Antibodies (976566). Performed By: #### R PRQ #### [facility] [address] [place] [address] Dr. Oralia Ordonez RUBELLA AB IGGon 09-05-2022 Rubella Antibodies, IgG 1.33 index Normal Immune >0.99 [facility] Comment on above: Result Comment: Non- immune <0.90 Equivocal 0.90 - 0.99 Immune >0.99 Performed By: #### R UBIGG #### [facility] [address] [place] [address] Dr. Oralia Ordonez BOX TEST SENT OUTon 09-05-19 SENT TO REF LAB 09/04/2022 Normal [facility] Comment on above: Performed By: #### B OX #### [facility] [address] [place] [address] Dr. Oralia Ordonez CBC AUTO DIFFon 09-04-2022 BASO # 0.0 103/ul Normal 0.0-0.1 [facility] Comment on above: Performed By: #### T SH #### [facility] [address] [place] [address] Dr. Oralia Ordonez Basophils/100 WBC (Bld) 0.3 % Normal 0.2-2.0 [facility] Comment on above: Performed By: #### T SH #### [facility] [address] [place] [address] Dr. Oralia Ordonez EO # 0.1 103/ul Normal 0.0-0.7 [facility] Comment on above: Performed By: #### T SH #### [facility] [address] [place] [address] Dr. Oralia Ordonez Eosinophils/100 WBC (Bld) 1.1 % Normal 0.9-7.0 [facility] Comment on above: Performed By: #### T SH #### [facility] [address] [place] [address] Dr. Oralia Ordonez Erythrocyte distribution width (RBC) [Ratio] 13.6 % Normal 11.0-15.0 [facility] Comment on above: Performed By: #### T SH #### [facility] [address] [place] [address] Dr. Oralia Ordonez Hematocrit (Bld) [Volume fraction] 38.5 % Normal 36.0-48.0 [facility] Comment on above: Performed By: #### T SH #### [facility] [address] [place] [address] Dr. Oralia Ordonez Hemoglobin (Bld) [Mass/Vol] 12.7 g/dL Normal 12.0-16.0 [facility] Comment on above: Performed By: #### T SH #### [facility] [address] [place] [address] Dr. Oralia Ordonez IG # 0.03 10e3/ul Normal 0.00-0.03 [facility] Comment on above: Performed By: #### T SH #### [facility] [address] [place] [address] Dr. Oralia Ordonez IG % 0.3 % Normal 0.0-0.5 [facility] Comment on above: Performed By: #### T SH #### [facility] [address] [place] [address] Dr. Oralia Ordonez LYMPH # 2.3 103/ul Normal 1.2-3.8 [facility] Comment on above: Performed By: #### T SH #### [facility] [address] [place] [address] Dr. Oralia Ordonez Lymphocytes/100 WBC (Bld) 21.3 % Normal 20.5-60.0 [facility] Comment on above: Performed By: #### T SH #### [facility] [address] [place] [address] Dr. Oralia Ordonez MANUAL DIFF REQ NO Normal [facility] Comment on above: Performed By: #### T SH #### [facility] [address] [place] [address] Dr. Oralia Ordonez MCH (RBC) [Entitic mass] 26.6 pg Critically low 26.7-34.0 [facility] Comment on above: Performed By: #### T SH #### [facility] [address] [place] [address] Dr. Oralia Ordonez MCHC (RBC) [Mass/Vol] 33.0 g/dL Normal 29.9-35.2 [facility] Comment on above: Performed By: #### T SH #### [facility] [address] [place] [address] Dr. Oralia Ordonez MCV (RBC) [Entitic vol] 80.7 fL Critically low 81.0-99. 0 [facility] Comment on above: Performed By: #### T SH #### [facility] [address] [place] [address] Dr. Oralia Ordonez MONO # 0.4 103/ul Normal 0.3-0.8 [facility] Comment on above: Performed By: #### T SH #### [facility] [address] [place] [address] Dr. Oralia Ordonez Monocytes/100 WBC (Bld) 3.7 % Normal 1.7-12.0 [facility] Comment on above: Performed By: #### T SH #### [facility] [address] [place] [address] Dr. Oralia Ordonez NEUT # 7.8 103/ul Critically high 1.4-6.5 [facility] Comment on above: Performed By: #### T SH #### [facility] [address] [place] [address] Dr. Oralia Ordonez Neutrophils/100 WBC (Bld) 73.3 % Normal 43.0-75.0 [facility] Comment on above: Performed By: #### T SH #### [facility] [address] [place] [address] Dr. Oralia Ordonez Platelet mean volume (Bld) [Entitic vol] 8.9 fL Critically low 9.5-13.5 [facility] Comment on above: Performed By: #### T SH #### [facility] [address] [place] [address] Dr. Oralia Ordonez PLT 286 103/ul Normal 150-450 [facility] Comment on above: Performed By: #### T SH #### [facility] [address] [place] [address] Dr. Oralia Ordonez RBC 4.77 106/ul Normal 4.20-5.40 [facility] Comment on above: Performed By: #### T SH #### [facility] [address] [place] [address] Dr. Oralia Ordonez WBC 10.7 103/ul Normal 4.0-11.0 [facility] Comment on above: Performed By: #### T SH #### [facility] [address] [place] [address] Dr. Oralia Ordonez CULTURE URINEon 09-04-2022 CULTURE URINE Culture Observations: LIGHT GROWTH OF MIXED GENITAL JESIKA. NO POTENTIAL PATHOGENS SEEN. Normal [facility] Comment on above: Performed By: #### T SH #### [facility] [address] [place] [address] Dr. Oralia Ordonez GLYCOHEMOGLOBIN A1Con 2022 ADA RECOMMENDATION SEE BELOW Normal [place] Comment on above: Result Comment: ADA RECOMMENDED LIMIT 4.0 - 6.0 ADA THERAPEUTIC TARGET < 7.0 ACTION SUGGESTED > 7.0 Performed By: #### A 1C #### [facility] [address] [place] [address] Dr. Oralia Ordonez Glucose [Mass/Vol] 108 mg/dL Normal [facility] Comment on above: Performed By: #### A 1C #### [facility] [address] [place] [address] Dr. Oralia Ordonez HbA1c (Bld) [Mass fraction] 5.4 % Normal 4.5-6.2 [facility] Comment on above: Performed By: #### A 1C #### [facility] [address] [place] [address] Dr. Oralia Ordonez TSHon 09-04-2022 TSH 1.161 uIU/mL Normal 0.358-3.740 [facility] Comment on above: Performed By: #### T SH #### [facility] [address] [address] [address] Oralia Ordonez TYPE AND SCREENon 09-04-2022 TYPE AND SCREEN Negative Normal [facility] Comment on above: Performed By: #### T #### [facility] [address] [address] [address] Oralia Ordonez US PREG TVon 08-25-2022 [...] LAVINIA WEST Date: 2022-08-25 16:23 Normal [facility] Vital Signs Date Time Vital Sign Value Performing Clinician Facility 02-20-2025 10:53-0400 Body height 160.02 cm Sal Oberer DO Work Phone: [facility] 02-20-2025 10:53-0400 Body mass index (BMI) [Ratio] 51 kg/m2 Sal Oberer DO Work Phone: [facility] 02-20-2025 10:53-0400 Body temperature 98.4 [degF] Sal Oberer DO Work Phone: [facility] 02-20-2025 10:53-0400 Body weight 130.74 kg Sal Oberer DO Work Phone: [facility] 02-20-2025 10:53-0400 Diastolic blood pressure 75 mm[Hg] Sal Oberer DO Work Phone: [facility] 02-20-2025 10:53-0400 Heart rate 78 /min Sal Oberer DO Work Phone: [facility] 02-20-2025 10:53-0400 Respiratory rate 16 /min Sal Oberer DO Work Phone: [facility] 02-20-2025 10:53-0400 SaO2% (BldA) [Mass fraction] 99 % Sal Oberer DO Work Phone: [facility] 02-20-2025 10:53-0400 Systolic blood pressure 100 mm[Hg] Sal Oberer DO Work Phone: [facility] 01-08-2025 11:05-0400 Body mass index (BMI) [Ratio] 54.1 kg/m2 Demond Glenroy DO Work Phone: [facility] 01-08-2025 11:05-0400 Body weight 134.17 kg Demond Glenroy DO Work Phone: [facility] 01-08-2025 11:05-0400 Diastolic blood pressure 68 mm[Hg] Demond Glenroy DO Work Phone: [facility] 01-08-2025 11:05-0400 Systolic blood pressure 110 mm[Hg] Demond Glenroy DO Work Phone: [facility] 11-24-2024 11:49-0400 Body height 160.02 cm [facility] 11-24-2024 11:49-0400 Body mass index (BMI) [Ratio] 52 kg/m2 [facility] 11-24-2024 11:49-0400 Body temperature 101.4 [degF] [facility] 11-24-2024 11:49-0400 Body weight 133.35 kg [facility] 11-24-2024 11:49-0400 Diastolic blood pressure 77 mm[Hg] [facility] 11-24-2024 11:49-0400 Heart rate 103 /min [facility] 11-24-2024 11:49-0400 Respiratory rate 18 /min [facility] 11-24-2024 11:49-0400 SaO2% (BldA) [Mass fraction] 98 % [facility] 11-24-2024 11:49-0400 Systolic blood pressure 125 mm[Hg] [facility] 10-26-2023 09:34-0400 Body height 160.02 cm [facility] 10-26-2023 09:34-0400 Body mass index (BMI) [Ratio] 47.9 kg/m2 [facility] 10-26-2023 09:34-0400 Body temperature 97.1 [degF] [facility] 10-26-2023 09:34-0400 Body weight 122.92 kg [facility] 10-26-2023 09:34-0400 Diastolic blood pressure 70 mm[Hg] [facility] 10-26-2023 09:34-0400 Heart rate 63 /min [facility] 10-26-2023 09:34-0400 Respiratory rate 18 /min [facility] 10-26-2023 09:34-0400 SaO2% (BldA) [Mass fraction] 97 % [facility] 10-26-2023 09:34-0400 Systolic blood pressure 111 mm[Hg] [facility] Encounters Encounter Date Encounter Type Care Provider Facility Start: 02-20-2025 End: 02-20-2025 ambulatory Sal Simms DO Work Phone: [facility] Work Phone: Start: 02-20-2025 End: 02-20-2025 Patient encounter procedure Sal Simms DO -[facility] [place] Work Phone: Start: 01-10-2025 End: 01-10-2025 Clinisync Result Encounter Demond Glenroy DO Work Phone: [facility] Unsolicited Start: 01-10-2025 End: 01-10-2025 Clinisync Result Encounter Demond Glenroy DO Work Phone: [facility] Unsolicited Start: 01-10-2025 [facility] Start: 01-08-2025 End: 01-08-2025 Bamboo flowsheet Demond Glenroy DO Work Phone: [facility] Start: 01-08-2025 End: 01-12-2025 Bamboo flowsheet Demond Glenroy DO Work Phone: [facility] Start: 01-08-2025 End: 01-12-2025 Clinisync Result Encounter Demond Glenroy DO Work Phone: [facility] Unsolicited Start: 01-08-2025 Non-patient / Non-visit [facility] Start: 01-08-2025 End: [...] Not Available Start: 12-01-2024 End: 12-01-2024 ambulatory [facility] Start: 11-24-2024 End: 11-24-2024 ambulatory [facility] Work Phone: Start: 11-24-2024 End: 11-24-2024 Patient encounter procedure Counts Include [address] [facility] Work Phone: Start: 10-30-2024 End: 10-30-2024 ambulatory Dana Anoop REYES Facility:[facility] Start: 10-30-2024 End: 10-30-2024 ambulatory [facility] Facility:[facility] Start: 06-30-2024 ambulatory [facility] Start: 06-21-2024 End: 06-21-2024 ambulatory Rigo Clementsadelaida Facility:[facility] Start: 06-21-2024 Non-patient / Non-visit Counts Include [address] [facility] Work Phone: Start: 10-26-2023 End: 10-26-2023 ambulatory [facility] Work Phone: Start: 10-26-2023 End: 10-26-2023 Patient encounter procedure Counts Include [address] [facility] Work Phone: Start: 01-09-2023 End: 02-16-2023 Pre-admission assessment Demond TIM [facility] Start: 10-25-2022 End: 10-25-[address] SAL [...] 05-05-2021 End: 05-05-2021 ambulatory Chiara Alexander Other [facility] Other Start: 05-05-2021 Telephone encounter Chiara Solano [facility] Start: 04-07-2021 Telephone encounter Chiara Solano [facility] Procedures Date Procedure [...] Screening for malign ant neoplasm of cervix [facility] Start: 01-14-2026 End: 01-14-2026 Patient encounter procedure 01/14/2026 9:00 AM EDT Procedure Visit [facility] [address] [address] Demond Tim, DO [address] [place], [place] [address] [facility] Start: 02-16-2025 Influenza vaccination Influenza Vacc ine (#1) [facility] Start: 01-08-2025 End: 01-08-2025 Patient encounter procedure 01/08/2025 11:00 AM EDT Office Visit [facility] [address] [place] [address] Demond Tim, DO [address] [place] [address] Arrived [facility] Comment on above: Arrived Start: 06-21-2024 Urine culture [facility] CBC W Auto Different ial panel - Blood CBC auto differential Lab Routine Well woman exam with routine gynecological exam Borderline diabetes mellitus Ordered: 01/08/2025 [facility] Comment on above: Ordered: 01/08/2025 Cholesterol [Mass/volume] in Serum or Plasma Cholesterol, total Lab Routine Well woman exam with routine gynecological exam Borderline diabetes mellitus Ordered: 01/08/2025 [facility] Comment on above: Ordered: 01/08/2025 Comprehensive metabo lic 2000 panel - Serum or Plasma Comprehensive metabolic panel Lab Routine Well woman exam with routine gynecological exam Borderline diabetes mellitus Ordered: 01/08/2025 [facility] Comment on above: Ordered: 01/08/2025 Cytology Cervical or vaginal smear or scraping study Pap Smear Pathology and Cytology Routine Well woman exam with routine gynecological exam Ordered: 01/08/2025 [facility] Work Phone: Comment on above: Ordered: 01/08/2025 Hemoglobin A1c/Hemoglobin.total in Blood Hemoglobin A1c Lab Routine Well woman exam with routine gynecological exam Borderline diabetes mellitus Ordered: 01/08/2025 [facility] Comment on above: Ordered: 01/08/2025 Human papilloma viru s DNA [Presence] in Unspecified specimen by Probe with amplification HPV DNA probe, amplified Microbiology Routine Well woman exam with routine gynecological exam Ordered: 01/08/2025 [facility] Comment on above: Ordered: 01/08/2025 Thyrotropin [Units/volume] in Serum or Plasma TSH Lab Routine Well woman exam with routine gynecological exam Borderline diabetes mellitus Ordered: 01/08/2025 [facility] Comment on above: Ordered: 01/08/2025 Immunizations Immunization Date Immunization Notes Care Provider [facility] 02-20-2025 influenza, seasonal, injectable, preservative free Sal Oberer DO Work Phone: [facility] 04-14-2024 influenza virus vaccine, unspecified formulation Demond Glenroy DO Work Phone: [facility] 03-27-2022 influenza virus vaccine, unspecified formulation Demond GLENROY [facility] Comment on above: Reason for Medicatio n: Prophylaxis 03-08-2021 COVID-19 Vaccine Pfi zer - Documentation Purposes Only Chiara Fitt Other [facility] 03-08-2021 influenza, injectabl e, quadrivalent, preservative free Chiara Fitt Other [facility] 02-15-2021 COVID-19 Vaccine Pfi zer - Documentation Purposes Only Chiara Fitt Other [facility] 02-17-2020 influenza, injectabl e, quadrivalent, contains preservative Chiara Fitt Other [facility] Other 02-17-2020 influenza, injectabl e, quadrivalent, preservative free [facility] 04-14-2019 influenza, seasonal, injectable Chiara Fitt Other [facility] 06-19-2018 influenza, seasonal, injectable Chiara Fitt Other [facility] Payers Date Payer Category Payer Unknown 2024 Self-pay [id number] 2021 [facility] [id number] 1989 Unknown [id number]. 593 1989 Unknown [id number] [id number]. 593 1989 Unknown [id number] [id number]. 593 1989 Unknown [id number] [id number]. 593 1989 Unknown [id number] [id number]. 593 1989 Unknown [id number] [id number]. 593 1989 Unknown [id number] [id number]. 727 1989 Unknown [id number] [id number]. 727 1989 Unknown [id number] [id number]. 1259 1959 Unknown [id number] Unknown [id number] [id number] Unknown [id number] [id number]. 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 Compensation Counts Include [address] [facility] C t Ind [id number] Social History Date Type Detail Facility Unknown if ever smoked [facility] Other Start: 04-20-2023 End: 01-08-2025 Sex Assigned At [facility] Tobacco smoking status No Smoking Status Entered [facility] Start: 12-21-2022 End: 10-26-2023 Tobacco smoking status NHIS Never smoked tobacco (finding) [facility] Start: 1990 Sex Assigned At Female [facility] Start: 06-23-2024 End: 11-24-2024 Sex Female (finding) [facility] Start: 06-28-2023 End: 01-08-2025 Alcoholic beverage intake Lifetime non-drinker (finding) [facility] Start: 04-20-2023 End: 01-08-2025 History of Social function [facility] Start: 12-21-2022 Alcohol Comment Caffeine: 1-2 cups/day [facility] Start: 1990 Sex assigned at Not on file [facility] NEGATED: Highlighted row N [facility] Clinical Notes 09-05-2018 to 01-08-2025 Kathy [...] Depression Depression screening Gestational diabetes, diet controlled ([facility]) H/O dilation and curettage Headache Morbid obesity with BMI of 50.0-59.9, adult ([facility] [place] [place] Post depression Postop check Pre-eclampsia in period ([facility]) Pre-op exam Well woman exam HISTORY PAST MEDICAL HISTORY SOCIAL HISTORY Past Medical History: Diagnosis Date Abnormal uterine bleeding (AUB) Anxiety Breast cancer screening by mammogram Breast lump on right side at 1 o'clock position Breast lump on right side at 8 o'clock position Depression Depression screening Gestational diabetes, diet controlled ([facility]) H/O dilation and curettage Headache Morbid obesity with BMI of 50.0-59.9, adult ([facility] [place] [place]) Post depression Postop check Pre-eclampsia in period ([facility]) Pre-op exam Well woman exam Social [...] nursing note reviewed. Exam conducted with a muffler mechanic present. Vitals: Estimated body mass index is [...] Demond Tim DO documented in this encounter [facility] 12-01-2024 Note [place] Cardiology - [facility] Subjective Debby Bone is a 34 [...] no significant arrhythmias. (more content not included)... [facility] 11-24-2024 Evaluation note Diagnosis Onset Date Resolution Strep pharyngitis acute November 11:48am [facility] Work Phone: 1(773) 285-826101-13-2025 [facility] Subjective Debby Bone is a 33 y.o. year old female patient being seen for Palpitations Patient Active Problem List Diagnosis Tachycardia 36 weeks gestation of Intermittent palpitations SVT (supraventricular tachycardia) ([facility]) HPI Patient with history of palpitations. Also [...] Morbid obesity, BMI 52.8 (more content not included)...[facility]03-21-2019 History general Narrative - Reported* Type Description Date Medical History Stress fracture left foot-Dr Taya hess Medical History Depression Medical History Post pre-eclampsia Medical History HTN Medical History Gestational Diabetes Surgical History Bx right breast 09/05/18 Surgical History D&C and hysteroscopy 11/23/17 Surgical History D&C, hysteroscopy-[place]- Neg bx's -Dr Tim 08/03/20 Hospitalization History child 12/2018 [facility] [employer] Other Evaluation + Plan note No data available for this section [facility] noteNo InformationNortKindred Healthcare [employer] Other Evaluation noteNo assessment information available [facility] Work Phone: Evaluation note* Diagnosis Onset Date Resolution Status Admit Date Sore throat noneactive November 24 11:48am [facility] Work Phone: Evaluation note* Diagnosis Well woman exam with routine gynecological exam Routine gynecological examination Borderline diabetes mellitus Other abnormal glucose documented in this encounter [facility] - [facility] [employer] Other Hospital Discharge instructions No data available for this section [facility] No data available for this section [facility] HospitalReason for referral (narrative)No reason for referral information availableSt. [facility] Work Phone: Summary Purpose Family History [...] and content) DATE CREATED AUTHOR [facility]/01/[address] [facility] DATE CREATED AUTHOR AUTHOR'S ORGANIZ ATION 06/29/2024 [facility] DATE CREATED AUTHOR AUTHOR'S ORGANIZ ATION 10/31/2024 [facility] DATE CREATED AUTHOR AUTHOR'S ORGANIZ ATION 11/01/2024 [facility] DATE CREATED AUTHOR AUTHOR'S ORGANIZ ATION 11/04/2024 [facility] DATE CREATED AUTHOR AUTHOR'S ORGANIZ ATION 01/09/2025 [facility] EPIC DATE CREATED AUTHOR AUTHOR'S ORGANIZ ATION 01/23/2025 [facility] Patient Care team informatio n (unrecognized section [...] October 26, 2023 End: October 26, 2023 [employer] Relationship Specialty Start Date End Date Sal Simms MD PCP - [facility] 11/16/22 [employer] Relationship Specialty Start Date End Date Sal Simms MD PCP - [facility] 11/16/22 [employer] Relationship Specialty Start Date End Date Sal Simms MD PCP - [facility] 11/16/22 Team Status: Active Member Role Status Dates Sal Simms DO Primary Care Provider Active St art: January 08, 2025 Demnod Tim DO Attending Provider Active Start : [...] BE BASED ON THE PRIMARY CLINICAL RECORDS. [facility] provides no warranty or guarantee of the accuracy or completeness of information in this document.
[2025-03-20 17:05] LABS: Thyroid Stimulating Hormone 1.417 uIU/mL (0.358-3.740)
== END 2025-03-20 16:07 | disposition home or self-care (01) ==
LOC: LAB 16:06
PROVIDERS: PCP Family Medicine; Visit Provider Family Medicine
DX: E78.2 Mixed hyperlipidemia (principal); Z11.1 Encounter for screening for respiratory tuberculosis; Z79.899 Other long term (current) drug therapy; O24.419 Gestational diabetes mellitus in pregnancy, unspecified control
CPT/HCPCS: 36415; 83036; 84436; 84443

== ENCOUNTER 2025-03-30 16:51 | Outpatient (OUT) | payer BC, SELFPAY ==
--- OUTSIDE RECORDS SUMMARY | 2025-03-30 16:56 | XMS_ITS | CCD ---
Author Organization [facility] Providers Care Audio Visual Equipment Rental Clerk Name Role Phone Chiara Alexander Unavailable Sal [...] DR LAGOS Attending Unavailable GLENROY ., DR LAOGS Consulting Unavailable REQUEST, DR MONTERO LISTED Primary [...] Unavailable Oberer Sal ALFORD Primary Care Provider [phone] DEMOND TIM Attending Unavailable EDITH DAVIS Attending Unavailable RICARDO GOODSON Attending Unavailable Camacho HOLLAND Sal Primary Care Provider Pauly Rivera APRN Attending Provider [phone] Demond Tim DO Attending Provider Sal Simms DO Attending Provider [phone] Camacho HOLLAND Sal Primary Care Provider [phone] Pauly Rivera APRN Attending Provider [phone] Allergies Allergy Classification Reported Allergen(s) Allergy Type Date of Onset Reaction(s) Facility (5 sources) Azithromycin Drug Allergy 5 [facility] [place] (1 source) Azithromycin Drug Allergy 4 [facility] Repository (2 sources) Unable to obtain; Translations: [Unable to obtain] Propensity to adverse reactions (disorder) [facility] Repository (2 sources) No Known Medication Allergies; Translations: [No Known Medication Allergies] Propensity to adverse reactions (disorder) [facility] Repository (6 sources) Naproxen; Translations: [NAPROXEN] Drug Allergy 7 [facility] Work Phone: (6 sources) Other; Translations: [OTHER] Propensity to adverse reactions 3 [facility] (2 sources) Citalopram Analogues Propensity to adverse reactions 5 Dizziness [facility] (1 source) metFORMIN Drug Allergy 5 Hypoglycemia [facility] (1 source) Sertraline Drug Allergy 5 Suicidal ideation [facility] Medications Current Medications Medication Drug Class(es) Dates Sig (Normalized) Sig (Original) FLUoxetine 10 mg oral capsule (1 source) Serotonin Reuptake Inhibitor Start: 02-20-2025 take 1 capsule by mouth once daily Fluoxetine (Prozac) 10 mg capsule Active 10 MG PO Daily February 20, 2025 12:00am Complies with drug therapy labetalol hydrochloride 100 mg oral tablet (4 [...] third trimester controlled on oral hypoglycemic drug ([facility]) Take one tablet by mouth two times daily. Do not crush, chew, or split. 60 tablet 11 02/14/2023 Active 24 hr metoprolol succinate 25 mg extended release oral tablet (9 sources) beta-Adrenergic Mari Start: 10-26-2023 Metoprolol Succinate Active MG PO October 26, 2023 12:00am Start: 06-15-2023 take 1 tablet by allison th every twenty-four hours Metoprolol Succinate 25 mg tablet extended release 24 hr Active MG PO October 26, 2023 12:00am Complies with drug therapy Completed/Discontinued Medications Medication Drug Class(es) Dates Sig (Normalized) Sig (Original) [id number] 200 actuat albuterol 0.09 mg/actuat metered dose inhaler (3 sources) beta2-Adrenergic Agonist Start: 06-08-2020 Start: 06-08-2020 take 2 puff(s) by in halation every four hours as needed for cough Albuterol Sulfate HFA 108 (90 Base) MCG/ACT 2 puffs as needed Inhalation every 4 hrs p.r.n. wheeze or cough for 30 days May, Not-Taking amoxicillin 500 mg oral capsule (3 sources) Penicillin-class Antibacterial Start: 11-24-2024 End: 02-20-2025 take 1 capsule by mouth every twelve hours Amoxicillin 500 mg capsule Discontinued 500 MG PO Every 12 hours 06 04November 24, 2024 12:00am February 20, 2025 10:32am citalopram 20 mg oral tablet (14 sources) Serotonin Reuptake Inhibitor Start: 10-26-2023 End: 02-20-2025 take 1 tablet by mouth once daily Citalopram 20 mg tablet Discontinued 20 MG PO Daily October 26, 2023 12:00am February 20, 2025 10:32am Start: 11-16-2022 take 0.5 tablet by m outh once in the morning citalopram (CeleXA) 20 MG tablet Indications: Second trimester ([facility]) Take 0.5 tablets (10 mg) by mouth in the morning. 15 tablet 6 11/16/2022 Active Problems Active Problems Problem Classification Problem Date Documented Date Episodic/Chronic Anxiety disorders (5 sources) Anxiety; Translations: [Other specified anxiety disorders] 02-20-2025 Chronic Cardiac dysrhythmias (2 sources) Supraventricular tachycardia; Translations: [Supraventricular tachycardia] 02-20-2025 Chronic Coagulation and hemorrhagic disorders (3 sources) Blood coagulation disorder; Translations: [Coagulation defect, unspecified] Chronic Deficiency and other anemia (2 sources) Microcytic anemia; Translations: [Iron deficiency anemia, unspecified] 02-20-2025 Episodic Diabetes mellitus without complication (6 sources) Other abnormal glucose; Translations: [Prediabetes] Onset: 10-23-2022 Episodic Diabetes or abnormal glucose tolerance complicating ; childbirth; or the puerperium (5 sources) History of gestational diabetes mellitus; Translations: [Personal history of gestational diabetes] 02-20-2025 Episodic Disorders of lipid metabolism (5 sources) Mixed hyperlipidemia; Translations: [Mixed hyperlipidemia] 02-20-2025 Chronic Essential hypertension (7 sources) Essential hypertension; Translations: [Essential (primary) hypertension] Onset: 06-30-2024 Chronic Immunizations and screening for infectious disease (1 source) Encounter for screening for human papillomavirus (HPV); Translations: [ENC SCREENING HUMAN PAPILLOMAVIRUS] Onset: 10-28-2022 Episodic Malaise and fatigue (1 source) Malaise and fatigue; Translations: [Other malaise] 02-20-2025 Episodic Menstrual disorders (4 sources) Irregular menstruation, unspecified; Translations: [IRREGULAR MENSTRUATION UNSPECIFIED] Onset: 08-25-2022 Chronic Mood disorders (3 sources) Endogenous depression; 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 EHR Cmte Other and ill-defined heart disease (2 sources) Cardiomegaly; Translations: [Cardiomegaly] Onset: 06-30-2024 Chronic Other and ill-defined heart disease (2 sources) Left ventricular hypertrophy; Translations: [Cardiomegaly] 02-20-2025 Chronic Other nutritional; endocrine; and metabolic disorders [...] to excess calories] Onset: 06-30-2024 Chronic Other nutritional; endocrine; and metabolic disorders (2 sources) Body mass index 40+ - severely obese; Translations: [Body mass index (BMI) 50.0-59.9, adult] 02-20-2025 Chronic Other and delivery including normal (5 [...] Onset: 09-08-2022 Episodic Other upper respiratory infections (8 sources) Viral upper respiratory tract infection; Translations: [...] Palpitations; Translations: [Tachycardia, unspecified] Onset: 03-07-2023 Episodic Unclassified (1 source) Obesity, class 3; Translations: [Obesity, class 3] Onset: 06-30-2024 Results Test Name Value Interpretation Reference Range Facility Glucose mean value [Mass/vol ume] in Blood Estimated from glycated hemoglobinOrdered By: Sal Simms on 03-20-2025 Average glucose Estimated from glycated hemoglobin (Bld) [Mass/Vol] 117 mg/dL [facility] Hemoglobin A1c percentageOrd ered By: Sal Simms on 03-20-2025 HbA1c (Bld) [Mass fraction] 5.7 % 4.5-6.2 [facility] Comment on above: ADA RECOMMENDED LIMI T 4.0 - 6.0ADA THERAPEUTIC TARGET < 7.0ACTION SUGGESTED> 7.0 Laboratory - Chemistry and C hemistry - challengeOrdered By: Sal Simms on 03-20-2025 T4 [Mass/Vol] 7.40 ug/dL 4.80-13.90 [facility] TSH Qn 1.417 m[IU]/L 0.358-3.740 [facility] 36on 01-20-2025 36 MD Skylar Tovar MA Please tell her the echo was ok, follow up in 1 year LVM for patient to advise her of Dr. Goodson's findings. Normal [facility] IGP,APTIMA HPV,AGE GDLNon AGE GDLN ACOG TESTING Note . [facility] Comment on above: TESTS RESULT FLAG UN ITS REF RANGE LAB Clinician Provided Cytology Information Source.............Cervix;Endocervix No. of containers..01 ThinPrep Vial Age Algo ACOG Eloina... 30-65 01 FLAG LEGEND: L-Low Normal,H-High Normal,LL-Alert Low,HH-Alert High <-Panic Low,>-Panic High,A-Abnormal,AA-Critical Abnormal Performed at: 01 =[address] [phone] Kecia Riojas MD, HPV APTIMA Negative Negative [facility] Comment on above: This nucleic acid am plification test detects fourteen high- risk HPV types (16,18,31,33,35,39,45,51,52,56,58,59,66,68) without differentiation. Performed at: =[address] [id number] [place] Worker: Kecia Riojas MD, Phone: [phone] Performed at: [address] [id number] [place] Worker: Kecia Riojas MD, Phone: [phone] IGP, APTIMA HPV, RFX 16/18,[address] [facility] Comment on above: TESTS RESULT FLAG UN ITS REF RANGE LAB DIAGNOSIS: 02 NEGATIVE FOR INTRAEPITHELIAL LESION OR MALIGNANCY. THIS SPECIMEN WAS RESCREENED PART OF OUR PRINTED CIRCUIT BOARDS SOLDER LEVELER PROGRAM. Specimen adequacy: 02 Satisfactory for evaluation. Endocervical and/or squamous metaplastic cells (endocervical component) are present. Performed by: 02 Bella Pena Cost Recorder QC reviewed by: 02 Johanny Álvarez, Cost Recorder . 02 Note: Note 02 The Pap [...] Low,>-Panic High,A-Abnormal,AA-Critical Abnormal Performed at: [address] [address] Kecia Riojas MD, BRUSH-SPATULA CERVIX ENDOCERVIX [facility]INIS[facility] ALL CBC WITH AUTO DIFFon BASOPHILS ABSOLUTE AUTO 0 [facility] Basophils/100 WBC (Bld) 0.5 % 0.2 - 2.0 % [facility] Eosinophils/100 WBC (Bld) 2.6 % 0.9 - 7.0 % [facility] Erythrocyte distribution width (RBC) [Ratio] 14.1 % 11.0 - 15.0 % [facility] Hematocrit (Bld) [Volume fraction] 34.4 % Low 36.0 - 48.0 % [facility] Hemoglobin (Bld) [Mass/Vol] 10.9 g/dL Low 12.0 - 16.0 g/dL [facility] IMMATURE GRANULOCYTES ABS AUTO 0.02 [facility] Immature granulocytes/100 WBC (Bld) 0.2 % 0.0 - 0.5 % [facility] Interpretation and review of laboratory results Abnormal [facility] LYMPHOCYTES ABSOLUTE AUTO 2.7 [facility] Lymphocytes/100 WBC (Bld) 32.9 % 20.5 - 60.0 % [facility] MCH (RBC) [Entitic mass] 26 pg Low 26.7 - 34.[address] [facility] MCHC (RBC) [Mass/Vol] 31.7 g/dL 29.9 - 35.2 g/dL [facility] MCV (RBC) [Entitic vol] 81.9 fL 81.0 - 99.[address] [facility] MONOCYTES ABSOLUTE AUTO 0.4 [facility] Monocytes/100 WBC (Bld) 5.3 % 1.7 - 12.0 % [facility] NEUTROPHILS ABSOLUTE AUTO 4.8 [facility] Neutrophils/100 WBC (Bld) 58.5 % 43.0 - 75.0 % [facility] Platelet mean volume (Bld) [Entitic vol] 9 fL Low 9.5 - 13.[address] [facility] TBH EO # 0.2 [facility] PLT 237 [facility] RBC 4.2 [facility] WBC 8.2 [facility] Basophils Auto (Bld) [#/Vol] Ordered By: Demond Tim on 01-10-2025 Basophils (Bld) [#/Vol] 0.0 10 3/uL 0.0-0.1 [facility] Basophils/100 WBC Auto (Bld) Ordered By: Demond Tim on 01-10-2025 Basophils/100 WBC (Bld) 0.5 % 0.2-2.0 F [facility] Eosinophils/100 WBC Auto (Bl d)Ordered By: Demond Tim on 01-10-2025 Eosinophils/100 WBC (Bld) 2.6 % 0.9-7.0 [facility] Erythrocyte distribution wid th Auto (RBC) [Ratio]Ordered By: Demond Tim on 01-10-2025 Erythrocyte distribution width (RBC) [Ratio] 14.1 % 11.0-15.0 [facility] Globulin Calc (S) [Mass/Vol] Ordered By: Demond Tim on 01-10-2025 Globulin (S) [Mass/Vol] 4.0 g/dL F [facility] Glomerular filtration rate ( GFR) estimation in non- AmericanOrdered By: Demond Tim on 01-10-2025 GFR/1.73 sq M.predicted among non-blacks MDRD (S/P/Bld) [Vol rate/Area] mL/min/{1.73_m2} >=60 mL/min/1.73m 2 [facility] Glucose mean value [Mass/vol ume] in Blood Estimated from glycated hemoglobinOrdered By: Demond Tim on 01-10-2025 Average glucose Estimated from glycated hemoglobin (Bld) [Mass/Vol] 108 mg/dL [facility] Hematocrit Auto (Bld) [Volum e fraction]Ordered By: Demond Tim on 01-10-2025 Hematocrit (Bld) [Volume fraction] 34.4 % Low 36.0-48.0 [facility] Hemoglobin A1c percentageOrd ered By: Demond Tim on 01-10-2025 HbA1c (Bld) [Mass fraction] 5.4 % 4.5-6.2 [facility] Comment on above: ADA RECOMMENDED LIMI T 4.0 - 6.0ADA THERAPEUTIC TARGET < 7.0ACTION SUGGESTED> 7.0 Hemoglobin [Mass/volume] in BloodOrdered By: Demond Tim on 01-10-2025 Hemoglobin (Bld) [Mass/Vol] 10.9 g/dL Low 12.0-16.0 [facility] Laboratory - Chemistry and C hemistry - challengeOrdered By: Demond Tim on 01-10-2025 Albumin [Mass/Vol] 3.5 g/dL 3.4-5.0 [facility] ALP [Catalytic activity/Vol] 100 U/L 46-116 [facility] ALT [Catalytic activity/Vol] 14 U/L 14-59 [facility] AST [Catalytic activity/Vol] 13 U/L Low 15-37 [facility] Bilirubin [Mass/Vol] 0.2 mg/dL 0.2-1.0 [facility] Calcium [Mass/Vol] 9.1 mg/dL 8.5-10.1 [facility] Chloride [Moles/Vol] 105 mmol/L 98-107 [facility] Cholesterol [Mass/Vol] 157 mg/dL <=200 [facility] CO2 [Moles/Vol] 24.0 mmol/L 21.0-32.0 [facility] Creatinine [Mass/Vol] 0.67 mg/dL 0.55-1.02 [facility] GFR/1.73 sq M.predicted MDRD (S/P/Bld) [Vol rate/Area] mL/min/{1.73_m2} >=60 mL/min/1.73m 2 [facility] Glucose [Mass/Vol] 92 mg/dL 74-106 [facility] Potassium [Moles/Vol] 4.1 mmol/L 3.5-5.1 [facility] Protein [Mass/Vol] 7.5 g/dL 6.4-8.2 [facility] Sodium [Moles/Vol] 139 mmol/L 136-145 [facility] TSH Qn 3.252 m[IU]/L 0.358-3.740 [facility] Urea nitrogen [Mass/Vol] 22.0 mg/dL High 7.0-18.0 [facility] Urea nitrogen/Creatinine [Mass ratio] 32.8 mg/mg [facility] Laboratory - Hematology and Cell countsOrdered By: Demond Tim on 01-10-2025 Immature granulocytes/100 WBC (Bld) 0.2 % 0.0-0.5 [facility] Leukocytes [#/volume] correc ester for nucleated erythrocytes in Blood by Automated counOrdered By: Demond Tim on 01-10-2025 WBC corrected for nucl RBC Auto (Bld) [#/Vol] 8.2 10 3/uL 4.0-11.0 [facility] Lymphocytes Auto (Bld) [#/Vo l]Ordered By: Demond Tim on 01-10-2025 Lymphocytes (Bld) [#/Vol] 2.7 10 3/uL 1.2-3.8 [facility] Lymphocytes/100 WBC Auto (Bl d)Ordered By: Demond Tim on 01-10-2025 Lymphocytes/100 WBC (Bld) 32.9 % 20.5-60.0 [facility] MCH Auto (RBC) [Entitic mass ]Ordered By: Demond Tim on 01-10-2025 MCH (RBC) [Entitic mass] 26.0 pg Low 26.7-34.0 [facility] MCHC Auto (RBC) [Mass/Vol]Or dered By: Demond Tim on 01-10-2025 MCHC (RBC) [Mass/Vol] 31.7 g/dL 29.9-35.2 [facility] MCV Auto (RBC) [Entitic vol] Ordered By: Demond Tim on 01-10-2025 MCV (RBC) [Entitic vol] 81.9 fL 81.0-99.0 F [facility] Monocytes Auto (Bld) [#/Vol] Ordered By: Demond Tim on 01-10-2025 Monocytes (Bld) [#/Vol] 0.4 10 3/uL 0.3-0.8 [facility] Monocytes/100 WBC Auto (Bld) Ordered By: Demond Tim on 01-10-2025 Monocytes/100 WBC (Bld) 5.3 % 1.7-12.0 F [facility] Neutrophils Auto (Bld) [#/Vo l]Ordered By: Demond Tim on 01-10-2025 Neutrophils (Bld) [#/Vol] 4.8 10 3/uL 1.4-6.5 [facility] Neutrophils/100 WBC Auto (Bl d)Ordered By: Demond Tim on 01-10-2025 Neutrophils/100 WBC (Bld) 58.5 % 43.0-75.0 [facility] No Panel InformationOrdered By: Demond Tim on 01-10-2025 Eosinophils # (Auto) 0.2 10 3/uL 0.0-0.7 [facility] Immature Granulocyte # (Auto) 0.02 10 3/uL 0.00-0.03 [facility] Platelet mean volume Auto (B ld) [Entitic vol]Ordered By: Demond Tim on 01-10-2025 Platelet mean volume (Bld) [Entitic vol] 9.0 fL Low 9.5-13.5 [facility] Platelets Auto (Bld) [#/Vol] Ordered By: Demond Tim on 01-10-2025 Platelets (Bld) [#/Vol] 237 10 3/uL 150-450 [facility] RBC Auto (Bld) [#/Vol]Ordere d By: Demond Tim on 01-10-2025 RBC (Bld) [#/Vol] 4.20 10 6/uL 4.20-5.40 [facility] Serum or plasma albumin/glob ulin mass ratioOrdered By: Demond Tim on 01-10-2025 Albumin/Globulin [Mass ratio] 0.9 {ratio} [facility] Serum or plasma anion gap de terminationOrdered By: Demond Tim on 01-10-2025 Anion gap [Moles/Vol] 14.1 mmol/L [facility] Human papilloma virus 16+18+ 31+33+35+39+45+51+52+56+58+59+66+68 DNA [Presence] in CerOrdered By: Demond Tim on 01-08-2025 HPV 16+18+31+33+35+39+45+51 +52+56+58+59+66+68 DNA Probe+sig amp Ql (Cvx) Negative Negative [facility] Comment on above: This nucleic acid am plification test detects fourteen high-risk HPV types (16,18,31,33,35,39,45,51,52,56,58,59,66,68)without differentiation.Performed at: = - [facility] [address] [id number] Director: Kecia Riojas MD, Phone: [phone] at: - [facility] [address] [id number] Director: Kecia Riojas MD, Phone: [phone] No Panel InformationOrdered By: Demond Tim on 01-08-2025 HPV High Risk Other Comment Note . [facility] Comment on above: TESTS RESULT FLAG UN ITS REF RANGE LAB -DIAGNOSIS: 02 NEGATIVE FOR INTRAEPITHELIAL LESION OR MALIGNANCY. THIS SPECIMEN WAS RESCREENED PART OF OUR PRINTED CIRCUIT BOARDS SOLDER LEVELER PROGRAM.Specimen adequacy: 02 Satisfactory for evaluation. Endocervical and/or squamous metaplastic cells (endocervical component) are present.Performed by: 02 Bella Becky, CytologistQC reviewed by: 02 Johanny Álvarez, Cost Recorder. 02Note: Note 02 The Pap smear is [...] <-Panic Low,>-Panic High,A-Abnormal,AA-Critical Abnormal ------Performed at:[address] [address] Kecia Riojas MD, Reference Lab Test Patient Age Note . [facility] Comment on above: TESTS RESULT FLAG UN ITS REF RANGE LAB - Clinician Provided Cytology Information Source.............Cervix;Endocervix No. of containers..01 ThinPrep VialAge Joselitoo VU Eloina... 30 FLAG LEGEND: L-Low Normal,H-High Normal,LL-Alert Low,HH-Alert High <-Panic Low,>-Panic High,A-Abnormal,AA-Critical Abnormal ------Performed at:01 =G [facility] [place] [address] [facility] [place] [address] Kecia Riojas MD, Office Visiton 12-01-2024 Follow-up visit [id number] Debby Bone 1990 F Date Provider Department Center 12/01/2024 RICARDO ZAMORA CARD [facility] Family History Problem Relation Age of Onset No Known Problems Mother No Known Problems Father Family Status - Relation Status Age at Mother Father Level of Service:05665 [place] OFFICE/OUTPATIENT ESTABLISHED MOD MDM 30 MIN Normal [facility] No Panel InformationOrdered By: Pauly Rivera on 11-24-2024 Quick Strep (POC) [facility] Quantiferon-TB Plus (Client Incubated)on 11-01-2024 Gamma interferon background IA Qn (Bld) 0.07 International_Unit/m L Invalid Interpretation Code [facility] Comment on above: Performed By: #### 1 [id number] #### [facility] [address] [place] [address] M. tuberculosis stim IFN-g by CD4+ CD8+ T-cells corrected for background Qn (Bld) 0.06 International_Unit/m L Invalid Interpretation Code [facility] Comment on above: Performed By: #### 1 [id number] #### [facility] [address] [place] [address] M. tuberculosis stim IFN-g by CD4+ T-cells corrected for background Qn (Bld) 0.04 International_Unit/m L Invalid Interpretation Code [facility] Comment on above: Performed By: #### 1 [id number] #### [facility] [address] [place] [address] M. tuberculosis stim IFN-g Ql (Bld) [Interp] Negative Invalid Interpretation Code Negative [facility] Comment on above: Result Comment: No r [...] interferon gamma. Chemiluminescence immunoassay methodology Performed at: [facility] [address] [id number] PhD Barrie Vazquez Performed By: #### 1 [id number] #### [facility] [address] [place] [address] Mitogen stimulated gamma interferon corrected for background Qn (Bld) >10.00 Invalid Interpretation Code [facility] Comment on above: Performed By: #### 1 [id number] #### [facility] [address] [place] [address] Service comment (Unsp spec) [Interp] Comment Invalid Interpretation Code [facility] Comment on above: Result Comment: Vincent tiFERON-TB [...] for the test. Performed By: #### 1 [id number] #### [facility] [address] [place] [address] Hep Bs Abon 10-31-2024 HBV surface Ab Ql (S) Reactive Invalid Interpretation Code [facility] Comment on above: Result Comment: Non Reactive: Not immune to HBV infection. Equivocal: Unable to determine if anti-HBs is present at levels consistent with immunity. Reactive: Anti-HBs concentration detected at greater than 10 mIU/mL. Individual is considered to be immune to infection with HBV. Performed at: [address] [id number] PhD Barrie Vazquez Performed By: #### 2 [id number] #### [facility] [address] [place] [address] Measles/Mumps/Rubella Immuni tyon 10-31-2024 MeV IgG IA Qn (S) {index_val} Low Immune >16.4 [facility] Comment on above: Result Comment: Nega tive <13.5 Equivocal 13.5 - 16.4 Positive >16.4 Presence of antibodies to Rubeola is presumptive evidence of immunity except when acute infection is suspected. Performed By: #### 3 [id number] #### [facility] [address] [place] [address] MuV IgG IA Qn (S) 67.1 A unit/mL Invalid Interpretation Code Immune >10.9 [facility] Comment on above: Result Comment: Nega tive <9.0 Equivocal 9.0 - 10.9 Positive >10.9 A positive result generally indicates past exposure to Mumps virus or previous vaccination. Performed at: [address] [id number] PhD Barrie Vazquez Performed By: #### 3 [id number] #### [facility] [address] [place] [address] Rubella virus IgG Qn (S) 1.41 [IU]/mL Invalid Interpretation Code Immune >0.99 [facility] Comment on above: Result Comment: Non- immune <0.90 Equivocal 0.90 - 0.99 Immune >0.99 Performed By: #### 3 [id number] #### [facility] [address] [place] [address] Varic IgGon 10-31-2024 VZV IgG IA Ql (S) Non-Reactive Invalid Interpretation Code Non Reactive [facility] Comment on above: Result Comment: Pl ease note reference interval change A Reactive result is considered evidence of immunity to VZV. Reactive indicates that VZV IgG was detected consistent with previous infection and/or vaccination. A Non Reactive result indicates that VZV IgG was not detected suggesting that immunity has not been acquired. Performed at: [facility] [address] [place], [place] [id number] PhD Barrie Vazquez Performed By: #### 1 [id number] #### [facility] [address] [place] [address] Office Visiton 06-30-2024 Follow-up visit [id number] SaraFawn reedwayne Lozoya 1990 F Date Provider Department Center 06/30/2024 [id number] DAVIS Family History Problem Relation Age of Onset No Known Problems Mother No Known Problems Father Family Status - Relation Status Age at Mother Father Level of Service:94853 [place] OFFICE/OUTPATIENT ESTABLISHED MOD MDM 30 MIN Reason for Visit and Comments: Palpitations [019528] - She was on labetalol while , and then was switched to Toprol post . Feels palpitations when she skips a dose by mistake. Says her BP at home is usually around 110 systolic. She questions if she really needs beta mari or not. SVT [Other] - Had labs last week. Denies chest pain, SOB, and lightheadedness. Normal [facility] Basophils Auto (Bld) [#/Vol] on 06-21-2024 Basophils (Bld) [#/Vol] Automated basoph il count 0.0-0.1 [facility] Basophils/100 WBC Auto (Bld) on 06-21-2024 Basophils/100 WBC (Bld) Automated basophil % 0. 2-2.0 [facility] Eosinophils/100 WBC Auto (Bl d)on 06-21-2024 Eosinophils/100 WBC (Bld) Automated eosinophil % 0.9-7.0 [facility] Erythrocyte distribution wid th Auto (RBC) [Ratio]on 06-21-2024 Erythrocyte distribution width (RBC) [Ratio] Erythrocyte distribution width [Ratio] by Automated count 11.0-15.0 [facility] Estimated glomerular filtrat ion rate (GFR) non- Americanon 06-21-2024 GFR/1.73 sq M.predicted among non-blacks MDRD (S/P/Bld) [Vol rate/Area] Estimated glomerular filtration rate (GFR) non- >=60 mL/min/1.73m 2 [facility] HCG ( test) IA.rapi d Ql (U)on 06-21-2024 HCG ( test) Ql (U) Urine human chorionic gonadotropin (hCG) detection by immunoassay NEGATIVE [facility] Hematocrit Auto (Bld) [Volum e fraction]on 06-21-2024 Hematocrit (Bld) [Volume fraction] Hematocrit [Volume Fraction] of Blood by Automated count 36.0-48.0 [facility] Hemoglobin [Mass/volume] in Bloodon 06-21-2024 Hemoglobin (Bld) [Mass/Vol] Hemoglobin [Mass/volume] in Blood 12.0-16.0 [facility] Laboratory - Chemistry and C hemistry - challengeon 06-21-2024 Bilirubin Ql (U) Negative NEGATIVE [facility] Calcium [Mass/Vol] 9.4 mg/dL 8.5-10.1 [facility] Chloride [Moles/Vol] 103 mmol/L 98-107 [facility] CO2 [Moles/Vol] 28.8 mmol/L 21.0-32.0 [facility] Creatinine [Mass/Vol] 0.78 mg/dL 0.55-1.02 [facility] GFR/1.73 sq M.predicted MDRD (S/P/Bld) [Vol rate/Area] mL/min/{1.73_m2} >=60 mL/min/1.73m 2 [facility] Glucose (U) [Mass/Vol] Negative NEGATIVE [facility] Glucose [Mass/Vol] 95 mg/dL 74-106 [facility] Ketones Ql (U) Negative NEGATIVE [facility] pH (U) 6.0 [pH] 5.0-9.0 [facility] Potassium [Moles/Vol] 3.9 mmol/L 3.5-5.1 [facility] Sodium [Moles/Vol] 141 mmol/L 136-145 [facility] Specific gravity (U) [Rel density] 1.020 1.005-1.025 [facility] Urea nitrogen [Mass/Vol] 13.0 mg/dL 7.0-18.0 [facility] Urea nitrogen/Creatinine [Mass ratio] 16.7 mg/mg [facility] Urobilinogen Qn (U) 0.2 {Jerzy'U}/dL 0.2-1.0 [facility] Laboratory - Hematology and Cell countson 06-21-2024 Immature granulocytes/100 WBC (Bld) 0.4 % 0.0-0.5 [facility] - Specimen inform ationon 06-21-2024 Appearance (U) CLEAR CLEAR [facility] Color (U) LT. YELLOW YELLOW [facility] Laboratory - Urinalysison Leukocyte esterase Test strip Ql (U) SMALL Abnormal NEGATIVE [facility] Nitrite Ql (U) Negative NEGATIVE [facility] Protein Ql (U) Negative NEG/TRACE [facility] Leukocytes [#/volume] correc ester for nucleated erythrocytes in Blood by Automated counon 06-21-2024 WBC corrected for nucl RBC Auto (Bld) [#/Vol] Leukocytes [#/volume] corrected for nucleated erythrocytes in Blood by Automated coun 4.0-11.0 [facility] Lymphocytes Auto (Bld) [#/Vo l]on 06-21-2024 Lymphocytes (Bld) [#/Vol] Lymphocytes [#/volume] in Blood by Automated count 1.2-3.8 [facility] Lymphocytes/100 WBC Auto (Bl d)on 06-21-2024 Lymphocytes/100 WBC (Bld) Lymphocytes/100 leukocytes in Blood by Automated count 20.5-60.0 [facility] MCH Auto (RBC) [Entitic mass ]on 06-21-2024 MCH (RBC) [Entitic mass] MCH [Entitic mass] by Automated count Low 26.7-34.0 [facility] MCHC Auto (RBC) [Mass/Vol]on 06-21-2024 MCHC (RBC) [Mass/Vol] MCHC [Mass/volume] by Automated count 29.9-35.2 [facility] MCV Auto (RBC) [Entitic vol] on 06-21-2024 MCV (RBC) [Entitic vol] MCV [Entitic vol ume] by Automated count 81.0-99.0 [facility] Monocytes Auto (Bld) [#/Vol] on 06-21-2024 Monocytes (Bld) [#/Vol] Automated blood monocyte count 0.3-0.8 [facility] Monocytes/100 WBC Auto (Bld) on 06-21-2024 Monocytes/100 WBC (Bld) Automated monocyte % 1. 7-12.0 [facility] Neutrophils Auto (Bld) [#/Vo l]on 06-21-2024 Neutrophils (Bld) [#/Vol] Neutrophils [#/volume] in Blood by Automated count 1.4-6.5 [facility] Neutrophils/100 WBC Auto (Bl d)on 06-21-2024 Neutrophils/100 WBC (Bld) Automated neutrophil % 43.0-75.0 [facility] No Panel Informationon 06-21 Eosinophils # (Auto) 0.2 10 3/uL 0.0-0.7 [facility] Immature Granulocyte # (Auto) 0.04 10 3/uL High 0.00-0.03 [facility] Urine Occult Blood Negative NEGATIVE [facility] Platelet mean volume Auto (B ld) [Entitic vol]on 06-21-2024 Platelet mean volume (Bld) [Entitic vol] Platelet mean volume [Entitic volume] in Blood by Automated count Low 9.5-13.5 [facility] Platelets Auto (Bld) [#/Vol] on 06-21-2024 Platelets (Bld) [#/Vol] Platelets [#/vol ume] in Blood by Automated count 150-450 [facility] RBC Auto (Bld) [#/Vol]on RBC (Bld) [#/Vol] Erythrocytes [#/volume] in Blood by Automated count 4.20-5.40 [facility] Serum or plasma anion gap de terminationon 06-21-2024 Anion gap [Moles/Vol] Serum or plasma anion gap determination [facility] Urine Cultureon 06-21-2024 Bacteria identified Cx Nom (U) 75,000 colonies/ml mixed bacterial skin contaminants 2 Days PERFORMED BY: [facility] [address] [id number] PATHOLOGIST [employer] MA[employer] ANGELES ROONEY M.D. Normal [facility] Comment on above: Performed By: #### C UU #### [facility] [address] [place] [address] [facility] 36on 04-11-2024 36 Patient must have an appointment for ANY refills - thanks [facility] No Panel InformationOrdered By: Pauly Rivera on 10-26-2023 Quick Strep (POC) [facility] GTT 3 HR PREGon 10-23-2022 Glucose [Mass/Vol] 97 mg/dL Normal 74-106 [facility] Comment on above: Performed By: #### G TT3P #### [facility] [address] [address] [address] Oralia Ordonez Glucose [Mass/Vol] 182 mg/dL Normal [facility] Comment on above: Performed By: #### G TT3P #### [facility] [address] [address] [address] Oralia Ordonez Glucose [Mass/Vol] 142 mg/dL Normal [facility] Comment on above: Performed By: #### G TT3P #### [facility] [address] [address] [address] Oralia Ordonez Glucose [Mass/Vol] 126 mg/dL Normal [facility] Comment on above: Performed By: #### G TT3P #### [facility] [address] [address] [address] Oralia Ordonez GLUCOSE - 1HRon 10-16-2022 Glucose [Mass/Vol] 154 mg/dL Critically high 74-106 [facility] Comment on above: Performed By: #### G LU1HR #### [facility] [address] [address] [address] Oralia Ordonez US PREG CERVICAL LENGTHon [...] LAVINIA WEST Date: 2022-09-08 09:07 Normal [facility] HEP B SURFACE ANTIGEN SCREEN on 09-05-2022 HBsAg Screen Negative Normal Negative [facility] Comment on above: Performed By: #### H BSANS #### [facility] [address] [place] [address] Dr. Oralia Ordonez HEPATITIS C VIRUS AB W/ REFL EX QUANTon 09-05-2022 HCV AB Non-Reactive Normal Non Reactive [facility] Comment on above: Performed By: #### H CVPCRR #### [facility] [address] [place] [address] Dr. Oralia Ordonez Interpretation: Comment Normal [facility] Comment on above: Result Comment: Not infected with HCV unless early or acute infection is suspected (which may be delayed in an immunocompromised individual), or other evidence exists to indicate HCV infection. Performed By: #### H CVPCRR #### [facility] [address] [place] [address] Dr. Oralia Ordonez HIV 1 AND 2 WITH REFLEXon HIV Screen 4th Generation wRfx Non-Reactive Normal Non Reactive [facility] Comment on above: Result Comment: HIV Negative HIV-1/HIV-2 antibodies and HIV-1 p24 antigen were NOT detected. There is no laboratory evidence of HIV infection. Performed By: #### H IV12 #### [facility] [address] [place] [address] Dr. Oralia Ordonez RPR QUANTon 09-05-2022 Rapid Plasma Reagin, Quant Non-Reactive Normal NonRea<1:1 [facility] Comment on above: Result Comment: Plea se Note: This test does not meet current guidelines for screening and diagnosis of syphilis. This test is intended for following treatment response in patients being treated for syphilis infection. To screen for syphilis infection, a reflex cascade that includes both RPR and a treponema-specific assay should be utilized, such as Treponema pallidum (Syphilis) Screening [place] (353397) or Rapid Plasma Reagin (RPR) Test With Reflex to Quantitative RPR and Confirmatory Treponema pallidum Antibodies (975455). Performed By: #### R PRQ #### [facility] [address] [place] [address] Dr. Oralia Ordonez RUBELLA AB IGGon 09-05-2022 Rubella Antibodies, IgG 1.33 index Normal Immune >0.99 [facility] Comment on above: Result Comment: Non- immune <0.90 Equivocal 0.90 - 0.99 Immune >0.99 Performed By: #### R UBIGG #### [facility] [address] [place] [address] Dr. Oralia Ordonez BOX TEST SENT OUTon 09-05-19 23 SENT TO REF LAB 09/04/2022 Normal [facility] Comment on above: Performed By: #### B OX #### [facility] [address] [place] [address] Dr. Oralia Ordonez CBC AUTO DIFFon 09-04-2022 BASO # 0.0 103/ul Normal 0.0-0.1 [facility] Comment on above: Performed By: #### T SH #### [facility] [address] [place] [address] Dr. Oralia Ordonez Basophils/100 WBC (Bld) 0.3 % Normal 0.2-2.0 [facility] Comment on above: Performed By: #### T SH #### [facility] [address] [place] [address] Dr. Oralia Ordonez EO # 0.1 103/ul Normal 0.0-0.7 [facility] Comment on above: Performed By: #### T SH #### [facility] [address] [place] [address] Dr. Oralia Ordonez Eosinophils/100 WBC (Bld) 1.1 % Normal 0.9-7.0 [facility] Comment on above: Performed By: #### T SH #### [facility] [address] [place] [address] Dr. Oralia Ordonez Erythrocyte distribution width (RBC) [Ratio] 13.6 % Normal 11.0-15.0 [facility] Comment on above: Performed By: #### T SH #### [facility] [address] [place] [address] Dr. Oralia Ordonez Hematocrit (Bld) [Volume fraction] 38.5 % Normal 36.0-48.0 [facility] Comment on above: Performed By: #### T SH #### [facility] [address] [place] [address] Dr. Oralia Ordonez Hemoglobin (Bld) [Mass/Vol] 12.7 g/dL Normal 12.0-16.0 [facility] Comment on above: Performed By: #### T SH #### [facility] [address] [place] [address] Dr. Oralia Ordonez IG # 0.03 10e3/ul Normal 0.00-0.03 [facility] Comment on above: Performed By: #### T SH #### [facility] [address] [place] [address] Dr. Oralia Ordonez IG % 0.3 % Normal 0.0-0.5 [facility] Comment on above: Performed By: #### T SH #### [facility] [address] [place] [address] Dr. Oralia Ordonez LYMPH # 2.3 103/ul Normal 1.2-3.8 [facility] Comment on above: Performed By: #### T SH #### [facility] [address] [place] [address] Dr. Oralia Ordonez Lymphocytes/100 WBC (Bld) 21.3 % Normal 20.5-60.0 [facility] Comment on above: Performed By: #### T SH #### [facility] [address] [place] [address] Dr. Oralia Ordonez MANUAL DIFF REQ NO Normal [facility] Comment on above: Performed By: #### T SH #### [facility] [address] [address] [address] Oralia Ordonez MCH (RBC) [Entitic mass] 26.6 pg Critically low 26.7-34.0 [facility] Comment on above: Performed By: #### T SH #### [facility] [address] [place] [address] Dr. Oralia Ordonez MCHC (RBC) [Mass/Vol] 33.0 g/dL Normal 29.9-35.2 [facility] Comment on above: Performed By: #### T SH #### [facility] [address] [place] [address] Dr. Oralia Ordonez MCV (RBC) [Entitic vol] 80.7 fL Critically low 81.0-99. 0 [facility] Comment on above: Performed By: #### T SH #### [facility] [address] [place] [address] Dr. Oralia Ordonez MONO # 0.4 103/ul Normal 0.3-0.8 [facility] Comment on above: Performed By: #### T SH #### [facility] [address] [place] [address] Dr. Oralia Ordonez Monocytes/100 WBC (Bld) 3.7 % Normal 1.7-12.0 [facility] Comment on above: Performed By: #### T SH #### [facility] [address] [place] [address] Dr. Oralia Ordonez NEUT # 7.8 103/ul Critically high 1.4-6.5 [facility] Comment on above: Performed By: #### T SH #### [facility] [address] [place] [address] Dr. Oralia Ordonez Neutrophils/100 WBC (Bld) 73.3 % Normal 43.0-75.0 [facility] Comment on above: Performed By: #### T SH #### [facility] [address] [place] [address] Dr. Oralia Ordonez Platelet mean volume (Bld) [Entitic vol] 8.9 fL Critically low 9.5-13.5 [facility] Comment on above: Performed By: #### T SH #### [facility] [address] [place] [address] Dr. Oralia Ordonez PLT 286 103/ul Normal 150-[address] [facility] Comment on above: Performed By: #### T SH #### [facility] [address] [place] [address] Dr. Oralia Ordonez RBC 4.77 106/ul Normal 4.20-5.[address] [facility] Comment on above: Performed By: #### T SH #### [facility] [address] [place] [address] Dr. Oralia Ordonez WBC 10.7 103/ul Normal 4.0-11.0 [facility] Comment on above: Performed By: #### T SH #### [facility] [address] [place] [address] Dr. Oralia Ordonez CULTURE URINEon 09-04-2022 CULTURE URINE Culture Observations: LIGHT GROWTH OF MIXED GENITAL JESIKA. NO POTENTIAL PATHOGENS SEEN. Normal [facility] Comment on above: Performed By: #### T SH #### [facility] [address] [place] [address] Dr. Oralia Ordonez GLYCOHEMOGLOBIN A1Con 2022 ADA RECOMMENDATION SEE BELOW Normal [facility] Comment on above: Result Comment: ADA RECOMMENDED LIMIT 4.0 - 6.0 ADA THERAPEUTIC TARGET < 7.0 ACTION SUGGESTED > 7.0 Performed By: #### A 1C #### [facility] [address] [place] [address] Dr. Oralia Ordonez Glucose [Mass/Vol] 108 mg/dL Normal [facility] Comment on above: Performed By: #### A 1C #### [facility] [address] [place] [address] Dr. Oralia Ordonez HbA1c (Bld) [Mass fraction] 5.4 % Normal 4.5-6.2 [facility] Comment on above: Performed By: #### A 1C #### [facility] [address] [place] [address] Dr. Oralia Ordonez TSHon 09-04-2022 TSH 1.161 uIU/mL Normal 0.358-3.740 [facility] Comment on above: Performed By: #### T #### [facility] [address] [place], [place] [address] Dr. Oralia Ordonez TYPE AND SCREENon 09-04-2022 TYPE AND SCREEN Negative Normal [facility] Comment on above: Performed By: #### T #### [facility] [address] [place], [place] [address] Dr. Oralia Ordonez US PREG TVon 08-25-2022 [...] by: LAVINIA WEST Date: 2022-08-25 16:23 Normal [facility] Vital Signs Date Time Vital Sign Value Performing Clinician Facility 03-25-2025 16:58-0400 Body height 160.02 cm [employer] Work Phone: [facility] 03-25-2025 16:58-0400 Body mass index (BMI) [Ratio] 51.1 kg/m2 Sal Oberer DO Work Phone: [facility] 03-25-2025 16:58-0400 Body temperature 97.7 [degF] Sal Oberer DO Work Phone: [facility] 03-25-2025 16:58-0400 Body weight 130.88 kg Sal [employer] Work Phone: [facility] 03-25-2025 16:58-0400 Diastolic blood pressure 60 mm[Hg] Sal Oberer DO Work Phone: [facility] 03-25-2025 16:58-0400 Heart rate 52 /min Sal Oberer DO Work Phone: [facility] 03-25-2025 16:58-0400 Respiratory rate 18 /min Sal Oberer DO Work Phone: [facility] 03-25-2025 16:58-0400 SaO2% (BldA) [Mass fraction] 98 % Sal Oberer DO Work Phone: [phone] [place] [address] 03-25-2025 16:58-0400 Systolic blood pressure 117 mm[Hg] Sal Oberer DO Work Phone: [phone](825)[phone] [place] [address] 02-20-2025 10:53-0400 Body height 160.02 cm Sal Oberer DO Work Phone: 2(224)[phone] [place] [address] 02-20-2025 10:53-0400 Body mass index (BMI) [Ratio] 51 kg/m2 Sal Oberer DO Work Phone: [phone])[phone] [place] [address] 02-20-2025 10:53-0400 Body temperature 98.4 [degF] Sal Oberer DO Work Phone: [facility] 02-20-2025 10:53-0400 Body weight 130.74 kg Sal Oberer DO Work Phone: [facility] 02-20-2025 10:53-0400 Diastolic blood pressure 75 mm[Hg] Sal Oberer DO Work Phone: 1([phone])[phone] [place] [address] 02-20-2025 10:53-0400 Heart rate 78 /min Sal Oberer DO Work Phone: [facility] 02-20-2025 10:53-0400 Respiratory rate 16 /min Sal Oberer DO Work Phone: [facility] 02-20-2025 10:53-0400 SaO2% (BldA) [Mass fraction] 99 % Sal Oberer DO Work Phone: [facility] 02-20-2025 10:53-0400 Systolic blood pressure 100 mm[Hg] Sal Oberer DO Work Phone: [facility] 01-08-2025 11:05-0400 Body mass index (BMI) [Ratio] 54.1 kg/m2 Demond Glenroy DO Work Phone: [facility] 01-08-2025 11:05-0400 Body weight 134.17 kg Demond Glenroy DO Work Phone: [facility] 01-08-2025 11:05-0400 Diastolic blood pressure 68 mm[Hg] Demond Glenroy DO Work Phone: [facility] 01-08-2025 11:05-0400 Systolic blood pressure 110 mm[Hg] Demond Glenroy DO Work Phone: [facility] 11-24-2024 11:49-0400 Body height 160.02 cm [facility] 11-24-2024 11:49-0400 Body mass index (BMI) [Ratio] 52 kg/m2 [facility] 11-24-2024 11:49-0400 Body temperature 101.4 [degF] [facility] 11-24-2024 11:49-0400 Body weight 133.35 kg [facility] 11-24-2024 11:49-0400 Diastolic blood pressure 77 mm[Hg] [facility] 11-24-2024 11:49-0400 Heart rate 103 /min [facility] 11-24-2024 11:49-0400 Respiratory rate 18 /min [facility] 11-24-2024 11:49-0400 SaO2% (BldA) [Mass fraction] 98 % [facility] 11-24-2024 11:49-0400 Systolic blood pressure 125 mm[Hg] [facility] 10-26-2023 09:34-0400 Body height 160.02 cm [facility] 10-26-2023 09:34-0400 Body mass index (BMI) [Ratio] 47.9 kg/m2 [facility] 10-26-2023 09:34-0400 Body temperature 97.1 [degF] [facility] 10-26-2023 09:34-0400 Body weight 122.92 kg [facility] 10-26-2023 09:34-0400 Diastolic blood pressure 70 mm[Hg] [facility] 10-26-2023 09:34-0400 Heart rate 63 /min [facility] 10-26-2023 09:34-0400 Respiratory rate 18 /min [facility] 10-26-2023 09:34-0400 SaO2% (BldA) [Mass fraction] 97 % [facility] 10-26-2023 09:34-0400 Systolic blood pressure 111 mm[Hg] [facility] Encounters Encounter Date Encounter Type Care Provider Facility Start: 03-25-2025 End: 03-25-2025 ambulatory Sal Oberer DO Work Phone: [facility] Work Phone: Start: 03-25-2025 End: 03-25-2025 Patient encounter procedure Pauly Clinton MANAGER SPA -[facility] Work Phone: Start: 03-20-2025 Non-patient / Non-visit Sal L Obere r DO -[facility] [employer] Work Phone: Start: 02-20-2025 End: 02-20-2025 ambulatory Sal Oberer DO Work Phone: [facility] Work Phone: Start: 02-20-2025 End: 02-20-2025 Patient encounter procedure Sal L Oberer DO -[facility] Work Phone: Start: 01-10-2025 End: 01-10-2025 Clinisync Result Encounter Demond Glenroy DO Work Phone: [facility] External [facility] Unsolicited Start: 01-10-2025 End: 01-10-2025 Clinisync Result Encounter Demond Glenroy DO Work Phone: [facility] Unsolicited Start: 01-10-2025 Non-patient / Non-visit Demond Glenroy -[facility] [employer] Work Phone: Start: 01-08-2025 End: 01-08-2025 Bamboo flowsheet Demond Glenroy DO Work Phone: [facility] Start: 01-08-2025 End: 01-12-2025 Bamboo flowsheet Demond Glenroy DO Work Phone: [facility] Start: 01-08-2025 End: 01-12-2025 Clinisync Result Encounter Demond Glenroy DO Work Phone: [facility] External [facility] Unsolicited Start: 01-08-2025 Non-patient / Non-visit Demond Glenroy -[facility] [employer] Work Phone: Start: 01-08-2025 End: 01-08-2025 Patient encounter procedure Demond Glenroy DO Work Phone: [facility] Work Phone: Start: 01-08-2025 End: 01-08-2025 Periodic preventive med est patient 18-39 yrs Demond Glenroy DO Work Phone: [facility] Luisa TORRES Comment on above: Well woman exam with routine gynecological exam; Borderline diabetes mellitus Start: 01-08-2025 End: 01-08-2025 ambulatory DEMOND GLENROY Not Available Start: 12-01-2024 End: 12-01-2024 ambulatory [facility] Start: 11-24-2024 End: 11-24-2024 ambulatory [facility] Work Phone: Start: 11-24-2024 End: 11-24-2024 Patient encounter procedure [facility] Work Phone: Start: 10-30-2024 End: 10-30-2024 ambulatory [facility] Facility[facility] Start: 10-30-2024 End: 10-30-2024 ambulatory Dana REYES [facility] Start: 06-30-2024 [facility] Start: 06-21-2024 End: 06-21-2024 ambulatory Rigo Jin Nazario Facility:[facility] Start: 06-21-2024 Non-patient / Non-visit [facility] [employer] Work Phone: Start: 10-26-2023 End: 10-26-2023 ambulatory [facility] Work Phone: Start: 10-26-2023 End: 10-26-2023 Patient encounter procedure [facility] Work Phone: Start: 01-09-2023 End: 02-16-2023 Pre-admission assessment Demond TIM [facility] Start: 10-25-2022 End: 10-25-[address] [...] 05-05-2021 End: 05-05-2021 ambulatory Chiara Alexander Other [facility] [employer] Other Start: 05-05-2021 Telephone encounter Chiara Solano [facility] Start: 04-07-2021 Telephone encounter [facility] [facility] Procedures Date Procedure Procedure Detail Performing Clinician Start: 01-10-2025 ALL CBC WITH AUTO DIFF Demond Glenroy DO Work Phone: Start: 01-08-2025 IGP,APTIMA HPV,AGE GDLN Demond Glenroy DO Work Phone: Start: 11-24-2024 Quick Strep (POC) Start: 10-26-2023 Quick Strep (POC) Start: 10-25-2022 Microscopic observat ion [Identifier] in Cervix by Cyto stain Demond Aragono DO Work Phone: H/O: tubal ligation History of b ilateral tubal ligation Sal Oberer DO Work Phone: H/O: tubal ligation History of b ilateral tubal ligation Sal L Oberer DO Plan of Treatment Date Care Activity Detail Author Start: 10-26-2027 Screening for malign ant neoplasm of cervix [facility] Start: 01-14-2026 End: 01-14-2026 Patient encounter procedure 01/14/2026 9:00 AM EDT Procedure Visit [facility] [address] [place] [id number] Demond Tim DO [address] [place] [address] [facility] Start: 02-16-2025 Influenza vaccination Influenza Vacc ine (#1) [facility] Start: 01-08-2025 End: 01-08-2025 Patient encounter procedure 01/08/2025 11:00 AM EDT Office Visit [facility] [address] [place] [phone] Demond Tim DO [address] [place] [address] Arrived [facility] Comment on above: Arrived Start: 06-21-2024 Urine culture [facility] CBC W Auto Different ial panel - Blood CBC auto differential Lab Routine Well woman exam with routine gynecological exam Borderline diabetes mellitus Ordered: 01/08/2025 [facility] Comment on above: Ordered: 01/08/2025 Cholesterol [Mass/volume] in Serum or Plasma Cholesterol, total Lab Routine Well woman exam with routine gynecological exam Borderline diabetes mellitus Ordered: 01/08/2025 [facility] Comment on above: Ordered: 01/08/2025 Comprehensive metabo lic 2000 panel - Serum or Plasma Comprehensive metabolic panel Lab Routine Well woman exam with routine gynecological exam Borderline diabetes mellitus Ordered: 01/08/2025 [facility] Comment on above: Ordered: 01/08/2025 Cytology Cervical or vaginal smear or scraping study Pap Smear Pathology and Cytology Routine Well woman exam with routine gynecological exam Ordered: 01/08/2025 [facility] Work Phone: Comment on above: Ordered: 01/08/2025 Hemoglobin A1c/Hemoglobin.total in Blood Hemoglobin A1c Lab Routine Well woman exam with routine gynecological exam Borderline diabetes mellitus Ordered: 01/08/2025 [facility] Comment on above: Ordered: 01/08/2025 Human papilloma viru s DNA [Presence] in Unspecified specimen by Probe with amplification HPV DNA probe, amplified Microbiology Routine Well woman exam with routine gynecological exam Ordered: 01/08/2025 [facility] Comment on above: Ordered: 01/08/2025 Patient Education Fatigue [facility] Work Phone: Thyrotropin [Units/volume] in Serum or Plasma TSH Lab Routine Well woman exam with routine gynecological exam Borderline diabetes mellitus Ordered: 01/08/2025 [facility] Comment on above: Ordered: 01/08/2025 [facility] Immunizations Immunization Date Immunization Notes Care Provider Fa cility 02-20-2025 influenza, seasonal, injectable, preservative free Sal Oberer DO Work Phone: [facility] 04-14-2024 influenza virus vaccine, unspecified formulation Demond Glenroy DO Work Phone: [facility] 03-27-2022 influenza virus vaccine, unspecified formulation Demond GLENROY [facility] Comment on above: Reason for Medicatio n: Prophylaxis 03-08-2021 COVID-19 Vaccine Pfi zer - Documentation Purposes Only Chiara Fitt Other [facility] 03-08-2021 influenza, injectabl e, quadrivalent, preservative free Chiara Fitt Other [facility] 02-15-2021 COVID-19 Vaccine Pfi zer - Documentation Purposes Only Chiara Fitt Other [facility] 02-17-2020 influenza, injectabl e, quadrivalent, contains preservative Chiara Fitt Other [employer] Other 02-17-2020 influenza, injectabl e, quadrivalent, preservative free [facility] 04-14-2019 influenza, seasonal, injectable Chiara Fitt Other [facility] 06-19-2018 influenza, seasonal, injectable Chiara Fitt Other [facility] Payers Date Payer Category Payer Unknown 2024 Self-pay [id number] 2021 [facility] Mem er [id number] 1989 Unknown [id number]. 593 1989 Unknown [id number] [id number]. 593 1989 Unknown [id number] [id number]. 593 1989 Unknown [id number] [id number]. 593 1989 Unknown [id number] [id number]. 593 1989 Unknown [id number] [id number]. 593 1989 Unknown [id number] [id number]. 727 1989 Unknown [id number] [id number]. 727 1989 Unknown [id number] [id number]. 1259 1959 Unknown [id number] Unknown [id number] Unknown [id number]. 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 Compensation [facility] Med C t Ind [id number] Social History Date Type Detail Facility Unknown if ever smoked [employer] Other Start: 04-20-2023 End: 01-08-2025 Sex Assigned At [facility] Tobacco smoking status No Smoking Status Entered [facility] Start: 12-21-2022 End: 10-26-2023 Tobacco smoking status NHIS Never smoked tobacco (finding) [facility] Start: 1990 Sex Assigned At Female [facility] Start: 06-23-2024 End: 11-24-2024 Sex Female (finding) [facility] Start: 06-28-2023 End: 01-08-2025 Alcoholic beverage intake Lifetime non-drinker (finding) [facility] Start: 04-20-2023 End: 01-08-2025 History of Social function [facility] Start: 12-21-2022 Alcohol Comment Caffeine: 1-2 cups/day [facility] Start: 1990 Sex assigned at Not on file [facility] NEGATED: Highlighted row N [facility] Clinical Notes 09-05-2018 to 02-20-2025 Note Date & Type Note Facility 02-20-2025 Evaluation note Diagnosis Onset Date Resolution BMI 50.0-59.9, adult acute Sept ember 2024 10:19am Depression with anxiety acute S eptember 2024 10:19am Essential hypertension acute Se ptember 2024 10:19am Gestational diabetes acute Sept ember 2024 10:19am History of bilateral tubal ligation acute February 20 10:19am LVH (left ventricular hypertrophy) acute February 20 10:19am Microcytic anemia acute Febemb er 2024 10:19am Mixed hyperlipidemia acute Sept er 2024 10:19am SVT (supraventricular tachycardia) acute February 20 10:19am Malaise and fatigue noneactive Septe mb2024 10:19am [facility] Work Phone: 1(513) 932-726107-24-2025 History of Present illness Narrative* Kathy Banda LPN - 01/08/2025 11:00 AM EDT Reason for Appointment: Patient ID: Debby Bone [...] Morbid obesity with BMI of 50.0-59.9, [place] Post depression Postop check Pre-eclampsia in period [...] Morbid obesity with BMI of 50.0-59.9, adult [place] Post depression Postop check Pre-eclampsia in period [...] nursing note reviewed. Exam conducted with a lab systems analyst present. Vitals: Estimated body mass index is [...] by Kathy Banda LPN on behalf of: eDmond Tim DO documented in this encounterSt. [facility] Medical [id number] NoteUT Cardiology - [facility] Jennifer Debby Bone is a 34 y.o. year [...] Topics Alcohol use: Not Currently Drug use: Jimmie Kelleyssica is seen in follow-up. This is the [...] bradycardia, no significant arrhythmias. (more content not included)...[facility]06-09-2025 Evaluation note* Diagnosis Onset Date Resolution Status Admit Date Strep pharyngitis acute November 11:48am [facility] Work Phone: 1(778) 898-529401-13-2025 NoteUT Cardiology - [facility] Subjective Debby Bone is a 33 y.o. year old female patient being seen for Palpitations Patient Active Problem List Diagnosis Tachycardia 36 weeks gestation of Intermittent palpitations SVT (supraventricular tachycardia) ([facility] HPI Patient with history of palpitations. Also [...] Morbid obesity, BMI 52.8 (more content not included)...[facility]03-21-2019 History general Narrative - Reported* Type Description Date Medical History Stress fracture left foot-Dr Taya hess Medical History Depression Medical History Post pre-eclampsia Medical History HTN Medical History Gestational Diabetes Surgical History Bx right breast 09/05/18 Surgical History D&C and hysteroscopy 11/23/17 Surgical History D&C, hysteroscopy-Luisa- Neg bx's -Dr Tim 08/03/20 Hospitalization History child 12/2018 [facility] [employer] Other Evaluation + Plan note No data available for this section [facility] [employer] Other Evaluation noteNo assessment information available [facility] Work Phone: Evaluation note* Diagnosis Onset Date Resolution Status Admit Date Sore throat noneactive November 24 11:48am [facility] Work Phone: Evaluation note* Diagnosis Well woman exam with routine gynecological exam Routine gynecological examination Borderline diabetes mellitus Other abnormal glucose documented in this encounter [facility] N[facility] - [facility] [employer] Other Hospital Discharge instructions No data available for this section [facility] No data available for this section [facility] (narrative)No reason for referral information availablePromedica [facility] Work Phone: Summary Purpose Family History [...] Strep pharyngitis November 24, 2024 11:48 am Chief Complaint Admit Date re establish February 20, 2025 10:19am Earache, swollen gland March 25, 2025 4:47pm Reason for Visit Admit Date BMI 50.0-59.9, adult February 20, 2025 10:19am Depression with anxiety February 20, 2 025 10:19am Essential hypertension February 20 10:19am Gestational diabetes February 20, 2025 10:19am History of bilateral tubal ligation [facility]2024 10:19am LVH (left ventricular hypertrophy) [facility] 2024 10:19am Microcytic anemia February 20, 2025 10:19am Mixed hyperlipidemia February 20, 2025 10:19am SVT (supraventricular tachycardia) [facility] 2024 10:19am Malaise and fatigue February 20, 2025 10:19am Additional Source Comments REASON FOR VISIT (unrecogniz ed section and content) Reason Comments [facility] INFORMATION SOURCE (unrecogn ized section and content) DATE CREATED AUTHOR 11/01/2022 [facility] p[facility] DATE CREATED AUTHOR AUTHOR'S ORGANIZ ATION 06/29/2024 [facility] DATE CREATED AUTHOR AUTHOR'S ORGANIZ ATION 10/31/2024 [facility] DATE CREATED AUTHOR AUTHOR'S ORGANIZ ATION 11/01/2024 [employer] [place] [employer] [facility] DATE CREATED AUTHOR AUTHOR'S ORGANIZ ATION 11/04/2024 [employer] [place] [employer] [facility] DATE CREATED AUTHOR AUTHOR'S ORGANIZ ATION 01/09/2025 [facility] EPIC DATE CREATED AUTHOR AUTHOR'S ORGANIZ ATION 01/23/2025 [facility] Patient Care team informatio n (unrecognized section and content) Team Status: Active Member Role Status Dates Sal Simms DO Primary Care Provider Active Team Status: Active Member Role Status Dates Sal Simms DO Primary Care Provider Active St art: January 08, 2025 Demond Glenroy , DO Attending Provider Active Start : January 08, 2025 Team Status: Active Member Role Status Dates Sal Oberer , DO Primary Care Provider Active St art: January 10, 2025 Demond Glenroy , DO Attending Provider Active Start : January 10, 2025 Team Status: Inactive Member Role Status Dates Sal Oberer , DO Primary Care Provider Active St art: February 20, 2025 End: February 20, 2025 Sal Oberer , DO Attending Provider Active Start : February 20, 2025 End: February 20, 2025 Team Status: Active Member Role Status Dates Sal Oberer , DO Primary Care Provider Active St art: March 20, 2025 Sal Oberer , DO Attending Provider Active Start : March 20, 2025 Team Status: Inactive Member Role Status Dates Sal Oberer , DO Primary Care Provider Active St art: March 25, 2025 End: March 25, 2025 Pauly Rivera APRN Attending Provider Active Start: March 25, 2025 End: March 25, 2025 Team Status: Active Member Role Status Dates Sal Oberer , DO Primary Care Provider Active Team Status: Inactive Member Role Status Dates Sal Oberer , DO Primary Care Provider Active St art: November 24, 2024 End: November 24, 2024 Pauly Rivera APRN Attending Provider Active Start: November 24, 2024 End: November 24, 2024 Team Status: Active Member Role Status Dates Sal Oberer , DO Primary Care Provider Active St art: June 21, 2024 Rigo Lange , DO Attending Provider Active S tart: June 21, 2024 Team Status: Inactive Member Role Status Dates Sal Oberer , DO Primary Care Provider Active St art: October 26, 2023 End: October 26, 2023 Pauly Rivera APRN Attending Provider Active Start: October 26, 2023 End: October 26, 2023 [employer] Visual [employer] Rental Clerk Relationship Specialty Start Date End Date Sal Simms MD PCP - General Family Medicine 11/16/22 [employer] Rental Clerk Relationship Specialty Start Date End Date Sal Simms MD PCP - General Family Medicine 11/16/22 [employer] Rental Clerk Relationship Specialty Start Date End Date Sal Simms MD PCP - General Family Medicine 11/16/22 Team Status: Active Member Role Status Dates Sal Obkenia , DO Primary Care Provider Active St art: January 08, 2025 Demond Glenroy , DO Attending Provider Active Start : January 08, 2025 Team Status: Active Member Role Status Dates Sal Obfredr , DO Primary Care Provider Active St art: January 10, 2025 Demond Glenroy , DO Attending Provider Active Start : January 10, 2025 Team Status: Inactive Member Role Status Dates Sal Obfredr , DO Primary Care Provider Active St art: February 20, 2025 End: February 20, 2025 Sal Oberer , DO Attending Provider Active Start : February 20, 2025 End: February 20, 2025 Team Status: Active Member Role Status Dates Sal Simms , DO Primary Care Provider Active St art: March 20, 2025 Sal Oberer , DO Attending Provider Active Start : March 20, 2025 Team Status: Inactive Member Role Status Dates Sal Obkenia , DO Primary Care Provider Active St art: March 25, 2025 End: March 25, 2025 Pauly Rivera APRN Attending Provider Active Start: March 25, 2025 End: March 25, 2025 Goals (unrecognized section and content) Goals [...] BE BASED ON THE PRIMARY CLINICAL RECORDS. [facility] impok [facility]. provides no warranty or guarantee of the accuracy or completeness of information in this document.
[2025-03-30 17:10] LABS: Hematocrit 35.8 % (36.0-48.0); Hemoglobin 11.7 g/dL (12.0-16.0); Immature Granulocytes Abs Auto 0.02 10^3/uL (0.00-0.03); Immature Granulocytes Pct Auto 0.2 % (0.0-0.5); Lymphocytes Absolute Auto 2.6 10^3/uL (1.2-3.8); Mean Corpuscular HGB Conc 32.7 g/dL (29.9-35.2); Mean Corpuscular Hemoglobin 26.1 pg (26.7-34.0); Mean Corpuscular Volume 79.7 fL (81.0-99.0); Platelet Count 253 10^3/uL (150-450); Red Blood Count 4.49 10^6/uL (4.20-5.40); Reticulocyte Pct Auto 1.74 % (0.60-3.10); White Blood Count 9.9 10^3/uL (4.0-11.0)
[2025-03-30 18:19] LABS: Iron 44.0 ug/dL (50.0-170.0)
[2025-03-30 18:35] LABS: Ferritin 14.0 ng/mL (8.0-252.0); Folate 5.10 ng/mL (8.60-58.90)
[2025-04-01 08:09] LABS: Vitamin B12 751 pg/mL (232-1245)
== END 2025-03-30 16:52 | disposition home or self-care (01) ==
PROVIDERS: PCP Family Medicine; Visit Provider Family Medicine
DX: R53.81 Other malaise (principal); R53.83 Other fatigue; D50.9 Iron deficiency anemia, unspecified; E78.00 Pure hypercholesterolemia, unspecified
CPT/HCPCS: 36415; 82607; 82728; 82746; 83540; 85025; 85045